=== PATIENT | female | born 1970 | race Caucasian/White ===

== ENCOUNTER → 2019-08-22 10:04 | Outpatient (BNVA) | payer MEDICARE, SELFPAY | PROVIDERS: Family Provider Nurse Practitioner Family; PCP Nurse Practitioner Family; Visit Provider Nurse Practitioner Psychiatric/Mental Health | DX: F33.2 Major depressive disorder, recurrent severe without psychotic features (principal) | CPT/HCPCS: 99214 ==

== ENCOUNTER → 2019-09-01 14:49 | Outpatient (BNVA) | payer MEDICARE, SELFPAY | PROVIDERS: Family Provider Nurse Practitioner Family; PCP Nurse Practitioner Family; Visit Provider Specialist | DX: G25.0 Essential tremor (principal); G25.81 Restless legs syndrome; Z87.891 Personal history of nicotine dependence | CPT/HCPCS: 96116; 99214 ==

== ENCOUNTER 2019-09-16 20:00 | Outpatient (CLI) | payer MEDICARE, SELFPAY | END 2019-09-16 20:01 | disposition home or self-care (01) | LOC: SLEEP 09-17 10:57 | PROVIDERS: Family Provider Nurse Practitioner Family; PCP Nurse Practitioner Family; Visit Provider Specialist | DX: G47.30 Sleep apnea, unspecified (principal) | CPT/HCPCS: 95810 ==

== ENCOUNTER 2019-11-28 08:39 | Outpatient (CLI) | payer MEDICARE, SELFPAY ==
--- NOTE | 2019-11-28 08:45 | MR_ITS ---
WS: [id number] MRI LUMBAR SPINE NONCONTRAST HISTORY: Low back pain COMPARISON: 03/17/2019 TECHNIQUE: Sagittal and axial multisequence imaging is submitted. Increase in thoracic kyphosis. Very slight LEFT convex curvature of the lumbar spine. Posterior align ment is normal. Moderate degenerative disc disease at L4-5. There is disc space narrowing and desiccation with chroni c endplate changes. Mild progression since the prior examination. Remaining disc spaces are normal. No fractures. Conus terminates normally at L1-2 disc level. L1-L2: Normal. L2-L3: Normal. L3-L4: Mild annular disc bulging with a small to moderate central disc protrusion causing concavity o f the ventral thecal sac and deformity. There is an additional smaller disc osteophyte in the LEFT fo ramen. Mild facet disease. Mild central stenosis with mild LEFT subarticular and foraminal stenosis. L4-L5: Mild annular disc bulging. Moderate size central to RIGHT paracentral disc protrusion with con tact and deformity of the RIGHT lateral thecal sac and subarticular recess stenosis. Disc protrusion is abutting the L4 and L5 nerve roots on the RIGHT. Mild LEFT foraminal stenosis. L5-S1: Moderate central disc protrusion. Deformity of the ventral thecal sac without significant sten osis. Paraspinal soft tissues are negative. MR/MR lumbar spine wo con* [id number] IMPRESSION: 1. Moderate size central to RIGHT paracentral disc protrusion at L4-5 with enc roachment into the RIGHT lateral recess. Disc protrusion is contacting the L4 a nd L5 nerve roots on the RIGHT was stenosis. No change. 2. Small central disc protrusion at L5-S1 may have slightly increased in size since the prior study. No significant stenosis. 3. Small to moderate central disc protrusion at L3-4 resulting in mild central and LEFT subarticular and foraminal stenosis. No change.
--- NOTE | 2019-11-28 11:00 | XR_ITS ---
WS: [id number] XR lumbar spine f/e only [id number] REASON FOR EXAM: Low back pain FINDINGS: Degenerated disc changes are identified L4-L5. Anterior spurring is seen this segment. And there is spurring seen at the anterior L3-L4 level. A mild scoliotic curve to the left is seen in the L3-L4-5 region. Flexion-extension views appear to be essentially normal. XR/XR lumbar spine f/e only [id number] IMPRESSION: Degenerated disc changes L4-L5 findings mild scoliotic curve convex to the left L3-S1.
== END 2019-11-28 08:40 | disposition home or self-care (01) ==
LOC: RADWPI 08:55
PROVIDERS: Family Provider Nurse Practitioner Family; PCP Nurse Practitioner Family; Visit Provider Licensed Practical Nurse
DX: M51.26 Other intervertebral disc displacement, lumbar region (principal); M51.27 Other intervertebral disc displacement, lumbosacral region
CPT/HCPCS: 72120; 72148

== ENCOUNTER → 2019-12-15 07:22 | Outpatient (BNVA) | payer MEDICARE, SELFPAY | PROVIDERS: Family Provider Nurse Practitioner Family; PCP Nurse Practitioner Family; Visit Provider Nurse Practitioner Psychiatric/Mental Health | DX: F33.2 Major depressive disorder, recurrent severe without psychotic features (principal) | CPT/HCPCS: 99213 ==

== ENCOUNTER 2019-12-19 13:09 | Outpatient (CLI) | payer MEDICARE, SELFPAY ==
--- NOTE | 2019-12-19 13:20 | MM_ITS ---
WS: [id number] BILATERAL SCREENING DIGITAL MAMMOGRAM WITH CAD HISTORY: SCREENING COMPARISON: 02/28/2019 and 08/29/2018 and 12/24/2015 Bilateral CC and MLO views submitted. Computer aided detection analyzed. Breast composition: The breasts are heterogeneously dense, which may obscure small masses. No suspici ous masses, microcalcifications or architectural distortion. Stable calcifications and asymmetries th roughout both breasts. MM/[place] [id number] IMPRESSION: BI-RADS: 2-Benign FOLLOW UP: 1 Year Follow-up
== END 2019-12-19 13:10 | disposition home or self-care (01) ==
LOC: RADSHAW 13:14
PROVIDERS: PCP Nurse Practitioner Family; Visit Provider Nurse Practitioner Family
DX: Z12.31 Encounter for screening mammogram for malignant neoplasm of breast (principal)
CPT/HCPCS: 77067

== ENCOUNTER 2020-01-28 09:09 | Outpatient (CLI) | payer MEDICARE, SELFPAY ==
--- NOTE | 2020-01-28 09:20 | US_ITS ---
WS: [id number] Complete ABDOMINAL ULTRASOUND HISTORY: HEPATOMEGALY COMPARISON: None available. Liver: 16.0 cm in length. Liver is normal size and echogenicity with no mass or intrahepatic dilatati on. Gallbladder: Normally distended with no gallstones, wall thickening or pericholecystic fluid. Gallbladder wall thickness: 0.2 cm. Pancreas: Normal size and echogenicity. CBD: 0.4 cm. Right kidney: 11.5 cm x 5.2 cm x 4.0 cm. No mass, cortical thickening or hydronephrosis. Left kidney: 9.9 cm x 5.3 cm x 5.2 cm. No mass, cortical thickening or hydronephrosis. Spleen: Spleen is top normal size. Abdominal aorta and IVC are within normal limits. No ascites. US/US abdomen complete* [id number] IMPRESSION: 1. Spleen is top normal size. 2. Study is otherwise negative.
== END 2020-01-28 09:10 | disposition home or self-care (01) ==
LOC: US 09:13
PROVIDERS: PCP Nurse Practitioner Family; Visit Provider Nurse Practitioner Family
DX: R16.0 Hepatomegaly, not elsewhere classified
CPT/HCPCS: 76700

== ENCOUNTER → 2020-02-18 12:00 | Outpatient (BNVA) | payer MEDICARE, SELFPAY | PROVIDERS: PCP Nurse Practitioner Family; Visit Provider Licensed Practical Nurse | DX: M51.17 Intervertebral disc disorders with radiculopathy, lumbosacral region (principal); G60.8 Other hereditary and idiopathic neuropathies | CPT/HCPCS: 99214 ==

== ENCOUNTER → 2020-03-02 12:49 | Outpatient (BNVA) | payer MEDICARE, SELFPAY | PROVIDERS: PCP Nurse Practitioner Family; Visit Provider Licensed Practical Nurse | DX: G25.0 Essential tremor (principal); M51.17 Intervertebral disc disorders with radiculopathy, lumbosacral region; M48.062 Spinal stenosis, lumbar region with neurogenic claudication; G60.8 Other hereditary and idiopathic neuropathies | CPT/HCPCS: 99214 ==

== ENCOUNTER 2020-03-19 12:42 | Outpatient (CLI) | payer MEDICARE, SELFPAY ==
--- NOTE | 2020-03-19 13:01 | MR_ITS ---
WS: [id number] MRI BRAIN WITH AND WITHOUT CONTRAST HISTORY: ESSENTIAL TREMOR COMPARISON: None available. TECHNIQUE: Multiplanar imaging performed through the brain with Prohance 17 ml's IV. No acute infarcts are seen. Osullivan-white matter differentiation is well preserved. There are very few s cattered T2 and FLAIR signal hyperintensities in subcortical white matter. No prior infarct. No susceptibility artifacts or prior lacunar infarcts. Ventricles and extra-axial spaces are normal. Clivus and pituitary gland are normal. Visualized posterior fossa and brainstem are also normal. Nonmass-like areas of enhancement in the anterior LEFT temporal lobe cerebellum, just to the RIGHT of midline. Suspect these are probably related to a small venous angiomas. Dural venous sinuses are normal. Paranasal sinuses: No air-fluid levels. Soft tissue thickening in the floor the posterior and RIGHT l ateral sphenoid sinus with minimal enhancement. Inseparable from the clivus. Soft tissue abuts the RI GHT common carotid artery through the cavernous sinus. Mastoid air cells: Normal. Calvarium and scalp: Normal. MR/MR head wo/w con [id number] IMPRESSION: 1. No acute infarct or mass. 2. Small venous angiomas in the LEFT temporal and RIGHT cerebellum. 3. Increased soft tissue thickening in the posterior RIGHT sphenoid sinus with poor visualization of the adjacent clivus. This may all be related to sinus di sease. Recommend dedicated sinus CT to further evaluate the location and extent of the soft tissue thickening and margins of the clivus.
== END 2020-03-19 12:43 | disposition home or self-care (01) ==
LOC: RADWPI 12:50
PROVIDERS: Family Provider Nurse Practitioner Family; PCP Nurse Practitioner Family; Visit Provider Licensed Practical Nurse
DX: G25.0 Essential tremor (principal); Q28.3 Other malformations of cerebral vessels
CPT/HCPCS: 70553; A9579

== ENCOUNTER → 2020-03-23 11:04 | Outpatient (BNVA) | payer MEDICARE, SELFPAY | PROVIDERS: Family Provider Nurse Practitioner Family; PCP Nurse Practitioner Family; Visit Provider Licensed Practical Nurse | DX: M48.062 Spinal stenosis, lumbar region with neurogenic claudication (principal); G60.8 Other hereditary and idiopathic neuropathies; J34.9 Unspecified disorder of nose and nasal sinuses; M51.17 Intervertebral disc disorders with radiculopathy, lumbosacral region; G25.0 Essential tremor | CPT/HCPCS: 99214 ==

== ENCOUNTER 2020-03-31 15:16 | Outpatient (CLI) | payer MEDICARE, SELFPAY ==
--- NOTE | 2020-03-31 15:28 | CT_ITS ---
WS: [id number] CT PARANASAL SINUSES HISTORY: Sinus soft tissue thickening TECHNIQUE: Contiguous 2.5 mm axial images obtained through the sinuses. Images are reconstructed in s agittal and coronal planes. All CT scans at [facility] use at least one of these dose opt imization techniques: automated exposure control; mA and/or kV adjustment per patient size (includes targeted exams where dose is matched to clinical indication); or iterative reconstruction. DLP: 331.05 mGycm COMPARISON: MRI 03/19/2020 Frontal sinuses: Clear. Sphenoid sinus: Clear. Ethmoid sinuses: Clear. Maxillary sinus: Clear. Ostiomeatal unit: No soft tissue obstruction. Slight LEFT knee deviation of the nasal septum and a small 5 mm spur extending to the LEFT. The asymmetry noted by MRI is associated with the posterior RIGHT sphenoid sinus and corresponds to a symmetric hyperplastic bone involving the clivus. The cortex is intact and this is probably developme ntal. May be an area of fibrous dysplasia. CT/CT sinus wo con* [id number] IMPRESSION: 1. Asymmetry seen on the recent MRI corresponds to an asymmetric appearance of the clivus. 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 2. No paranasal sinus disease.
== END 2020-03-31 15:17 | disposition home or self-care (01) ==
LOC: RADWPI 15:19
PROVIDERS: Family Provider Nurse Practitioner Family; PCP Nurse Practitioner Family; Visit Provider Licensed Practical Nurse
DX: J34.9 Unspecified disorder of nose and nasal sinuses (principal)
CPT/HCPCS: 70486

== ENCOUNTER → 2020-04-09 07:50 | Outpatient (BNVA) | payer MEDICARE, SELFPAY | PROVIDERS: Family Provider Nurse Practitioner Family; PCP Nurse Practitioner Family; Visit Provider Nurse Practitioner Psychiatric/Mental Health | DX: F33.2 Major depressive disorder, recurrent severe without psychotic features (principal); F41.1 Generalized anxiety disorder | CPT/HCPCS: 99213 ==

== ENCOUNTER → 2020-08-05 07:30 | Outpatient (BNVA) | payer MEDICARE, SELFPAY | PROVIDERS: Family Provider Nurse Practitioner Family; PCP Nurse Practitioner Family; Visit Provider Nurse Practitioner Psychiatric/Mental Health | DX: F33.2 Major depressive disorder, recurrent severe without psychotic features (principal) | CPT/HCPCS: 99213 ==

== ENCOUNTER → 2020-11-08 12:38 | Outpatient (BNVA) | payer MEDICARE, SELFPAY | PROVIDERS: Family Provider Nurse Practitioner Family; PCP Nurse Practitioner Family; Visit Provider Specialist | DX: G25.0 Essential tremor (principal); E11.40 Type 2 diabetes mellitus with diabetic neuropathy, unspecified; Z79.84 Long term (current) use of oral hypoglycemic drugs; Z87.891 Personal history of nicotine dependence | CPT/HCPCS: 99213; 99214 ==

== ENCOUNTER → 2020-11-25 07:29 | Outpatient (BNVA) | payer MEDICARE, SELFPAY | PROVIDERS: Family Provider Nurse Practitioner Family; PCP Nurse Practitioner Family; Visit Provider Nurse Practitioner Psychiatric/Mental Health | DX: F33.2 Major depressive disorder, recurrent severe without psychotic features (principal) | CPT/HCPCS: 99214 ==

== ENCOUNTER 2020-12-21 20:15 | Emergency (ER) | payer MEDICARE, SELFPAY ==
[2020-12-21 20:49] VITALS: BP 184/82; PULSE 68; RESP 16; TEMP 36.4; O2SAT 100; BMI 29.1
--- NOTE | 2020-12-21 21:18 | W.ED.GENADLT ---
HPI - General Adult General: Chief complaint: General Medical Stated complaint: low hemoglobin, needs transfusion Time Seen by Provider: 12/21/20 21:10 Source: patient Mode of arrival: ambulatory Limitations: no limitations History of Present Illness: HPI narrative: 50-year-old female has a history of chronic anemia. States she has been iron supplementation but she stopped taking it a while past. States she has had some slight weakness but just had labs drawn earlier today for general lab draw and her hemoglobin was 6.1. Her nurse practitioner sent her to the ER for blood transfusion. She denies any blood in her stools. Patient's vital signs here are stable. Associated symptoms: Deny chest pain, dyspnea, headache(s), nausea, rash or vomiting Review of Systems Const: Denies: fever(s), chills, body aches or change in appetite Eyes: Denies: blurry vision or eye discomfort ENMT: Denies: throat pain or dental pain Card: Denies: chest pain Resp: Denies: dyspnea GI: Denies: abdominal pain, nausea, vomiting or diarrhea : Denies: dysuria Musc: Denies: neck pain or back pain Skin/Breast: Denies: rash Neuro: Denies: headache(s) Psych: Denies: depression Ja/Lymph: Denies: easy bruising All/Imm: Denies: urticaria PFSH ED PFSH: Medical History (Updated 12/21/20 @ 22:52 by Juanito Fisher MD) Diabetes History of amputation of toe Intervertebral disc disorder with radiculopathy of lumbosacral region Lumbar stenosis with neurogenic claudication Major depressive disorder, recurrent severe without psychotic features Obstructive sleep apnea Peripheral sensory-motor axonal polyneuropathy Sinus disease Surgical History History of carpal tunnel surgery History of eye surgery History of gastric bypass 2018 History of hernia repair History of orthopedic surgery History of tubal ligation Family History Grandmother Stroke Family/Other Stroke Mother Diabetes Heart disease Hypertension Cancer Father Diabetes Social History Smoking and tobacco status: former smoker Alcohol intake: never Household members: spouse and children Marital status: Current occupational status: disabled History of recent travel: No Physical Exam Const: COMMON NORMALS: no acute distress, patient oriented x3 and healthy appearing HENMT: COMMON NORMALS: normocephalic and atraumatic HEAD & SCALP: normocephalic and atraumatic Eye: COMMON NORMALS: Equal, round and reactive pupils present and EOMs intact bilaterally PUPIL: Yes Equal, round and reactive pupils present Neck/C-Spine: COMMON NORMALS: full ROM and supple Chest: COMMONS NORMALS: normal inspection of the chest and normal palpation of entire chest wall Resp: COMMON NORMALS: normal respiratory effort, No retractions, No use of accessory muscles and clear to auscultation bilaterally AUSCULTATION: clear to auscultation bilaterally Cardio: COMMON NORMALS: regular rate, regular rhythm and No murmurs present (Cardio) RATE: regular rate RHYTHM: regular rhythm GI: COMMON NORMALS: Normal to inspection, nondistended, normoactive bowel sounds present, Soft to palpation, non-tender and no masses PALPATION: Yes Soft to palpation Extremity: COMMON NORMALS: normal to inspection and full ROM Neuro: COMMON NORMALS: patient oriented x3, moves all extremities and no focal motor deficits Psych: COMMON NORMALS: mental status grossly normal, Normal thought process present and cooperative THOUGHT PROCESS: Normal thought process present Skin: COMMON NORMALS: no rashes or lesions noted and no wounds GENERAL SKIN EXAM: no rashes or lesions noted Course Vital Signs: Vital signs: Vital Signs Temperature 97.6 F 12/21/20 20:49 Pulse Rate 68 12/21/20 20:49 Respiratory Rate 16 12/21/20 20:49 Blood Pressure 184/82 12/21/20 20:49 Pulse Oximetry 100 12/21/20 20:49 MDM - General Adult MDM Narrative: Medical decision making narrative: Patient presents here with anemia that is likely chronic in nature. We will transfuse her 2 units here and discharge her home. She is to start taking her iron supplements again. She is to follow-up with PCP and return if worsening. She has no signs of hemorrhaging. Lab Data: Labs: Lab Results 12/21/20 12/21/20 12/21/20 Range/Units 21:45 22:18 22:18 WBC 6.6 (4.0-10.0) 10^3/ uL RBC 3.12 L (4.1-5.3) 10^6/u L Hgb 6.3 L* (11.5-15.3) g/dL Hct 22.4 L (37.0-47.0) % MCV 71.8 L (81-99) fL MCH 20.2 L (28.0-34.0) pg MCHC 28.1 L (30.0-36.0) g/dL RDW 16.1 H (12.1-15.1) % Plt Count 398 (130-400) 10^3/c mm MPV 9.1 (7.4-10.4) fL Neut % (Auto) 47.2 % Lymph % (Auto) 42.3 % [place] % (Auto) 7.2 % Eos % (Auto) 2.4 % Baso % (Auto) 0.6 % Neut # (Auto) 3.09 (1.8-7.7) 10^3/u L Lymph # (Auto) 2.8 (0.8-4.8) 10^3/u L [place] # (Auto) 0.5 (0.2-0.9) 10^3/u L Eos # (Auto) 0.2 (0.0-0.8) 10^3/u L Baso # (Auto) 0.0 (0.0-0.1) 10^3/u L Nucleated RBC % (a uto) 0 % Nucleated RBCs # 0.0 /100WBC Sodium 134 L (136-145) mmol/L Potassium 4.1 (3.5-5.1) mmol/L Chloride 97 L (98-107) mmol/L Carbon Dioxide 27 (22-29) mmol/L Anion Gap 14.1 (5-19) BUN 16 (6-20) mg/dL Creatinine 1.0 H (0.5-0.9) mg/dL GFR Calculation 58.7 L (90-130) mL/min Glucose 121 H (65-115) mg/dL Calculated Osmolal ity 280 L (285-295) mOsm/k g Calcium 9.5 (8.5-10.5) mg/dL Blood Type O Positive Rho(D) Type Positive / 4+ Antibody Screen Negative Crossmatch See Detail Discharge Plan Discharge Patient Disposition: Home Clinical Impression: Anemia Qualifiers: Anemia type: unspecified type Qualified Code(s): D64.9 - Anemia, unspecified Condition: Stable Prescriptions: No Action timolol 0.5 % drops 1 drp ophthalmic (eye) BID RF: 0 duloxetine [Cymbalta] 60 mg capsule,delayed release(DR/EC) 120 mg PO .morning Qty: 180 RF: 2 bupropion HCl [Wellbutrin XL] 300 mg tablet extended release 24 hr 300 mg PO QAM Qty: 90 RF: 2 ropinirole 5 mg tablet 5 mg PO .HS RF: 0 tramadol 50 mg tablet 50 mg PO BID PRNRF: 0 tizanidine 4 mg capsule 6 mg PO TID PRN (Reason: muscle spasticity) RF: 0 losartan 25 mg tablet 25 mg PO DAILY RF: 0 atorvastatin 40 mg tablet 40 mg PO .HS RF: 0 pregabalin [Lyrica] 150 mg capsule 150 mg PO BID RF: 0 ergocalciferol (vitamin D2) [Vitamin D2] 1,250 mcg (50,000 unit) capsule 1,250 mcg PO .Bimonthly RF: 0 albuterol sulfate [ProAir HFA] 90 mcg/actuation HFA aerosol inhaler 2 puff INHALATION Q4H PRNRF: 0 ammonium lactate 12 % cream 1 applic TOPICAL BID RF: 0 metformin 500 mg tablet extended release 24 hr 1,000 mg PO BID RF: 0 calcium 600 + d1 PO DAILY RF: 0 naproxen 500 mg tablet 500 mg PO DAILY RF: 0 Lumigan 0.01 % drops 1 drop ophthalmic (eye) DAILY RF: 0 primidone 50 mg tablet 100 mg PO BID 90 Days Qty: 360 RF: 2 melatonin 3 mg capsule 3 mg PO .QHS PRN (Reason: sleep) Qty: 30 RF: 3 Discharge Orders: Discharge ED (Routine); Ordered 12/21/20 Ordered By: Juanito Fisher Referrals: Laila Underwood [facility] [Primary Care Provider] - 1-3 days Discharge Diet: Advance as tolerated Discharge Activity: Resume usual activity Patient Instructions: Anemia (ED) Coding Level of Care Code 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
[2020-12-21 22:22] LABS: Basophils % 0.6 %; Eosinophils # 0.2 10^3/uL (0.0-0.8); Eosinophils % 2.4 %; Hematocrit 22.4 % (37.0-47.0); Lymphocytes # 2.8 10^3/uL (0.8-4.8); Lymphocytes % 42.3 %; Mean Corpuscular HGB Conc 28.1 g/dL (30.0-36.0); Mean Corpuscular Hemoglobin 20.2 pg (28.0-34.0); Mean Corpuscular Volume 71.8 fL (81-99); Mean Platelet Volume 9.1 fL (7.4-10.4); Monocytes # 0.5 10^3/uL (0.2-0.9); Monocytes % 7.2 %; Neutrophils # 3.09 10^3/uL (1.8-7.7); Neutrophils % 47.2 %; Nucleated Red Blood Cells % 0 %; Platelet Count 398 10^3/cmm (130-400); Red Blood Count 3.12 10^6/uL (4.1-5.3); Red Cell Distribution Width 16.1 % (12.1-15.1); White Blood Count 6.6 10^3/uL (4.0-10.0)
[2020-12-21 22:24] LABS: Hemoglobin 6.3 g/dL (11.5-15.3)
[2020-12-21 22:39] LABS: Anion Gap 14.1 (5-19); Blood Urea Nitrogen 16 mg/dL (6-20); Calcium 9.5 mg/dL (8.5-10.5); Carbon Dioxide 27 mmol/L (22-29); Chloride 97 mmol/L (98-107); Glomerular Filtration Rate 58.7 mL/min (90-130); Glucose 121 mg/dL (65-115); Osmolality Calculated 280 mOsm/kg (285-295); Potassium 4.1 mmol/L (3.5-5.1); Sodium 134 mmol/L (136-145)
[2020-12-21 23:19] VITALS: BP 156/99; PULSE 66; RESP 18; TEMP 36.6
[2020-12-21 23:24] VITALS: BP 156/99; PULSE 65; RESP 14; O2SAT 99
[2020-12-21] MEDS: sodium chloride 0.9% (100 ml) 100 ML 10 ML (23:26)
[2020-12-21 23:38] VITALS: BP 160/83; PULSE 63; RESP 16; TEMP 36.6
[2020-12-21 23:53] VITALS: BP 158/84; PULSE 67; RESP 18; TEMP 37; O2SAT 100
[2020-12-22] VITALS (7 sets, daily range): BP systolic 130–157; BP diastolic 58–88; PULSE 57–87; RESP 16–18; TEMP 36.7; O2SAT 94–100
--- NOTE | 2020-12-22 01:01 | PC.NURSE ---
starting for 1st 15 at 50 ml/hr
== END 2020-12-22 02:41 | disposition home or self-care (01) ==
PROVIDERS: Emergency Provider Emergency Medicine; PCP Nurse Practitioner Family
DX: D64.9 Anemia, unspecified (principal); Z79.84 Long term (current) use of oral hypoglycemic drugs; E11.9 Type 2 diabetes mellitus without complications; Z87.891 Personal history of nicotine dependence
CPT/HCPCS: 36415; 36430; 80048; 85025; 86850; 86900; 86920; 99284; P9016

== ENCOUNTER 2021-01-05 11:32 | Outpatient (CLI) | payer MEDICARE, SELFPAY ==
[2021-01-05 12:21] LABS: Basophils # 0.1 10^3/uL (0.0-0.1); Basophils % 1.4 %; Eosinophils # 0.1 10^3/uL (0.0-0.8); Eosinophils % 2.2 %; Hematocrit 29.8 % (37.0-47.0); Hemoglobin 8.5 g/dL (11.5-15.3); Lymphocytes # 0.9 10^3/uL (0.8-4.8); Lymphocytes % 23.3 %; Mean Corpuscular HGB Conc 28.5 g/dL (30.0-36.0); Mean Corpuscular Volume 80.8 fL (81-99); Mean Platelet Volume 9.3 fL (7.4-10.4); Monocytes # 0.3 10^3/uL (0.2-0.9); Monocytes % 8.1 %; Neutrophils # 2.38 10^3/uL (1.8-7.7); Neutrophils % 64.5 %; Nucleated Red Blood Cells % 0 %; Platelet Count 288 10^3/cmm (130-400); Red Blood Count 3.69 10^6/uL (4.1-5.3); Red Cell Distribution Width 22.5 % (12.1-15.1); White Blood Count 3.7 10^3/uL (4.0-10.0)
--- NOTE | 2021-01-05 14:05 | ONC CON_ITS ---
Dr. Corona New Patient Note Patient: Otilia Woods Unit #: [id number]: [id number] Dicatated By: Gerry Corona M.D.Date of Visit: Jan 05, 2021 Onc MED New Patient/Consult Referring Physician: Aleks Salagdo History of Present Illness: Otilia Woods, is a 50-year-old female with a history of gastric bypass for obesity done in 2018, as per patient she was on oral iron for some time then her PMD took her off, not sure about her hemoglobin level at that time. And recently she got generalized weakness and fatigue which was progressive lab work-up done on December 21, 2020 showed white blood count 3.7 hemoglobin 6.1 g adequate 2.2 platelets 432,000 MCV 72.8, iron studies showed iron saturation is 3%, ferritin 1, iron 14, TIBC 433, creatinine 1.0 patient was given 2 units of packed RBCs for symptomatic severe iron deficiency anemia and started on oral iron, patient is complaining of somewhat indigestion, denies any history of fresh blood per rectum, as per patient she underwent Hemoccult testing it was negative. Denies any hemoptysis or hematemesis, denies any hematuria or dysuria, denies any jaundice, denies any abdominal pain, denies any recent weight loss rather weight gain because of being inactive. Denies any night sweats, denies any recurrent fever, denies any chest pain or palpitation, feeling much better since blood transfusion.Patient never had blood transfusion done prior to one done recently. No history of parenteral iron. Denies any peripheral numbness Past Medical History: Ms. Woods's medical history consists of chronic obstructive pulmonary disease, chronic pain, depression, glaucoma, hyperlipidemia, lumbar radiculopathy, obesity, obstructive sleep apnea, osteoarthritis, restless leg syndrome, type II diabetes, and vitamin D deficiency. Past Surgical History: Ms. Woods's surgical/procedural history consists of amputation of right second toe, carpal tunnel release, gastric bypass, hernia repair, orthopedic surgery, right eye surgery, and tubal ligation. Medications: Albuterol Sulfate 2 Puff(s) (of 108 (90 base) mcg/act) Aerosol Powder, Breath Activated Inhalation q 4 hours, Ammonium Lactate 1 Applicatorful (of 12 %) Cream Topical b.i.d., Atorvastatin Calcium 1 Tablet (of 40 mg) Oral daily, Azelastine HCl 2 [place](s) (of 137 mcg/spray) Solution Nasal b.i.d., buPROPion HCl ER (XL) 1 Tablet (of 300 mg) Tablet SR 24 HR Oral daily, Cymbalta 2 Capsule (of 60 mg) Capsule Delayed Release Particles Oral daily, Daily Value Multivitamin 1 Tablet Oral daily, Ferrous Sulfate 1 Tablet (of 325 (65 fe) mg) Oral daily, Glucophage XR 2 Tablet (of 500 mg) Tablet SR 24 HR Oral daily, Levocetirizine Dihydrochloride 1 Tablet (of 5 mg) Oral daily, Losartan Potassium 1 Tablet (of 25 mg) Oral daily, Lyrica 1 Capsule (of 150 mg) Oral b.i.d., Naproxen 1 Tablet (of 500 mg) Oral daily, Primidone 2 Tablet (of 50 mg) Oral b.i.d., Requip 1 Tablet (of 5 mg) Oral at bedtime, Zanaflex 1.5 Tablet (of 4 mg) Oral PRN Allergies: Gabapentin, Morphine Sulfate, Neurontin, and Penicillins. Social History: Ms. Woods is . Ms. Woods no longer smokes. She has no history of drinking. Family History: Ms. Woods's mother at age 80: heart disease, and hypertension, and lymphoma, and type II diabetes. Ms. Woods's father at age 85: heart disease, and type II diabetes. Review Of Symptoms: Review of Systems is not available for this patient. Vital Signs: Performed on Jan 05, 2021 13:28: 4, 0, 30.29 (HIGH), 1.90 sq.m, 65 in, 99 %, 76 /min, 18 /min, 114/68 mm(hg), 98.1 F (LOW), and 182 lbs (HIGH). Performance Status: 0 - Fully active, able to carry on all predisease activities without restrictions. (ECOG) Physical Examination: ENMT - No mouth sores, no thrush, no jaundice, Respiratory - Lungs are clear to auscultation, Cardiovascular - Regular rate and rhythm of heart, Abdomen - Soft, bowel sounds present, Extremities - No visible edema or rash. Lab/Imaging: Most recent lab results are not available for this patient. Impression: Microcytic hypochromic anemia due to severe iron deficiency as anemia work-up done on December 21, 2020 showed ferritin 1, iron saturation 3%, iron 14, TIBC 433. Etiology of iron deficiency anemia could be multifactorial but most likely due to iron malabsorption due to gastric bypass surgery which was done in 2018 obesity. Other possibility could be chronic blood loss from GI tract. Mild leukopenia etiology again unclear could be nutritional like B12 deficiency or myelodysplastic-like changes due to copper deficiency Status post 2 units of packed RBC on December 21, 2020 for severe iron deficiency anemia hemoglobin was 6.1 g Plan: Discussed with patient regarding her labs white blood count 3.7 hemoglobin 8.5 g compared to 6.1 g on December 21, 2020, since that patient received 2 units of packed RBC, hematocrit 29.8 platelets 288 ANC 2380 Clinically, patient is doing reasonably well since she received 2 units of packed RBC, at this point, will consider discontinue oral iron rather consider parenteral iron with Injectafer 750 mg IV weekly x2 for better absorption and tolerance, will obtain approval from her insurance prior to infusion As far as leukopenia is concerned, etiology is unclear could be due to low B12 or copper deficiency, at this point we will check copper level/zinc level and then she will return to clinic in 1 month after second dose of Injectafer with CBC and iron studies, will also consider referring to GI for EGD and colonoscopy for severe iron deficiency anemia to rule out chronic GI blood loss. Signed By: Gerry Corona M.D. <<Signature on File>>
[2021-01-05 23:48] LABS: Ferritin 12 ng/mL (15-150); Iron 38 ug/dL (37-145); Percent Saturation 11.4 % (20-50); Total Iron Binding Capacity 333 mcg/dl; Unsaturated Iron Binding 295 ug/dL (112-347)
[2021-01-06 00:03] LABS: Vitamin B12 667 pg/mL (232-1245)
[2021-01-12 08:03] LABS: Zinc Level, Serum or Plasma 62 mcg/dL (60-130)
[2021-01-12 18:47] LABS: Copper Level 163 mcg/dL (70-175)
== END 2021-01-05 11:33 | disposition home or self-care (01) ==
PROVIDERS: PCP Nurse Practitioner Family; Visit Provider Internal Medicine Hematology & Oncology
DX: D50.9 Iron deficiency anemia, unspecified (principal); K90.9 Intestinal malabsorption, unspecified; D51.9 Vitamin B12 deficiency anemia, unspecified; E61.0 Copper deficiency; R79.89 Other specified abnormal findings of blood chemistry; Z79.899 Other long term (current) drug therapy
CPT/HCPCS: 36415; 82525; 82607; 82728; 83540; 83550; 84630; 85025; 99204

== ENCOUNTER 2021-02-10 14:55 | Outpatient (CLI) | payer MEDICARE, SELFPAY ==
[2021-02-10] MEDS: ferric carboxy (IVPB) 750 MG in sodium chloride 0.9% (100 ml) 100 ML 460 MG IV (15:11)
[2021-02-10] MEDS: sodium chloride 0.9% (100 ml) 100 ML 400 ML (15:11)
== END 2021-02-10 14:56 | disposition home or self-care (01) ==
PROVIDERS: PCP Nurse Practitioner Family; Visit Provider Internal Medicine Hematology & Oncology
DX: D50.9 Iron deficiency anemia, unspecified (principal); Z79.899 Other long term (current) drug therapy
CPT/HCPCS: 96365; J1439

== ENCOUNTER 2021-02-17 05:55 | Outpatient (CLI) | payer MEDICARE, SELFPAY ==
[2021-02-17] MEDS: sodium chloride 0.9% (100 ml) 100 ML 75 ML (14:47)
[2021-02-17] MEDS: ferric carboxy (IVPB) 750 MG in sodium chloride 0.9% (100 ml) 100 ML 460 MG IV (15:00)
== END 2021-02-17 05:56 ==
LOC: ONCMED 05:59
PROVIDERS: PCP Nurse Practitioner Family; Visit Provider Internal Medicine Hematology & Oncology
DX: F33.2 Major depressive disorder, recurrent severe without psychotic features (principal)
CPT/HCPCS: 96365; 99214; J1439

== ENCOUNTER 2021-03-14 15:08 | Outpatient (CLI) | payer MEDICARE, SELFPAY ==
[2021-03-14 15:59] LABS: Basophils % 0.8 %; Eosinophils # 0.2 10^3/uL (0.0-0.8); Eosinophils % 3.7 %; Hematocrit 32.3 % (37.0-47.0); Hemoglobin 9.9 g/dL (11.5-15.3); Lymphocytes # 1.5 10^3/uL (0.8-4.8); Lymphocytes % 30.9 %; Mean Corpuscular HGB Conc 30.7 g/dL (30.0-36.0); Mean Corpuscular Hemoglobin 25.9 pg (28.0-34.0); Mean Corpuscular Volume 84.6 fl (81-99); Mean Platelet Volume 9.8 fL (7.4-10.4); Monocytes # 0.3 10^3/uL (0.2-0.9); Monocytes % 6.9 %; Neutrophils # 2.81 10^3/uL (1.8-7.7); Neutrophils % 57.1 %; Nucleated Red Blood Cells % 0 %; Platelet Count 310 10^3/cmm (130-400); Red Blood Count 3.82 10^6/uL (4.1-5.3); Red Cell Distribution Width 20.6 % (12.1-15.1); White Blood Count 4.9 10^3/uL (4.0-10.0)
[2021-03-14 16:33] LABS: Ferritin 494 ng/mL (15-150); Iron 36 ug/dL (37-145); Percent Saturation 19.6 % (20-50); Total Iron Binding Capacity 183 mcg/dl; Unsaturated Iron Binding 147 ug/dL (112-347)
== END 2021-03-14 15:09 | disposition home or self-care (01) ==
LOC: ONCMED 15:11
PROVIDERS: PCP Nurse Practitioner Family; Visit Provider Internal Medicine Hematology & Oncology
DX: D50.9 Iron deficiency anemia, unspecified (principal)
CPT/HCPCS: 36415; 82728; 83540; 83550; 85025

== ENCOUNTER 2021-03-17 11:08 | Day surgery (SDC) | payer MEDICARE, SELFPAY ==
[2021-03-15 12:18] VITALS: BMI 29.9
--- NOTE | 2021-03-17 11:28 | W.PM.OPSFHP ---
Same Day Surgery H&P Indication for Procedure/HPI DATE OF PROCEDURE: March 17, 2021 CHIEF COMPLAINT/INDICATIONFOR SURGICAL PROCEDURE: egd/colon for anemia PREOP DIAGNOSIS: panendoscopy PLANNED PROCEDRUE: Operation Date: 03/17/21 12:15 Proposed Procedures p EGD [id number] d50.9 z89.84(Not Applicable) - Swapnil Dee MD s Colonoscopy(Not Applicable) - Swapnil Dee MD Medications/Allergies* Home Medications Medication Instructions Recorded Confirmed Type albuterol sulfate 90 mcg/actuation 2 puff INHALATION Q4H PRN gm 08/22/19 03/15/21 History aerosol inhaler ammonium lactate 12 % topical cream 1 applic TOPICAL BID 08/22/19 03/15/21 History atorvastatin 40 mg tablet 40 mg PO .HS tab 08/22/19 03/15/21 History ergocalciferol (vitamin D2) 1,250 1,250 mcg PO .Bimonthly cap 08/22/19 03/15/21 History mcg (50,000 unit) capsule losartan 25 mg tablet 25 mg PO DAILY 08/22/19 03/15/21 History pregabalin 150 mg capsule 150 mg PO BID 08/22/19 03/15/21 History ropinirole 5 mg tablet 5 mg PO .HS tab 08/22/19 03/15/21 History tizanidine 4 mg capsule 6 mg PO TID PRN cap 08/22/19 03/15/21 History tramadol 50 mg tablet 50 mg PO BID PRN 08/22/19 03/15/21 History metformin 500 mg tablet,extended 1,000 mg PO BID tab 10/06/19 03/15/21 History release 24 hr bimatoprost 0.01 % eye drops 1 drop OPHTHALMIC (EYE) DAILY 02/18/20 03/15/21 History calcium 600 + d1 600 unit PO DAILY 04/08/20 03/15/21 History naproxen 500 mg tablet 500 mg PO DAILY tab 08/04/20 03/15/21 History timolol 0.5 % eye drops 1 drp OPHTHALMIC (EYE) BID 08/04/20 03/15/21 History Allergies/Adverse Reactions Allergy/AdvReac Type Severity Reaction Status Date / Time gabapentin AdvReac Severe Makes lose Verified 01/07/21 08:29 hair morphine AdvReac Intermediate Hives Verified 01/07/21 08:29 Penicillins AdvReac Intermediate Hives Verified 01/07/21 08:29 Pertinent History/Comorbid Conditions* Medical History (Updated 01/07/21 @ 08:51 by Swapnil Dee MD) Anemia Diabetes Intervertebral disc disorder with radiculopathy of lumbosacral region Lumbar stenosis with neurogenic claudication Major depressive disorder, recurrent severe without psychotic features Obstructive sleep apnea Peripheral sensory-motor axonal polyneuropathy Sinus disease Surgical History (Updated 01/07/21 @ 08:45 by Swapnil Dee MD) H/O esophagogastroduodenoscopy History of amputation of toe History of carpal tunnel surgery History of colonoscopy with polypectomy year unknown History of eye surgery History of gastric bypass 2017 History of orthopedic surgery History of tubal ligation History of umbilical hernia repair -2001 Family History (Updated 08/26/19 @ 13:44 by Poornima Hays LPN) Diabetes Mother Father Heart disease Mother Cancer Mother Hypertension Mother Stroke Grandmother Family/Other Social History Smoking and tobacco status: never smoked Alcohol intake: never Household members: spouse and children Marital status: Current occupational status: disabled History of recent travel: No Pertinent Exam Findings alert, oriented x 3 and regular rate & rhythm Recommendations Surgery/Procedure today Coding Level of Care Code Acute Seam Taper Machine for Dolores Lawrence
--- NOTE | 2021-03-17 11:41 | ANES.PREANE2 ---
Pre-Anesthetic Assessment Pre-Anesthetic Assessment: Height/Weight: Height 1.65 m Weight 81.647 kg Preop Diagnosis: panendoscopy Proposed Procedure: Operation Date: 03/17/21 12:15 Proposed Procedures p EGD [id number] d50.9 z89.84(Not Applicable) - Swapnil Dee MD s Colonoscopy(Not Applicable) - Swapnil Dee MD Was Beta Brennon taken within 24 hours: N/A Was Clonidine taken within 24 hours: N/A Social: Social History: No alcohol and No tobacco Exam: Pre-Anes Outpt Exam: alert, oriented x 3, clear to auscultation bilaterally and regular rate & rhythm Airway: Submandibular: WNL Cervical ROM: WNL MP: 2 Dentition: Full CV/HEM: CV/HEM: HTN Metabolic: Metabolic: DM and Hyperlipidemia Musc/skel: Musc/skel: Fibromyalgia, Lower Back Pain and OA/DJD Neuropsych: Neuropsych: Depression Anesthetic Plan: ASA status: 3 Anesthesia: MAC Risk of > 500 ml blood loss (7ml/kg in children): No PFSH Anesthesia PFSH: Medical History Anemia Diabetes Intervertebral disc disorder with radiculopathy of lumbosacral region Lumbar stenosis with neurogenic claudication Major depressive disorder, recurrent severe without psychotic features Obstructive sleep apnea Peripheral sensory-motor axonal polyneuropathy Sinus disease Surgical History H/O esophagogastroduodenoscopy History of amputation of toe History of carpal tunnel surgery History of colonoscopy with polypectomy year unknown History of eye surgery History of gastric bypass 2018 History of orthopedic surgery History of tubal ligation History of umbilical hernia repair lap-2001 Family History Grandmother Stroke Family/Other Stroke Mother Diabetes Heart disease Hypertension Cancer Father Diabetes Social History Smoking and tobacco status: never smoked Alcohol intake: never Household members: spouse and children Marital status: Current occupational status: disabled History of recent travel: No Data Anesthesia Cardiac Studies: No Data to Display
[2021-03-17 11:43] VITALS: BP 148/74; PULSE 55; RESP 16; TEMP 36.6; O2SAT 100
[2021-03-17] MEDS: sodium chloride 0.9% 1,000 ML 30 ML IV (12:15)
[2021-03-17 12:20] LABS: Glucose Point of Care 119 mg/dL (70-110)
[2021-03-17 13:51] VITALS: BP 148/81; PULSE 56; RESP 18; TEMP 36.3; O2SAT 100
[2021-03-17 14:02] VITALS: BP 152/109; PULSE 58; RESP 17; O2SAT 98
--- NOTE | 2021-03-17 14:26 | ANE.PACU2 ---
Inpatient post-anesthesia follow up: Airway intact: Yes Vital signs: Temperature 97.3 F Pulse Rate 58 Respiratory Rate 17 Blood Pressure 152/109 Pulse Oximetry 98 Oxygen Delivery Me thod Room Air Oxygen Flow Rate Fraction of Inspir ed Oxygen Hydration adequate: Yes Nausea and vomiting: No Pain level: 1 Mental status: Baseline
== END 2021-03-17 14:15 | disposition home or self-care (01) ==
PROVIDERS: PCP Nurse Practitioner Family; Visit Provider Surgery
PROC: 0DJ08ZZ Inspection of Upper Intestinal Tract, Via Natural or Artificial Opening Endoscopic (ICD-10-PCS; CPT 43235; principal; 2021-03-17 12:15)
PROC: 0DJD8ZZ Inspection of Lower Intestinal Tract, Via Natural or Artificial Opening Endoscopic (ICD-10-PCS; CPT 45378; 2021-03-17 12:15)
DX: D64.9 Anemia, unspecified (principal); K29.70 Gastritis, unspecified, without bleeding; K57.30 Diverticulosis of large intestine without perforation or abscess without bleeding; E11.9 Type 2 diabetes mellitus without complications; F33.9 Major depressive disorder, recurrent, unspecified; G47.33 Obstructive sleep apnea (adult) (pediatric); Z82.49 Family history of ischemic heart disease and other diseases of the circulatory system; Z83.3 Family history of diabetes mellitus; I10 Essential (primary) hypertension; E78.5 Hyperlipidemia, unspecified
CPT/HCPCS: 36416; 43239; 45378; 82962; 88305; 96360; 96361; J2704; J7030

== ENCOUNTER 2021-04-22 09:57 | Outpatient (CLI) | payer MEDICARE, SELFPAY ==
--- NOTE | 2021-04-22 10:05 | MM_ITS ---
WS: [id number] Exam: [place] [id number] Date/Time of Exam: 04/22/2021 10:08 AM Reason For Exam: SCREEN VIEWS: MLO and CC views both breasts. Comparison made with prior exam of 12/24/2015, 02/28/2019 and 12/19/2019. Findings: There was no sign of mass, architectural distortion or suspicious calcification in either breast. Sc attered fibroglandular densities MM/[place] [id number] Impression: BI-RADS: 2-Benign FOLLOW-UP: 1 Year Follow-up This mammogram was also analyzed by the Computer Aided Detection System R2 Imag e Stock Mover.
== END 2021-04-22 09:58 | disposition home or self-care (01) ==
LOC: RADSHAW 09:59
PROVIDERS: PCP Nurse Practitioner Family; Visit Provider Nurse Practitioner Family
DX: Z12.31 Encounter for screening mammogram for malignant neoplasm of breast (principal); Z20.822 Contact with and (suspected) exposure to COVID-19
CPT/HCPCS: 77067; 87635

== ENCOUNTER 2021-04-27 21:10 | Emergency (ER) | payer MEDICARE, SELFPAY ==
[2021-04-27 21:11] VITALS: BP 156/91; PULSE 66; RESP 18; TEMP 36.6; O2SAT 100; BMI 29.9
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
[2021-04-27 22:02] LABS: Add Urine Microscopic? YES; Bilirubin Urine Neg (Negative); Blood Urine 3+ (Negative); Glucose Urine UA Trace (Normal); Ketones Urine Negative (Negative); Leukocyte Esterase Urine Negative (Negative); Nitrate Urine Negative (Negative); Protein Urine Neg (Negative); Urine Appearance Hazy (CLEAR); Urine Color Yellow (Yellow); Urobilinogen Urine Norm (Negative); pH Urine 5 (5-7)
[2021-04-27 22:03] LABS: Add Urine Culture? Yes; Bacteria Urine TRACE /hpf; RBC Urine 50-80 /hpf (0-2); Squamous Epithelial Cell Urine RARE /hpf (0-5)
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
[2021-04-27 23:01] VITALS: PULSE 65; RESP 18; O2SAT 100
[2021-04-27] MEDS: iohexol 300 mg/mL 100 mL Btl IV (23:03)
--- NOTE | 2021-04-27 23:13 | PC.NURSE ---
Received report from PATTI Baker. Waiting on CT report.
== END 2021-04-27 23:40 | disposition home or self-care (01) ==
PROVIDERS: Emergency Provider Nurse Practitioner Family; PCP Nurse Practitioner Family
DX: S39.012A Strain of muscle, fascia and tendon of lower back, initial encounter (principal); V89.2XXA Person injured in unspecified motor-vehicle accident, traffic, initial encounter; R31.9 Hematuria, unspecified; E11.9 Type 2 diabetes mellitus without complications; Z79.84 Long term (current) use of oral hypoglycemic drugs
CPT/HCPCS: 71046; 72040; 72070; 72100; 74177; 81001; 87086; 99283; Q9967

== ENCOUNTER → 2021-05-12 07:52 | Outpatient (BNVA) | payer MEDICARE, SELFPAY | PROVIDERS: PCP Nurse Practitioner Family; Visit Provider Nurse Practitioner Psychiatric/Mental Health | DX: F33.2 Major depressive disorder, recurrent severe without psychotic features (principal) | CPT/HCPCS: 99214 ==

== ENCOUNTER 2021-06-29 09:39 | Outpatient (CLI) | payer MEDICARE, SELFPAY ==
[2021-06-29 10:12] LABS: Basophils % 0.7 %; Eosinophils # 0.2 10^3/uL (0.0-0.8); Eosinophils % 2.7 %; Hematocrit 33.8 % (37.0-47.0); Hemoglobin 11.4 g/dL (11.5-15.3); Lymphocytes # 1.3 10^3/uL (0.8-4.8); Lymphocytes % 22.8 %; Mean Corpuscular HGB Conc 33.7 g/dL (30.0-36.0); Mean Corpuscular Hemoglobin 30.2 pg (28.0-34.0); Mean Corpuscular Volume 89.7 fl (81-99); Mean Platelet Volume 9.9 fL (7.4-10.4); Monocytes # 0.4 10^3/uL (0.2-0.9); Monocytes % 7.5 %; Neutrophils # 3.61 10^3/uL (1.8-7.7); Neutrophils % 65.9 %; Nucleated Red Blood Cells % 0 %; Platelet Count 215 10^3/cmm (130-400); Red Blood Count 3.77 10^6/uL (4.1-5.3); Red Cell Distribution Width 12.9 % (12.1-15.1); White Blood Count 5.5 10^3/uL (4.0-10.0)
[2021-06-29 10:28] LABS: Ferritin 133 ng/mL (15-150); Iron 43 ug/dL (37-145); Percent Saturation 22.8 % (20-50); Total Iron Binding Capacity 188 mcg/dl; Unsaturated Iron Binding 145 ug/dL (112-347)
--- NOTE | 2021-06-29 11:34 | ONC FU_ITS ---
Dr. Corona follow up note Patient: Otilia Woods Unit #: [id number]: [id number] Dicatated By: Gerry Corona M.D.Date of Visit:Jun 29, 2021 Onc Med Follow-up/Prog Note History of Present Illness: Otilia Woods, is a 51-year-old female with a history of gastric bypass for obesity done in 2018, as per patient she was on oral iron for some time then her PMD took her off, not sure about her hemoglobin level at that time. And recently she got generalized weakness and fatigue which was progressive lab work-up done on December 21, 2020 showed white blood count 3.7 hemoglobin 6.1 g adequate 2.2 platelets 432,000 MCV 72.8, iron studies showed iron saturation is 3%, ferritin 1, iron 14, TIBC 433, creatinine 1.0 patient was given 2 units of packed RBCs for symptomatic severe iron deficiency anemia and started on oral iron, patient is complaining of somewhat indigestion, denies any history of fresh blood per rectum, as per patient she underwent Hemoccult testing it was negative. Denies any hemoptysis or hematemesis, denies any hematuria or dysuria, denies any jaundice, denies any abdominal pain, denies any recent weight loss rather weight gain because of being inactive. Denies any night sweats, denies any recurrent fever, denies any chest pain or palpitation, feeling much better since blood transfusion.Patient never had blood transfusion done prior to one done recently. No history of parenteral iron. Denies any peripheral numbness Status post Injectafer 750 mg IV weekly x2 in January 2021 EGD/colonoscopy done on March 17, 2021 showed severe gastritis with ulceration at GJ junction, biopsies were obtained which confirmed no dysplasia or malignancy but severe chronic active gastritis with ulceration Colonoscopy showed no gross pathology or obvious bleeding source. Mammogram done on April 22, 2021 shows BI-RADS 2, CT scan of abdomen pelvis ordered by PMD for abdominal pain done on April 27, 2021 showed no intra-abdominal pathology except sludge and/or stones in the gallbladder, right renal calculi, Came for follow-up, denies any specific complaints, no fever or chills, no nausea or vomiting, no diarrhea or constipation, no melena or hematochezia, no hemoptysis or hematemesis, no jaundice, no abdominal pain. Patient says she used to take naproxen for arthritis but as her EGD showed ulceration in the stomach, it was discontinued by her PMD. As per patient she used to take sublingual B12 supplements as she has history of gastric bypass, as per patient her PMD recommended to stop it. Medications: Albuterol Sulfate 2 Puff(s) (of 108 (90 base) mcg/act) Aerosol Powder, Breath Activated Inhalation q 4 hours, Ammonium Lactate 1 Applicatorful (of 12 %) Cream Topical b.i.d., Atorvastatin Calcium 1 Tablet (of 40 mg) Oral daily, Azelastine HCl 2 [place](s) (of 137 mcg/spray) Solution Nasal b.i.d., buPROPion HCl ER (XL) 1 Tablet (of 300 mg) Tablet SR 24 HR Oral daily, Cymbalta 2 Capsule (of 60 mg) Capsule Delayed Release Particles Oral daily, Daily Value Multivitamin 1 Tablet Oral daily, Losartan Potassium 1 Tablet (of 25 mg) Oral daily, Lyrica 1 Capsule (of 150 mg) Oral b.i.d., Naproxen 1 Tablet (of 500 mg) Oral daily, Primidone 2 Tablet (of 50 mg) Oral b.i.d., Requip 1 Tablet (of 5 mg) Oral at bedtime, Zanaflex 1.5 Tablet (of 4 mg) Oral PRN Allergies: Gabapentin, Morphine Sulfate, Neurontin, and Penicillins. Review of Systems: Review of Systems is not available for this patient. Vital Signs: Performed on Jun 29, 2021 10:54 Height - 65.00 in Weight - 180.4 lbs (LOW) BSA - 1.89 sq.m BMI - 30.02 (HIGH) Temperature - 97.6 F (LOW) Pulse - 63 /min Respiration - 18 /min BP - 144/81 mm(hg) (HIGH) O2 Sat - 99 % Pain - 6 Fatigue - 0 Performance Status: 0 - Fully active, able to carry on all predisease activities without restrictions. (ECOG) Physical Examination: ENMT - No mouth sores, no thrush, no jaundice, Respiratory - Lungs are clear to auscultation, Cardiovascular - Regular rate and rhythm of heart, Abdomen - Soft, bowel sounds present, Extremities - No visible edema. Lab/Imaging: Most recent lab results are not available for this patient. Impression: Microcytic hypochromic anemia due to severe iron deficiency as anemia work-up done on December 21, 2020 showed ferritin 1, iron saturation 3%, iron 14, TIBC 433. Etiology of iron deficiency anemia could be multifactorial but most likely due to iron malabsorption due to gastric bypass surgery which was done in 2018 obesity. Other possibility could be chronic blood loss from GI tract. Mild leukopenia etiology again unclear could be nutritional like B12 deficiency or myelodysplastic-like changes due to copper deficiency Status post 2 units of packed RBC on December 21, 2020 for severe iron deficiency anemia hemoglobin was 6.1 g Chronic arthritis, on nonsteroidal anti-inflammatory, naproxen which was discontinued as her EGD/colonoscopy done on March 17, 2021 showed severe gastritis with ulceration at GJ junction and colonoscopy showed no obvious pathology or source of bleeding Plan: Discussed with patient regarding her labs White blood count 5.5 hemoglobin 11.4 g compared to 9.9 previously and hematocrit 33.8 platelets 215,000, iron studies shows iron saturation 22.8% ferritin 133 compared to 494 on March 14, 2021, month after Injectafer infusion, iron 43 TIBC 188 Clinically, patient is doing well with no new signs symptoms, more energetic, follow-up lab work-up shows improvement in her mild anemia, iron stores adequate but drop in ferritin level, will continue to monitor and she will return to clinic in 3 months with CBC and iron studies and B12 level, patient was advised to resume sublingual B12 supplement as an patient with gastric bypass, is common to observe iron deficiency / B12 deficiency due to malabsorption. Signed By: Gerry Corona M.D. <<Signature on File>>
== END 2021-06-29 09:40 | disposition home or self-care (01) ==
LOC: ONCMED 09:45
PROVIDERS: PCP Nurse Practitioner Family; Visit Provider Internal Medicine Hematology & Oncology
DX: D50.9 Iron deficiency anemia, unspecified (principal); K29.50 Unspecified chronic gastritis without bleeding; E53.8 Deficiency of other specified B group vitamins; Z98.84 Bariatric surgery status; Z79.899 Other long term (current) drug therapy
CPT/HCPCS: 36415; 82728; 83540; 83550; 85025; 99214

== ENCOUNTER 2021-12-19 13:14 | Oncology outpatient (recurring) (ONCR) | payer BC, SELFPAY ==
[2021-12-19 13:48] LABS: Basophils % 1.1 %; Eosinophils # 0.1 10^3/uL (0.0-0.8); Eosinophils % 3.8 %; Hematocrit 31.5 % (37.0-47.0); Hemoglobin 10.9 g/dL (11.5-15.3); Lymphocytes # 1.1 10^3/uL (0.8-4.8); Lymphocytes % 30.2 %; Mean Corpuscular HGB Conc 34.6 g/dL (30.0-36.0); Mean Corpuscular Hemoglobin 30.4 pg (28.0-34.0); Mean Platelet Volume 10.5 fL (7.4-10.4); Monocytes # 0.2 10^3/uL (0.2-0.9); Monocytes % 6.6 %; Neutrophils # 2.11 10^3/uL (1.8-7.7); Nucleated Red Blood Cells % 0 %; Platelet Count 161 10^3/cmm (130-400); Red Blood Count 3.58 10^6/uL (4.1-5.3); Red Cell Distribution Width 12.9 % (12.1-15.1); White Blood Count 3.6 10^3/uL (4.0-10.0)
[2021-12-19 14:04] LABS: Ferritin 116 ng/mL (15-150); Iron 62 ug/dL (37-145); Percent Saturation 28.8 % (20-50); Total Iron Binding Capacity 215 mcg/dl; Unsaturated Iron Binding 153 ug/dL (112-347)
[2021-12-19 14:46] LABS: Vitamin B12 > 2000 pg/mL (232-1245)
[2021-12-21 20:47] LABS: Copper Level 111 mcg/dL (70-175); Zinc Level, Serum or Plasma 69 mcg/dL (60-130)
== END 2021-12-22 23:59 | disposition home or self-care (01) ==
PROVIDERS: Internal Medicine Hematology & Oncology; PCP Nurse Practitioner Family; Visit Provider Nurse Practitioner Family
DX: D50.9 Iron deficiency anemia, unspecified (principal); D72.819 Decreased white blood cell count, unspecified; M19.09 Primary osteoarthritis, other specified site; K29.50 Unspecified chronic gastritis without bleeding; K25.9 Gastric ulcer, unspecified as acute or chronic, without hemorrhage or perforation; Z79.1 Long term (current) use of non-steroidal anti-inflammatories (NSAID); Z79.899 Other long term (current) drug therapy
CPT/HCPCS: 36415; 82525; 82607; 82728; 83540; 83550; 84630; 85025

== ENCOUNTER → 2022-01-31 10:47 | Outpatient (BNVA) | payer MEDICARE, SELFPAY | PROVIDERS: PCP Registered Nurse; Visit Provider Specialist | DX: G25.0 Essential tremor (principal); G60.8 Other hereditary and idiopathic neuropathies | CPT/HCPCS: 99213; 99214 ==

== ENCOUNTER 2022-04-13 14:07 | Oncology outpatient (recurring) (ONCR) | payer MEDICARE, SELFPAY | END 2022-04-24 23:59 | disposition home or self-care (01) | PROVIDERS: PCP Registered Nurse; Visit Provider Internal Medicine Hematology & Oncology | DX: D50.9 Iron deficiency anemia, unspecified (principal); D72.819 Decreased white blood cell count, unspecified; Z79.899 Other long term (current) drug therapy | CPT/HCPCS: 99214 ==

== ENCOUNTER → 2022-05-03 13:28 | Outpatient (BNVA) | payer MEDICARE, SELFPAY | PROVIDERS: PCP Registered Nurse; Visit Provider Specialist | DX: G25.0 Essential tremor (principal); G60.9 Hereditary and idiopathic neuropathy, unspecified | CPT/HCPCS: 99213 ==

== ENCOUNTER 2022-07-31 10:57 | Outpatient (CLI) | payer MEDICARE, SELFPAY ==
--- NOTE | 2022-07-31 11:11 | MM_ITS ---
WS: [id number] BILATERAL SCREENING DIGITAL TOMOSYNTHESIS MAMMOGRAM WITH CAD HISTORY: SCREENING COMPARISON: 04/22/2021 and 12/19/2019 Bilateral CC and MLO views with tomosynthesis and synthetic mammography submitted. Computer aided det ection analyzed. Breast composition: The breasts are extremely dense, which lowers the sensitivity of mammography. No suspicious masses, microcalcifications or architectural distortion. Benign calcifications in each brittnee ast. MM/[place] [id number] IMPRESSION: BI-RADS: 2-Benign FOLLOW UP: 1 Year Follow-up
== END 2022-07-31 10:58 | disposition home or self-care (01) ==
PROVIDERS: PCP Registered Nurse; Visit Provider Registered Nurse
DX: Z12.31 Encounter for screening mammogram for malignant neoplasm of breast (principal)
CPT/HCPCS: 77063; 77067

== ENCOUNTER 2022-08-16 09:56 | Oncology outpatient (recurring) (ONCR) | payer MEDICARE, SELFPAY ==
[2022-08-16 10:38] LABS: Basophils % 0.9 %; Eosinophils # 0.2 10^3/uL (0.0-0.8); Eosinophils % 3.5 %; Hematocrit 31.1 % (37.0-47.0); Hemoglobin 9.9 g/dL (11.5-15.3); Lymphocytes # 1.6 10^3/uL (0.8-4.8); Mean Corpuscular HGB Conc 31.8 g/dL (30.0-36.0); Mean Platelet Volume 10.1 fL (7.4-10.4); Monocytes # 0.3 10^3/uL (0.2-0.9); Monocytes % 7.5 %; Neutrophils # 2.37 10^3/uL (1.8-7.7); Neutrophils % 52.7 %; Nucleated Red Blood Cells % 0 %; Platelet Count 258 10^3/cmm (130-400); Red Blood Count 3.66 10^6/uL (4.1-5.3); White Blood Count 4.5 10^3/uL (4.0-10.0)
[2022-08-16 10:54] LABS: Ferritin 27 ng/mL (15-150); Iron 46 ug/dL (37-145); Percent Saturation 17.2 % (20-50); Total Iron Binding Capacity 266 mcg/dl; Unsaturated Iron Binding 220 ug/dL (112-347)
== END 2022-08-22 23:59 | disposition home or self-care (01) ==
LOC: ONCMED 09:58
PROVIDERS: PCP Registered Nurse; Visit Provider Internal Medicine Hematology & Oncology
DX: D50.9 Iron deficiency anemia, unspecified (principal); D72.819 Decreased white blood cell count, unspecified; M19.09 Primary osteoarthritis, other specified site; K29.61 Other gastritis with bleeding; Z79.899 Other long term (current) drug therapy; Z87.891 Personal history of nicotine dependence
CPT/HCPCS: 82728; 83540; 83550; 85025; 99214

== ENCOUNTER → 2022-09-06 13:47 | Outpatient (BNVA) | payer MEDICARE, SELFPAY | PROVIDERS: PCP Nurse Practitioner Family; Visit Provider Specialist | DX: G25.0 Essential tremor (principal); G60.9 Hereditary and idiopathic neuropathy, unspecified | CPT/HCPCS: 36415; 82607; 82746; 83036; 84155; 84165; 84443; 85651; 99214 ==

== ENCOUNTER → 2022-09-12 11:26 | Outpatient (BNVA) | payer MEDICARE, SELFPAY | PROVIDERS: PCP Nurse Practitioner Family; Visit Provider Internal Medicine | DX: E87.6 Hypokalemia (principal); R11.10 Vomiting, unspecified; Z98.84 Bariatric surgery status | CPT/HCPCS: 99204 ==

== ENCOUNTER 2022-09-22 11:00 | Oncology outpatient (recurring) (ONCR) | payer MEDICARE, SELFPAY ==
[2022-09-18 11:13] VITALS: BP 156/81; PULSE 64; RESP 18; TEMP 36.3; O2SAT 99
[2022-09-18] MEDS: diphenhydrAMINE 50 mg/mL SDV 1mL 25 MG IVP (11:29)
[2022-09-18] MEDS: acetaminophen 325 mg Tablet 650 MG PO (11:29)
[2022-09-18] MEDS: sodium chloride 0.9% 250 ML 75 ML IV (11:30)
[2022-09-18] MEDS: iron sucrose 200 MG in sodium chloride 0.9% (100 ml) 100 ML 220 MG IV (11:35)
[2022-09-18 12:37] VITALS: BP 157/86; PULSE 65; RESP 18; TEMP 36.5; O2SAT 97
[2022-09-20 11:25] VITALS: BP 118/75; PULSE 71; RESP 18; TEMP 36.7; O2SAT 100
[2022-09-20] MEDS: diphenhydrAMINE 50 mg/mL SDV 1mL 25 MG IVP (11:25)
[2022-09-20] MEDS: acetaminophen 325 mg Tablet 650 MG PO (11:26)
[2022-09-20] MEDS: sodium chloride 0.9% 250 ML 75 ML IV (11:26)
[2022-09-20] MEDS: iron sucrose 200 MG in sodium chloride 0.9% (100 ml) 100 ML 220 MG IV (11:53)
[2022-09-20 12:40] VITALS: BP 154/87; PULSE 63; RESP 18; TEMP 36.6; O2SAT 99
[2022-09-22] MEDS: sodium chloride 0.9% 250 ML 100 ML IV (11:02)
[2022-09-22] MEDS: acetaminophen 325 mg Tablet 650 MG PO (11:03)
[2022-09-22] MEDS: diphenhydrAMINE 50 mg/mL SDV 1mL 25 MG IVP (11:04)
[2022-09-22] MEDS: iron sucrose 200 MG in sodium chloride 0.9% (100 ml) 100 ML 220 MG IV (11:10)
[2022-09-22 11:55] VITALS: BP 135/80; PULSE 65; TEMP 36.5; O2SAT 100
== END 2022-09-22 23:59 | disposition home or self-care (01) ==
PROVIDERS: PCP Nurse Practitioner Family; Visit Provider Internal Medicine Hematology & Oncology
DX: D50.9 Iron deficiency anemia, unspecified (principal); Z79.899 Other long term (current) drug therapy
CPT/HCPCS: 96365; 96375; J1200; J1756; J7050

== ENCOUNTER 2022-09-27 11:00 | Oncology outpatient (recurring) (ONCR) | payer MEDICARE, SELFPAY ==
[2022-09-25 10:44] VITALS: BP 115/61; PULSE 88; RESP 18; TEMP 36.3; O2SAT 99
[2022-09-25] MEDS: acetaminophen 325 mg Tablet 650 MG PO (10:50)
[2022-09-25] MEDS: sodium chloride 0.9% 250 ML 75 ML IV (10:51)
[2022-09-25] MEDS: diphenhydrAMINE 50 mg/mL SDV 1mL 25 MG IVP (10:51)
[2022-09-25] MEDS: iron sucrose 200 MG in sodium chloride 0.9% (100 ml) 100 ML 220 MG IV (11:15)
[2022-09-25 11:50] VITALS: BP 104/50; PULSE 77; RESP 18; TEMP 36.6; O2SAT 99
[2022-09-27] MEDS: sodium chloride 0.9% 250 ML 75 ML IV (11:35)
[2022-09-27] MEDS: acetaminophen 325 mg Tablet 650 MG PO (11:35)
[2022-09-27] MEDS: diphenhydrAMINE 50 mg/mL SDV 1mL 25 MG IVP (11:35)
[2022-09-27] MEDS: iron sucrose 200 MG in sodium chloride 0.9% (100 ml) 100 ML 220 MG IV (11:40)
[2022-09-27 12:35] VITALS: BP 144/75; PULSE 67; RESP 16; TEMP 36.3; O2SAT 99
== END 2022-10-22 23:59 | disposition home or self-care (01) ==
PROVIDERS: PCP Nurse Practitioner Family; Visit Provider Internal Medicine Hematology & Oncology
DX: D50.9 Iron deficiency anemia, unspecified (principal); Z79.899 Other long term (current) drug therapy
CPT/HCPCS: 96365; 96375; J1200; J1756; J7050

== ENCOUNTER → 2022-10-06 12:09 | Outpatient (BNVA) | payer MEDICARE, SELFPAY | PROVIDERS: PCP Nurse Practitioner Family; Visit Provider Podiatrist Foot & Ankle Surgery | DX: W18.11XA Fall from or off toilet without subsequent striking against object, initial encounter (principal); Z89.411 Acquired absence of right great toe; S82.831A Other fracture of upper and lower end of right fibula, initial encounter for closed fracture | CPT/HCPCS: 99204 ==

== ENCOUNTER 2022-10-12 10:32 | Day surgery (SDC) | payer MEDICARE, SELFPAY ==
[2022-10-11 09:53] VITALS: BMI 24.1
[2022-10-12] VITALS (11 sets, daily range): BP systolic 117–148; BP diastolic 64–79; PULSE 61–72; RESP 12–17; TEMP 36.5–36.6; O2SAT 98–100
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
[2022-10-12] MEDS: sodium chloride 0.9% 1,000 ML 30 ML IV (11:15)
--- NOTE | 2022-10-12 11:55 | W.PM.OPSUD ---
Surgery/Procedure H&P Update DATE OF PROCEDURE: October 12, 2022 DATE H&P PERFORMED: 10/06/22 CHANGES TO PREVIOUS DOCUMENTATION: None PREOP DIAGNOSIS: Right distal fibular fracture PLANNED PROCEDURE: Operation Date: 10/12/22 12:00 Proposed Procedures p Open reduction internal fixation right distal fibula 34279,S82.831A(Right) - Jerald Martin DPM
[2022-10-12] MEDS: clindamycin 600 MG/50 ML PREMIX 100 MG IV (11:57)
--- NOTE | 2022-10-12 12:33 | P.ANESASSM_ITS ---
Pre-Anesthetic Assessment Height/Weight: Height 1.65 m Weight 65.771 kg Temp Pulse Resp BP Pulse Ox O2 Del Method 97.8 F 61 17 117/69 98 Room Air 10/12/22 10:52 10/12/22 10:52 10/12/22 10:52 10/12/22 10:52 10/12/22 10:52 10/12/22 10:52 Preop Diagnosis: Right distal fibular fracture Operation Date: 10/12/22 12:00 Proposed Procedures p Open reduction internal fixation right distal fibula 22285,S82.831A(Right) - Jerald Martin DPM Familial anesthetic complications: none Was Beta Brennon taken within 24 hours: Yes Was Clonidine taken within 24 hours: N/A Last intake: Intake Last Liquid Date 10/11/22 Last Liquid Time 19:00 Last Solid Date 10/11/22 Last Solid Time 17:00 Social No alcohol and No tobacco Exam alert, oriented x 3, clear to auscultation bilaterally and regular rate & rhythm Airway Submandibular: within normal limits Cervical ROM: within normal limits Mallampati: Class II Dentition: chipped Comments: Comments: missing some Pulmonary Asthma CV/HEM Anemia and Hypertension GI Gastroesophageal Reflux Disease Metabolic Hyperlipidemia [facility] [place] Lower Back Pain and Osteoarthritis/DJD Neuropsych Anxiety, Depression and Neuropathy Anesthetic Plan ASA status: 3 Anesthesia: General Medications/Allergies Home Medications Medication Instructions Recorded Confirmed Last Taken Type albuterol sulfate 90 mcg/actuation 2 puff inhalation Q4H PRN 08/22/19 10/11/22 3 Months Ago History aerosol inhaler (ProAir HFA) Shortness Of Breath ~12/15/20 ammonium lactate 12 % topical cream 1 applic topical BID 08/22/19 10/11/22 3 Months Ago History ~12/15/20 atorvastatin 40 mg tablet 40 mg PO DAILY 08/22/19 10/12/22 10/11/22 History losartan 25 mg tablet 25 mg PO DAILY 08/22/19 10/11/22 10/11/22 History pregabalin 150 mg capsule (Lyrica) 150 mg PO BID 08/22/19 10/11/22 10/11/22 History ropinirole 5 mg tablet 5 mg PO .HS 08/22/19 10/11/22 10/10/22 History tizanidine 4 mg capsule 6 mg PO TID PRN muscle spasticity 08/22/19 10/11/22 10/10/22 History bimatoprost 0.01 % eye drops 1 drop ophthalmic (eye) DAILY 02/18/20 10/12/22 10/11/22 History (Lumigan) naproxen 500 mg tablet 500 mg PO DAILY 08/04/20 10/11/22 10/11/22 History pantoprazole 40 mg tablet,delayed 40 mg PO DAILY #30 tabs 08/10/21 10/11/22 10/11/22 Rx release duloxetine 60 mg capsule,delayed 120 mg PO .morning #180 caps 05/03/22 10/11/22 10/11/22 Rx release (Cymbalta) quad cane #1 ea 09/06/22 10/06/22 Unknown Rx sucralfate 1 gram tablet 1 g PO Q6H #120 tabs 09/19/22 10/11/22 10/11/22 Rx Wheel-chair with elevated foot #1 ea 10/06/22 10/06/22 Unknown Rx rest bupropion HCl 150 mg 24 hr tablet, 150 mg PO QAM #30 tabs 10/09/22 10/11/22 10/11/22 Rx extended release (Wellbutrin XL) melatonin 3 mg capsule 3 mg PO .QHS PRN sleep #90 caps 10/09/22 10/12/22 10/11/22 Rx primidone 50 mg tablet 100 mg PO BID 10/11/22 10/11/22 10/11/22 History propranolol 60 mg capsule,24 60 mg PO DAILY 10/12/22 10/12/22 10/12/22 History hr,extended release Allergies Allergy/AdvReac Type Severity Reaction Status Date / Time gabapentin AdvReac Severe Makes lose Verified 10/06/22 12:22 hair morphine AdvReac Intermediate Hives Verified 10/06/22 12:22 Penicillins AdvReac Intermediate Hives Verified 10/06/22 12:22 Current Medications Generic Name Dose Route Start Last Admin Trade Name Freq PRN Reason Stop Dose Admin Sodium Chloride 1,000 mls @ 30 mls/hr 10/12/22 10:45 10/12/22 11:15 Sodium Chloride 0.9% IV 10/13/22 10:44 30 mls/hr .Q24H TU Administration PFSH Anesthesia Medical History Anemia Diabetes Intervertebral disc disorder with radiculopathy of lumbosacral region Lumbar stenosis with neurogenic claudication Major depressive disorder, recurrent severe without psychotic features Obstructive sleep apnea Peripheral sensory-motor axonal polyneuropathy Sinus disease Surgical History H/O esophagogastroduodenoscopy (03/17/21) severe gastritis with ulceration at GJ anastomosis History of amputation of toe History of carpal tunnel surgery History of colonoscopy with polypectomy (03/17/21) diverticulosis History of eye surgery History of gastric bypass 2018 History of orthopedic surgery History of tubal ligation History of umbilical hernia repair -2001 Family History Grandmother Stroke Family/Other Stroke Mother Diabetes Heart disease Hypertension Cancer Father Diabetes Social History Smoking and tobacco status: former smoker (smoked x off and on) Alcohol intake: never Household members: spouse and children Marital status: Current occupational status: disabled Data Anesthesia Cardiac Studies: No Data to Display
[2022-10-12] MEDS: fentaNYL 50 mcg/mL INJ 2mL IVP (13:03)
--- NOTE | 2022-10-12 13:22 | PM.OP ---
Operative Report Date of procedure: October 12, 2022 Pre-op diagnosis: Preop Diagnosis Right distal fibular fracture Post-op diagnosis: Right distal fibular fracture Post-op findings: Wei Daniel B fracture right distal fibula Procedure done: Open reduction internal fixation right distal fibula. CPT code 89837 Implants: [place] 2.7 mm interfrag screw [place] anatomic fibular plate with 3.5 mm locking screws 2-0 Vicryl 3-0 Vicryl Skin nick Specimens removed/disposition: None Pathology: None Surgeon: Jerald Martin D.P.M. [employer]: [employer] Estimated blood loss: 5 27 IV fluids: 0 Urine output: None Complications: None none Brief History: Pleasant 52-year-old female with right bimalleolar fracture date of injury 09/25/2022, syncopal episode at home.? Presents with a splint in a wheelchair.? Patient has poor balance, history of peripheral neuropathy, fall risk, has poor upper body strength and not a candidate for crutches.? Will require wheelchair, wheelchair order sent with patient to be filled at the home store. X-ray shows Wei Daniel B fracture of the right distal fibula with 3 mm of displacement.? Ankle mortise is congruent.? Age-indeterminate avulsion fracture at the medial malleolus, there is tenderness to palpation clinically at this area. Discussed surgical versus conservative management of her fracture.? Risks and benefits discussed with each route.? She would like to have her ankle fixed based off of her activity levels she still lives independently with her at home and would like to have her ankle fixed.? I reviewed at length with the patient, the risks, potential complications, benefits, alternatives, expectations, and typical outcomes associated with the surgery. The risks and potential complications were explained in detail, including but not limited to infection, wound dehiscence or soft tissue complications, bleeding and hematoma, chronic edema, neuritis or nerve damage producing numbness or chronic pain, CRPS, failure to relieve pain or worsening pain, thick / painful / unsightly scar, limited motion / stiffness, malposition, delayed union, malunion, or nonunion, fracture, reaction to implants, anesthetic complications, venous thromboembolism, and deformity recurrence.? I discussed the notion of no regrets with the patient as it pertains to complications and outcomes. The patient seemed to understand the nature of the proposed care and required convalescence. They asked appropriate questions, answered to their satisfaction. They are aware no guarantees can be made as to a satisfactory outcome and they understand there may be other possible unforeseen complications or outcomes not listed here that will be treated accordingly if they arise. There were no written or implied guarantees given to the patient. They gave informed consent to proceed. Procedure: Under mild sedation the patient was brought to the operating room and placed on the operating table in supine position. A timeout was performed. Anesthesia was then administered by the anesthesia service. Local anesthesia injected by myself consisting of 20 cc of 0.5% Marcaine plain in a proximal field block at the right distal lateral leg and 10 cc of Exparel subcutaneously in a grid like fashion. Well-padded pneumatic tourniquet applied to the right high calf. The right lower extremity was scrubbed, prepped and draped utilizing normal aseptic technique. Right foot and ankle were exanguinated with an Esmarch bandage and the tourniquet was then inflated to 250 mmHg. Attention was directed to the lateral aspect of the right ankle where the lateral malleolus was palpated. Directly over the distal fibula a skin incision was performed through skin with a #15 blade linear longitudinal and fashion. Dissection was carried down through subcutaneous tissue to the layer of periosteum utilizing sharp and blunt technique. Care was taken to retract and preserve neurovascular and tendinous structures. All bleeders were ligated and cauterized as necessary. Periosteal incision was made and a oblique fracture was appreciated of the right distal fibula, this was distracted and curettage of hematoma followed by saline flush. This was then reduced, pulled out to length and derotated and fixated utilizing standard AO technique with a Marcelle 2.7 mm interfrag screw with excellent bony apposition and compression noted. Next a [place] anatomic fibular plate was utilized to fixate further the right lateral malleolus utilizing 3.5 mm locking screws with excellent bony apposition and compression noted. Intraoperative C arm confirmed with an AP view, oblique view and lateral view of that the hardware did not violate the ankle mortise. Anatomic reduction of the fibula was appreciated. An ankle mortise was congruent. Negative cotton hook test intraoperatively was observed. The incision was irrigated with copious amounts of sterile skin solution. The right ankle was smooth with range of motion without crepitus. The incision was then closed in a layered fashion with periosteum reapproximated utilizing 2-0 Vicryl. Subcutaneous tissue was reapproximated utilizing 4-0 Vicryl and skin with skin nick. The incision was dressed with Adaptic, sterile 4 x 4's, Kerlix and Sanket wrap followed by application of a cam boot to the right lower extremity. Tourniquet was then deflated and a prompt hyperemic response was noted to the distal digits of the right foot. Patient tolerated the procedure and anesthesia well and was transferred to the PACU with vital signs stable and vascular status intact. Following a period of postoperative monitoring she will be discharged home. Advised a baby aspirin to be taken once daily, this is an 81 mg aspirin starting tomorrow 10/13/2022 to help potentially reduce the risk of deep vein thrombosis while she is nonweightbearing for the next 6 weeks. Advised nonweightbearing and immobilization with a cam boot. Advised the patient to limit her right foot while resting. She was given at home care instructions, scheduled follow-up and my cell phone number to contact with any postoperative questions or concerns. Was prescribed hydrocodone 5 mg / 325 mg to be taken every 4-6 hours as needed for pain. Advised patient to take pain medication judiciously.
--- NOTE | 2022-10-12 14:22 | ANE.PACU2 ---
Inpatient post-anesthesia follow up: Airway intact: Yes Vital signs: Temperature 98 F Pulse Rate 64 Respiratory Rate 17 Blood Pressure 119/64 Pulse Oximetry 100 Oxygen Delivery Me thod Room Air Oxygen Flow Rate 8 Fraction of Inspir ed Oxygen Hydration adequate: Yes Nausea and vomiting: No Pain level: 2 Mental status: Baseline
== END 2022-10-12 14:00 | disposition home or self-care (01) ==
PROVIDERS: PCP Nurse Practitioner Family; Visit Provider Podiatrist Foot & Ankle Surgery
PROC: (CPT 27792; principal; 2022-10-12 12:00)
DX: S82.831A Other fracture of upper and lower end of right fibula, initial encounter for closed fracture (principal); E11.9 Type 2 diabetes mellitus without complications; I10 Essential (primary) hypertension; E78.5 Hyperlipidemia, unspecified; G47.33 Obstructive sleep apnea (adult) (pediatric); K21.9 Gastro-esophageal reflux disease without esophagitis; Z79.899 Other long term (current) drug therapy; Z87.891 Personal history of nicotine dependence; Z88.0 Allergy status to penicillin; X58.XXXA Exposure to other specified factors, initial encounter
CPT/HCPCS: 27792; 73600; 76000; C1713; J2370; J2405; J2704; J3010; J3490; J7030

== ENCOUNTER → 2022-10-19 13:05 | Outpatient (BNVA) | payer MEDICARE, SELFPAY | PROVIDERS: PCP Nurse Practitioner Family; Visit Provider Podiatrist Foot & Ankle Surgery | DX: Z48.89 Encounter for other specified surgical aftercare (principal); S82.831A Other fracture of upper and lower end of right fibula, initial encounter for closed fracture; X58.XXXA Exposure to other specified factors, initial encounter | CPT/HCPCS: 73610; 99024 ==

== ENCOUNTER → 2022-11-02 12:05 | Outpatient (BNVA) | payer MEDICARE, SELFPAY | PROVIDERS: PCP Nurse Practitioner Family; Visit Provider Podiatrist Foot & Ankle Surgery | DX: Z98.890 Other specified postprocedural states (principal); S82.831A Other fracture of upper and lower end of right fibula, initial encounter for closed fracture; S99.911A Unspecified injury of right ankle, initial encounter; X58.XXXA Exposure to other specified factors, initial encounter; Z87.81 Personal history of (healed) traumatic fracture | CPT/HCPCS: 73610; 73630; 99024 ==

== ENCOUNTER 2022-11-15 11:21 | Oncology outpatient (recurring) (ONCR) | payer MEDICARE, SELFPAY ==
[2022-11-15 11:45] LABS: Basophils # 0.1 10^3/uL (0.0-0.1); Basophils % 1.2 %; Eosinophils # 0.3 10^3/uL (0.0-0.8); Hematocrit 33.8 % (37.0-47.0); Hemoglobin 10.6 g/dL (11.5-15.3); Lymphocytes # 1.3 10^3/uL (0.8-4.8); Lymphocytes % 30.7 %; Mean Corpuscular HGB Conc 31.4 g/dL (30.0-36.0); Mean Corpuscular Hemoglobin 28.6 pg (28.0-34.0); Mean Corpuscular Volume 91.4 fl (81-99); Mean Platelet Volume 10.2 fL (7.4-10.4); Monocytes # 0.3 10^3/uL (0.2-0.9); Neutrophils # 2.33 10^3/uL (1.8-7.7); Neutrophils % 55.9 %; Nucleated Red Blood Cells % 0 %; Platelet Count 255 10^3/cmm (130-400); Red Cell Distribution Width 14.1 % (12.1-15.1); White Blood Count 4.2 10^3/uL (4.0-10.0)
[2022-11-15 12:20] LABS: Ferritin 73 ng/mL (15-150); Iron 46 ug/dL (37-145); Percent Saturation 19.1 % (20-50); Total Iron Binding Capacity 240 mcg/dl; Unsaturated Iron Binding 194 ug/dL (112-347)
== END 2022-11-22 23:59 | disposition home or self-care (01) ==
PROVIDERS: Nurse Practitioner; PCP Nurse Practitioner Family; Visit Provider Internal Medicine Hematology & Oncology
DX: D50.9 Iron deficiency anemia, unspecified; D72.819 Decreased white blood cell count, unspecified; M19.90 Unspecified osteoarthritis, unspecified site; Z79.1 Long term (current) use of non-steroidal anti-inflammatories (NSAID); Z79.899 Other long term (current) drug therapy
CPT/HCPCS: 36415; 82728; 83540; 83550; 85025; 99214

== ENCOUNTER → 2022-11-22 13:05 | Outpatient (BNVA) | payer MEDICARE, SELFPAY | PROVIDERS: PCP Nurse Practitioner Family; Visit Provider Podiatrist Foot & Ankle Surgery | DX: Z98.890 Other specified postprocedural states (principal); Z87.81 Personal history of (healed) traumatic fracture; S82.831A Other fracture of upper and lower end of right fibula, initial encounter for closed fracture; X58.XXXA Exposure to other specified factors, initial encounter; Z46.89 Encounter for fitting and adjustment of other specified devices | CPT/HCPCS: 73610; 97760; 99024; L1902 ==

== ENCOUNTER 2022-11-22 16:09 | Outpatient (CLI) | payer MEDICARE, SELFPAY | END 2022-11-22 16:10 | disposition home or self-care (01) | LOC: SPT 16:09 | PROVIDERS: PCP Nurse Practitioner Family; Visit Provider Podiatrist Foot & Ankle Surgery | DX: Z46.89 Encounter for fitting and adjustment of other specified devices (principal); Z98.890 Other specified postprocedural states | CPT/HCPCS: 97760; L1902 ==

== ENCOUNTER → 2022-12-21 13:19 | Outpatient (BNVA) | payer MEDICARE, SELFPAY | PROVIDERS: PCP Nurse Practitioner Family; Visit Provider Podiatrist Foot & Ankle Surgery | DX: Z98.890 Other specified postprocedural states (principal); S91.001A Unspecified open wound, right ankle, initial encounter; X58.XXXA Exposure to other specified factors, initial encounter; T84.84XA Pain due to internal orthopedic prosthetic devices, implants and grafts, initial encounter; Y79.2 Prosthetic and other implants, materials and accessory orthopedic devices associated with adverse incidents | CPT/HCPCS: 73610; 87070; 87075; 87077; 87186; 87205; 99214 ==

== ENCOUNTER 2022-12-25 07:54 | Day surgery (SDC) | payer MEDICARE, SELFPAY ==
[2022-12-22 13:22] VITALS: BMI 25.7
[2022-12-25] VITALS (8 sets, daily range): BP systolic 132–193; BP diastolic 70–97; PULSE 53–59; RESP 16–18; TEMP 36.3–36.7; O2SAT 95–100
--- NOTE | 2022-12-25 | XR_ITS ---
WS: [id number] XR ankle RT 1V [id number] REASON FOR EXAM: HARDWARE REMOVAL FINDINGS: There has been removal of the plate and screws from the distal right fibula. No retained hardware is identified. XR/XR ankle RT 1V [id number] IMPRESSION: Hardware removal as above.
--- NOTE | 2022-12-25 06:58 | W.PM.OPSUD ---
Surgery/Procedure H&P Update DATE OF PROCEDURE: December 25, 2022 DATE H&P PERFORMED: 10/06/22 CHANGES TO PREVIOUS DOCUMENTATION: None PLANNED PROCEDURE: Operation Date: 12/25/22 09:40 Proposed Procedures p Hardware Removal of Right Ankle ,L97.313,T84.84XA(Right) - Jerald Martin DPM
--- NOTE | 2022-12-25 06:59 | W.PM.OPSUD ---
Surgery/Procedure H&P Update DATE OF PROCEDURE: December 25, 2022 DATE H&P PERFORMED: 12/21/22 CHANGES TO PREVIOUS DOCUMENTATION: None PLANNED PROCEDURE: Operation Date: 12/25/22 09:40 Proposed Procedures p Hardware Removal of Right Ankle ,L97.313,T84.84XA(Right) - Jerald Martin DPM
[2022-12-25] MEDS: sodium chloride 0.9% 1,000 ML 30 ML IV (08:39)
--- NOTE | 2022-12-25 09:17 | ANES.PREANE2 ---
Pre-Anesthetic Assessment Height/Weight: Height 1.65 m Weight 70.307 kg Temp Pulse Resp BP Pulse Ox O2 Del Method 98.0 F 56 L 18 193/97 100 Room Air 12/25/22 08:16 12/25/22 08:16 12/25/22 08:16 12/25/22 08:16 12/25/22 08:16 12/25/22 08:17 Preop Diagnosis: Painful hardware right ankle Operation Date: 12/25/22 09:40 Proposed Procedures p Hardware Removal of Right Ankle 72121,L97.313,T84.84XA(Right) - Jerald Martin DPM Familial anesthetic complications: none Was Beta Brennon taken within 24 hours: Yes Was Clonidine taken within 24 hours: N/A Last intake: Intake Last Liquid Date 12/24/22 Last Liquid Time 22:00 Last Solid Date 12/24/22 Last Solid Time 15:00 Social No alcohol and No tobacco Exam alert, oriented x 3, clear to auscultation bilaterally and regular rate & rhythm Airway Submandibular: within normal limits Cervical ROM: within normal limits Mallampati: Class II Dentition: full Pulmonary Chronic Obstructive Pulmonary Disease CV/HEM Anemia and Hypertension GI Gastroesophageal Reflux Disease Metabolic Hyperlipidemia Neuropsych Anxiety, Depression and Neuropathy Anesthetic Plan ASA status: 3 Anesthesia: General Medications/Allergies Home Medications Medication Instructions Recorded Confirmed Last Taken Type albuterol sulfate 90 mcg/actuation 2 puff inhalation Q4H PRN 08/22/19 12/25/22 3 Months Ago History aerosol inhaler (ProAir HFA) Shortness Of Breath ~12/15/20 ammonium lactate 12 % topical cream 1 applic topical BID 08/22/19 12/25/22 12/24/22 History atorvastatin 40 mg tablet 40 mg PO DAILY 08/22/19 12/22/22 12/24/22 History losartan 25 mg tablet 25 mg PO DAILY 08/22/19 12/22/22 12/24/22 History pregabalin 150 mg capsule (Lyrica) 150 mg PO BID 08/22/19 12/22/22 12/24/22 History ropinirole 5 mg tablet 5 mg PO .HS 08/22/19 12/22/22 12/24/22 History tizanidine 4 mg capsule 6 mg PO TID PRN muscle spasticity 08/22/19 12/22/22 12/24/22 History bimatoprost 0.01 % eye drops 1 drop ophthalmic (eye) DAILY 02/18/20 12/22/22 12/24/22 History (Lumigan) naproxen 500 mg tablet 500 mg PO DAILY 08/04/20 12/22/22 12/24/22 History pantoprazole 40 mg tablet,delayed 40 mg PO DAILY #30 tabs 08/10/21 12/22/22 12/24/22 Rx release quad cane #1 ea 09/06/22 12/21/22 Unknown Rx Wheel-chair with elevated foot #1 ea 10/06/22 12/21/22 Unknown Rx rest melatonin 3 mg capsule 3 mg PO .QHS PRN sleep #90 caps 10/09/22 12/22/22 12/24/22 Rx primidone 50 mg tablet 100 mg PO BID 10/11/22 12/22/22 12/24/22 History propranolol 60 mg capsule,24 60 mg PO DAILY 10/12/22 12/22/22 12/25/22 History hr,extended release ASO to the right #1 ea 11/22/22 12/21/22 Unknown Rx sucralfate 1 gram tablet 1 g PO Q6H #120 tabs 11/24/22 12/22/22 12/24/22 Rx bupropion HCl 300 mg 24 hr tablet, 300 mg PO QAM #90 tabs 12/08/22 12/22/22 12/24/22 Rx extended release (Wellbutrin XL) duloxetine 60 mg capsule,delayed 120 mg PO .morning #180 caps 12/08/22 12/22/22 12/24/22 Rx release (Cymbalta) doxycycline hyclate 100 mg capsule 100 mg PO BID 14 days #28 caps 12/21/22 12/22/22 12/24/22 Rx hydrocodone 7.5 mg-acetaminophen 1 tab PO Q8H PRN pain 7 days #21 12/25/22 Unknown Rx 325 mg tablet tabs Allergies Allergy/AdvReac Type Severity Reaction Status Date / Time gabapentin AdvReac Severe Makes lose Verified 12/25/22 08:10 hair morphine AdvReac Intermediate Hives Verified 12/25/22 08:10 Penicillins AdvReac Intermediate Hives Verified 12/25/22 08:10 Current Medications Generic Name Dose Route Start Last Admin Trade Name Freq PRN Reason Stop Dose Admin Sodium Chloride 1,000 mls @ 30 mls/hr 12/25/22 08:15 12/25/22 08:39 Sodium Chloride 0.9% IV 12/26/22 08:14 30 mls/hr .Q24H TU Administration PFSH Anesthesia Medical History Anemia Diabetes Intervertebral disc disorder with radiculopathy of lumbosacral region Lumbar stenosis with neurogenic claudication Major depressive disorder, recurrent severe without psychotic features Obstructive sleep apnea Peripheral sensory-motor axonal polyneuropathy Sinus disease Surgical History H/O esophagogastroduodenoscopy (03/17/21) severe gastritis with ulceration at GJ anastomosis History of amputation of toe History of carpal tunnel surgery History of colonoscopy with polypectomy (03/17/21) diverticulosis History of eye surgery History of gastric bypass 2018 History of orthopedic surgery History of tubal ligation History of umbilical hernia repair -2001 Family History Grandmother Stroke Family/Other Stroke Mother Diabetes Heart disease Hypertension Cancer Father Diabetes Social History Smoking and tobacco status: former smoker (smoked x off and on) Alcohol intake: never Substance/Drug Use: never Household members: spouse and children Marital status: Current occupational status: disabled Data Anesthesia Cardiac Studies: No Data to Display
[2022-12-25 09:24] LABS: Glucose Point of Care 119 mg/dL (70-110)
[2022-12-25] MEDS: clindamycin 600 MG/50 ML PREMIX 100 MG IV (09:31)
[2022-12-25] MEDS: lidocaine 1% INJ 10 mL (per mL) 15 ML INJECTION (09:42)
--- NOTE | 2022-12-25 10:13 | PM.OP ---
Operative Report Date of procedure: December 25, 2022 Pre-op diagnosis: Preop Diagnosis Painful hardware right ankle Wound right lateral ankle Post-op diagnosis: Painful hardware right ankle, wound right lateral ankle. Post-op findings: No devitalized bone appreciated intraoperatively. Procedure done: Deep hardware removal right ankle. CPT code 63673 Implants: 2-0 Vicryl, 3-0 Vicryl, skin nick Specimens removed/disposition: 1 plate, 11 screws disposed of Surgeon: Jerald Martin D.P.M. [employer] Project Manager: See intraoperative Dr. Weston Estimated blood loss: 5 14 IV fluids: 0 Urine output: 0 Complications: None Findings: No devitalized bone appreciated intraoperatively. Brief History: Status post ORIF right distal fibula date of operation 10/13/2022 wound of the right lateral ankle with wound probing the hardware.? Recommended deep hardware removal and potential incision down to bone cortex, patient is agreeable wishes to proceed.? I reviewed at length with the patient, the risks, potential complications, benefits, alternatives, expectations, and typical outcomes associated with the surgery. The risks and potential complications were explained in detail, including but not limited to infection, wound dehiscence or soft tissue complications, bleeding and hematoma, chronic edema, neuritis or nerve damage producing numbness or chronic pain, CRPS, failure to relieve pain or worsening pain, thick / painful / unsightly scar, limited motion / stiffness, malposition, delayed union, malunion, or nonunion, fracture, reaction to implants, anesthetic complications, venous thromboembolism, and deformity recurrence.? I discussed the notion of no regrets with the patient as it pertains to complications and outcomes. The patient seemed to understand the nature of the proposed care and required convalescence. They asked appropriate questions, answered to their satisfaction. They are aware no guarantees can be made as to a satisfactory outcome and they understand there may be other possible unforeseen complications or outcomes not listed here that will be treated accordingly if they arise. There were no written or implied guarantees given to the patient. They gave informed consent to proceed. Procedure: Under mild sedation the patient was brought to the operating room and remained on the gurney in supine position. A timeout was performed. Anesthesia was then administered by the anesthesia service. Local anesthesia was injected by myself consisting of one-to-one mixture 1% lidocaine and 0.5 to Marcaine plain total of 20 cc utilizing a V-block proximal to the right lateral ankle. Well-padded pneumatic tourniquet was applied to the right high calf. The right lower extremity was then scrubbed, prepped and draped utilizing normal aseptic technique. The right foot and ankle were exanguinated with an Esmarch bandage and a tourniquet inflated to 250 mmHg. Over the previous incision a new incision was performed through skin with a #15 blade with dissection carried down through subcutaneous tissue to the layer of periosteum and hardware. Hardware was removed in total. 11 screws and 1 anatomic plate were removed and passed from operative field in toto without fragmentation or failure. Intraoperative fluoroscopy confirmed no remaining hardware. The incision was irrigated with copious amounts of Staticin solution. The area of the wound did not communicate to bone. I was able to visualize bone which was viable without any discoloration or density changes and no purulent drainage was encountered during the hardware removal. The incision was irrigated with copious amounts of sterile skin solution and closed in a layered fashion. Periosteum was reapproximated utilizing 2-0 Vicryl. Subcutaneous tissue reapproximated with 3-0 Vicryl and skin with skin nick. The incision was dressed with Adaptic, sterile 4 x 4's, Kerlix and Sanket wrap. The wound was left undisturbed, closure was performed proximal and distal to the wound. Wound had viable margins. This will be left open for secondary healing. Patient tolerated the procedure and anesthesia well and was transferred to the PACU with vital signs stable and vascular status intact. Following a period of postop monitoring she will be discharged home. Was given a new cam boot. May be weightbearing as tolerated below threshold of pain was advised to elevate her right foot while resting. She will continue antibiotics as prescribed. Follow-up as scheduled in podiatry clinic.
--- NOTE | 2022-12-25 10:26 | ANE.PACU2 ---
Inpatient post-anesthesia follow up: Airway intact: Yes Vital signs: Temperature 98.0 F Pulse Rate 56 Respiratory Rate 18 Blood Pressure 193/97 Pulse Oximetry 100 Oxygen Delivery Me thod Room Air Oxygen Flow Rate 6 Fraction of Inspir ed Oxygen Hydration adequate: Yes Nausea and vomiting: No Pain level: 2 Mental status: Baseline
== END 2022-12-25 11:07 | disposition home or self-care (01) ==
PROVIDERS: PCP Nurse Practitioner Family; Visit Provider Podiatrist Foot & Ankle Surgery
PROC: (CPT 20680; principal; 2022-12-25 09:30)
DX: T84.84XA Pain due to internal orthopedic prosthetic devices, implants and grafts, initial encounter (principal); T81.31XA Disruption of external operation (surgical) wound, not elsewhere classified, initial encounter; Y79.2 Prosthetic and other implants, materials and accessory orthopedic devices associated with adverse incidents; J44.9 Chronic obstructive pulmonary disease, unspecified; I10 Essential (primary) hypertension; F41.9 Anxiety disorder, unspecified; Z79.891 Long term (current) use of opiate analgesic; G62.9 Polyneuropathy, unspecified; F33.9 Major depressive disorder, recurrent, unspecified; Z87.891 Personal history of nicotine dependence
CPT/HCPCS: 20680; 36416; 73600; 76000; 82962; 87070; 87176; 87205; 97760; J1100; J2704; J3010; J3490; J7030; L4361

== ENCOUNTER → 2023-01-01 09:31 | Outpatient (BNVA) | payer MEDICARE, SELFPAY | PROVIDERS: PCP Nurse Practitioner Family; Visit Provider Podiatrist Foot & Ankle Surgery | DX: S91.001D Unspecified open wound, right ankle, subsequent encounter (principal); T84.84XD Pain due to internal orthopedic prosthetic devices, implants and grafts, subsequent encounter; X58.XXXD Exposure to other specified factors, subsequent encounter; Y79.2 Prosthetic and other implants, materials and accessory orthopedic devices associated with adverse incidents | CPT/HCPCS: 99024; 99213 ==

== ENCOUNTER → 2023-01-11 14:46 | Outpatient (BNVA) | payer MEDICARE, SELFPAY | PROVIDERS: PCP Nurse Practitioner Family; Visit Provider Podiatrist Foot & Ankle Surgery | DX: Z98.890 Other specified postprocedural states (principal) | CPT/HCPCS: 99024 ==

== ENCOUNTER → 2023-02-01 15:07 | Outpatient (BNVA) | payer MEDICARE, SELFPAY | PROVIDERS: PCP Nurse Practitioner Family; Visit Provider Podiatrist Foot & Ankle Surgery | DX: L97.312 Non-pressure chronic ulcer of right ankle with fat layer exposed (principal) | CPT/HCPCS: 99024; 99213 ==

== ENCOUNTER 2023-02-05 11:31 | Oncology outpatient (recurring) (ONCR) | payer MEDICARE, SELFPAY ==
[2023-02-05 11:33] VITALS: BP 152/68; PULSE 71; RESP 18; TEMP 36.8; O2SAT 96
[2023-02-05 11:45] LABS: Basophils # 0.1 10^3/uL (0.0-0.1); Eosinophils # 0.2 10^3/uL (0.0-0.8); Eosinophils % 3.4 %; Hematocrit 21.5 % (37.0-47.0); Lymphocytes # 1.2 10^3/uL (0.8-4.8); Lymphocytes % 19.8 %; Mean Corpuscular HGB Conc 30.2 g/dL (30.0-36.0); Mean Corpuscular Hemoglobin 26.1 pg (28.0-34.0); Mean Corpuscular Volume 86.3 fl (81-99); Mean Platelet Volume 9.8 fL (7.4-10.4); Monocytes # 0.3 10^3/uL (0.2-0.9); Monocytes % 5.7 %; Neutrophils # 4.12 10^3/uL (1.8-7.7); Neutrophils % 69.6 %; Nucleated Red Blood Cells % 0 %; Platelet Count 354 10^3/cmm (130-400); Red Blood Count 2.49 10^6/uL (4.1-5.3); White Blood Count 5.9 10^3/uL (4.0-10.0)
[2023-02-05 11:48] LABS: Hemoglobin 6.5 g/dL (11.5-15.3)
[2023-02-05 12:14] LABS: Alanine Aminotransferase 10 U/L (0-33); Albumin Level 3.3 g/dL (3.5-5.2); Alkaline Phosphatase 122 U/L (35-105); Anion Gap 13.6 (5-19); Aspartate Amino Transferase 18 U/L (0-32); Blood Urea Nitrogen 14 mg/dL (6-20); Calcium 8.5 mg/dL (8.5-10.5); Carbon Dioxide 24 mmol/L (22-29); Chloride 108 mmol/L (98-107); Ferritin 12 ng/mL (15-150); Globulin 3.1 g/dL (1.3-4.6); Glomerular Filtration Rate 52.2 mL/min (90-130); Glucose 184 mg/dL (65-115); Iron 16 ug/dL (37-145); Osmolality Calculated 299 mOsm/kg (285-295); Percent Saturation 6.6 % (20-50); Potassium 3.6 mmol/L (3.5-5.1); Sodium 142 mmol/L (136-145); Total Bilirubin 0.2 mg/dL (0.15-1.2); Total Iron Binding Capacity 242 mcg/dl; Total Protein 6.4 g/dL (6.6-8.7); Unsaturated Iron Binding 226 ug/dL (112-347)
[2023-02-05 13:53] LABS: Vitamin B12 > 2000 pg/mL (232-1245)
[2023-02-05] MEDS: acetaminophen 325 mg Tablet 650 MG PO (15:03)
[2023-02-05] MEDS: diphenhydrAMINE 25 mg Capsule PO (15:03)
[2023-02-05] MEDS: sodium chloride 0.9% 250 mL Bag IV (15:04)
[2023-02-05 15:10] VITALS: BP 173/75; PULSE 50; TEMP 36.6; O2SAT 99
[2023-02-05 15:25] VITALS: BP 185/83; PULSE 60; TEMP 36.1
[2023-02-05 15:40] VITALS: BP 203/80; PULSE 62; RESP 16; TEMP 36.2; O2SAT 99
[2023-02-05 16:40] VITALS: BP 198/79; PULSE 77; TEMP 36.2; O2SAT 99
== END 2023-02-05 23:59 | disposition home or self-care (01) ==
PROVIDERS: Internal Medicine Medical Oncology; Nurse Practitioner; PCP Nurse Practitioner Family; Visit Provider Internal Medicine Hematology & Oncology
DX: D50.9 Iron deficiency anemia, unspecified (principal); Z79.899 Other long term (current) drug therapy; Z98.84 Bariatric surgery status; Z87.891 Personal history of nicotine dependence
CPT/HCPCS: 36415; 36430; 80053; 82607; 82728; 83540; 83550; 85025; 86850; 86900; 86920; 99215; J7050; P9016

== ENCOUNTER → 2023-02-07 14:29 | Outpatient (BNVA) | payer MEDICARE, SELFPAY | PROVIDERS: PCP Nurse Practitioner Family; Visit Provider Podiatrist Foot & Ankle Surgery | DX: L97.312 Non-pressure chronic ulcer of right ankle with fat layer exposed (principal) | CPT/HCPCS: 73610; 99213 ==

== ENCOUNTER 2023-02-21 15:00 | Oncology outpatient (recurring) (ONCR) | payer MEDICARE, SELFPAY ==
[2023-02-19 14:50] VITALS: BP 143/66; PULSE 67; RESP 18; TEMP 36.4; O2SAT 99
[2023-02-19] MEDS: diphenhydrAMINE 50 mg/mL SDV 1mL 25 MG IVP (14:57)
[2023-02-19] MEDS: sodium chloride 0.9% 250 ML 100 ML IV (14:57)
[2023-02-19] MEDS: acetaminophen 325 mg Tablet 650 MG PO (14:58)
[2023-02-19] MEDS: iron sucrose 200 MG in sodium chloride 0.9% (100 ml) 100 ML 220 MG IV (15:03)
[2023-02-19 15:48] VITALS: BP 147/79; PULSE 67; RESP 18; TEMP 36.7; O2SAT 99
[2023-02-21] MEDS: acetaminophen 325 mg Tablet 650 MG PO (15:28)
[2023-02-21] MEDS: sodium chloride 0.9% 250 ML 75 ML IV (15:28)
[2023-02-21] MEDS: diphenhydrAMINE 50 mg/mL SDV 1mL 25 MG IVP (15:29)
[2023-02-21] MEDS: iron sucrose 200 MG in sodium chloride 0.9% (100 ml) 100 ML 220 MG IV (15:45)
[2023-02-21 16:25] VITALS: BP 132/68; PULSE 89; RESP 18; TEMP 36.3; O2SAT 94
== END 2023-02-22 23:59 | disposition home or self-care (01) ==
PROVIDERS: PCP Nurse Practitioner Family; Visit Provider Internal Medicine Medical Oncology
DX: D50.9 Iron deficiency anemia, unspecified (principal); Z79.899 Other long term (current) drug therapy
CPT/HCPCS: 96365; J1200; J1756; J7050

== ENCOUNTER → 2023-03-06 15:02 | Outpatient (BNVA) | payer MEDICARE, SELFPAY | PROVIDERS: PCP Nurse Practitioner Family; Visit Provider Specialist | DX: G60.9 Hereditary and idiopathic neuropathy, unspecified; G25.0 Essential tremor | CPT/HCPCS: 99213 ==

== ENCOUNTER → 2023-03-08 13:58 | Outpatient (BNVA) | payer MEDICARE, SELFPAY | PROVIDERS: PCP Nurse Practitioner Family; Visit Provider Podiatrist Foot & Ankle Surgery | DX: Z51.89 Encounter for other specified aftercare (principal); L97.312 Non-pressure chronic ulcer of right ankle with fat layer exposed | CPT/HCPCS: 99024; 99213 ==

== ENCOUNTER 2023-03-12 11:15 | Oncology outpatient (recurring) (ONCR) | payer MEDICARE, SELFPAY ==
[2023-02-27] MEDS: iron sucrose 200 MG in sodium chloride 0.9% (100 ml) 100 ML 220 MG IV (15:24)
[2023-02-27] MEDS: sodium chloride 0.9% 250 ML 75 ML IV (15:24)
[2023-02-27 16:14] VITALS: BP 160/87; PULSE 69; RESP 17; TEMP 36.8; O2SAT 99
[2023-02-27 16:31] VITALS: BP 135/78; PULSE 60; RESP 16; TEMP 36.6; O2SAT 99
--- NOTE | 2023-02-27 16:32 | PC.NURSE ---
Patient stated that she did not want want to take the oral acetaminophen 650 mg PO or the IVP of diphehydramine 50 mg. Pt stated that the diphehydramine gave her restless legs and that it also made her way too sleepy. Educated the patient on the reason for both acetaminophen/diphehydramine -- as a prophylaxis to mitigate a possible reaction. Patient stated that she still would like to refuse the pre-medications. Educated the patient on signs and symptoms of a reaction and to notify nursing staff if she started to experience any of the said symptoms.
[2023-03-01 15:20] VITALS: BP 177/83; PULSE 64; RESP 17; TEMP 37.6; O2SAT 96
[2023-03-01] MEDS: iron sucrose 200 MG in sodium chloride 0.9% (100 ml) 100 ML 220 MG IV (15:58)
[2023-03-01 16:35] VITALS: BP 124/78; PULSE 84; RESP 18; TEMP 36.6; O2SAT 98
[2023-03-05 14:27] VITALS: BP 145/68; PULSE 64; RESP 16; TEMP 36.6; O2SAT 98
[2023-03-05] MEDS: iron sucrose 200 MG in sodium chloride 0.9% (100 ml) 100 ML 220 MG IV (14:53)
[2023-03-05 15:30] VITALS: BP 148/69; PULSE 57; RESP 16; TEMP 36.5; O2SAT 100
[2023-03-07 14:20] VITALS: BP 156/77; PULSE 59; RESP 16; TEMP 36.8; O2SAT 99
[2023-03-07] MEDS: iron sucrose 200 MG in sodium chloride 0.9% (100 ml) 100 ML 220 MG IV (14:42)
[2023-03-07 15:20] VITALS: BP 144/77; PULSE 71; RESP 16; TEMP 36.7; O2SAT 99
[2023-03-12 11:20] VITALS: BP 155/72; PULSE 66; RESP 16; TEMP 36.4; O2SAT 95
[2023-03-12 11:42] LABS: Basophils # 0.1 10^3/uL (0.0-0.1); Basophils % 1.1 %; Eosinophils # 0.2 10^3/uL (0.0-0.8); Eosinophils % 3.4 %; Lymphocytes % 23.3 %; Mean Corpuscular HGB Conc 30.6 g/dL (30-55); Mean Corpuscular Hemoglobin 25.9 pg (27-33); Mean Corpuscular Volume 84.7 fl (85-98); Mean Platelet Volume 9.5 fL (7.4-10.4); Monocytes # 0.2 10^3/uL (0.2-0.9); Monocytes % 5.1 %; Neutrophils # 2.99 10^3/uL (1.8-7.7); Neutrophils % 66.9 %; Nucleated Red Blood Cells % 0 %; Platelet Count 323 10^3/cmm (157-399); Red Blood Count 3.78 10^6/uL (3.85-5.65); Red Cell Distribution Width 18.1 % (12.1-15.1); White Blood Count 4.47 10^3/uL (3.29-11.43)
[2023-03-12 12:00] LABS: Ferritin 347 ng/mL (15-150); Iron 49 ug/dL (37-145); Percent Saturation 24.2 % (20-50); Total Iron Binding Capacity 202 mcg/dl; Unsaturated Iron Binding 153 ug/dL (112-347)
== END 2023-03-24 23:59 | disposition home or self-care (01) ==
PROVIDERS: PCP Nurse Practitioner Family; Visit Provider Internal Medicine Medical Oncology
DX: D64.9 Anemia, unspecified (principal); K62.5 Hemorrhage of anus and rectum
CPT/HCPCS: 36415; 82728; 83540; 83550; 85025; 96365; 99214; J1756; J7050

== ENCOUNTER 2023-07-04 12:25 | Oncology outpatient (recurring) (ONCR) | payer MEDICARE, SELFPAY ==
[2023-07-04 12:43] VITALS: BP 145/77; PULSE 69; RESP 16; TEMP 36.3; O2SAT 98
[2023-07-04 13:01] LABS: Basophils # 0.1 10^3/uL (0.0-0.1); Basophils % 1.7 %; Eosinophils # 0.1 10^3/uL (0.0-0.8); Eosinophils % 3.2 %; Hematocrit 31.1 % (36-47); Lymphocytes # 1.1 10^3/uL (0.8-4.8); Lymphocytes % 27.3 %; Mean Corpuscular HGB Conc 32.8 g/dL (30-55); Mean Corpuscular Hemoglobin 28.7 pg (27-33); Mean Corpuscular Volume 87.4 fl (85-98); Mean Platelet Volume 10.3 fL (7.4-10.4); Monocytes # 0.3 10^3/uL (0.2-0.9); Monocytes % 6.4 %; Neutrophils # 2.49 10^3/uL (1.8-7.7); Neutrophils % 61.2 %; Nucleated Red Blood Cells % 0 %; Platelet Count 248 10^3/cmm (157-399); Red Blood Count 3.56 10^6/uL (3.85-5.65); Red Cell Distribution Width 12.9 % (12.1-15.1); White Blood Count 4.07 10^3/uL (3.29-11.43)
[2023-07-04 13:23] LABS: Ferritin 144 ng/mL (15-150); Iron 38 ug/dL (37-145); Percent Saturation 21.1 % (20-50); Total Iron Binding Capacity 180 mcg/dl; Unsaturated Iron Binding 142 ug/dL (112-347)
== END 2023-07-25 23:59 | disposition home or self-care (01) ==
PROVIDERS: Nurse Practitioner Family; PCP Nurse Practitioner Family; Visit Provider Internal Medicine Medical Oncology
DX: D64.9 Anemia, unspecified (principal); D50.9 Iron deficiency anemia, unspecified; Z79.899 Other long term (current) drug therapy
CPT/HCPCS: 36415; 82728; 83540; 83550; 85025; 99214

== ENCOUNTER 2023-07-04 12:55 | Emergency (ER) | payer MEDICARE, SELFPAY ==
[2023-07-04 13:06] VITALS: BMI 25.0
[2023-07-04 13:08] VITALS: BP 128/77; PULSE 64; RESP 16; TEMP 37.1; O2SAT 99
--- NOTE | 2023-07-04 13:14 | XRR_ITS ---
PROCEDURE INFORMATION: Exam: XR Right Shoulder Exam date and time: 07/04/2023 1:31 PM Age: 53 years old Clinical indication: Injury or trauma; Fall; Blunt trauma (contusions or hematomas); Shoulder; Right; Additional info: Fall injury TECHNIQUE: Imaging protocol: Radiologic exam of the right shoulder. Views: 2 or more views. COMPARISON: CR XR shoulder RT min 2V* [id number] 02/07/2017 12:28 PM FINDINGS: Bones/joints: Mild acromioclavicular and glenohumeral spurring. No fracture or dislocation. No acute osseous or joint abnormality. Soft tissues: Normal. XR/XR shoulder RT min 2V* [id number] IMPRESSION: No acute findings.
--- NOTE | 2023-07-04 13:14 | XRR_ITS ---
PROCEDURE INFORMATION: Exam: XR Right Hand Exam date and time: 07/04/2023 1:31 PM Age: 53 years old Clinical indication: Injury or trauma; Fall; Blunt trauma (contusions or hematomas); Hand; Right; Additional info: Fall injury TECHNIQUE: Imaging protocol: Radiologic exam of the right hand. Views: 3 or more views. COMPARISON: CR XR wrist RT min 3V* [id number] 07/04/2023 1:31 PM FINDINGS: Bones/joints: Normal. No fracture or dislocation. No significant arthritic changes. Soft tissues: Normal. XR/XR hand RT min 3V* [id number] IMPRESSION: No acute findings.
--- NOTE | 2023-07-04 13:14 | XRR_ITS ---
PROCEDURE INFORMATION: Exam: XR Right Wrist Exam date and time: 07/04/2023 1:31 PM Age: 53 years old Clinical indication: Injury or trauma; Fall; Blunt trauma (contusions or hematomas); Wrist; Right; Additional info: Fall injury TECHNIQUE: Imaging protocol: Radiologic exam of the right wrist. Views: 3 or more views. COMPARISON: CR XR hand RT min 3V* [id number] 07/04/2023 1:31 PM FINDINGS: Bones/joints: Normal. No fracture or dislocation. No significant arthritic changes. No or joint abnormality. Soft tissues: Normal. XR/XR wrist RT min 3V* [id number] IMPRESSION: No acute findings.
--- NOTE | 2023-07-04 13:23 | W.ED.EXTPRO ---
HPI - Extremity Problem General: Chief complaint: Extremity Injury, Upper Stated complaint: Fell, hurt left hand Time Seen by Provider: 07/04/23 13:13 History of Present Illness: 53-year-old female comes in today for complaints of injury to the right hand and right shoulder. Patient reports that she 3 days ago had become dizzy and fell catching herself with outstretched hand on the right side. Patient is being evaluated at this time for these spells that she is having. Patient denies any other concerns. Patient comes in today for x-rays of her hand and shoulder. Review of Systems General: Reports: 10 or more systems reviewed and unremarkable except in HPI and below Musc: Reports: extremity pain and extremity swelling PFSH ED PFSH: Medical History Anemia Diabetes Intervertebral disc disorder with radiculopathy of lumbosacral region Lumbar stenosis with neurogenic claudication Major depressive disorder, recurrent severe without psychotic features Obstructive sleep apnea Peripheral sensory-motor axonal polyneuropathy Sinus disease Surgical History H/O esophagogastroduodenoscopy (03/17/21) severe gastritis with ulceration at GJ anastomosis History of amputation of toe History of carpal tunnel surgery History of colonoscopy with polypectomy (03/17/21) diverticulosis History of eye surgery History of gastric bypass 2018 History of orthopedic surgery History of tubal ligation History of umbilical hernia repair lap-2001 Family History Grandmother Stroke Family/Other Stroke Mother Diabetes Heart disease Hypertension Cancer Father Diabetes Social History Smoking and tobacco/nicotine status: former use of tobacco/nicotine (smoked x off and on) Quit status (tobacco/nicotine): has quit using Year quit tobacco: 2006 Former quit date comment: 10-15 years quit Alcohol intake: never Substance/Drug Use: never Household members: spouse and children Marital status: Current occupational status: disabled Physical Exam Const: COMMON NORMALS: alert HENMT: COMMON NORMALS: normocephalic HEAD & SCALP: normocephalic Neck/C-Spine: COMMON NORMALS: full ROM CERVICAL SPINE: Yes cervical ROM normal and No Cervical spine tenderness Resp: COMMON NORMALS: normal respiratory effort Cardio: COMMON NORMALS: regular rate RATE: regular rate GI: COMMON NORMALS: non-tender Back/Pelvis: COMMON NORMALS: thoracic and lumbar spine normal to inspection Extremity: RIGHT UPPER EXTREMITY: Yes shoulder joint (Lateral anterior tenderness) Right shoulder: Yes Right shoulder joint inspection exam, Yes palpation, Yes Right shoulder joint ROM exam and Yes Right shoulder joint neurovascular exam and Yes hand & digits (Normal tendon function, swelling noted to the fifth metatarsal area) Right hand and digits: Yes inspection, Yes palpation, Yes ROM exam, Yes neurovascular exam and Yes tendon exam Neuro: SENSORIUM/ORIENTATION: Yes alert Skin: COMMON NORMALS: turgor normal GENERAL SKIN EXAM: turgor normal Course Vital Signs: Vital signs: Vital Signs Temperature 98.7 F 07/04/23 13:08 Pulse Rate 64 07/04/23 13:08 Respiratory Rate 16 07/04/23 13:08 Blood Pressure 128/77 07/04/23 13:08 Pulse Oximetry 99 07/04/23 13:08 Oxygen Delivery Me thod Room Air 07/04/23 13:08 MDM - Extremity (Nontraumatic) Medical Decision Making 53-year-old female comes in today with injury to the right hand and right shoulder. On exam there is some swelling to the dorsal hand. Normal range of motion. Cap refill is intact. Pulses are intact. Differential diagnosis includes but not limited to fracture, sprain, contusion. X-rays of the hand, wrist, and right shoulder noted no fractures. Reviewed exam with patient with recommendations for treatment and follow-up. Patient reported understanding. Lab Data Radiology Impressions Hand X-Ray 07/04/23 13:14 IMPRESSION: No acute findings. Shoulder X-Ray 07/04/23 13:14 IMPRESSION: No acute findings. Wrist X-Ray 07/04/23 13:14 IMPRESSION: No acute findings. All radiology interpretation(s) finalized by discharge Discharge Plan Discharge Patient Disposition: Home Clinical Impression: Sprain and strain of right hand Fall Qualifiers: Encounter type: initial encounter Qualified Code(s): W19.XXXA - Unspecified fall, initial encounter Right shoulder pain Qualifiers: Chronicity: acute Qualified Code(s): M25.511 - Pain in right shoulder Condition: Stable Prescriptions: No Action ropinirole 5 mg tablet 5 mg PO .HS tizanidine 4 mg capsule 6 mg PO TID PRN (Reason: muscle spasticity) losartan 25 mg tablet 25 mg PO DAILY atorvastatin 40 mg tablet 40 mg PO DAILY pregabalin [Lyrica] 150 mg capsule 150 mg PO BID albuterol sulfate [ProAir HFA] 90 mcg/actuation HFA aerosol inhaler 2 puff INHALATION Q4H PRN (Reason: Shortness Of Breath) naproxen 500 mg tablet 500 mg PO DAILY Lumigan 0.01 % drops 1 drop ophthalmic (eye) DAILY Rx Instructions: left eye (DME) quad cane See Rx Instructions .Route .MEDSUPPLY Qty: 1 0RF Rx Instructions: As directed primidone 50 mg tablet 100 mg PO BID Qty: 360 3RF Rx Instructions: Take 2 tablets by mouth twice daily propranolol 60 mg capsule,extended release 24 hr 60 mg PO DAILY Qty: 90 3RF (DME) ASO to the right See Rx Instructions .Route .MEDSUPPLY Qty: 1 0RF Rx Instructions: As directed bupropion HCl [Wellbutrin XL] 300 mg tablet extended release 24 hr 300 mg PO QAM Qty: 90 2RF Rx Instructions: Take one tablet every morning duloxetine [Cymbalta] 60 mg capsule,delayed release(DR/EC) 120 mg PO .morning Qty: 180 2RF Rx Instructions: Take two capsules every morning levocetirizine 5 mg tablet 5 mg PO ONCE potassium chloride 10 mEq tablet extended release 20 meq PO ONCE Santyl 250 unit/gram ointment 1 applic topical DAILY 28 Days Qty: 90 2RF pantoprazole 40 mg tablet,delayed release (DR/EC) 40 mg PO DAILY Qty: 30 0RF sucralfate 1 gram tablet 1 g PO Q6H Qty: 120 4RF melatonin 3 mg capsule 3 mg PO .QHS PRN (Reason: sleep) Qty: 90 2RF Rx Instructions: Take one capsule thirty min prior to bed as needed for sleep Discharge Orders: Discharge ED (Routine); Ordered 07/04/23 Ordered By: Lauro Mercado Referrals: Sandra Mccrary NP [Primary Care Provider] - Discharge Diet: Usual diet Discharge Activity: Increase activity as tolerated Patient Instructions: Musculoskeletal Pain (ED) Activity Restrictions/Additional Instructions: Activity as tolerated. Gentle stretching and range of motion exercises. Ice or heat for pain. Tylenol ibuprofen for further pain relief. Follow-up with primary care for further instructions. Return to ED for new concerns. Coding Level of Care Code ED Outpatient Coding Specialist for Dolores [facility]
[2023-07-04 14:12] VITALS: PULSE 62; O2SAT 97
== END 2023-07-04 14:13 | disposition home or self-care (01) ==
PROVIDERS: Emergency Provider Nurse Practitioner Family; PCP Nurse Practitioner Family
DX: S63.91XA Sprain of unspecified part of right wrist and hand, initial encounter (principal); S66.911A Strain of unspecified muscle, fascia and tendon at wrist and hand level, right hand, initial encounter; M25.511 Pain in right shoulder; Z87.891 Personal history of nicotine dependence; E11.9 Type 2 diabetes mellitus without complications; W18.39XA Other fall on same level, initial encounter
CPT/HCPCS: 73030; 73110; 73130; 99284

== ENCOUNTER 2023-10-13 17:06 | Emergency (ER) | payer MEDICARE, SELFPAY ==
[2023-10-13 17:10] VITALS: BP 145/76; PULSE 60; RESP 14; TEMP 36.8; O2SAT 98
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
[2023-10-13 19:08] VITALS: PULSE 60; O2SAT 98
[2023-10-13] MEDS: TRAMadol 50 mg Tablet PO (19:14)
[2023-10-13] MEDS: ketorolac 60 mg/2 mL INJ IM (19:19)
[2023-10-13] MEDS: orphenadrine 30 mg/mL Inj 2 mL 60 MG IM (19:19)
== END 2023-10-13 19:34 | disposition home or self-care (01) ==
PROVIDERS: Emergency Provider Family Medicine; PCP Nurse Practitioner Family
DX: M79.18 Myalgia, other site (principal); Z87.891 Personal history of nicotine dependence; E11.9 Type 2 diabetes mellitus without complications
CPT/HCPCS: 70450; 72125; 73030; 96372; 99284; J1885; J2360

== ENCOUNTER 2023-10-22 13:19 | Oncology outpatient (recurring) (ONCR) | payer MEDICARE, SELFPAY ==
[2023-10-22 13:45] LABS: Basophils # 0.1 10^3/uL (0.0-0.1); Basophils % 0.9 %; Eosinophils # 0.3 10^3/uL (0.0-0.8); Eosinophils % 5.2 %; Hematocrit 34.3 % (36-47); Lymphocytes # 1.5 10^3/uL (0.8-4.8); Lymphocytes % 26.3 %; Mean Corpuscular HGB Conc 32.4 g/dL (30-55); Mean Corpuscular Hemoglobin 29.6 pg (27-33); Mean Corpuscular Volume 91.5 fl (85-98); Mean Platelet Volume 10.4 fL (7.4-10.4); Monocytes # 0.6 10^3/uL (0.2-0.9); Monocytes % 10.6 %; Neutrophils # 3.14 10^3/uL (1.8-7.7); Neutrophils % 56.5 %; Nucleated Red Blood Cells % 0 %; Platelet Count 252 10^3/cmm (157-399); Red Blood Count 3.75 10^6/uL (3.85-5.65); Red Cell Distribution Width 14.5 % (12.1-15.1); White Blood Count 5.56 10^3/uL (3.29-11.43)
[2023-10-22 14:05] LABS: Alanine Aminotransferase 17 U/L (0-33); Albumin Level 4.2 g/dL (3.5-5.2); Alkaline Phosphatase 123 U/L (35-105); Anion Gap 16.5 (5-19); Aspartate Amino Transferase 26 U/L (0-32); Blood Urea Nitrogen 20 mg/dL (6-20); Calcium 8.9 mg/dL (8.5-10.5); Carbon Dioxide 18 mmol/L (22-29); Chloride 105 mmol/L (98-107); Ferritin 202 ng/mL (15-150); Globulin 3.6 g/dL (1.3-4.6); Glomerular Filtration Rate 36.3 mL/min (90-130); Glucose 300 mg/dL (65-115); Iron 39 ug/dL (37-145); Osmolality Calculated 296 mOsm/kg (285-295); Percent Saturation 16.5 % (20-50); Potassium 3.5 mmol/L (3.5-5.1); Sodium 136 mmol/L (136-145); Total Bilirubin 0.2 mg/dL (0.15-1.2); Total Iron Binding Capacity 235 mcg/dl; Total Protein 7.8 g/dL (6.6-8.7); Unsaturated Iron Binding 196 ug/dL (112-347)
== END 2023-10-23 23:59 | disposition home or self-care (01) ==
PROVIDERS: Nurse Practitioner Family; PCP Nurse Practitioner Family; Visit Provider Internal Medicine Medical Oncology
DX: D64.9 Anemia, unspecified (principal)
CPT/HCPCS: 36415; 80053; 82728; 83540; 83550; 85025

== ENCOUNTER → 2023-11-08 13:11 | Outpatient (BNVA) | payer MEDICARE, SELFPAY | PROVIDERS: PCP Nurse Practitioner Family; Referring Provider Nurse Practitioner Family; Visit Provider Physician Assistant | DX: M17.12 Unilateral primary osteoarthritis, left knee | CPT/HCPCS: 73560; 73565 ==

== ENCOUNTER 2023-11-08 15:16 | Outpatient (CLI) | payer MEDICARE, SELFPAY | END 2023-11-08 15:17 | disposition home or self-care (01) | LOC: SPT 15:17 | PROVIDERS: PCP Nurse Practitioner Family; Visit Provider Physician Assistant | DX: Z46.89 Encounter for fitting and adjustment of other specified devices (principal); M17.12 Unilateral primary osteoarthritis, left knee | CPT/HCPCS: 20610; 97760; 99213; J3301; L1851 ==

== ENCOUNTER 2023-11-21 13:30 | Oncology outpatient (recurring) (ONCR) | payer MEDICARE, SELFPAY ==
[2023-11-01 11:00] VITALS: BP 153/81; PULSE 63; RESP 18; TEMP 36.8; O2SAT 97
[2023-11-01] MEDS: iron sucrose 500 MG in sodium chloride 0.9% 250 ML 78 MG IV (11:04)
[2023-11-01 13:43] VITALS: BP 152/76; PULSE 62; TEMP 36.4; O2SAT 96
[2023-11-21 13:30] VITALS: BP 146/74; PULSE 61; RESP 16; TEMP 36.6; O2SAT 97
[2023-11-21] MEDS: sodium chloride 0.9% (100 ml) 200 ML 75 ML (13:59)
[2023-11-21] MEDS: iron sucrose 500 MG in sodium chloride 0.9% 250 ML 78 MG IV (14:01)
[2023-11-21 16:56] VITALS: BP 135/78; PULSE 55; RESP 16; TEMP 36.3; O2SAT 99
== END 2023-11-23 23:59 | disposition home or self-care (01) ==
PROVIDERS: PCP Nurse Practitioner Family; Visit Provider Internal Medicine Medical Oncology
DX: D64.9 Anemia, unspecified (principal); D50.9 Iron deficiency anemia, unspecified; Z79.899 Other long term (current) drug therapy; M25.511 Pain in right shoulder; M75.21 Bicipital tendinitis, right shoulder; M75.41 Impingement syndrome of right shoulder
CPT/HCPCS: 20610; 73030; 96365; 96366; 99203; J1756; J3301; J7050

== ENCOUNTER → 2023-12-13 15:15 | Outpatient (BNVA) | payer MEDICARE, SELFPAY | PROVIDERS: PCP Nurse Practitioner Family; Visit Provider Physician Assistant | DX: M75.41 Impingement syndrome of right shoulder (principal); M75.21 Bicipital tendinitis, right shoulder | CPT/HCPCS: 99213 ==

== ENCOUNTER 2023-12-21 12:45 | Oncology outpatient (recurring) (ONCR) | payer MEDICARE, SELFPAY ==
--- NOTE | 2023-12-21 13:00 | MR_ITS ---
WS: [id number] MRI RIGHT SHOULDER HISTORY: Impingement of right shoulder COMPARISON: Radiograph 11/01/2023 TECHNIQUE: Multiplanar sequences of the shoulder joint are submitted. Mild AC joint arthritis. There is a moderate amount of fluid in the subacromial and subdeltoid bursa. Very small osteophyte with mild subacromial impingement upon the supraspinatus tendon. No os acromio n. Normal position of the biceps tendon. Normal glenohumeral joint. Marked tendinopathy in the distal supraspinatus tendon. Most consistent wi th tendinopathy and not a full-thickness tear. Subscapularis tendon and the infraspinatus tendons are normal. There is no muscle edema. There is mild supraspinatus atrophy. There is a small amount of fl uid in the expected location of the coracohumeral ligament. Poor distinction of the coracohumeral lig ament. May be a partial tear. Abnormal signal in the superior labrum. Suspect labral tear. MR/MR shoulder RT wo con* [id number] IMPRESSION: 1. Mild subacromial impingement. 2. Moderate fluid in the subacromial and subdeltoid bursa. 3. There is a small fluid collection in the region of the coracohumeral ligame nt. The ligament itself is difficult to visualize and may be partially torn. 4. Abnormal signal in the superior labrum consistent with a partial tear. 5. Tendinopathy in the distal supraspinatus tendon but no full-thickness tear. 6. Mild atrophy of the supraspinatus muscle. No tendon tear is identified.
== END 2023-12-23 23:59 | disposition home or self-care (01) ==
LOC: RAD 01-01 10:47 → ONCMED 01-08 07:40
PROVIDERS: PCP Nurse Practitioner Family; Visit Provider Internal Medicine Medical Oncology
DX: D64.9 Anemia, unspecified (principal); D50.9 Iron deficiency anemia, unspecified; Z79.899 Other long term (current) drug therapy; M25.511 Pain in right shoulder; M75.21 Bicipital tendinitis, right shoulder; M75.41 Impingement syndrome of right shoulder; Z53.9 Procedure and treatment not carried out, unspecified reason; Z98.84 Bariatric surgery status
CPT/HCPCS: 73221

== ENCOUNTER 2024-01-22 12:53 | Oncology outpatient (recurring) (ONCR) | payer MEDICARE, SELFPAY ==
[2024-01-22 13:21] LABS: Basophils # 0.1 10^3/uL (0.0-0.1); Basophils % 0.8 %; Eosinophils # 0.1 10^3/uL (0.0-0.8); Eosinophils % 1.4 %; Hematocrit 36.5 % (36-47); Lymphocytes # 0.9 10^3/uL (0.8-4.8); Lymphocytes % 14.4 %; Mean Corpuscular HGB Conc 33.4 g/dL (30-55); Mean Corpuscular Volume 92.9 fl (85-98); Mean Platelet Volume 9.8 fL (7.4-10.4); Monocytes # 0.5 10^3/uL (0.2-0.9); Monocytes % 8.4 %; Neutrophils # 4.82 10^3/uL (1.8-7.7); Neutrophils % 74.7 %; Nucleated Red Blood Cells % 0 %; Platelet Count 280 10^3/cmm (157-399); Red Blood Count 3.93 10^6/uL (3.85-5.65); Red Cell Distribution Width 13.6 % (12.1-15.1); White Blood Count 6.45 10^3/uL (3.29-11.43)
[2024-01-22 13:36] LABS: Alanine Aminotransferase 12 U/L (0-33); Alkaline Phosphatase 110 U/L (35-105); Anion Gap 15.7 (5-19); Aspartate Amino Transferase 16 U/L (0-32); Blood Urea Nitrogen 23 mg/dL (6-20); Calcium 9.2 mg/dL (8.5-10.5); Carbon Dioxide 20 mmol/L (22-29); Chloride 106 mmol/L (98-107); Globulin 3.8 g/dL (1.3-4.6); Glomerular Filtration Rate 39.3 mL/min (90-130); Glucose 259 mg/dL (65-115); Iron 22 ug/dL (37-145); Osmolality Calculated 299 mOsm/kg (285-295); Potassium 3.7 mmol/L (3.5-5.1); Sodium 138 mmol/L (136-145); Total Bilirubin 0.2 mg/dL (0.15-1.2); Total Iron Binding Capacity 168 mcg/dl; Total Protein 7.8 g/dL (6.6-8.7); Unsaturated Iron Binding 146 ug/dL (112-347)
== END 2024-01-23 23:59 | disposition home or self-care (01) ==
PROVIDERS: Nurse Practitioner Family; PCP Nurse Practitioner Family; Visit Provider Internal Medicine Medical Oncology
DX: Z98.84 Bariatric surgery status; D50.8 Other iron deficiency anemias; K95.89 Other complications of other bariatric procedure; E11.65 Type 2 diabetes mellitus with hyperglycemia; Z79.84 Long term (current) use of oral hypoglycemic drugs
CPT/HCPCS: 36415; 80053; 83540; 83550; 85025; 99214

== ENCOUNTER 2024-02-14 14:30 | Oncology outpatient (recurring) (ONCR) | payer MEDICARE, SELFPAY ==
[2024-01-31 15:43] VITALS: BP 120/73; PULSE 77; RESP 16; TEMP 36.4; O2SAT 99
[2024-01-31] MEDS: iron sucrose 200 MG in sodium chloride 0.9% (100 ml) 100 ML 220 MG IV (16:15)
[2024-01-31] MEDS: sodium chloride 0.9% 250 ML 220 ML IV (16:15)
[2024-01-31 17:19] VITALS: BP 99/58; PULSE 69; RESP 17; TEMP 36.2; O2SAT 97
[2024-02-04 15:21] VITALS: BP 119/69; PULSE 67; RESP 16; TEMP 36.6; O2SAT 99
[2024-02-04] MEDS: iron sucrose 200 MG in sodium chloride 0.9% (100 ml) 100 ML 220 MG IV (15:36)
[2024-02-04 16:17] VITALS: BP 122/74; PULSE 68; RESP 16; TEMP 36.6; O2SAT 99
[2024-02-06 15:30] VITALS: BP 112/64; PULSE 60; RESP 16; TEMP 36.5; O2SAT 99
[2024-02-06] MEDS: iron sucrose 200 MG in sodium chloride 0.9% (100 ml) 100 ML 220 MG IV (15:37)
[2024-02-06 16:20] VITALS: BP 106/65; PULSE 59; TEMP 36.2; O2SAT 97
[2024-02-11 14:18] VITALS: BP 120/74; PULSE 80; RESP 18; TEMP 36.2; O2SAT 98
[2024-02-11] MEDS: iron sucrose 200 MG in sodium chloride 0.9% (100 ml) 100 ML 220 MG IV (14:35)
[2024-02-11 15:10] VITALS: BP 136/83; PULSE 67; RESP 16; TEMP 36.4; O2SAT 99
[2024-02-14 14:36] VITALS: BP 118/73; PULSE 89; RESP 16; TEMP 36.3; O2SAT 96
[2024-02-14] MEDS: iron sucrose 200 MG in sodium chloride 0.9% (100 ml) 100 ML 220 MG IV (14:43)
[2024-02-14 15:17] VITALS: BP 117/73; PULSE 78; RESP 16; TEMP 36.4; O2SAT 97
== END 2024-02-23 23:59 | disposition home or self-care (01) ==
PROVIDERS: PCP Nurse Practitioner Family; Visit Provider Internal Medicine Medical Oncology
DX: Z53.9 Procedure and treatment not carried out, unspecified reason (principal); D50.8 Other iron deficiency anemias; Z79.899 Other long term (current) drug therapy
CPT/HCPCS: 96365; J1756; J7050

== ENCOUNTER → 2024-02-28 09:46 | Outpatient (BNVA) | payer MEDICARE, SELFPAY | PROVIDERS: PCP Nurse Practitioner Family; Visit Provider Podiatrist Foot & Ankle Surgery | DX: M75.41 Impingement syndrome of right shoulder; M75.21 Bicipital tendinitis, right shoulder; M19.011 Primary osteoarthritis, right shoulder; M25.571 Pain in right ankle and joints of right foot; L97.313 Non-pressure chronic ulcer of right ankle with necrosis of muscle | CPT/HCPCS: 73610; 87070; 87075; 87205; 99214 ==

== ENCOUNTER 2024-03-18 13:45 | Oncology outpatient (recurring) (ONCR) | payer MEDICARE, SELFPAY ==
[2024-03-17 11:20] LABS: Basophils # 0.1 10^3/uL (0.0-0.1); Basophils % 1.7 %; Eosinophils # 0.1 10^3/uL (0.0-0.8); Hematocrit 37.7 % (36-47); Lymphocytes # 1.1 10^3/uL (0.8-4.8); Lymphocytes % 22.9 %; Mean Corpuscular HGB Conc 31.8 g/dL (30-55); Mean Corpuscular Hemoglobin 31.3 pg (27-33); Mean Corpuscular Volume 98.4 fl (85-98); Mean Platelet Volume 10.4 fL (7.4-10.4); Monocytes # 0.4 10^3/uL (0.2-0.9); Monocytes % 7.8 %; Neutrophils # 2.96 10^3/uL (1.8-7.7); Neutrophils % 64.2 %; Nucleated Red Blood Cells % 0 %; Platelet Count 256 10^3/cmm (157-399); Red Blood Count 3.83 10^6/uL (3.85-5.65); Red Cell Distribution Width 13.9 % (12.1-15.1); White Blood Count 4.62 10^3/uL (3.29-11.43)
[2024-03-17 11:39] LABS: Alanine Aminotransferase 37 U/L (0-33); Albumin Level 3.5 g/dL (3.5-5.2); Alkaline Phosphatase 126 U/L (35-105); Anion Gap 17.8 (5-19); Aspartate Amino Transferase 32 U/L (0-32); Blood Urea Nitrogen 20 mg/dL (6-20); Calcium 9.3 mg/dL (8.5-10.5); Carbon Dioxide 18 mmol/L (22-29); Chloride 103 mmol/L (98-107); Ferritin 856 ng/mL (15-150); Globulin 3.6 g/dL (1.3-4.6); Glucose 242 mg/dL (65-115); Iron 47 ug/dL (37-145); Osmolality Calculated 291 mOsm/kg (285-295); Percent Saturation 34.5 % (20-50); Potassium 3.8 mmol/L (3.5-5.1); Sodium 135 mmol/L (136-145); Total Bilirubin 0.2 mg/dL (0.15-1.2); Total Iron Binding Capacity 136 mcg/dl; Total Protein 7.1 g/dL (6.6-8.7); Unsaturated Iron Binding 89 ug/dL (112-347)
[2024-03-18] MEDS: gadobenate dimeglumine 5 mL vial IV (13:20)
--- NOTE | 2024-03-18 13:45 | MR_ITS ---
WS: [id number] MRI RIGHT ANKLE WITHOUT CONTRAST. COMPARISON: Radiographs 02/28/2024 Multiplanar, multisequence imaging is performed without contrast. History: Prior fibular fracture with repair. Hardware removed secondary to prior infection. Rule out new infection. Pes planus and deformity of the midfoot. Loss of the normal tarsal bone articulations. Erosions with narrowing of the joint spaces. There is a small amount of residual edema in the distal fibula. Healing screw tracks in the distal fi bula. Superficial soft tissue ulceration lateral to the distal fibula extends over a length of 1.6 cm . Soft tissue tract extends close to the fibula but does not abut the fibula. There is only a small a mount of fluid and increased T2 signal along the tract. No fluid. Marrow edema in the fibula is deep to this tract. Degenerative changes at the tibiotalar joint. No additional marrow edema. Abnormal peroneal tendon sh eath. Peroneal brevis has a split tear with invagination of the longus tendon. Distally the tendons a re intact. Remaining tendons are normal. MR/MR ankle RT wo con* [id number] IMPRESSION: 1. 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 2. Small amount of marrow edema in the distal fibula. Cannot confirm osteomyel itis without IV contrast. 3. Soft tissue ulcer measures 1.6 cm adjacent to the distal fibula. There is a small amount of soft tissue edema but no fluid along the ulcer tract. 4. Split tear of the peroneus brevis with invagination of the peroneus longus tendon.
== END 2024-03-24 23:59 | disposition home or self-care (01) ==
LOC: ONCMED 03-20 09:34
PROVIDERS: Nurse Practitioner Family; PCP Nurse Practitioner Family; Visit Provider Podiatrist Foot & Ankle Surgery
DX: Z53.9 Procedure and treatment not carried out, unspecified reason (principal); D50.8 Other iron deficiency anemias; K95.89 Other complications of other bariatric procedure; M19.071 Primary osteoarthritis, right ankle and foot
CPT/HCPCS: 36415; 73721; 80053; 82728; 83540; 83550; 85025; 99214

== ENCOUNTER → 2024-03-25 16:08 | Outpatient (BNVA) | payer MEDICARE, SELFPAY | PROVIDERS: PCP Nurse Practitioner Family; Visit Provider Specialist | DX: R20.2 Paresthesia of skin (principal); G56.03 Carpal tunnel syndrome, bilateral upper limbs; G56.23 Lesion of ulnar nerve, bilateral upper limbs; G60.9 Hereditary and idiopathic neuropathy, unspecified | CPT/HCPCS: 95910 ==

== ENCOUNTER 2024-04-02 08:01 | Day surgery (SDC) | payer MEDICARE, SELFPAY ==
[2024-04-02] VITALS (11 sets, daily range): BP systolic 124–150; BP diastolic 64–75; PULSE 58–63; RESP 6–16; TEMP 36.2–36.6; O2SAT 91–100; BMI 22.4
[2024-04-02 09:41] LABS: Glucose Point of Care 127 mg/dL (70-110)
--- NOTE | 2024-04-02 10:20 | P.ANESASSM_ITS ---
Pre-Anesthetic Assessment Height/Weight: Height 1.65 m Weight 61.235 kg Temp Pulse Resp BP Pulse Ox O2 Del Method 97.5 F L 59 L 16 124/75 100 Room Air 04/02/24 08:48 04/02/24 08:48 04/02/24 08:48 04/02/24 08:48 04/02/24 08:48 04/02/24 09:13 Operation Date: 04/02/24 10:35 Proposed Procedures p Shoulder Arthroscopy(Right) - Derian [place], DO s biceps tenotomy versus tenodesis(Right) - Derian Dangelo, DO s Subacromial Decompression(Right) - Derian [place]. [place], DO s Labral Debridement vs repair(Right) - Derian [place], DO s rotator cuff debridement versus repair,(Right) - Derian Dangelo, DO s AC Joint Resection(Right) - Derian [place], DO Familial anesthetic complications: None Was Beta Brennon taken within 24 hours: N/A Was Clonidine taken within 24 hours: N/A Last intake: Intake Last Liquid Date 04/01/24 Last Liquid Time 21:00 Last Solid Date 04/01/24 Last Solid Time 19:00 Social No alcohol and No tobacco Exam alert, oriented x 3, clear to auscultation bilaterally and regular rate & rhythm Airway Mallampati: Class III Dentition: full CV/HEM Hypertension GI gastric bypass Metabolic Diabetes Mellitus and Hyperlipidemia Anesthetic Plan ASA status: 2 Anesthesia: General and Regional (specify below) Risk of > 500 ml blood loss (7ml/kg in children): No Medications/Allergies Home Medications Medication Instructions Recorded Confirmed Last Taken Type albuterol sulfate 90 mcg/actuation 2 puff inhalation Q4H PRN 08/22/19 04/01/24 3 Months Ago History aerosol inhaler (ProAir HFA) Shortness Of Breath ~12/15/20 atorvastatin 40 mg tablet 40 mg PO DAILY 08/22/19 04/01/24 03/31/24 History pregabalin 150 mg capsule (Lyrica) 150 mg PO BID 08/22/19 04/01/24 04/02/24 History ropinirole 5 mg tablet 5 mg PO .HS 08/22/19 04/01/24 03/31/24 History tizanidine 4 mg capsule 6 mg PO TID PRN muscle spasticity 08/22/19 04/01/2424 History bimatoprost 0.01 % eye drops 1 drop ophthalmic (eye) DAILY 02/18/20 04/01/24 03/31/24 History (Zafar) vicky cane #1 ea 09/06/22 03/25/24 Unknown Rx ASO to the right #1 ea 11/22/22 03/25/24 Unknown Rx collagenase clostridium histo. 250 1 applic topical DAILY 4 weeks #90 02/19/23 04/01/24 04/01/24 Rx unit/gram topical ointment (Santyl) grams levocetirizine 5 mg tablet 5 mg PO ONCE 02/19/23 04/01/24 03/31/24 History potassium chloride 10 mEq 20 meq PO ONCE 02/19/23 04/01/24 04/01/24 History tablet,extended release left medial charcoal unloader brace #1 ea 11/08/23 03/25/24 Unknown Rx medial charcoal unloader brace left knee #1 ea 11/08/23 03/25/24 Unknown Rx bupropion HCl 300 mg 24 hr tablet, 300 mg PO QAM #90 tabs 12/31/23 04/01/24 04/02/24 Rx extended release (Wellbutrin XL) duloxetine 60 mg capsule,delayed 120 mg (2 x 60 mg) PO .morning 12/31/23 04/01/24 04/02/24 Rx release (Cymbalta) #180 caps melatonin 3 mg capsule 3 mg PO .QHS PRN sleep #90 caps 12/31/23 04/01/24 Unknown Rx metformin 500 mg tablet 1,000 mg PO BID 12/31/23 04/01/24 04/01/24 History primidone 50 mg tablet 100 mg (2 x 50 mg) PO BID #360 tabs 01/09/24 04/01/24 04/01/24 Rx propranolol 60 mg capsule,24 60 mg PO DAILY #90 caps 01/09/24 04/01/24 04/02/24 Rx hr,extended release Diabetic shoes #1 ea 03/12/24 03/25/24 Unknown Rx hydrocodone 7.5 mg-acetaminophen 1 tab PO Q6H PRN pain #20 tabs 04/02/24 Unknown Rx 325 mg tablet ondansetron 4 mg disintegrating 4 mg PO Q8H PRN nausea and 04/02/24 Unknown Rx tablet vomiting 3 days #9 tabs Allergies Allergy/AdvReac Type Severity Reaction Status Date / Time gabapentin AdvReac Severe Makes lose Verified 03/25/24 18:38 hair morphine AdvReac Intermediate Hives Verified 03/25/24 18:38 Penicillins AdvReac Intermediate Hives Verified 03/25/24 18:38 PFSH Anesthesia Medical History Anemia Diabetes Intervertebral disc disorder with radiculopathy of lumbosacral region Lumbar stenosis with neurogenic claudication Major depressive disorder, recurrent severe without psychotic features Obstructive sleep apnea Peripheral sensory-motor axonal polyneuropathy Sinus disease Surgical History H/O esophagogastroduodenoscopy (03/17/21) severe gastritis with ulceration at GJ anastomosis History of amputation of toe History of carpal tunnel surgery History of colonoscopy with polypectomy (03/17/21) diverticulosis History of eye surgery History of gastric bypass 2018 History of orthopedic surgery History of tubal ligation History of umbilical hernia repair lap-2001 Family History Grandmother Stroke Family/Other Stroke Mother Diabetes Heart disease Hypertension Cancer Father Diabetes Social History Smoking and tobacco/nicotine status: former use of tobacco/nicotine Quit status (tobacco/nicotine): has quit using Year quit tobacco: 2006 Former quit date comment: 10-15 years quit Alcohol intake: never Substance/Drug Use: never Household members: spouse and children Marital status: Current occupational status: disabled Data Anesthesia Cardiac Studies: No Data to Display
--- NOTE | 2024-04-02 10:21 | W.PM.OPSFHP ---
Same Day Surgery H&P Indication for Procedure/HPI DATE OF PROCEDURE: April 02, 2024 CHIEF COMPLAINT/INDICATIONFOR SURGICAL PROCEDURE: Right shoulder subacromial impingement, AC joint arthritis, superior labral tear, rotator cuff tendinitis, bicep tendinitis PREOP DIAGNOSIS: Right shoulder subacromial impingement, AC joint arthritis, superior labral PLANNED PROCEDURE: Operation Date: 04/02/24 10:35 Proposed Procedures p Shoulder Arthroscopy(Right) - Derian Pierson DO s biceps tenotomy versus tenodesis(Right) - Derian Pierson DO s Subacromial Decompression(Right) - Derian Jacoboatt DO s Labral Debridement vs repair(Right) - Derian [place], DO s rotator cuff debridement versus repair,(Right) - Derian Pierson DO s AC Joint Resection(Right) - Derian Pierson DO Medications/Allergies* Home Medications Medication Instructions Recorded Confirmed Type albuterol sulfate 90 mcg/actuation 2 puff inhalation Q4H PRN 08/22/19 04/01/24 History aerosol inhaler (ProAir HFA) Shortness Of Breath atorvastatin 40 mg tablet 40 mg PO DAILY 08/22/19 04/01/24 History pregabalin 150 mg capsule (Lyrica) 150 mg PO BID 08/22/19 04/01/24 History ropinirole 5 mg tablet 5 mg PO .HS 08/22/19 04/01/24 History tizanidine 4 mg capsule 6 mg PO TID PRN muscle spasticity 08/22/19 04/01/24 History bimatoprost 0.01 % eye drops 1 drop ophthalmic (eye) DAILY 02/18/20 04/01/24 History (Zafar) levocetirizine 5 mg tablet 5 mg PO ONCE 02/19/23 04/01/24 History potassium chloride 10 mEq 20 meq PO ONCE 02/19/23 04/01/24 History tablet,extended release metformin 500 mg tablet 1,000 mg PO BID 12/31/23 04/01/24 History Allergies/Adverse Reactions Allergy/AdvReac Type Severity Reaction Status Date / Time gabapentin AdvReac Severe Makes lose Verified 03/25/24 18:38 hair morphine AdvReac Intermediate Hives Verified 03/25/24 18:38 Penicillins AdvReac Intermediate Hives Verified 03/25/24 18:38 Pertinent History/Comorbid Conditions* Medical History (Updated 03/31/24 @ 11:56 by Aura Alicia MD) Anemia Sinus disease Diabetes Peripheral sensory-motor axonal polyneuropathy Lumbar stenosis with neurogenic claudication Intervertebral disc disorder with radiculopathy of lumbosacral region Obstructive sleep apnea Major depressive disorder, recurrent severe without psychotic features Surgical History (Updated 10/12/22 @ 13:24 by Jerald Martin DPM) History of umbilical hernia repair -2001 History of colonoscopy with polypectomy (03/17/21) diverticulosis H/O esophagogastroduodenoscopy (03/17/21) severe gastritis with ulceration at GJ anastomosis History of amputation of toe History of eye surgery History of gastric bypass 2018 History of carpal tunnel surgery History of orthopedic surgery History of tubal ligation Family History (Updated 08/26/19 @ 13:44 by Poornima Hays LPN) Diabetes Mother Father Heart disease Mother Cancer Mother Hypertension Mother Stroke Grandmother Family/Other Social History Smoking and tobacco/nicotine status: former use of tobacco/nicotine Quit status (tobacco/nicotine): has quit using Year quit tobacco: 2006 Former quit date comment: 10-15 years quit Alcohol intake: never Substance/Drug Use: never Household members: spouse and children Marital status: Current occupational status: disabled Pertinent Exam Findings alert, oriented x 3, operative site marked and procedure specific exam findings Please refer to detailed orthopedic examination on 02/28/2024: Right Shoulder -Tender to palpation over ac joint and biceps tendon -Range of motion active 0-120 degrees 120-160 degrees -Rotator cuff strength internal and external 5 out of 5 strength -Jobes test-positive with pain and weakness -Speed's Test-positive with pain and weakness -O'Briens test-positive with pain and weakness -Positive crossover test -Schulz impingement-positive -Empty can test-positive with pain no weakness -Radial pulse 2+, normal cap refill under 2 seconds and patient can wiggle fingers. -Sensation to hand intact Recommendations Surgery/Procedure today Other Plans: Patient is here today for right shoulder diagnostic and surgical arthroscopy with biceps tenotomy versus tenodesis, subacromial decompression, labral debridement versus repair, rotator cuff debridement versus repair, AC joint resection. Patient's failed conservative treatment and at this point time through shared decision making she elects proceed with surgical intervention today. She understands the ins and outs of the procedure the risk benefits complication alternatives surgery and through shared decision-making elects proceed with surgical intervention. All questions been answered at this time. Coding Level of Care Code Acute Code for Chg Fwd
--- NOTE | 2024-04-02 10:21 | ANES.PROC ---
Anesthesia Procedures Procedure/Date: 04/02/24 Nerve Block ^: Nerve Block 1: Main Anesthesia: general anesthesia Time Out Performed: Yes Consent: requested by attending/covering physician, from patient, from other, risks and benefits reviewed and patient agrees to proceed Nerve block location: interscalene (R) Anesthesia monitors applied: pulse oximetry, EKG, BP cuff and oxygen Nerve block position: semi sitting Anesthetic Used: ropivicaine 0.5% (ml) and with decadron (3 mg) Ultrasound used to: recognize landmarks, visualize and ID brachial plexus, in supraclavicular region and visualize and ID interscalene groove Nerve Stimulator Used?: No Interscalene/Femoral BLK: 2 stimuplex 22 g needle used for position and inplane approach, visualize local anesthetic spread and no vascular puncture identified Injection: neg aspiration of heme Patient Tolerated Procedure: well Complications: none
[2024-04-02] MEDS: sodium chloride 0.9% 1,000 ML 30 ML IV (10:27)
[2024-04-02] MEDS: acetaminophen 1,000 MG/100 ML PIGGYBACK 400 MG IV (10:27)
[2024-04-02] MEDS: ketorolac 30 mg/mL INJ IVP (10:28)
--- NOTE | 2024-04-02 10:39 | SUR.PREOP ---
RIGHT INTERSCALENE NERVE BLOCK PERFORMED BY DOCTOR GOLDMAN. PT ON [employer]. TOLERATED PROCEDURE WELL. 20ml OF 0.5% ROPIVACAINE GIVEN.
[2024-04-02] MEDS: ceFAZolin 2,000 MG in sodium chloride 0.9% (plus) 50 ML 100 MG IV (10:48)
[2024-04-02] MEDS: EPINEPHrine 1 mg/mL INJ 2 MG XX (11:45)
--- NOTE | 2024-04-02 12:43 | P.BOP_ITS ---
Date of Procedure: 04/02/2024 Surgeon: Derian Pierson DO [employer] Technician(s): Nato Pierson PA-C Procedure(s) performed: Right shoulder diagnostic and surgical arthroscopy with biceps tenodesis Right shoulder diagnostic and surgical arthroscopy with labral debridement Right shoulder diagnostic and surgical arthroscopy with rotator cuff repair (medium) Right shoulder diagnostic and surgical arthroscopy with subacromial decompression (bursectomy and acromioplasty) Right shoulder diagnostic and surgical arthroscopy with AC joint resection (distal clavicle excision) Findings of the procedure(s): Patient was found to have a severe SLAP tear and significant bicep tenodesis and unstable bicep anchor underwent biceps tenodesis as well as labral debridement. Supraspinatus rotator cuff tendon was found to have a medium sized tear at the anterior portion. Underwent repair without issues or complications patient also found to have AC joint thrice and subacromial impingement underwent chromium plasty and bursectomy as well as distal clavicle excision without issues or complications. Patient was then awake from anesthesia taken PACU in stable condition. Estimated blood loss: 5 mL Specimen(s) removed: None Post-operative diagnosis: Right shoulder rotator cuff tear, SLAP tear/biceps tendinitis, labral tearing, AC joint arthritis, subacromial impingement
--- NOTE | 2024-04-02 12:46 | P.OP_ITS ---
Operative Report Date of procedure: April 02, 2024 Surgeon: Derian Pierson DO Equipment Service Technician: Nato Pierson PA-C: PA was necessary for assistance in this case with shoulder positioning to execute the procedure, assistance with instrumentation, as well as implant fixation when necessary, assist with wound closure and dressing application. Procedure: preoperative diagnosis: Right shoulder subacromial impingement, AC joint arthritis, superior labral tear, rotator cuff tendinitis, bicep tendinitis Post-op diagnosis: Right shoulder rotator cuff tear, SLAP tear/biceps tendinitis, labral tearing, AC joint arthritis, subacromial impingement Procedure done: Right?shoulder?diagnostic and surgical arthroscopy with arthroscopic?rotator cuff repair (medium) Right?shoulder?diagnostic and surgical arthroscopy biceps tenodesis Right?shoulder?diagnostic and surgical arthroscopy labral debridement Right?shoulder?diagnostic and surgical arthroscopy acromioclavicular joint resection Right?shoulder?diagnostic and surgical arthroscopy subacromial decompression (acromioplasty and bursectomy) Surgeon: Derian Pierson DO Estimated blood loss: 5mL IV fluids: See anesthesia record Implants: Arthrex 4.75 bicep tenodesis loop and tack system Arthrex 4.75 swivel locks x 2 Suture tapes x 2 Complications: None Condition: stable Disposition: same day Brief History: Patient been seen and worked up in the outpatient setting for right?shoulder?pain.? Pt had an MRI which showed findings below.? Patient's failed conservative treatment and has failed therapy as well as cortisone injection.? We talked about treatment options far as nonoperative and operative intervention..? We talked about risk benefits complication alternatives surgical nonsurgical treatment options.? Understanding risk of surgery pt agrees to proceed with surgical intervention for right shoulder diagnostic and surgical arthroscopy with biceps tenotomy versus tenodesis, subacromial decompression, labral debridement versus repair, rotator cuff debridement versus repair, AC joint resection All questions have been answered at this time.? Patient elects proceed with surgery and consent obtained in office. MR/MR shoulder RT wo con* [id number] IMPRESSION: 1. Mild subacromial impingement. 2. Moderate fluid in the subacromial and subdeltoid bursa. 3. There is a small fluid collection in the region of the coracohumeral ligament. The ligament itself is difficult to visualize and may be partially torn. 4. Abnormal signal in the superior labrum consistent with a partial tear. 5. Tendinopathy in the distal supraspinatus tendon but no full-thickness tear. 6. Mild atrophy of the supraspinatus muscle. No tendon tear is identified. Procedure: Patient seen evaluated in the preoperative holding area.? Consent reviewed and signed with patient.? Once again reviewed patient's MRI results as well as? planned surgical intervention.? Correct extremity marked.? Patient seen evaluated by anesthesia department received regional anesthesia.? Once ready for surgery was taken back to the operative suite.? Patient then subsequently underwent anesthesia per the anesthesia department was transported onto the OR table.? Patient was then placed into a lateral decubitus position with a beanbag and was appropriately secured to the bed.? All bony prominences well-padded.? Patient then had the right upper extremity was then prepped and draped in standard orthopedic fashion.? Patient received appropriate preoperative antibiotics.? Final timeout performed. The right upper extremity was then held in hanging from traction utilizing sterile technique.? Next started with standard diagnostic and surgical arthroscopy with posterior portal position introduced arthroscope into the glenohumeral joint.? Visualized the glenohumeral joint I then introduced a spinal needle within the?rotator cuff interval to confirm appropriate anterior portal placement.? Once this was confirmed I then made incision and then introduced my arthroscopic shaver into the glenohumeral joint.? After flushing the joint fluid, was clearly evident patient had biceps tendon tearing as well as Superior labral tear. Patient had appreciable unstable biceps anchor most pronounced in the superior labrum. Given there appears to be healthy intra-articular tendon plan was for an intra-articular biceps tenodesis at the superior portion as it enters the intertubercular groove. Thermal wand introduced into the rotator interval. I then release of the rotator interval to have appropriate visualization and the ability to perform biceps tenodesis. At this point I established a purple passport cannula which was introduced. Next I performed an Arthrex loop and tap biceps tenodesis. Passer was then made around the tendon luggage tag stitch around and then thru the tendon and around twice I then utilized a thermal wand to release the biceps tendon at the anchor to perform with tenotomy. I then loaded with suture onto an Arthrex 4.75 swivel lock suture anchor. A punch was then placed in appropriate position at the entry point into the intertubercular groove just superior to the subscapularis tendon. Punch was then introduced to the appropriate depth. The suture loaded on the swivel lock was then advanced held under appropriate tension and shoulder lock anchor was then advanced and had excellent fixation. Excess suture was then cut biceps tenodesis was complete. I then utilized a thermal wand to seal the edges of the superior labrum. Next I evaluated the subscapularis tendon which was intact and no evidence of tear. ?Next there was significant labral tearing at biceps anchor and circumferential.? ? I then subsequently utilized a a arthroscopic shaver and thermal wand to perform a labral debridement.? This point time I then visualized the glenohumeral joint.? The glenohumeral joint was found to have grade 1-2? chondromalacia throughout.? Axillary pouch was free of loose bodies from viewing the posterior portal.? Next a visualized the?rotator cuff superiorly and there was found to be a undersurface full-thickness tear of the supraspinatus tendon at the anterior border.? I utilized a spinal needle to donna this location.?? This completed my work within the glenohumeral joint all fluid was suctioned free of the joint.? ?Next I reintroduced the arthroscope posteriorly.? And went to the subacromial space.? I established my lateral working portal at the site of which my spinal needle was marking of the?rotator cuff tear.? Thermal wand was then introduced laterally and then I subsequently performed extensive bursectomy of the subacromial space.? Patient had a large anterior bone spur.? At this point time I proceeded with my AC joint resection thermal wand was used and track to the anterior edge of the acromion and then tracked all the way to the AC joint.? Once identified the AC joint this was very arthritic in nature.? Thermal wand was placed anteriorly to establish appropriate plane for AC joint resection.? Once appropriate margins and anterior inferior and anterior capsule was released I then introduced arthroscopic shaver and a bur and performed AC joint resection of both the acromion to cope plane at the AC joint and a distal clavicle resection was then performed totaling 1 cm in size and was confirmed.? This completed my AC joint resection and I then introduced the arthroscopic shaver laterally while continuing to view posteriorly.? I then performed an acromioplasty to complete my subacromial decompression prior to fixing the?rotator cuff tear.? Next the arthroscopic shaver was then used previous spinal needle spot that is marked the medium sized full-thickness tear of the supraspinatus tendon. At this point time decision was made that this would be amendable for a single medial row anchor with 4 suture tapes into a lateral row anchor. I started off by utilizing a arthroscopic shaver to debride the rotator cuff edges to healthy tissue. I then subsequently utilized the arthroscopic shaver to debride and decorticate the rotator cuff footprint as well as utilized a ring curette to debride and decorticate the footprint. I also then prepared for my lateral row anchor spot with a thermal wand. Once the rotator cuff footprint was appropriately prepped I then subsequently used a spinal needle to make an accessory portal to have appropriate man's angle directly over the perpendicular to the medial rotator cuff insertion site as well as right off the articular margin. Once this was established I then made a small incision and then introduced the punch. A 4.75 Arthrex swivel lock was then loaded with 2 suture tapes and then was subsequently impacted and secured to appropriate position had excellent fixation. At this point I had a total of 4 sutures to pass which were subsequently passed from anterior to posterior fashion appropriately spread throughout the medium size rotator cuff tear. These had full-thickness purchase and is an excellent rotator cuff tendon and excursion. Once all passes were then subsequently made, I then loaded suture tapes into a 4.75 swivel lock I then subsequently punched and then subsequently placement 4.75 swivel lock while maintaining appropriate tension and repair of?rotator cuff and this was advanced with excellent fixation I then had a final confirmation of appropriate repair of the supraspinatus?rotator cuff tendon tear.? Sutures were then cut with an arthroscopic suture cutter and subsequently evaluated the?rotator cuff repair.? Repair was found to be satisfactory ?shoulder?was taken through range of motion and the repair moved as a unit with no evidence of loss of fixation. ?I then switched the arthroscope to the lateral portal to confirm this tension- free repair.? I took the?shoulder?through range of motion and the?rotator cuff repair was stable and moved as a unit. ?Next I then introduced, camera laterally in this portal and confirm satisfactory decompression and acromioplasty in this plane. This completed the surgery.? All fluid was suctioned from the?shoulder.? All instruments were removed.? The lateral incision was then closed with nylon stitches.? As well as the portal sites closed with portal nylon stitches.? Xeroform 4 x 4's ABD and tape was then applied to the right?shoulder?and was placed into a?shoulder?abduction pillow sling for?rotator cuff repair.? Patient was then awakened from anesthesia and then taken back to PACU in stable condition.? Patient tolerated procedure without any issues. Disposition: Patient taken back in stable condition recovering well.? Dressings on in place clean dry and intact.? Will be nonweightbearing to the right upper extremity.? Follow?rotator cuff repair protocol.? Patient to follow-up with me in the office in 2 weeks.? Patient will receive appropriate discharge instruction as well as pain medication postoperatively.? All questions answered.? We will contact the office for any questions or concerns.
--- NOTE | 2024-04-02 13:16 | PM.PACU ---
PACU note Narrative: Patient is a 53-year-old female just underwent a right shoulder arthroscopy. Patient transferred to PACU in stable condition. Pain is well controlled. shoulder Dressing on , dry and in place. Patient's operative arm is in a shoulder immobilizer. Patient is awake and alert and able to respond to my questions accordingly. Patient's fingers are warm with good perfusion. Normal cap refill under 2 seconds. Unable to assess further range of motion in arm due to sling. Unable to assess sensation due to residual localized anesthetic. Exam: awake Disposition: discharged
--- NOTE | 2024-04-02 14:19 | SUR.PHASEII ---
13:40 WARM BLANKETS APPLIED.
--- NOTE | 2024-04-02 15:15 | ANE.PACU2 ---
Inpatient post-anesthesia follow up: Airway intact: Yes Vital signs: Temperature 97.9 F Pulse Rate 61 Respiratory Rate 16 Blood Pressure 132/71 Pulse Oximetry 100 Oxygen Delivery Me thod Room Air Oxygen Flow Rate Fraction of Inspir ed Oxygen Hydration adequate: Yes Nausea and vomiting: No Pain level: 1 Mental status: Baseline
== END 2024-04-02 15:15 | disposition home or self-care (01) ==
PROVIDERS: PCP Nurse Practitioner Family; Visit Provider Student in an Organized Health Care Education/Training Program
PROC: (CPT 29805; principal; 2024-04-02 10:35)
PROC: (CPT 24310; 2024-04-02 10:35)
PROC: (CPT 29826; 2024-04-02 10:35)
PROC: (CPT 29824; 2024-04-02 10:35)
PROC: (CPT 29827; 2024-04-02 10:35)
PROC: 0RSG0ZZ Reposition Right Acromioclavicular Joint, Open Approach (ICD-10-PCS; CPT 29824; 2024-04-02 10:35)
DX: S43.431A Superior glenoid labrum lesion of right shoulder, initial encounter (principal); X58.XXXA Exposure to other specified factors, initial encounter; M25.811 Other specified joint disorders, right shoulder; M19.011 Primary osteoarthritis, right shoulder; M75.21 Bicipital tendinitis, right shoulder; E11.9 Type 2 diabetes mellitus without complications; Z79.84 Long term (current) use of oral hypoglycemic drugs; G47.33 Obstructive sleep apnea (adult) (pediatric); Z98.84 Bariatric surgery status; Z87.891 Personal history of nicotine dependence; I10 Essential (primary) hypertension
CPT/HCPCS: 29824; 29826; 29827; 29828; 36416; 82962; C1713; J0131; J0171; J0690; J1100; J1885; J2250; J2405; J2704; J2795; J3010; J3490; J7030

== ENCOUNTER → 2024-04-15 09:30 | Outpatient (BNVA) | payer MEDICARE, SELFPAY | PROVIDERS: PCP Nurse Practitioner Family; Visit Provider Physician Assistant | DX: R03.0 Elevated blood-pressure reading, without diagnosis of hypertension (principal); Z98.890 Other specified postprocedural states | CPT/HCPCS: 99024 ==

== ENCOUNTER → 2024-05-13 10:19 | Outpatient (BNVA) | payer MEDICARE, SELFPAY | PROVIDERS: PCP Nurse Practitioner Family; Visit Provider Physician Assistant | DX: Z98.890 Other specified postprocedural states (principal) | CPT/HCPCS: 99024 ==

== ENCOUNTER 2024-05-27 06:00 | Outpatient (RCR) | payer MEDICARE, SELFPAY | END 2024-06-24 23:59 | disposition home or self-care (01) | LOC: WPT 06:00 | PROVIDERS: PCP Nurse Practitioner Family; Visit Provider Physician Assistant | DX: Z98.890 Other specified postprocedural states (principal) | CPT/HCPCS: 97110; 97112; 97162; 97530 ==

== ENCOUNTER 2024-06-25 06:00 | Outpatient (RCR) | payer MEDICARE, SELFPAY | END 2024-07-25 23:59 | disposition home or self-care (01) | LOC: WPT 06:00 | PROVIDERS: PCP Nurse Practitioner Family; Visit Provider Physician Assistant | DX: Z47.89 Encounter for other orthopedic aftercare (principal) | CPT/HCPCS: 97110; 97112; 97530 ==

== ENCOUNTER 2024-07-23 15:00 | Oncology outpatient (recurring) (ONCR) | payer MEDICARE, SELFPAY ==
[2024-06-26 12:58] LABS: Basophils # 0.1 10^3/uL (0.0-0.1); Eosinophils # 0.1 10^3/uL (0.0-0.8); Eosinophils % 2.1 %; Hematocrit 34.2 % (36-47); Lymphocytes # 1.1 10^3/uL (0.8-4.8); Lymphocytes % 18.7 %; Mean Corpuscular HGB Conc 30.7 g/dL (30-55); Mean Corpuscular Hemoglobin 29.5 pg (27-33); Mean Corpuscular Volume 96.1 fl (85-98); Mean Platelet Volume 9.7 fL (7.4-10.4); Monocytes # 0.4 10^3/uL (0.2-0.9); Monocytes % 6.3 %; Neutrophils # 4.33 10^3/uL (1.8-7.7); Neutrophils % 71.6 %; Nucleated Red Blood Cells % 0 %; Platelet Count 264 10^3/cmm (157-399); Red Blood Count 3.56 10^6/uL (3.85-5.65); Red Cell Distribution Width 14.7 % (12.1-15.1); White Blood Count 6.05 10^3/uL (3.29-11.43)
[2024-06-26 13:17] LABS: Alanine Aminotransferase 11 U/L (0-33); Albumin Level 3.6 g/dL (3.5-5.2); Alkaline Phosphatase 91 U/L (35-105); Anion Gap 15.6 (5-19); Aspartate Amino Transferase 22 U/L (0-32); Blood Urea Nitrogen 27 mg/dL (6-20); Calcium 9.4 mg/dL (8.5-10.5); Carbon Dioxide 15 mmol/L (22-29); Chloride 108 mmol/L (98-107); Ferritin 667 ng/mL (15-150); Globulin 4.2 g/dL (1.3-4.6); Glomerular Filtration Rate 31.3 mL/min (90-130); Glucose 142 mg/dL (65-115); Iron 33 ug/dL (37-145); Osmolality Calculated 288 mOsm/kg (285-295); Percent Saturation 18.3 % (20-50); Potassium 3.6 mmol/L (3.5-5.1); Sodium 135 mmol/L (136-145); Total Bilirubin 0.2 mg/dL (0.15-1.2); Total Iron Binding Capacity 180 mcg/dl; Total Protein 7.8 g/dL (6.6-8.7); Unsaturated Iron Binding 147 ug/dL (112-347)
[2024-07-14] MEDS: iron sucrose 200 MG in sodium chloride 0.9% 50 ML 240 MG IV (14:02)
[2024-07-14 14:30] VITALS: BP 134/80; PULSE 77; RESP 18; TEMP 36.9; O2SAT 96
[2024-07-16] MEDS: iron sucrose 200 MG in sodium chloride 0.9% 50 ML IV (13:15)
[2024-07-21 14:46] VITALS: BP 101/65; PULSE 84; RESP 16; TEMP 36.9; O2SAT 96
[2024-07-21] MEDS: iron sucrose 200 MG in sodium chloride 0.9% 50 ML 240 MG IV (15:19)
[2024-07-23] MEDS: iron sucrose 200 MG in sodium chloride 0.9% 50 ML 240 MG IV (16:29)
[2024-07-23 16:30] VITALS: BP 107/78; PULSE 84; RESP 18; TEMP 36.6; O2SAT 98
[2024-07-23 17:26] VITALS: BP 132/76; PULSE 84; RESP 16; TEMP 36.4; O2SAT 96
== END 2024-07-25 23:59 | disposition home or self-care (01) ==
PROVIDERS: Nurse Practitioner Family; PCP Nurse Practitioner Family; Visit Provider Podiatrist Foot & Ankle Surgery
DX: Z79.899 Other long term (current) drug therapy; Z53.9 Procedure and treatment not carried out, unspecified reason; D50.8 Other iron deficiency anemias; Z98.84 Bariatric surgery status
CPT/HCPCS: 36415; 80053; 82728; 83540; 83550; 85025; 96365; 99213; 99215; J1756

== ENCOUNTER → 2024-07-24 12:44 | Outpatient (BNVA) | payer MEDICARE, SELFPAY | PROVIDERS: PCP Nurse Practitioner Family; Visit Provider Podiatrist Foot & Ankle Surgery | DX: E11.621 Type 2 diabetes mellitus with foot ulcer (principal); L97.524 Non-pressure chronic ulcer of other part of left foot with necrosis of bone; L97.313 Non-pressure chronic ulcer of right ankle with necrosis of muscle; E11.8 Type 2 diabetes mellitus with unspecified complications; I96 Gangrene, not elsewhere classified; Z79.84 Long term (current) use of oral hypoglycemic drugs | CPT/HCPCS: 73630 ==

== ENCOUNTER 2024-07-24 14:25 | Inpatient (IN) | payer MEDICARE, SELFPAY ==
--- NOTE | 2024-07-24 15:01 | PM.HP ---
Providers/Chief Complaint Admitting Physician: Nato Mccollum MD Primary Care Provider: Sandra Mccrary NP History of Present Illness Otilia Woods is a 54 year old female with a past medical history significant for type 2 diabetes mellitus, polyneuropathy, lumbar stenosis, radiculopathy, depression, sleep apnea, and prior right toe amputation who presents as directly from podiatry clinic after presenting with worsening infected diabetic left foot wound. Patient reports the wounds been present for approximately 1 month. She does note recent hospitalization at outside facility for UTI/fevers treated with Levaquin. She does report fevers improved on Levaquin. Does endorse continued subjective fevers. When seen in podiatry clinic today, she was found to have gas gangrene consistent with severe infection of foot necessitating urgent intervention. Patient is being admitted for IV antibiotics and planned surgical intervention tomorrow. She reports decreased sensation in the foot. She does note significant pain and edema traveling up her calf. She was found to have red streaks in clinic which was marked prior to presentation to the floor. Presentation concerning for worsening infection. She reports she has been ambulating okay despite the infection. Review of Systems Narrative: A complete review of systems was obtained and is negative except as stated in HPI. Medications/Allergies Home Medications Medication Instructions Recorded Confirmed Last Taken Type albuterol sulfate 90 mcg/actuation 2 puff inhalation Q4H PRN 08/22/19 07/24/24 3 Months Ago History aerosol inhaler (ProAir HFA) Shortness Of Breath ~12/15/20 atorvastatin 40 mg tablet 40 mg PO DAILY 08/22/19 07/24/24 03/31/24 History pregabalin 150 mg capsule (Lyrica) 150 mg PO BID 08/22/19 07/24/24 04/02/24 History ropinirole 5 mg tablet 5 mg PO .HS 08/22/19 07/24/24 03/31/24 History tizanidine 4 mg capsule 6 mg PO TID PRN muscle spasticity 08/22/19 07/24/24 03/31/24 History bimatoprost 0.01 % eye drops 1 drop ophthalmic (eye) DAILY 02/18/20 07/24/24 03/31/24 History (Zafar) quad cane #1 ea 09/06/22 07/24/24 Unknown Rx ASO to the right #1 ea 11/22/22 07/24/24 Unknown Rx collagenase clostridium histo. 250 1 applic topical DAILY 4 weeks #90 02/19/23 07/24/24 04/01/24 Rx unit/gram topical ointment (Santyl) grams levocetirizine 5 mg tablet 5 mg PO ONCE 02/19/23 07/24/24 03/31/24 History potassium chloride 10 mEq 20 meq PO ONCE 02/19/23 07/24/24 04/01/24 History tablet,extended release left medial solar sales manager brace #1 ea 11/08/23 07/24/24 Unknown Rx medial solar sales manager brace left knee #1 ea 11/08/23 07/24/24 Unknown Rx metformin 500 mg tablet 1,000 mg PO BID 12/31/23 07/24/24 04/01/24 History primidone 50 mg tablet 100 mg (2 x 50 mg) PO BID #360 tabs 01/09/24 07/24/24 04/01/24 Rx propranolol 60 mg capsule,24 60 mg PO DAILY #90 caps 01/09/24 07/24/24 04/02/24 Rx hr,extended release Diabetic shoes #1 ea 03/12/24 07/24/24 Unknown Rx bupropion HCl 300 mg 24 hr tablet, 300 mg PO QAM #90 tabs 06/30/24 07/24/24 Unknown Rx extended release (Wellbutrin XL) duloxetine 60 mg capsule,delayed 120 mg (2 x 60 mg) PO .morning 06/30/24 07/24/24 Unknown Rx release (Cymbalta) #180 caps melatonin 3 mg capsule 3 mg PO .QHS PRN sleep #90 caps 06/30/24 07/24/24 Unknown Rx nitrofurantoin macrocrystal 50 mg 50 mg PO .morning 06/30/24 07/24/24 Unknown History capsule Allergies Allergy/AdvReac Type Severity Reaction Status Date / Time gabapentin AdvReac Severe Makes lose Verified 07/24/24 12:42 hair morphine AdvReac Intermediate Hives Verified 07/24/24 12:42 Penicillins AdvReac Intermediate Hives Verified 07/24/24 12:42 PFSH Acute PFSH: Medical History Anemia Sinus disease Diabetes Peripheral sensory-motor axonal polyneuropathy Lumbar stenosis with neurogenic claudication Intervertebral disc disorder with radiculopathy of lumbosacral region Obstructive sleep apnea Major depressive disorder, recurrent severe without psychotic features Surgical History History of umbilical hernia repair -2001 History of colonoscopy with polypectomy (03/17/21) diverticulosis H/O esophagogastroduodenoscopy (03/17/21) severe gastritis with ulceration at GJ anastomosis History of amputation of toe History of eye surgery History of gastric bypass 2018 History of carpal tunnel surgery History of orthopedic surgery History of tubal ligation Family History Grandmother Stroke Family/Other Stroke Mother Diabetes Heart disease Hypertension Cancer Father Diabetes Social History Smoking and tobacco/nicotine status: former use of tobacco/nicotine Quit status (tobacco/nicotine): has quit using Year quit tobacco: 2006 Former quit date comment: 10-15 years quit Alcohol intake: never Substance/Drug Use: never Household members: spouse and children Marital status: Current occupational status: disabled Physical Exam Narrative: General: Patient is awake and alert. Pleasant. Conversational. Head: Normocephalic. Atraumatic. EOM intact. Neck: No JVD. Cardiovascular: RRR. No gallops. No murmurs. Lungs: Clear to auscultation, no use of accessory muscles, no crackles or wheezes. Skin: No jaundice. Abdomen: Normal bowel sounds, abdomen soft and nontender. Extremities: No cyanosis or clubbing. Left lower extremity is edematous. Left great toe infection with distal ulceration with drainage, erythema, and overlying warmth. There is an ulcer on the lateral aspect of right ankle. Musculoskeletal: Appropriate muscle mass for demographic. Neurological: Moves all 4 extremities. No myoclonus. A&P Assessment and plan (1) Diabetic infection of left foot: Infected diabetic foot ulcer complicated by gas gangrene of the left distal foot Labs ordered including inflammatory markers, blood culture, electrolytes, blood counts Podiatry consult Start broad spectrum antibiotics Screen for MRSA with nasal screening Analgesics as needed N.p.o. after midnight for surgery (2) Type 2 diabetes mellitus: Hold metformin Sliding-scale insulin correction (3) Major depressive disorder, recurrent severe without psychotic features: Plan to continue home medications after list is updated (4) Anemia: Monitor blood counts (5) Essential tremor: Plan to continue home primidone after home list is confirmed Plan DVT prophylaxis: Patient is low risk, ambulatory in room. Attestations Medical Necessity Statement*: Patient presents with gas gangrene which needs urgent intervention for which patient will be admitted to observation with expected care not to cross 2 midnights for including IV antibiotics and source control. Coding Level of Care Code Acute Code for [facility] Fwd Diagnoses Diabetic infection of left foot E11.628; L08.9 Type 2 diabetes mellitus E11.9 Major depressive disorder, recurrent severe without psychotic features F33.2 Anemia D64.9 Essential tremor G25.0
[2024-07-24 15:05] VITALS: BMI 22.5
[2024-07-24 16:00] VITALS: BP 128/85; PULSE 95; RESP 16; TEMP 36.7; O2SAT 94
[2024-07-24 16:15] LABS: Glucose Point of Care 129 mg/dL (70-110)
[2024-07-24] MEDS: acetaminophen 500 mg Tablet 1000 MG PO (16:33)
[2024-07-24] MEDS: cefepime 2,000 mg SDV 2000 MG IVP (16:34)
[2024-07-24 16:57] LABS: Alanine Aminotransferase 25 U/L (0-33); Albumin Level 3.3 g/dL (3.5-5.2); Alkaline Phosphatase 93 U/L (35-105); Aspartate Amino Transferase 47 U/L (0-32); Blood Urea Nitrogen 26 mg/dL (6-20); C Reactive Protein 38.3 mg/L (0.0-4.9); Calcium 9.1 mg/dL (8.5-10.5); Carbon Dioxide 15 mmol/L (22-29); Chloride 106 mmol/L (98-107); Creatinine Clr Calc Pharmacy 37.2802; Globulin 4.3 g/dL (1.3-4.6); Glomerular Filtration Rate 33.6 mL/min (90-130); Glucose 139 mg/dL (65-115); Magnesium 2.2 mg/dL (1.7-2.3); Osmolality Calculated 287 mOsm/kg (285-295); Sodium 135 mmol/L (136-145); Total Bilirubin 0.2 mg/dL (0.15-1.2); Total Protein 7.6 g/dL (6.6-8.7)
[2024-07-24 16:58] LABS: Lactic Sepsis W/Reflex 0.7 mmol/L (0.5-2.2)
[2024-07-24 17:03] LABS: Procalcitonin 0.32 ng/mL (0-0.5)
--- NOTE | 2024-07-24 17:03 | PHA.VACGOAL ---
Vancomycin Goal - Goal Vancomycin Goal:: 15-20 mg/L Vancomycin Indication:: Other - Therapy Current therapy:: Cefepime Day of therpy:: Day []of [] . Actual body weight (kg): 135 lb 5 oz - Data Labs: Sodium 135 mmol/L (136-145) L 07/24/24 16:11 Potassium 3.0 mmol/L (3.5-5.1) L 07/24/24 16:11 Chloride 106 mmol/L (98-107) 07/24/24 16:11 Carbon Dioxide 15 mmol/L (22-29) L 07/24/24 16:11 Anion Gap 17.0 (5-19) 07/24/24 16:11 BUN 26 mg/dL (6-20) H 07/24/24 16:11 Creatinine 1.6 mg/dL (0.5-0.9) H 07/24/24 16:11 GFR Calculation 33.6 mL/min (90-130) L 07/24/24 16:11 Last dialysis session:: N/A Treatment plan:: new consult Regimen:: LOADING DOSE OF 2000 MG PER DOSING PROTOCOL MAINTENANCE DOSE OF 750 MG Q24H Follow up:: WILL CONTINUE TO MONITOR AND FOLLOW UP DAILY
[2024-07-24] MEDS: vancomycin 2,000 MG/400 ML PIGGYBACK 200 MG IV (17:51)
[2024-07-24 18:56] LABS: MRSA PCR OZH (swab) NOT DETECTED (Not Detecte)
[2024-07-24 19:11] VITALS: BP 109/72; PULSE 59; RESP 18; TEMP 36.6; O2SAT 100
[2024-07-24] MEDS: potassium chloride ER 20 mEq Tablet 40 MEQ PO (19:27)
[2024-07-24] MEDS: sodium chloride 0.9% 1,000 ML 75 ML IV (19:27)
[2024-07-24 20:33] LABS: Glucose Point of Care 319 mg/dL (70-110)
[2024-07-24] MEDS: ropinirole 2 mg Tablet 5 MG PO (21:07)
[2024-07-24] MEDS: acetaminophen 325 mg Tablet 650 MG PO (21:07)
[2024-07-24] MEDS: insulin lispro 100 unit/1 mL SUBCUT (21:08)
[2024-07-24 23:13] VITALS: BP 95/58; PULSE 58; RESP 16; TEMP 36.7; O2SAT 98
[2024-07-25] VITALS (16 sets, daily range): BP systolic 92–121; BP diastolic 53–66; PULSE 54–81; RESP 10–18; TEMP 36.2–37.2; O2SAT 96–100
[2024-07-25] MEDS: cefepime 1,000 mg SDV 1000 MG IVP ×2 (03:56→15:47)
[2024-07-25 06:04] LABS: Basophils # 0.1 10^3/uL (0.0-0.1); Basophils % 0.9 %; Eosinophils # 0.3 10^3/uL (0.0-0.8); Eosinophils % 3.2 %; Hematocrit 31.3 % (36-47); Lymphocytes # 1.6 10^3/uL (0.8-4.8); Lymphocytes % 19.6 %; Mean Corpuscular HGB Conc 30.7 g/dL (30-55); Mean Corpuscular Volume 97.8 fl (85-98); Mean Platelet Volume 9.5 fL (7.4-10.4); Monocytes # 0.7 10^3/uL (0.2-0.9); Neutrophils % 67.3 %; Nucleated Red Blood Cells % 0 %; Platelet Count 320 10^3/cmm (157-399); Red Cell Distribution Width 14.6 % (12.1-15.1); White Blood Count 8.16 10^3/uL (3.29-11.43)
[2024-07-25] MEDS: buPROPion XL (24 HR) 300 mg Tablet PO (06:19)
[2024-07-25] MEDS: duloxetine 60 mg Capsule 120 MG PO (06:20)
[2024-07-25 06:23] LABS: Glucose Point of Care 88 mg/dL (70-110)
[2024-07-25 06:27] LABS: Phosphorus 3.4 mg/dL (2.5-4.5)
[2024-07-25 06:45] LABS: Erythrocyte Sedimentation Rate 56 mm/hr (0-15)
[2024-07-25] MEDS: propranolol 20 mg Tablet 60 MG PO (08:33)
[2024-07-25] MEDS: pregabalin 150 mg Capsule PO ×2 (08:33→17:00)
[2024-07-25] MEDS: primidone 50 mg Tablet 100 MG PO ×2 (08:33→17:00)
[2024-07-25] MEDS: atorvastatin 40 mg Tablet PO (08:33)
[2024-07-25 09:37] LABS: Glucose Point of Care 95 mg/dL (70-110)
--- NOTE | 2024-07-25 09:53 | P.ANESASSM_ITS ---
Pre-Anesthetic Assessment Height/Weight: Height 1.65 m Weight 62.233 kg Temp Pulse Resp BP Pulse Ox O2 Del Method 99.0 F 54 L 18 102/59 99 Room Air 07/25/24 09:35 07/25/24 09:35 07/25/24 09:35 07/25/24 09:35 07/25/24 09:35 07/25/24 09:35 Operation Date: 07/25/24 11:05 Proposed Procedures p Amputation Toe/s Hallux Amputation(Left) - Jerald Martin DPM s Debridement RIGHT ANKLE(Right) - Jerald Martin DPM Familial anesthetic complications: None Was Beta Brennon taken within 24 hours: N/A Was Clonidine taken within 24 hours: N/A Last intake: Intake Last Solid Date 07/24/24 Last Solid Time 16:57 Social No alcohol and No tobacco Exam alert, oriented x 3, clear to auscultation bilaterally and regular rate & rhythm Airway Mallampati: Class II Dentition: chipped CV/HEM Hypertension GI gastric bypass Metabolic Diabetes Mellitus and Hyperlipidemia Anesthetic Plan ASA status: 3 Anesthesia: MAC Risk of > 500 ml blood loss (7ml/kg in children): No Medications/Allergies Home Medications Medication Instructions Recorded Confirmed Last Taken Type atorvastatin 40 mg tablet 40 mg PO DAILY 08/22/19 07/25/24 03/31/24 History pregabalin 150 mg capsule (Lyrica) 150 mg PO BID 08/22/19 07/25/24 04/02/24 History ropinirole 5 mg tablet 5 mg PO .HS 08/22/19 07/25/24 03/31/24 History tizanidine 4 mg capsule 6 mg PO TID PRN muscle spasticity 08/22/19 07/25/24 03/31/24 History bimatoprost 0.01 % eye drops 1 drop ophthalmic (eye) DAILY 02/18/20 07/25/24 03/31/24 History (Zafar) levocetirizine 5 mg tablet 5 mg PO ONCE 02/19/23 07/25/24 03/31/24 History potassium chloride 10 mEq 20 meq PO ONCE 02/19/23 07/25/24 04/01/24 History tablet,extended release metformin 500 mg tablet 1,000 mg PO BID 12/31/23 07/25/24 04/01/24 History primidone 50 mg tablet 100 mg (2 x 50 mg) PO BID #360 tabs 01/09/24 07/25/24 04/01/24 Rx propranolol 60 mg capsule,24 60 mg PO DAILY #90 caps 01/09/24 07/25/24 04/02/24 Rx hr,extended release bupropion HCl 300 mg 24 hr tablet, 300 mg PO QAM #90 tabs 06/30/24 07/25/24 07/25/24 Rx extended release (Wellbutrin XL) duloxetine 60 mg capsule,delayed 120 mg (2 x 60 mg) PO .morning 06/30/24 07/25/24 07/25/24 Rx release (Cymbalta) #180 caps famotidine 40 mg tablet 40 mg PO DAILY 07/25/24 07/25/24 Unknown History levofloxacin 500 mg tablet 500 mg PO DAILY 07/25/24 07/25/24 Unknown History nitrofurantoin 100 mg PO BID 07/25/24 07/25/24 Unknown History monohydrate/macrocrystals 100 mg capsule Allergies Allergy/AdvReac Type Severity Reaction Status Date / Time gabapentin AdvReac Severe Makes lose Verified 07/24/24 12:42 hair morphine AdvReac Intermediate Hives Verified 07/24/24 12:42 Penicillins AdvReac Intermediate Hives Verified 07/24/24 12:42 Current Medications Generic Name Dose Route Start Last Admin Trade Name Freq PRN Reason Stop Dose Admin Acetaminophen 650 mg 07/24/24 15:09 07/24/24 21:07 Acetaminophen 325 Mg Tablet PO 650 mg Q6H PRN Administration Mild/Mod Pain Or Temp >/= 101 Atorvastatin Calcium 40 mg 07/25/24 09:00 07/25/24 08:33 Atorvastatin 40 Mg Tablet PO 40 mg DAILY TU Administration Bupropion HCl 300 mg 07/25/24 06:00 07/25/24 06:19 Bupropion Xl (24 Hr) 300 Mg Tablet PO 300 mg QAM TU Administration Cefepime HCl 1,000 mg 07/25/24 04:30 07/25/24 03:56 Cefepime 1,000 Mg Sdv IVP 1,000 mg Q12H TU Administration Protocol Duloxetine HCl 120 mg 07/25/24 06:00 07/25/24 06:20 Duloxetine 60 Mg Capsule PO 120 mg QAM TU Administration Sodium Chloride 1,000 mls @ 75 mls/hr 07/24/24 18:45 07/24/24 19:27 Sodium Chloride 0.9% IV 75 mls/hr .[id number] TU Administration Insulin Human Lispro 0 unit 07/24/24 18:00 07/25/24 07:31 Insulin Lispro 100 Unit/1 Ml SUBCUT Not Given WM&BEDTIME TU Protocol Pregabalin 150 mg 07/25/24 09:00 07/25/24 08:33 Pregabalin 150 Mg Capsule PO 150 mg BID TU Administration Primidone 100 mg 07/25/24 09:00 07/25/24 08:33 Primidone 50 Mg Tablet PO 100 mg BID TU Administration Propranolol HCl 60 mg 07/25/24 09:00 07/25/24 08:33 Propranolol 20 Mg Tablet PO 60 mg DAILY TU Administration Ropinirole HCl 5 mg 07/24/24 21:00 07/24/24 21:07 Ropinirole 2 Mg Tablet PO 5 mg BEDTIME TU Administration [facility] Anesthesia Medical History Anemia Sinus disease Diabetes Peripheral sensory-motor axonal polyneuropathy Lumbar stenosis with neurogenic claudication Intervertebral disc disorder with radiculopathy of lumbosacral region Obstructive sleep apnea Major depressive disorder, recurrent severe without psychotic features Surgical History History of umbilical hernia repair lap-2001 History of colonoscopy with polypectomy (03/17/21) diverticulosis H/O esophagogastroduodenoscopy (03/17/21) severe gastritis with ulceration at GJ anastomosis History of amputation of toe History of eye surgery History of gastric bypass 2018 History of carpal tunnel surgery History of orthopedic surgery History of tubal ligation Family History Grandmother Stroke Family/Other Stroke Mother Diabetes Heart disease Hypertension Cancer Father Diabetes Social History Smoking and tobacco/nicotine status: former use of tobacco/nicotine Quit status (tobacco/nicotine): has quit using Year quit tobacco: 2006 Former quit date comment: 10-15 years quit Alcohol intake: never Substance/Drug Use: never Household members: spouse and children Marital status: Current occupational status: disabled Data Anesthesia 07/25/24 05:01 07/24/24 16:11 Short CBC 07/25/24 Range/Units 05:01 WBC 8.16 (3.29-11.43) 10^3/uL Hgb 9.60 L (11.27-16.99) g/dL Hct 31.3 L (36-47) % MCV 97.8 (85-98) fl Plt Count 320 (157-399) 10^3/cmm Neut % (Auto) 67.3 % Neut # (Auto) 5.50 (1.8-7.7) 10^3/uL BMP 07/24/24 16:11 Sodium 135 L Potassium 3.0 L Chloride 106 Carbon Dioxide 15 L BUN 26 H Creatinine 1.6 H Glucose 139 H Calcium 9.1 Liver Function 07/24/24 Range/Units 16:11 Total Bilirubin 0.2 (0.15-1.2) mg/dL AST 47 H (0-32) U/L ALT 25 (0-33) U/L Alkaline Phosphatase 93 (35-105) U/L Albumin 3.3 L (3.5-5.2) g/dL Coags 07/24/24 07/25/24 16:11 05:01 ESR 56 H C-Reactive Protein 38.3 H Microbiology 07/24/24 16:17 Blood Culture - Preliminary Blood SPECIMEN COLLECTED 07/24/24 16:11 Blood Culture - Preliminary Blood SPECIMEN COLLECTED Cardiac Studies: 2 No Data to Display
--- NOTE | 2024-07-25 10:13 | PM.OP ---
Operative Report Date of procedure: July 25, 2024 Pre-op diagnosis: Diabetic foot E11.8 Chronic ulcer of right ankle with necrosis of muscle L97.313 Chronic ulcer of great toe of left foot with necrosis of bone L97.524 Gangrene of toe of left foot I96 Post-op diagnosis: Diabetic foot E11.8 Chronic ulcer of right ankle with necrosis of muscle L97.313 Chronic ulcer of great toe of left foot with necrosis of bone L97.524 Gangrene of toe of left foot I96 Procedure done: Left great toe amputation. CPT code 62191 Incision and debridement down to myofascial layer right lateral ankle. CPT code 52322 Implants: 2-0 Vicryl, 3-0 nylon Pathology: Left great toe sent to pathology for permanent Surgeon: Jerald Martin DPM Digital Coordinator: Anahy Estimated blood loss: 10 15 IV fluids: See intraoperative documentation Urine output: None Complications: No complications Findings: Gangrene left great toe and chronic wound exposed to myofascial layer right lateral ankle did not go to bone. Brief History: The patient is a 54-year-old female presenting with a diabetic foot ulcer with infection. She has a left great toe wound with redness extending up the leg, accompanied by pain. The patient reports a history of a partial first ray amputation of the right foot due to a previous diabetic foot infection, which was performed at another facility several years ago. The current issue began exhibiting signs of infection, specifically gas gangrene, which necessitates surgical intervention. Cultures have been taken, and the patient currently souza the redness area with a purple marker to track any changes. Previous medical care includes a recent hospitalization at [facility], where she was treated for a urinary tract infection and elevated temperature of 101.3?F. She started Levaquin five days ago for this condition. 54-year-old diabetic female with acute osteomyelitis and soft tissue of emphysema distal tuft of left great toe, subjective fevers, was prescribed Levaquin by another facility approximately 5 days ago. Has a chronic stable wound right lateral ankle exposed to myofascial layer. X-ray left foot 3 view shows bony destruction of the distal phalanx consistent with osteomyelitis and soft tissue emphysema localized to the distal tuft of the left great toe. Recommended direct admission to the hospital service spoke with Dr. Chun TREVINO who graciously except accepted Recommend empiric IV antibiotics for broad-spectrum coverage will await cultures and may narrow once cultures yield further information Scheduled left great toe amputation tomorrow morning 07/25/2024 Anticipating 2 weeks of oral antibiotics at discharge after his hospitalization and follow-up in podiatry clinic. Procedure: Under mild sedation the patient was brought to the operating room and remained on the gurney in supine position. A timeout was performed. Anesthesia was then administered by the anesthesia service. Local anesthesia injected by myself consisting of 20 cc of one-to-one mixture 1% lidocaine 0.5% Marcaine plain left Mcnamara block fashion and additional 10 cc in a V-block fashion to the proximal right lateral ankle. Well-padded pneumatic tourniquet applied left and right ankle. Right and left lower extremity were then scrubbed, prepped and draped utilizing normal aseptic technique and ankle tourniquets were inflated to 250 mmHg. Attention was first directed to the left distal hallux which had a necrotic wound distally with exposed bone foul odor and crepitus with soft tissue palpation. A tennis racquet incision was performed at the left medial forefoot encompassing the left first metatarsal phalangeal joint full-thickness down through skin to bone and sharply disarticulated and the left first metatarsal phalangeal joint, left great toe was passed from the operative field and sent to pathology for permanent. The incision was irrigated with copious amounts of sterile skin solution. Direct visualization of the first metatarsal head and soft tissue at the level of the amputation was viable without signs of infection. Extensor and flexor tendons transected under traction and all bleeders were ligated and cauterized as necessary. After further irrigation there was a closure consisting of 2-0 Vicryl with myofascial layer and skin with 3-0 nylon. The incision was dressed with Xeroform, 4 x 4 gauze Kerlix and Sanket. Attention was then directed to the lateral aspect of the right ankle utilizing a #10 blade and pickups the wound was sharply and excisionally debrided down to myofascial layer of all devitalized tissue predebridement wound measurements 1.9 cm x 1.5 cm x 0.4 cm and postdebridement wound measurements 2 cm x 1.7 cm x 0.5 cm wound did not extend to bone, all devitalized tissue was sharply debrided and passed her operative field followed by saline flush and dressing consisting of Xeroform sterile gauze Kerlix and Sanket wrap. Will tourniquet for deflated and a prompt hyperemic response is noted to the bilateral lower extremity. Patient tolerated the procedure and anesthesia well and was transferred to the PACU with vital signs stable and vascular status intact. Following a period of postoperative monitoring she will be transferred back to the floor to continue antibiotics. Level of amputation of the left foot was curative of osteomyelitis. No further surgical intervention anticipated to the lower extremities during this hospitalization. Wound cultures pending. Anticipate 2 weeks of oral antibiotics at discharge per hospitalist greatly appreciate hospitalist medical management. Follow-up in podiatry clinic 07/29/2024 at 12:45 PM
--- NOTE | 2024-07-25 10:21 | W.PM.OPSUD ---
Surgery/Procedure H&P Update DATE OF PROCEDURE: July 25, 2024 DATE H&P PERFORMED: 04/02/24 H&P UPDATE INFORMATION: I have reviewed H&P completed within last 30 days, I have examined patient prior to procedure, No changes to prior documentation and H&P is in [facility] EMR on date indicated PLANNED PROCEDURE: Operation Date: 07/25/24 11:05 Proposed Procedures p Amputation Toe/s Hallux Amputation(Left) - Jerald Martin DPM s Debridement RIGHT ANKLE(Right) - Jerald Martin DPM
--- NOTE | 2024-07-25 10:32 | P.PN_ITS ---
Subjective 2 Subjective: Patient reports red streaking on her lower extremities does seem improved since presentation. She is n.p.o. for surgery later this morning. Spouse is bedside and supportive. Denies other new complaints. Medications: Reviewed: Yes Vitals/I&O/Wt Last Vital Signs Temp 99.0 F 07/25/24 09:35 Pulse 54 L 07/25/24 09:35 Resp 18 07/25/24 09:35 BP 102/59 07/25/24 09:35 Pulse Ox 99 07/25/24 09:35 O2 Del Method Room Air 07/25/24 09:35 07/24/24 07/25/24 07/25/24 22:59 06:59 14:59 Intake Total 1480 / 1480 0 / 1480 Balance 1480 / 1480 0 / 1480 Weight last 48 hrs Weight 62.233 kg Weight 61.377 kg Physical Exam 2 Narrative: General: Patient is awake. Alert. Head: Normocephalic. Atraumatic. EOM intact. Neck: No JVD. Cardiovascular: RRR. No gallops. No murmurs. Lungs: Clear to auscultation, no use of accessory muscles, no crackles or wheezes. Skin: No jaundice. Abdomen: Normal bowel sounds, abdomen soft and nontender. Extremities: No cyanosis or clubbing. Left lower extremity is edematous. Left great toe infection with distal ulceration with drainage, erythema, and overlying warmth. Ulcer on the lateral right ankle. Musculoskeletal: Appropriate muscle mass for demographic. Neurological: Moves all 4 extremities. No myoclonus. Data 07/25/24 05:01 07/24/24 16:11 Micro: Microbiology 07/24/24 16:17 Blood Culture - Preliminary Blood SPECIMEN COLLECTED 07/24/24 16:11 Blood Culture - Preliminary Blood SPECIMEN COLLECTED A&P Assessment and plan (1) Diabetic infection of left foot: Infected diabetic foot ulcer complicated by gas gangrene of the left distal foot Podiatry following N.p.o. for procedure today Continue broad spectrum antibiotics Nasal MRSA screen is negative Analgesics as needed (2) Type 2 diabetes mellitus: She reports her diabetes is well-controlled Hold metformin Sliding-scale insulin correction (3) Major depressive disorder, recurrent severe without psychotic features: Continue home meds (4) Anemia: Monitor blood counts (5) Essential tremor: Continue home meds (6) Chronic kidney disease: Monitor renal function Renally dose medications as needed Plan DVT prophylaxis: Patient is low risk, ambulatory. Attestations 2 Medical Necessity Statement*: Patient requires ongoing hospitalization for IV antibiotics, surgical intervention today, and supportive care. Coding Level of Care Code Acute Code for [facility] Fwd Diagnoses Diabetic infection of left foot E11.628; L08.9 Type 2 diabetes mellitus E11.9 Major depressive disorder, recurrent severe without psychotic features F33.2 Anemia D64.9 Essential tremor G25.0 Chronic kidney disease N18.9
[2024-07-25] MEDS: BUPivacaine 0.5% INJ 30 mL INJECTION (11:02)
[2024-07-25] MEDS: lidocaine 2% INJ 20 mL INJECTION (11:03)
[2024-07-25 13:38] LABS: Glucose Point of Care 203 mg/dL (70-110)
[2024-07-25] MEDS: insulin lispro 100 unit/1 mL SUBCUT ×2 (13:42→20:47)
[2024-07-25 16:24] LABS: Glucose Point of Care 92 mg/dL (70-110)
[2024-07-25] MEDS: VANCOMYCIN ADD-Vantage 750 MG in 0.9% NaCl ADD-Vantage 250 ML 250 MG IV (17:00)
[2024-07-25] MEDS: sodium chloride 0.9% 1,000 ML 75 ML IV (18:10)
[2024-07-25] MEDS: ropinirole 2 mg Tablet 5 MG PO (20:02)
[2024-07-25 20:49] LABS: Glucose Point of Care 238 mg/dL (70-110)
[2024-07-26 03:30] LABS: Basophils # 0.1 10^3/uL (0.0-0.1); Basophils % 0.8 %; Eosinophils # 0.3 10^3/uL (0.0-0.8); Hematocrit 31.1 % (36-47); Lymphocytes # 1.5 10^3/uL (0.8-4.8); Lymphocytes % 15.3 %; Mean Corpuscular HGB Conc 30.5 g/dL (30-55); Mean Corpuscular Hemoglobin 30.5 pg (27-33); Mean Platelet Volume 9.6 fL (7.4-10.4); Monocytes # 0.7 10^3/uL (0.2-0.9); Monocytes % 6.6 %; Neutrophils # 7.43 10^3/uL (1.8-7.7); Neutrophils % 73.7 %; Nucleated Red Blood Cells % 0 %; Platelet Count 303 10^3/cmm (157-399); Red Blood Count 3.11 10^6/uL (3.85-5.65); Red Cell Distribution Width 14.9 % (12.1-15.1); White Blood Count 10.08 10^3/uL (3.29-11.43)
[2024-07-26 03:54] LABS: Alanine Aminotransferase 15 U/L (0-33); Alkaline Phosphatase 81 U/L (35-105); Anion Gap 16.6 (5-19); Aspartate Amino Transferase 22 U/L (0-32); Blood Urea Nitrogen 26 mg/dL (6-20); Calcium 8.8 mg/dL (8.5-10.5); Carbon Dioxide 14 mmol/L (22-29); Chloride 108 mmol/L (98-107); Creatinine Clr Calc Pharmacy 33.3311; Globulin 3.8 g/dL (1.3-4.6); Glomerular Filtration Rate 29.3 mL/min (90-130); Glucose 91 mg/dL (65-115); Magnesium 2.3 mg/dL (1.7-2.3); Osmolality Calculated 284 mOsm/kg (285-295); Phosphorus 3.3 mg/dL (2.5-4.5); Potassium 3.6 mmol/L (3.5-5.1); Sodium 135 mmol/L (136-145); Total Bilirubin 0.2 mg/dL (0.15-1.2); Total Protein 6.8 g/dL (6.6-8.7)
[2024-07-26 04:00] VITALS: BP 105/60; PULSE 61; RESP 15; TEMP 36.7; O2SAT 98
[2024-07-26] MEDS: cefepime 1,000 mg SDV 1000 MG IVP ×2 (04:21→16:04)
[2024-07-26] MEDS: buPROPion XL (24 HR) 300 mg Tablet PO (05:17)
[2024-07-26] MEDS: duloxetine 60 mg Capsule 120 MG PO (05:17)
[2024-07-26 06:31] LABS: Glucose Point of Care 86 mg/dL (70-110)
[2024-07-26 08:00] VITALS: BP 98/66; PULSE 66; RESP 17; TEMP 36.5; O2SAT 100
[2024-07-26] MEDS: sodium chloride 0.9% 1,000 ML 75 ML IV (08:34)
[2024-07-26] MEDS: propranolol 20 mg Tablet 60 MG PO (08:39)
[2024-07-26] MEDS: atorvastatin 40 mg Tablet PO (08:39)
[2024-07-26] MEDS: pregabalin 150 mg Capsule PO ×2 (08:39→17:27)
[2024-07-26] MEDS: primidone 50 mg Tablet 100 MG PO ×2 (08:39→17:27)
[2024-07-26] MEDS: sodium bicarbonate 650 mg Tablet PO ×2 (08:39→17:27)
[2024-07-26 10:00] VITALS: PULSE 80; RESP 16; O2SAT 98
--- NOTE | 2024-07-26 10:08 | PM.PN ---
Subjective Subjective: Patient reports red streaking on her lower extremities does seem improved since presentation. She is n.p.o. for surgery later this morning. Spouse is bedside and supportive. Denies other new complaints. Medications: Reviewed: Yes Vitals/I&O/Wt Last Vital Signs Temp 97.7 F 07/26/24 08:00 Pulse 66 07/26/24 08:00 Resp 17 07/26/24 08:00 BP 98/66 07/26/24 08:00 Pulse Ox 100 07/26/24 08:00 O2 Del Method Room Air 07/26/24 08:00 O2 Flow Rate 6 07/25/24 11:14 07/25/24 07/26/24 07/26/24 22:59 06:59 14:59 Intake Total 970 / 2500 300 / 2800 1240 / 1240 Balance 970 / 2490 300 / 2790 1240 / 1240 Weight last 48 hrs Weight 64.274 kg Weight 62.233 kg Weight 61.377 kg Physical Exam Narrative: General: Patient is awake. Alert. Pleasant. Head: Normocephalic. Atraumatic. EOM intact. Neck: No JVD. Cardiovascular: RRR. No gallops. No murmurs. Lungs: Clear to auscultation, no use of accessory muscles, no crackles or wheezes. Skin: No jaundice. Abdomen: Normal bowel sounds, abdomen soft and nontender. Extremities: No cyanosis or clubbing. Left lower extremity is wrapped in surgical bandages. Right ankle is in Sanket wrap. Musculoskeletal: Appropriate muscle mass for demographic. Neurological: Moves all 4 extremities. No myoclonus. Data 07/26/24 02:28 07/26/24 02:28 Micro: Microbiology 07/24/24 16:17 Blood Culture - Preliminary Blood NEGATIVE TO DATE 07/24/24 16:11 Blood Culture - Preliminary Blood NEGATIVE TO DATE A&P Assessment and plan (1) Diabetic infection of left foot: Infected diabetic foot ulcer complicated by gas gangrene of the left distal foot Podiatry following, status post surgery 07/25 Patient will follow-up in podiatry clinic where bandages will be taken down for first time Continue broad spectrum antibiotics, plan to narrow if cultures produce culprit organism Analgesics as needed (2) Right foot ulcer: Status post debridement by podiatry (3) Type 2 diabetes mellitus: Hold metformin Sliding-scale insulin correction (4) Major depressive disorder, recurrent severe without psychotic features: Continue home meds (5) Anemia: Monitor blood counts (6) Essential tremor: Continue home meds (7) Chronic kidney disease: Chronic kidney disease associated with metabolic acidosis, query type II RTA Start bicarb tabs Discussed consideration of outpatient nephrology referral Monitor renal function Renally dose medications as needed Plan DVT prophylaxis: Lovenox Attestations Medical Necessity Statement*: Patient requires ongoing hospitalization for IV antibiotics due to osteomyelitis, following of cultures, electrolyte management, and supportive care. Coding Level of Care Code Acute Code for [facility] Fwd Diagnoses Diabetic infection of left foot E11.628; L08.9 Right foot ulcer L97.519 Type 2 diabetes mellitus E11.9 Major depressive disorder, recurrent severe without psychotic features F33.2 Anemia D64.9 Essential tremor G25.0 Chronic kidney disease N18.9
[2024-07-26 11:14] LABS: Glucose Point of Care 173 mg/dL (70-110)
[2024-07-26 12:00] VITALS: BP 94/59; PULSE 61; RESP 16; TEMP 36.5; O2SAT 99
[2024-07-26] MEDS: insulin lispro 100 unit/1 mL SUBCUT ×2 (12:34→20:48)
[2024-07-26 12:52] LABS: Bilirubin Urine Negative (Negative); Blood Urine 2+ (Negative); Glucose Urine UA Negative (Normal); Ketones Urine Negative (Negative); Leukocyte Esterase Urine 2+ (Negative); Nitrate Urine Negative (Negative); Protein Urine 1+ (Negative); Urine Appearance Clear (CLEAR); Urine Color Yellow (Yellow); Urobilinogen Urine 0.2 mg/dL (Negative); pH Urine 5.5 (5-7)
[2024-07-26 12:56] LABS: Bacteria Urine None Seen /hpf; Hyaline Casts Urine 0-4 /lpf; RBC Urine 51-100 /hpf (0-2); Squamous Epithelial Cell Urine 0-5 /hpf (0-5); WBC Urine 51-100 /hpf (0-5)
[2024-07-26 12:58] LABS: Add Urine Culture? Yes
[2024-07-26 13:11] LABS: Potassium, Radom Urine 12 mmol/L; Urine Random Chloride 101 mmol/L; Urine Random Sodium 93 mmol/L
[2024-07-26 16:00] VITALS: BP 115/70; PULSE 56; RESP 17; TEMP 36.7; O2SAT 99
[2024-07-26 16:45] LABS: Glucose Point of Care 122 mg/dL (70-110)
[2024-07-26] MEDS: VANCOMYCIN ADD-Vantage 750 MG in 0.9% NaCl ADD-Vantage 250 ML 250 MG IV (17:28)
[2024-07-26 19:54] VITALS: BP 96/57; PULSE 61; RESP 15; TEMP 36.7; O2SAT 97
[2024-07-26] MEDS: ropinirole 2 mg Tablet 5 MG PO (20:05)
[2024-07-26 20:42] LABS: Glucose Point of Care 227 mg/dL (70-110)
[2024-07-27] VITALS (8 sets, daily range): BP systolic 94–107; BP diastolic 56–70; PULSE 55–69; RESP 15–17; TEMP 36.6–37.1; O2SAT 98–99
[2024-07-27] MEDS: cefepime 1,000 mg SDV 1000 MG IVP ×2 (03:30→16:16)
[2024-07-27 03:35] LABS: Basophils # 0.1 10^3/uL (0.0-0.1); Basophils % 0.8 %; Eosinophils # 0.3 10^3/uL (0.0-0.8); Eosinophils % 4.3 %; Hematocrit 29.8 % (36-47); Lymphocytes # 1.6 10^3/uL (0.8-4.8); Lymphocytes % 23.7 %; Mean Corpuscular HGB Conc 30.2 g/dL (30-55); Mean Corpuscular Hemoglobin 29.7 pg (27-33); Mean Corpuscular Volume 98.3 fl (85-98); Mean Platelet Volume 9.6 fL (7.4-10.4); Monocytes # 0.4 10^3/uL (0.2-0.9); Monocytes % 6.7 %; Neutrophils # 4.17 10^3/uL (1.8-7.7); Neutrophils % 63.9 %; Nucleated Red Blood Cells % 0 %; Platelet Count 279 10^3/cmm (157-399); Red Blood Count 3.03 10^6/uL (3.85-5.65); Red Cell Distribution Width 14.7 % (12.1-15.1); White Blood Count 6.53 10^3/uL (3.29-11.43)
[2024-07-27 04:04] LABS: Alanine Aminotransferase 21 U/L (0-33); Albumin Level 2.9 g/dL (3.5-5.2); Alkaline Phosphatase 85 U/L (35-105); Anion Gap 15.6 (5-19); Aspartate Amino Transferase 43 U/L (0-32); Blood Urea Nitrogen 26 mg/dL (6-20); Calcium 8.5 mg/dL (8.5-10.5); Carbon Dioxide 17 mmol/L (22-29); Chloride 112 mmol/L (98-107); Creatinine Clr Calc Pharmacy 35.7793; Globulin 3.6 g/dL (1.3-4.6); Glomerular Filtration Rate 31.3 mL/min (90-130); Glucose 85 mg/dL (65-115); Magnesium 2.5 mg/dL (1.7-2.3); Osmolality Calculated 296 mOsm/kg (285-295); Phosphorus 3.4 mg/dL (2.5-4.5); Potassium 3.6 mmol/L (3.5-5.1); Sodium 141 mmol/L (136-145); Total Bilirubin 0.2 mg/dL (0.15-1.2); Total Protein 6.5 g/dL (6.6-8.7)
[2024-07-27] MEDS: duloxetine 60 mg Capsule 120 MG PO (05:05)
[2024-07-27] MEDS: buPROPion XL (24 HR) 300 mg Tablet PO (05:05)
[2024-07-27 06:34] LABS: Glucose Point of Care 99 mg/dL (70-110)
[2024-07-27] MEDS: propranolol 20 mg Tablet 60 MG PO (07:57)
[2024-07-27] MEDS: primidone 50 mg Tablet 100 MG PO ×2 (07:57→17:00)
[2024-07-27] MEDS: atorvastatin 40 mg Tablet PO (07:58)
[2024-07-27] MEDS: pregabalin 150 mg Capsule PO ×2 (07:58→17:01)
[2024-07-27] MEDS: sodium bicarbonate 650 mg Tablet PO ×2 (07:58→17:00)
--- NOTE | 2024-07-27 10:08 | P.PN_ITS ---
Subjective 2 Subjective: Patient denies any pain. Reports symptoms are well-controlled. Reports he slept okay. Denies other new complaints. Reports good appetite. Current wound culture showing heavy make superficial alexandru, identification still pending. Discussed with the patient. Medications: Reviewed: Yes Vitals/I&O/Wt Last Vital Signs Temp 97.9 F 07/27/24 08:00 Pulse 59 L 07/27/24 08:00 Resp 15 07/27/24 08:00 BP 97/56 07/27/24 08:00 Pulse Ox 98 07/27/24 08:00 O2 Del Method Room Air 07/27/24 08:00 O2 Flow Rate 6 07/25/24 11:14 07/26/24 07/27/24 07/27/24 22:59 06:59 14:59 Intake Total 490 / 2210 480 / 480 Output Total 1000 / 1275 Balance 490 / 1935 -1000 / 935 480 / 480 Weight last 48 hrs Weight 64.728 kg Weight 64.274 kg Physical Exam 2 Narrative: General: Patient is awake. Alert. Pleasant. In bed. Head: Normocephalic. Atraumatic. Neck: No JVD. Cardiovascular: RRR. No gallops. No murmurs. Lungs: Clear to auscultation, no use of accessory muscles, no crackles or wheezes. Skin: No jaundice. Abdomen: Normal bowel sounds, abdomen soft and nontender. Extremities: No cyanosis or clubbing. Left lower extremity is wrapped in surgical bandages, unchanged from prior exam. Right ankle remains in Sanket wrap. Musculoskeletal: Appropriate muscle mass for demographic. Neurological: Moves all 4 extremities. No myoclonus. Data 07/27/24 02:21 07/27/24 02:21 A&P Assessment and plan (1) Diabetic infection of left foot: Infected diabetic foot ulcer complicated by gas gangrene of the left distal foot Podiatry following, status post surgery 07/25 (left great toe amputation) Patient will follow-up in podiatry clinic later this week where bandages will be taken down for first time Continue broad spectrum antibiotics, plan to narrow if cultures produce culprit organism Plan is for oral abx for 14 days after cultures reveal culprit organism (2) Right foot ulcer: Status post I&D of right lateral ankle by podiatry 07/25 Continue wound care, same as above (3) Type 2 diabetes mellitus: Hold metformin Sliding-scale insulin correction (4) Major depressive disorder, recurrent severe without psychotic features: Continue home meds (5) Anemia: Monitor blood counts (6) Essential tremor: Continue home meds (7) Chronic kidney disease: Chronic kidney disease associated with metabolic acidosis, query type II RTA Continue bicarb tabs Consider outpatient nephrology referral at [place] or through PCP Renally dose medications as needed Plan DVT prophylaxis: Lovenox Attestations 2 Medical Necessity Statement*: Patient requires ongoing hospitalization for IV antibiotics due to osteomyelitis, following of cultures, electrolyte management, and supportive care. Coding Level of Care Code Acute Code for [facility] Diagnoses Diabetic infection of left foot E11.628; L08.9 Right foot ulcer L97.519 Type 2 diabetes mellitus E11.9 Major depressive disorder, recurrent severe without psychotic features F33.2 Anemia D64.9 Essential tremor G25.0 Chronic kidney disease N18.9
[2024-07-27 12:21] LABS: Glucose Point of Care 154 mg/dL (70-110)
[2024-07-27] MEDS: insulin lispro 100 unit/1 mL SUBCUT ×2 (12:46→20:55)
[2024-07-27 16:44] LABS: Glucose Point of Care 105 mg/dL (70-110)
[2024-07-27] MEDS: VANCOMYCIN ADD-Vantage 750 MG in 0.9% NaCl ADD-Vantage 250 ML 250 MG IV (17:01)
[2024-07-27] MEDS: ropinirole 2 mg Tablet 5 MG PO (20:08)
[2024-07-27 20:53] LABS: Glucose Point of Care 298 mg/dL (70-110)
[2024-07-28] MEDS: cefepime 1,000 mg SDV 1000 MG IVP (03:50)
[2024-07-28 04:00] VITALS: BP 101/61; PULSE 61; RESP 15; TEMP 36.8; O2SAT 98
[2024-07-28] MEDS: duloxetine 60 mg Capsule 120 MG PO (05:01)
[2024-07-28] MEDS: buPROPion XL (24 HR) 300 mg Tablet PO (05:01)
[2024-07-28 05:04] LABS: Alanine Aminotransferase 34 U/L (0-33); Albumin Level 2.9 g/dL (3.5-5.2); Alkaline Phosphatase 86 U/L (35-105); Anion Gap 16.5 (5-19); Aspartate Amino Transferase 66 U/L (0-32); Blood Urea Nitrogen 29 mg/dL (6-20); Calcium 8.4 mg/dL (8.5-10.5); Carbon Dioxide 17 mmol/L (22-29); Chloride 110 mmol/L (98-107); Creatinine Clr Calc Pharmacy 37.9579; Globulin 3.8 g/dL (1.3-4.6); Glomerular Filtration Rate 33.6 mL/min (90-130); Glucose 74 mg/dL (65-115); Osmolality Calculated 294 mOsm/kg (285-295); Potassium 3.5 mmol/L (3.5-5.1); Sodium 140 mmol/L (136-145); Total Bilirubin 0.2 mg/dL (0.15-1.2); Total Protein 6.7 g/dL (6.6-8.7)
[2024-07-28 06:33] LABS: Glucose Point of Care 109 mg/dL (70-110)
[2024-07-28 07:15] VITALS: BP 101/64; PULSE 58; RESP 16; TEMP 36.7; O2SAT 98
[2024-07-28] MEDS: primidone 50 mg Tablet 100 MG PO (08:26)
[2024-07-28] MEDS: sodium bicarbonate 650 mg Tablet PO (08:26)
[2024-07-28] MEDS: atorvastatin 40 mg Tablet PO (08:26)
[2024-07-28] MEDS: propranolol 20 mg Tablet 60 MG PO (08:27)
[2024-07-28] MEDS: pregabalin 150 mg Capsule PO (08:27)
[2024-07-28 08:41] VITALS: PULSE 60; RESP 16; O2SAT 98
--- NOTE | 2024-07-28 11:04 | PM.DCS ---
Discharge Providers Date of Admission: 07/26/24 11:01 Date of Discharge: July 28, 2024 Attending Provider at Admission: Naot Mccollum MD Attending Provider at Discharge: Kaylyn Mishra MD Primary Care Provider: Sandra Mccrary NP Diagnoses at Discharge Discharge Diagnosis (1) Diabetic infection of left foot: Status: Acute (2) Right foot ulcer: Status: Acute (3) Type 2 diabetes mellitus: Status: Acute (4) Major depressive disorder, recurrent severe without psychotic features: Status: Chronic (5) Anemia: Status: Acute (6) Essential tremor: Status: Chronic (7) Chronic kidney disease: Status: Chronic Hospital Course Hospital Course 54-year-old female presenting with a diabetic foot ulcer with infection. She had a left great toe wound with redness extending up the leg, accompanied by pain.The current issue began exhibiting signs of infection, specifically gas gangrene, which necessitated surgical intervention. X-ray left foot 3 view shows bony destruction of the distal phalanx consistent with osteomyelitis and soft tissue emphysema localized to the distal tuft of the left great toe. She was admitted as a direct admit and underwent Left great toe amputation. Has a chronic stable wound right lateral ankle exposed to myofascial layer without bone exposure. Incision and debridement was done on the right ankle. She remained afberile, tolerated procedure well. OR cx thus far have been without growth. Gram stain shows skin alexandru with some GPCs and GNRs. Since Level of amputation of the left foot was curative of osteomyelitis, she is being discharged today with 2 weeks of oral abx. Levaquin 500mg daily was continued. Added doxycycline 100mg BID. chart notes allergy to PCN as hives, however she tolerated cefepime in the hospital. Recommended to f/up as outpatientf or final cx as potentially resistant organisms may need change in oral abx coverage. She is clinicallly stable for discharge today. Physical Exam Narrative: General: No acute distress, AO x3 HEENT: PERRLA, pupils bilaterally equal and reactive, pallors not present Chest: Normal vesicular breath sounds, no added sounds, equal good air entry bilaterally CVS: S1-S2 regular, no murmurs, no tachycardia, no gallops, no rubs Abdomen: Soft, nontender, no organomegaly, bowel sounds present Neuro: No focal deficits, no facial deformity, AO x3, power 5/5 in all limbs Discharge Data Studies Completed and Pending Pending at discharge Category Date Time Status Blood Culture Stat Lab 07/24/24 16:17 Results Vancomycin Trough Timed Lab 07/28/24 16:00 Ordered Pathology: Surgical [PTH] Routine Pth 07/25/24 10:58 Received Laboratory Results WBC 6.53 10^3/uL (3.29-11.43) 07/27/24 02:21 RBC 3.03 10^6/uL (3.85-5.65) L 07/27/24 02:21 Hgb 9.00 g/dL (11.27-16.99) L 07/27/24 02:21 Hct 29.8 % (36-47) L 07/27/24 02:21 MCV 98.3 fl (85-98) H 07/27/24 02:21 MCH 29.7 pg (27-33) 07/27/24 02:21 MCHC 30.2 g/dL (30-55) 07/27/24 02:21 RDW 14.7 % (12.1-15.1) 07/27/24 02:21 Plt Count 279 10^3/cmm (157-399) 07/27/24 02:21 MPV 9.6 fL (7.4-10.4) 07/27/24 02:21 Neut % (Auto) 63.9 % 07/27/24 02:21 Lymph % (Auto) 23.7 % 07/27/24 02:21 [place] % (Auto) 6.7 % 07/27/24 02:21 Eos % (Auto) 4.3 % 07/27/24 02:21 Baso % (Auto) 0.8 % 07/27/24 02:21 Neut # (Auto) 4.17 10^3/uL (1.8-7.7) 07/27/24 02:21 Lymph # (Auto) 1.6 10^3/uL (0.8-4.8) 07/27/24 02:21 [place] # (Auto) 0.4 10^3/uL (0.2-0.9) 07/27/24 02:21 Eos # (Auto) 0.3 10^3/uL (0.0-0.8) 07/27/24 02:21 Baso # (Auto) 0.1 10^3/uL (0.0-0.1) 07/27/24 02:21 Nucleated RBC % (auto) 0 % 07/27/24 02:21 Nucleated RBCs # 0.0 /100WBC 07/27/24 02:21 ESR 56 mm/hr (0-15) H 07/25/24 05:01 Sodium 140 mmol/L (136-145) 07/28/24 02:51 Potassium 3.5 mmol/L (3.5-5.1) 07/28/24 02:51 Chloride 110 mmol/L (98-107) H 07/28/24 02:51 Carbon Dioxide 17 mmol/L (22-29) L 07/28/24 02:51 Anion Gap 16.5 (5-19) 07/28/24 02:51 BUN 29 mg/dL (6-20) H 07/28/24 02:51 Creatinine 1.6 mg/dL (0.5-0.9) H 07/28/24 02:51 GFR Calculation 33.6 mL/min (90-130) L 07/28/24 02:51 Glucose 74 mg/dL (65-115) 07/28/24 02:51 POC Glucose 109 mg/dL (70-110) 07/28/24 06:12 Calculated Osmolality 294 mOsm/kg (285-295) 07/28/24 02:51 Lactic Acid 0.7 mmol/L (0.5-2.2) 07/24/24 16:11 Calcium 8.4 mg/dL (8.5-10.5) L 07/28/24 02:51 Phosphorus 3.4 mg/dL (2.5-4.5) 07/27/24 02:21 Magnesium 2.5 mg/dL (1.7-2.3) H 07/27/24 02:21 Total Bilirubin 0.2 mg/dL (0.15-1.2) 07/28/24 02:51 AST 66 U/L (0-32) H 07/28/24 02:51 ALT 34 U/L (0-33) H 07/28/24 02:51 Alkaline Phosphatase 86 U/L (35-105) 07/28/24 02:51 C-Reactive Protein 38.3 mg/L (0.0-4.9) H 07/24/24 16:11 Total Protein 6.7 g/dL (6.6-8.7) 07/28/24 02:51 Albumin 2.9 g/dL (3.5-5.2) L 07/28/24 02:51 Globulin 3.8 g/dL (1.3-4.6) 07/28/24 02:51 Procalcitonin 0.32 ng/mL (0-0.5) 07/24/24 16:11 Urine Color Yellow (Yellow) 07/26/24 12:34 Urine Appearance Clear (CLEAR) 07/26/24 12:34 Urine pH 5.5 (5-7) 07/26/24 12:34 Ur Specific [place] 1.010 (1.005-1.030) 07/26/24 12:34 Urine Protein 1+ (Negative) A 07/26/24 12:34 Urine Glucose (UA) Negative (Normal) 07/26/24 12:34 Urine Ketones Negative (Negative) 07/26/24 12:34 Urine Blood 2+ (Negative) A 07/26/24 12:34 Urine Nitrate Negative (Negative) 07/26/24 12:34 Urine Bilirubin Negative (Negative) 07/26/24 12:34 Urine Urobilinogen 0.2 mg/dL (Negative) 07/26/24 12:34 Ur Leukocyte Esterase 2+ (Negative) A 07/26/24 12:34 Urine RBC 51-100 /hpf (0-2) H 07/26/24 12:34 Urine WBC 51-100 /hpf (0-5) H 07/26/24 12:34 Ur Squamous Epith Cells 0-5 /hpf (0-5) 07/26/24 12:34 Amorphous Sediment Not Reportable 07/26/24 12:34 Urine Bacteria None seen /hpf (NONE) 07/26/24 12:34 Hyaline Casts 0-4 /lpf H 07/26/24 12:34 Ur Random Sodium 93 mmol/L 07/26/24 12:34 Ur Random Potassium 12 mmol/L 07/26/24 12:34 Ur Random Chloride 101 mmol/L 07/26/24 12:34 Nasal MRSA (PCR) Not detected (Not Detecte) 07/24/24 17:30 Vitals Last Vital Signs Temp 98.0 F 07/28/24 07:15 Pulse 60 07/28/24 08:41 Resp 16 07/28/24 08:41 BP 101/64 07/28/24 07:15 Pulse Ox 98 07/28/24 08:41 O2 Del Method Room Air 07/28/24 08:41 O2 Flow Rate 6 07/25/24 11:14 Discharge Plan Discharge Patient Disposition: Home Condition: Stable Prescriptions: New doxycycline hyclate 100 mg tablet 100 mg PO BID 14 Days Qty: 28 0RF Continued ropinirole 5 mg tablet 5 mg PO .HS tizanidine 4 mg capsule 6 mg PO TID PRN (Reason: muscle spasticity) atorvastatin 40 mg tablet 40 mg PO DAILY pregabalin [Lyrica] 150 mg capsule 150 mg PO BID [place] 0.01 % drops 1 drop ophthalmic (eye) DAILY Rx Instructions: left eye levocetirizine 5 mg tablet 5 mg PO ONCE potassium chloride 10 mEq tablet extended release 20 meq PO ONCE metformin 500 mg tablet 1,000 mg PO BID bupropion HCl [Wellbutrin XL] 300 mg tablet extended release 24 hr 300 mg PO QAM Qty: 90 2RF Rx Instructions: Take one tablet every morning duloxetine [Cymbalta] 60 mg capsule,delayed release(DR/EC) 120 mg PO .morning Qty: 180 2RF Rx Instructions: Take two capsules every morning propranolol 60 mg capsule,extended release 24 hr 60 mg PO DAILY Qty: 90 3RF primidone 50 mg tablet 100 mg PO BID Qty: 360 3RF Rx Instructions: Take 2 tablets by mouth twice daily famotidine 40 mg tablet 40 mg PO DAILY levofloxacin 500 mg tablet 500 mg PO DAILY nitrofurantoin monohyd/m-cryst 100 mg capsule 100 mg PO BID Discharge Orders: Discharge Order (Routine); Ordered 07/28/24 Ordered By: Kaylyn Mishra Referrals: Jerald Martin DPM [Physician] - 07/29/24 12:45 pm Discharge Diet: Diabetic Discharge Activity: Resume usual activity Patient Instructions: Acute Wound Care (DC), Opioid Safety, Post Anesthesia Care Activity Restrictions/Additional Instructions: Recommendations from Dr. Martin D.P.M. -Heel touch for transfers otherwise nonweightbearing to the left lower extremity. -Please keep your surgical dressing and posterior splint clean, dry and intact until your follow-up visit outpatient at podiatry clinic [facility] scheduled 07/29/2024 at 12:45 PM. -Please contact podiatry clinic with any questions or concerns regarding your foot [phone] Discharge Attestations Time Spent in Discharge Care*: greater than 30 min Quality Metrics Clinical Quality Measures [ No reported AMI, CVA or VTE this stay] Coding Level of Care Code Acute Code for Chg Fwd Diagnoses Diabetic infection of left foot E11.628; L08.9 Right foot ulcer L97.519 Type 2 diabetes mellitus E11.9 Major depressive disorder, recurrent severe without psychotic features F33.2 Anemia D64.9 Essential tremor G25.0 Chronic kidney disease N18.9
[2024-07-28 11:58] LABS: Glucose Point of Care 159 mg/dL (70-110)
[2024-07-28 12:00] VITALS: BP 92/54; PULSE 54; RESP 15; TEMP 36.9; O2SAT 97
[2024-07-28] MEDS: insulin lispro 100 unit/1 mL SUBCUT (12:28)
[2024-07-28 13:20] VITALS: BP 92/54; PULSE 54; RESP 15; TEMP 36.9; O2SAT 97
--- OUTSIDE RECORDS SUMMARY | 2024-07-29 05:40 | XMS_ITS | Encounter Summary ---
Author Organization [facility] Address [address] [place] [address] Care Team Providers Care Buggy Man Name Role Phone Laila Underwood Primary Care Provider [phone] Encounter Details Date Type Department Care Team (Latest Contact Info) Description 03/13/2001 Outpatient Historical 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 Gender Identity Not on file Sexual Orientation Not on file documented as of this encounter Plan of Treatment Not on file documented as of this encounter Visit Diagnoses Diagnosis Supervision of other normal - Primary documented in this encounter Additional Health Concerns Infection Onset Date Last Indicated Resolved Time E-coli-ESBL (Extended Spectr um Beta Lactamase) Comment:01/11/15 Urine 01/18/2015 01/18/2015 documented as of this encounter Care Teams Buggy Man Relationship Specialty Start Date End Date Laila Underwood FNP PCP - General NURSE PRACTITIONER 09/27/14 documented as of this encounter
--- OUTSIDE RECORDS SUMMARY | 2024-07-29 05:40 | XMS_ITS | Encounter Summary ---
Author Organization [facility] Address [address] 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
--- OUTSIDE RECORDS SUMMARY | 2024-07-29 05:40 | XMS_ITS | Encounter Summary ---
Author Organization [facility] Address [address] [place] [address] Care Team Providers Care Wildlife Conservation Professor Name Role Phone Laila Underwood ATHLETIC TEAM PHYSICIAN Primary Care Provider [phone] Reason for Visit * Reason Comments Fever Urinary Pain Wound Check On toe on left foot Encounter Details Date Type Department Care Team (Late st Contact Info) Description 07/18/2024 10:39 PM SURVEY QUESTIONNAIRE DESIGNER - 07/19/2024 12:34 AM [facility] Emergency [facility] Emergency Medicine [address] [place], [place] [address]Y [address] [place] [address] Oracio Flood MD [address] [place] [address] [place] [address] Urinary tract infection without hematuria, site unspecified (Primary Dx); Diabetic ulcer of toe of left foot associated with type 2 diabetes mellitus, with necrosis of muscle ([facility]/HCC) Discharge Disposition: Home or Self Care Social History Tobacco Use Types Packs/Day Years Used Date Smoking Tobacco: Former Cigarettes Q uit: 02/24/2000 Smokeless Tobacco: Never Alcohol Use Standard Drinks/Week Comments No 0 (1 standard drink = 0.6 oz pur e alcohol) Feeling Safe Answer Date Recorded Are you in a relationship wi th someone who hurts you emotionally and/or physically? No 07/18/2024 Comments No Sex and Gender Information Value Date Recorded Sex Assigned at Not on file Legal Sex Female 2:20 AM SURVEY QUESTIONNAIRE DESIGNER Gender Identity Not on file Sexual Orientation Not on file documented as of this encounter Last Filed Vital Signs Vital Sign Reading Time Taken Comments Blood Pressure 112/68 07/19/2024 12:00 AM SURVEY QUESTIONNAIRE DESIGNER Pulse 57 07/19/2024 12:00 AM SURVEY QUESTIONNAIRE DESIGNER Temperature 37.2 ??C (99 ??F) 07/18/2024 10:49 PM SURVEY QUESTIONNAIRE DESIGNER Respiratory Rate 16 07/19/2024 12:00 AM SURVEY QUESTIONNAIRE DESIGNER Oxygen Saturation 100% 07/19/2024 12:00 AM SURVEY QUESTIONNAIRE DESIGNER Inhaled Oxygen Concentration - - Weight 61.5 kg (135 lb 9.6 oz) 07/18/2024 10:49 PM SURVEY QUESTIONNAIRE DESIGNER Height 165.1 cm (5' 5 ) 07/18/2024 10:49 PM SURVEY QUESTIONNAIRE DESIGNER Body Mass Index 22.57 07/18/2024 10:49 PM SURVEY QUESTIONNAIRE DESIGNER documented in this encounter Discharge Instructions * Attachments The following attachments cannot be sent through Care Everywhere. * UTI (Urinary Tract Infection): Female (Guamanian) * Diabetic Foot Ulcer (Guamanian) * Levofloxacin Oral Tablet (LEVOFLOXACIN - ORAL) (Guamanian) documented in this encounter Medications at Time of Discharge levoFLOXacin (LEVAQUIN) 500 mg tablet Take 1 Tablet (500 mg) by mouth daily for 10 days. 10 Tablet 07/19/2024 famotidine (PEPCID) 40 mg tabletIndications :Postoperative visit,History of Luz Maria-en-Y gastric bypass,Anastomoti c stricture of gastrojejunostomy ,Hypertension, unspecified type,History of type 2 diabetes mellitus,Intestin al malabsorption, unspecified type,Normocytic anemia,Hyperglyce anat,Pannus, abdominal,Hypokal emia,Hyponatremia Take 1 Tablet (40 mg) by mouth 2 times daily. 60 Tablet 6 04/21/2024 metFORMIN (GLUCOPHAGE XR) 500 mg Extended Release 24 hour tablet Take 1,000 mg by mouth 2 times daily. ondansetron (Zofran) 4 mg Tablet Take 1 Tablet (4 mg) by mouth every 8 hours as needed for Nausea/Emesis. 20 Tablet 08/10/2023 9:50 AM SURVEY QUESTIONNAIRE DESIGNER 08/10/2023 naloxone (NARCAN) 4 mg/spray [place], Non-Aerosol EMERGENCY USE ONLY: Administer 1 spray (4 mg) in one nostril one time. May repeat in alternating nostrils every 2-3 min until responsive or EMS arrives. 2 Each 3 08/10/2023 potassium chloride (KLOR-CON) 10 mEq Extended Release tablet Take by mouth daily. 03/28/2023 levocetirizine (XYZAL) 5 mg tablet Take 5 mg by mouth. cholecalciferol, vitamin D3, 1,000 unit Take 1,000 Units by mouth daily. bimatoprost (LUMIGAN) 0.03 % solution Administer 1 Drop in left eye daily at bedtime. ondansetron (ZOFRAN ODT) 4 mg Tablet, Rapid DissolveIndicatio ns:Abdominal pannus,Post-op pain Take 1 Tablet (4 mg) by mouth every 8 hours as needed for Nausea/Emesis. Dissolve tablet on top of tongue, then swallow with saliva. 15 Tablet 01/22/2023 cyclobenzaprine (FLEXERIL) 10 mg tabletIndications :Abdominal pannus,Post-op pain Take 1 Tablet (10 mg) by mouth 3 times daily as needed for Spasm. 90 Tablet 01/22/2023 rOPINIRole (REQUIP) 5 mg Tablet Take 5 mg by mouth daily at bedtime. propranolol HCl (PROPRANOLOL ORAL) Take by mouth. atorvastatin (LIPITOR) 20 mg tablet Take 20 mg by mouth late in the day. 08/09/2017 primidone (MYSOLINE) 50 mg tablet Take 100 mg by mouth 2 times daily. 08/09/2017 albuterol sulfate 90 mcg/Actuation inhaler Take 2 Puffs by inhalation every 4 hours as needed for Shortness of Breath or Wheezing (cough). 8.5 Gram 0 04/14/2016 tizanidine HCl (TIZANIDINE ORAL) Take 1.5 Tablets by mouth 3 times daily as needed . 04/14/2016 buPROPion HCL (WELLBUTRIN XL) 300 mg Extended Release 24 hour tablet Take 300 mg by mouth daily interior specialist. 02/01/2015 DULoxetine (CYMBALTA) 60 mg Capsule, Delayed Release(E.C.) Take 1 Cap (60 mg) by mouth daily. 1 01/25/2015 documented as of this encounter ED Notes * Gwen Ernst RN - 07/18/2024 10:52 PM CST Otilia Zuly Woods is a 54 y.o. female who arrives to the Emergency Department by private car. Chief Complaint Patient presents with Fever Urinary Pain Wound Check On toe on left foot Patient states she starting running a fever and having urinary pain two days ago. Patient also complains of ulcer on toe on left foot with cellulitis. Pain is 7/10. VSS, aaox4, MICHAEL, behavior appropriate to circumstance, no acute distress at this time. Airway patent, self-maintained with even, non-labored respirations. Perfusion within normal limits for age. Skin color normal for ethnicity, warm, dry and intact. ID band present. Patient in bed in low position with wheels locked. Patient informed of plan of care. Patient verbalized understanding and in agreement with plan of care, all questions answered. Comfort measures offered. spouse at bedside at this time. Monitors on and audible. Patient placed on continuous pulse ox and blood pressure monitoring. Call light at bedside. Patient encouraged to call with needs. Will continue to monitor. Weapons assessment performed. Education provided regarding facility weapon storage and securement policy. Otilia Woods denied possession of any weapons or firearms at this time EY QUESTIONNAIRE DESIGNER * Oracio Flood MD - 07/18/2024 10:27 PM CST HISTORY OF PRESENT ILLNESS Otilia Woods, a 54 y.o. female presents to the ED with a Chief Complaint of Fever, Urinary Pain,and Wound Check Subjective This patient is a 54-year-old white female who presents to the emergency department complaining of dysuria and fever. Patient also has a chronic ulcer on her left great toe. REVIEW OF SYSTEMS Review of Systems Constitutional: Positive for fever. Negative for activity change, appetite change, chills, diaphoresis and fatigue. HENT: Negative for congestion, dental problem, ear pain, postnasal drip, rhinorrhea, sinus pressure, sore throat, tinnitus and trouble swallowing. Eyes: Negative for photophobia, pain, discharge, redness and visual disturbance. Respiratory: Negative for cough, chest tightness, shortness of breath and wheezing. Cardiovascular: Negative for chest pain, palpitations and leg swelling. Gastrointestinal: Negative for abdominal distention, abdominal pain, blood in stool, constipation, diarrhea, nausea and vomiting. Genitourinary: Positive for dysuria. Negative for decreased urine volume, difficulty urinating, dyspareunia, flank pain, frequency, hematuria, menstrual problem, pelvic pain, urgency, vaginal bleeding and vaginal discharge. Musculoskeletal: Negative for arthralgias, back pain, gait problem, joint swelling, myalgias, neck pain and neck stiffness. Skin: Positive for wound. Negative for color change and rash. Neurological: Negative for dizziness, seizures, speech difficulty, weakness, light-headedness, numbness and headaches. Hematological: Negative for adenopathy. Psychiatric/Behavioral: Negative for agitation, behavioral problems, confusion, dysphoric mood, hallucinations, self-injury, sleep disturbance and suicidal ideas. The patient is not nervous/anxious. All other systems reviewed and are negative. PAST MEDICAL HISTORY REVIEWED MEDICAL: Patient has a past medical history of Anxiety, Arthritis, Calculus of kidney, Chronic back pain, Depression, Diabetes mellitus ([facility]), ESBL (extended spectrum beta-lactamase) producing bacteria infection (01/11/15), Eye injury, GERD (gastroesophageal reflux disease), Herniated disc, HTN (hypertension), Hyperlipidemia, MRSA (methicillin resistant Staphylococcus aureus), Obstructive sleep apnea, and Restless leg syndrome. SURGICAL: Patient has a past surgical history that includes hernia repair; heel spur surgery; [facility]/cell washg spx (N/A, 01/14/2015); carpal tunnel release; tubal ligation; gastric bypass; esophagogastroduodenoscopy (N/A, 05/07/2023); colonoscopy (N/A, 05/07/2023); pr laps gstr rstcv px w/byp luz maria-en-y limb <150 cm (N/A, 08/08/2023); pr unlisted laparoscopy procedure stomach (N/A, 08/08/2023); and abdominal surgery (N/A, 08/08/2023). FAMILY: Patient's family history includes Alzheimer's Disease in her paternal grandfather; Cancer in her maternal aunt, maternal grandfather, and mother; Diabetes in her father; Heart Disease in her brother,father, mother, and paternal grandmother; Hypertension in her brother and mother; Melanoma in her mo ther; Stroke in her maternal grandmother. SOCIAL: reports that she quit smoking about 24 years ago. Her smoking use included cigarettes. She has never used smokeless tobacco. She reports that she does not drink alcohol and does not use drugs. No history on file. Social History Other Topics Concern Not on file ALLERGIES Penicillins, Gabapentin, Prochlorperazine edisylate, and Morphine HOME MEDICATIONS Discharge Medication List as of 07/19/2024 12:21 AM START taking these medications Details levoFLOXacin (LEVAQUIN) 500 mg tablet Take 1 Tablet (500 mg) by mouth daily for 10 days., Disp-10 Tablet, R-0 CONTINUE these medications which have NOT CHANGED Details famotidine (PEPCID) 40 mg tablet Take 1 Tablet (40 mg) by mouth 2 times daily.Take as needed for acid breakthroughDisp-60 Tablet, R-6 metFORMIN (GLUCOPHAGE XR) 500 mg Extended Release 24 hour tablet Take 1,000 mg by mouth 2 times daily. ondansetron (Zofran) 4 mg Tablet Take 1 Tablet (4 mg) by mouth every 8 hours as needed for Nausea/Emesis., Disp-20 Tablet, R-0 naloxone (NARCAN) 4 mg/spray [place], Non-Aerosol EMERGENCY USE ONLY: Administer 1 spray (4 mg) in one nostril one time. May repeat in alternating nostrils every 2-3 min until responsive or EMS arrives., Disp-2 Each, R-3 potassium chloride (KLOR-CON) 10 mEq Extended Release tablet Take by mouth daily. levocetirizine (XYZAL) 5 mg tablet Take 5 mg by mouth. cholecalciferol, vitamin D3, 1,000 unit Take 1,000 Units by mouth daily. bimatoprost (LUMIGAN) 0.03 % solution Administer 1 Drop in left eye daily at bedtime. ondansetron (ZOFRAN ODT) 4 mg Tablet, Rapid Dissolve Take 1 Tablet (4 mg) by mouth every 8 hours asneeded for Nausea/Emesis. Dissolve tablet on top of tongue, then swallow with saliva., Disp-15 Tablet, R-0 cyclobenzaprine (FLEXERIL) 10 mg tablet Take 1 Tablet (10 mg) by mouth 3 times daily as needed for Spasm., Disp-90 Tablet, R-0 rOPINIRole (REQUIP) 5 mg Tablet Take 5 mg by mouth daily at bedtime. propranolol HCl (PROPRANOLOL ORAL) Take by mouth. atorvastatin (LIPITOR) 20 mg tablet Take 20 mg by mouth late in the day. primidone (MYSOLINE) 50 mg tablet Take 100 mg by mouth 2 times daily. albuterol sulfate 90 mcg/Actuation inhaler Take 2 Puffs by inhalation every 4 hours as needed for Shortness of Breath or Wheezing (cough)., Disp-8.5 Gram, R-0 tizanidine HCl (TIZANIDINE ORAL) Take 1.5 Tablets by mouth 3 times daily as needed . buPROPion HCL (WELLBUTRIN XL) 300 mg Extended Release 24 hour tablet Take 300 mg by mouth daily interior specialist. DULoxetine (CYMBALTA) 60 mg Capsule, Delayed Release(E.C.) Take 1 Cap (60 mg) by mouth daily., R-1 Objective PHYSICAL EXAM INITIAL VS BP: 103/61 (07/18/242248), Heart Rate: 65 bpm (07/18/242248), Resp: 16 (07/18/242248), Pulse: 65(07/18/242248), Temp: 99 ??F (37.2 ??C) (07/18/242248), Temp src: Oral (07/18/242248), SpO2: 99 % (07/18/242248), Height: 5' 5 (165.1 cm) (07/18/242248), Weight: 61.5 kg (135 lb 9.6 oz) (07/18/242248), BMI (Calculated): 22.56 (07/18/242248) No LMP recorded. Patient is postmenopausal. Physical Exam Vitals and nursing note reviewed. Constitutional: General: She is not in acute distress. Appearance: She is well-developed. HENT: Head: Normocephalic and atraumatic. Eyes: Conjunctiva/sclera: Conjunctivae normal. Pupils: Pupils are equal, round, and reactive to light. Cardiovascular: Rate and Rhythm: Normal rate and regular rhythm. Heart sounds: Normal heart sounds. Pulmonary: Effort: Pulmonary effort is normal. No respiratory distress. Breath sounds: Normal breath sounds. Abdominal: General: Bowel sounds are normal. Palpations: Abdomen is soft. Tenderness: There is no abdominal tenderness. Musculoskeletal: General: No tenderness. Normal range of motion. Cervical back: Normal range of motion and neck supple. Skin: General: Skin is warm and dry. Comments: Patient does have a deep ulcer over the tip of the left great toe with surrounding swelling and erythema. Neurological: Mental Status: She is alert and oriented to person, place, and time. Cranial Nerves: No cranial nerve deficit. Psychiatric: Behavior: Behavior normal. Thought Content: Thought content normal. DIAGNOSTICS LAB: URINALYSIS WITH REFLEX MICROSCOPIC - Abnormal Result Value COLOR UA Yellow CLARITY UA Slightly Cloudy (*) SPECIFIC GRAVITY UA 1.020 PH UA 5.5 LEUKOCYTE ESTERASE UA 1+ (*) NITRITE UA Positive (*) PROTEIN UA 2+ (*) GLUCOSE UA 1+ (*) KETONES UA Negative UROBILINOGEN UA 0.2 BILIRUBIN UA Negative BLOOD UA 3+ (*) URINALYSIS MICROSCOPY ONLY - Abnormal WBC UA >100 (*) RBC UA 6-10 (*) BACTERIA UA 3+ (*) EPITHELIAL CELLS, URINE 6-10 (*) RADIOLOGY: No orders to display EKG: PROCEDURES Procedures MEDICAL DECISION MAKING AND PLAN OF CARE Medical Decision Making Patient states she has an appointment with podiatry regarding the ulcer on the toe. I did place karen Levaquin for the urinary tract infection as well as the cellulitis around the left great toe. Recommended she follow-up with her primary care physician next week for recheck. She was discharged instable condition. Amount and/or Complexity of Data Reviewed Labs: ordered. Risk Prescription drug management. Clinical Scoring & Consults Medications Administered During the ED Stay from 07/18/2024 2227 to 07/19/2024 0113 Date/Time Order Dose Route Action 07/19/2024 0027 SURVEY QUESTIONNAIRE DESIGNER levoFLOXacin (LEVAQUIN) tablet 500 mg 500 mg Oral Given Discharge Medication List as of 07/19/2024 12:21 AM START taking these medications Details levoFLOXacin (LEVAQUIN) 500 mg tablet Take 1 Tablet (500 mg) by mouth daily for 10 days., Disp-10 Tablet, R-0 CONTINUE these medications which have NOT CHANGED Details famotidine (PEPCID) 40 mg tablet Take 1 Tablet (40 mg) by mouth 2 times daily.Take as needed for acid breakthroughDisp-60 Tablet, R-6 metFORMIN (GLUCOPHAGE XR) 500 mg Extended Release 24 hour tablet Take 1,000 mg by mouth 2 times daily. ondansetron (Zofran) 4 mg Tablet Take 1 Tablet (4 mg) by mouth every 8 hours as needed for Nausea/Emesis., Disp-20 Tablet, R-0 naloxone (NARCAN) 4 mg/spray [place], Non-Aerosol EMERGENCY USE ONLY: Administer 1 spray (4 mg) in one nostril one time. May repeat in alternating nostrils every 2-3 min until responsive or EMS arrives., Disp-2 Each, R-3 potassium chloride (KLOR-CON) 10 mEq Extended Release tablet Take by mouth daily. levocetirizine (XYZAL) 5 mg tablet Take 5 mg by mouth. cholecalciferol, vitamin D3, 1,000 unit Take 1,000 Units by mouth daily. bimatoprost (LUMIGAN) 0.03 % solution Administer 1 Drop in left eye daily at bedtime. ondansetron (ZOFRAN ODT) 4 mg Tablet, Rapid Dissolve Take 1 Tablet (4 mg) by mouth every 8 hours asneeded for Nausea/Emesis. Dissolve tablet on top of tongue, then swallow with saliva., Disp-15 Tablet, R-0 cyclobenzaprine (FLEXERIL) 10 mg tablet Take 1 Tablet (10 mg) by mouth 3 times daily as needed for Spasm., Disp-90 Tablet, R-0 rOPINIRole (REQUIP) 5 mg Tablet Take 5 mg by mouth daily at bedtime. propranolol HCl (PROPRANOLOL ORAL) Take by mouth. atorvastatin (LIPITOR) 20 mg tablet Take 20 mg by mouth late in the day. primidone (MYSOLINE) 50 mg tablet Take 100 mg by mouth 2 times daily. albuterol sulfate 90 mcg/Actuation inhaler Take 2 Puffs by inhalation every 4 hours as needed for Shortness of Breath or Wheezing (cough)., Disp-8.5 Gram, R-0 tizanidine HCl (TIZANIDINE ORAL) Take 1.5 Tablets by mouth 3 times daily as needed . buPROPion HCL (WELLBUTRIN XL) 300 mg Extended Release 24 hour tablet Take 300 mg by mouth daily interior specialist. DULoxetine (CYMBALTA) 60 mg Capsule, Delayed Release(E.C.) Take 1 Cap (60 mg) by mouth daily., R-1 LAST VS BP: 112/68 (07/19/24 0000), Heart Rate: 65 bpm (07/18/242248), Resp: 16 (07/19/24), Pulse: (!) 57 (07/19/24), Temp: 99 ??F (37.2 ??C) (07/18/242248), Temp src: Oral (07/18/242248), SpO2:100 % (07/19/24) CLINICAL IMPRESSION Final diagnoses: [N39.0] Urinary tract infection without hematuria, site unspecified (Primary) [E11.621, L97.523] Diabetic ulcer of toe of left foot associated with type 2 diabetes mellitus, with necrosis of muscle ([facility]) DISPOSITION, EDUCATION AND MEDICATION RECONCILIATION Medications reconciled. See after visit summary for patient education on discharged patients. ED Disposition ED Disposition Discharge Condition Stable User Oracio Flood MD Date/Time Sat Jul 19, 2024 12:14 AM Comment -- ATTESTATION STATEMENTS EY QUESTIONNAIRE DESIGNER documented in this encounter Plan of Treatment Not on file documented as of this encounter Procedures Procedure Name Priority Date/Time Associated Diagnosis Comments URINALYSIS MICROSCOPY ONLY Stat 07/18/2024 11:40 PM SURVEY QUESTIONNAIRE DESIGNER URINALYSIS W/REFLEX MICROSCOPIC Stat 07/18/2024 11:40 PM SURVEY QUESTIONNAIRE DESIGNER documented in this encounter Results * (ABNORMAL) URINALYSIS MICROSCOPY ONLY (07/18/2024 11:40 PM SURVEY QUESTIONNAIRE DESIGNER) WBC UA >100(A) 0 - 2 /hpf 07/18/2024 11:49 PM SURVEY QUESTIONNAIRE DESIGNER [facility] RBC UA 6-10(A) 0 - 2 /hpf 07/18/2024 11:49 PM SURVEY QUESTIONNAIRE DESIGNER [facility] BACTERIA UA 3+(A) Negative /hpf 07/18/2024 11:49 PM SURVEY QUESTIONNAIRE DESIGNER [facility] EPITHELIAL CELLS, URINE 6-10(A) 0 - 5 /hpf 07/18/2024 11:49 PM SURVEY QUESTIONNAIRE DESIGNER [facility] Urine URINE SPECIMEN OBTAINED BY CLEAN CATCH PROCEDURE / Unknown Collection / Unknown 07/18/2024 11:40 PM SURVEY QUESTIONNAIRE DESIGNER 07/18/2024 11:40 PM SURVEY QUESTIONNAIRE DESIGNER Oracio Flood MD URINE ORDERABLES Final R esult [facility] CLIA # [id number] [address] [place] [id number] * (ABNORMAL) URINALYSIS WITH REFLEX MICROSCOPIC (07/18/2024 11:40 PM SURVEY QUESTIONNAIRE DESIGNER) COLOR UA Yellow Pale to Dark Yellow 07/18/2024 11:49 PM SURVEY QUESTIONNAIRE DESIGNER [facility] CLARITY UA Slightly Cloudy(A) Clear 07/18/2024 11:49 PM [facility] SPECIFIC GRAVITY UA 1.020 1.003 - 1.035 07/18/2024 11:49 PM [facility] PH UA 5.5 5.0 - 8.0 07/18/2024 11:49 PM [facility] LEUKOCYTE ESTERASE UA 1+(A) Negative 07/18/2024 11:49 PM SURVEY QUESTIONNAIRE DESIGNER [facility] NITRITE UA Positive(A) Negative 07/18/2024 11:49 PM [facility] PROTEIN UA 2+(A) Negative 07/18/2024 11:49 PM [facility] GLUCOSE UA 1+(A) Negative 07/18/2024 11:49 PM [facility] KETONES UA Negative Negative 07/18/2024 11:49 PM [facility] UROBILINOGEN UA 0.2 <2.0 mg/dL 11:49 PM SURVEY QUESTIONNAIRE DESIGNER [facility] BILIRUBIN UA Negative Negative 07/18/2024 11:49 PM [facility] BLOOD UA 3+(A) Negative 07/18/2024 11:49 PM [facility] Urine URINE SPECIMEN OBTAINED BY CLEAN CATCH PROCEDURE / Unknown Collection / Unknown 07/18/2024 11:40 PM SURVEY QUESTIONNAIRE DESIGNER 07/18/2024 11:40 PM SURVEY QUESTIONNAIRE DESIGNER Oracio Flood MD URINE ORDERABLES Final [id number] [address] [place] [id number] documented in this encounter Visit Diagnoses Diagnosis Urinary tract infection without hematuria, site unspecified- Primary Diabetic ulcer of toe of left foot associated with type 2 diabetes mellitus, with necrosis of muscle (CMS/HCC) documented in this encounter Administered Medications Inactive Administered Medications - up to 3 most recent administrations Medication Order MAR Action Action Date Dose Rate Site levoFLOXacin (LEVAQUIN) tablet 500 mg 500 mg, Oral, ONE TIME ONLY, 1 dose, On 07/19/24 at 0030, Routine, Antibiotic Indication: Urinary Tract Infection(UTI) / Infection Given 07/19/2024 12:27 AM SURVEY QUESTIONNAIRE DESIGNER 500 mg documented in this encounter Active and Recently Administered Medications Times are shown in SURVEY QUESTIONNAIRE DESIGNER. Scheduled Medication Order 07/17/2024 07/18/2024 07/19/2024 levoFLOXacin (LEVAQUIN) tablet 500 mg (COMPLETED) 500 mg, Oral, ONE TIME ONLY, 1 dose, On 07/19/24 at 0030, Routine, Antibiotic Indication: Urinary Tract Infection(UTI) / Infection 0027 (Given - Provid er: Gwen Ernst RN) documented in this encounter Care Teams Wildlife Conservation Professor Relationship Specialty Start Date End Date Laila Underwood FNP [facility] [place] [address] PCP - General NURSE PRACTITIONER 09/27/14 documented as of this encounter
--- OUTSIDE RECORDS SUMMARY | 2024-07-29 05:40 | XMS_ITS | Clinical Summary ---
Author Organization [facility] Address [address] [facility] Attn: Epic Prelude ADT KIM[place] DAHL [address] Care Team Providers Care Obstetrics Scrub Nurse Name Role Phone Laila Underwood Lyly [facility] Primary Care Provider [phone] Allergies Active Allergy Reactions Criticality Noted Date Comments Gabapentin Other (See Comments) 04/14/2016 Hair loss Morphine Itching Low 09/20/2012 Penicillins Hives High 10/22/2011 Prochlorperazine Edisylate Other (See Comments) 01/13/2015 Causes restless leg syndrome symptoms. Medications atorvastatin (LIPITOR) 20 mg tablet Take 20 mg by mouth late in the day. 8 Active primidone (MYSOLINE) 50 mg tablet Take 100 mg by mouth 2 times daily. 8 Active albuterol sulfate 90 mcg/Actuation inhaler Take 2 Puffs by inhalation every 4 hours as needed for Shortness of Breath or Wheezing (cough). 8.5 Gram 0 6 Active buPROPion HCL (WELLBUTRIN XL) 300 mg Extended Release 24 hour tablet Take 300 mg by mouth daily rn behavioral health. 5 Active DULoxetine (CYMBALTA) 60 mg Capsule, Delayed Release(E.C.) Take 1 Cap (60 mg) by mouth daily. 1 5 Active propranolol HCl (PROPRANOLOL ORAL) Take by mouth. Activ e tizanidine HCl (TIZANIDINE ORAL) Take 1.5 Tablets by mouth 3 times daily as needed . 6 Active rOPINIRole (REQUIP) 5 mg Tablet Take 5 mg by mouth daily at bedtime. Active ondansetron (ZOFRAN ODT) 4 mg Tablet, Rapid DissolveIndicati ons:Abdominal pannus,Post-op pain Take 1 Tablet (4 mg) by mouth every 8 hours as needed for Nausea/Emesis. Dissolve tablet on top of tongue, then swallow with saliva. 15 Tablet 3 Active cyclobenzaprine (FLEXERIL) 10 mg tabletIndication s:Abdominal pannus,Post-op pain Take 1 Tablet (10 mg) by mouth 3 times daily as needed for Spasm. 90 Tablet 3 Active potassium chloride (KLOR-CON) 10 mEq Extended Release tablet Take by mouth daily. 3 Active levocetirizine (XYZAL) 5 mg tablet Take 5 mg by mouth. Active cholecalciferol, vitamin D3, 1,000 unit Take 1,000 Units by mouth daily. Active bimatoprost (LUMIGAN) 0.03 % solution Administer 1 Drop in left eye daily at bedtime. Active ondansetron (Zofran) 4 mg Tablet Take 1 Tablet (4 mg) by mouth every 8 hours as needed for Nausea/Emesis. 20 Tablet 08/10/2023 9:50 AM PHYSICAL THERAPY COORDINATOR 4 Active naloxone (NARCAN) 4 mg/spray [place], Non-Aerosol EMERGENCY USE ONLY: Administer 1 spray (4 mg) in one nostril one time. May repeat in alternating nostrils every 2-3 min until responsive or EMS arrives. 2 Each 3 4 Active metFORMIN (GLUCOPHAGE XR) 500 mg Extended Release 24 hour tablet Take 1,000 mg by mouth 2 times daily. Active famotidine (PEPCID) 40 mg tabletIndication s:Postoperative visit,History of Annie-en-Y gastric bypass,Anastomot ic stricture of gastrojejunostom y,Hypertension, unspecified type,History of type 2 diabetes mellitus,Intesti nal malabsorption, unspecified type,Normocytic anemia,Hyperglyc emia,Pannus, abdominal,Hypoka lemia,Hyponatrem ia Take 1 Tablet (40 mg) by mouth 2 times daily. 60 Tablet 6 4 Active levoFLOXacin (LEVAQUIN) 500 mg tablet Take 1 Tablet (500 mg) by mouth daily for 10 days. 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 Including JPS. Probable peripheral neuropathy Debility 01/25/2015 Balance disorder 01/25/2015 Memory difficulties 01/25/2015 Respiratory insufficiency 01/25/2015 Overview (10/21/2020): Post pneumonia, ARDS Oral ulceration 01/24/2015 Acute respiratory failure with hypoxia 5 ARDS (adult respiratory distress syndrome) 01/14 Morbid obesity 01/14/2015 Acute respiratory failure with hypoxemia 015 Bilateral pneumonia 01/12/2015 Normocytic anemia 01/12/2015 Hypoxemia 01/12/2015 E-coli UTI 01/11/2015 Hyperglycemia 01/11/2015 MICHELLE (acute kidney injury) 01/11/2015 Hyponatremia 01/11/2015 Overview (10/21/2020): Pseudohyponatremia Type II or unspecified type diabetes mellitus without mention of complication, uncontrolled 10/22/2011 HTN (hypertension) 10/22/2011 Hypokalemia 10/22/2011 Acute respiratory failure Other pulmonary insufficienc y, not elsewhere classified, following trauma and surgery Other and unspecified Escherichia coli (E. coli) Pneumonia, organism unspecified(486) Urinary tract infection, site not specified Resolved Problems Problem Noted Date Diagnosed Date Resolved Date Hypercapnia 01/12/2015 01/13/2015 Leucocytosis 01/11/2015 01/13/2015 ESBL (extended spectrum beta -lactamase) producing bacteria infection 01/11/2015 01/29/2015 Overview (10/20/2020): Urine Acute pyelonephritis 11/19/2011 012 Fever 10/22/2011 11/23/2011 Hyponatremia 10/22/2011 11/23/2011 Encounters Date Type Department Care Team Description 07/22/2024 External Device Data [facility] ABSTRACTION Provider, Abstract 07/22/2024 External Device Data [facility] Provider, Abstract 07/22/2024 External Device Data [facility] Provider, Abstract 07/18/2024 10:39 PM PHYSICAL THERAPY COORDINATOR - 07/19/2024 12:34 AM [facility] Emergency [facility] Medicine [address] [place] [phone] Oracio Flood MD Urinary tract infection without hematuria, site unspecified (Primary Dx); Diabetic ulcer of toe of left foot associated with type 2 diabetes mellitus, with necrosis of muscle ([facility]) Discharge Disposition: Home or Self Care 07/18/2024 Travel 07/17/2024 External Device Data [facility] ABSTRACTION Provider, Abstract 07/08/2024 External Device Data [facility]STRA[facility] Provider, Abstract 07/01/2024 External Device Data [facility]STRACTION Provider, Abstract 05/27/2024 External Device Data [facility] ABSTRACTION Provider, Abstract 05/08/2024 Orders Only [facility] Spec Surg [address] [phone] Yonny Rosenthal PA Intestinal malabsorption, unspecified type (Primary Dx); History of Annie-en-Y gastric bypass 05/08/2024 Telephone [facility] Spec Surg [address] [phone] Yonny Rosenthal PA Question; Information from Last 3 Months Immunizations Immunization Administration Dates Next Due (ADACEL/BOOSTRIX)(10 YR UP) TDAP VACCINE, 0.5ML, IM 06/06/2020,09/28/2014 (PNEUMOVAX 23)(50 YRS UP) PN EUMOCOCCAL POLYSACCHARIDE (PPV23) 0.5 ML, IM 10/25/2011 (TDVAX)(7 YRS UP) TETANUS AN D DIPHTHERIA TOXOIDS, ADSORBED (2 LF OF TETANUS TOXOID AND 2 LF OF DIPHTHERIA TOXOID), 0.5ML (PF), IM 12/08/2003 INFLUENZA VACCINE QUADRIVALE NT 6 MOS UP CELL DERIVED IM 05/25/2020,03/07/2019,03/20/2018 Influenza Seasonal Unspecifi ed Formulation IM 06/25/2011,06/27/2001 Influenza, Unspecified Formulation 03/25/2016,,06/27/2001 Family History Medical History Relation Name Comments Hypertension Brother 1 Tee Heart Disease Brother 2 Keny Diabetes Father Heart Disease Father Cancer Maternal Aunt LUNG CANCER W/ BRAIN METS Cancer Maternal Grandfather SKIN CA NCER Stroke Maternal Grandmother Cancer Mother SKIN CANCER Heart Disease Mother Hypertension Mother Melanoma Mother Alzheimer's Disease Paternal Grandfather Heart Disease Paternal Grandmother Breast Cancer Neg Hx Colon Cancer Neg Hx Ovarian Cancer Neg Hx Relation Name Status Comments Brother 1 Tee Alive Brother 2 Keny Alive Brother 3 Pranav Alive Daughter Alive Father Maternal Aunt Maternal Grandfather Maternal Grandmother Mother Alive Paternal Grandfather Paternal Grandmother Sister NONE Alive Social History Tobacco Use Types Packs/Day Years Used Date Smoking Tobacco: Former Cigarettes Q uit: 02/24/2000 Smokeless Tobacco: Never Tobacco Cessation:Counseling Given: Yes Alcohol Use Standard Drinks/Week Comments No 0 (1 standard drink = 0.6 oz pur e alcohol) Feeling Safe Answer Date Recorded Are you in a relationship wi th someone who hurts you emotionally and/or physically? No 07/18/2024 Comments No Sex and Gender Information Value Date Recorded Sex Assigned at Not on file Legal Sex Female 2:20 AM PHYSICAL THERAPY COORDINATOR Gender Identity Not on file Sexual Orientation Not on file Last Filed Vital Signs Vital Sign Reading Time Taken Comments Blood Pressure 112/68 07/19/2024 12:00 AM PHYSICAL THERAPY COORDINATOR Pulse 57 07/19/2024 12:00 AM PHYSICAL THERAPY COORDINATOR Temperature 37.2 ??C (99 ??F) 07/18/2024 10:49 PM PHYSICAL THERAPY COORDINATOR Respiratory Rate 16 07/19/2024 12:00 AM PHYSICAL THERAPY COORDINATOR Oxygen Saturation 100% 07/19/2024 12:00 AM PHYSICAL THERAPY COORDINATOR Inhaled Oxygen Concentration - - Weight 61.5 kg (135 lb 9.6 oz) 07/18/2024 10:49 PM PHYSICAL THERAPY COORDINATOR Height 165.1 cm (5' 5 ) 07/18/2024 10:49 PM PHYSICAL THERAPY COORDINATOR Body Mass Index 22.57 07/18/2024 10:49 PM PHYSICAL THERAPY COORDINATOR Plan of Treatment Health Maintenance Due Date Last Done Comments HEPATITIS B VACCINES (1 of 3 - 19+ 3-dose series) 1989 CERVICAL CANCER SCREENING 2000 BREAST CANCER SCREENING 08/27/2013 08/27/2012 FIT-DNA Q 3 years 2015 FIT/FOBT Q 1 year 2015 Flex Sig/CT Colonography Q 5 years 2015 Pre-Diabetes and Diabetes Screening 01/11/2018 01/11/2015 ZOSTER VACCINE (1 of 2) 2020 COLORECTAL SCREENING 05/07/2030 05/07/2023, 05/07/20 Colorectal Cancer Screening 05/07/2030 DTAP/TDAP/TD VACCINES (3 - T d or Tdap) 06/06/2030 06/06/2020, 09/28/2014, 12/08/2003 INFLUENZA VACCINE Completed 05/06/2024, , 03/07/2019, Additional history exists Procedures Procedure Name Priority Date/Time Associated Diagnosis Comments URINALYSIS MICROSCOPY ONLY Stat 07/18/2024 11:40 PM PHYSICAL THERAPY COORDINATOR URINALYSIS W/REFLEX MICROSCOPIC Stat 07/18/2024 11:40 PM PHYSICAL THERAPY COORDINATOR COLONOSCOPY REPORT 05/07/2023 2: 16 PM PHYSICAL THERAPY COORDINATOR HEMOGLOBIN A1C Routine 01/11/2015 9:38 PM CDT MAMMO SCREEN BILAT W OR WO CAD Routine 08/27/2012 2:48 PM PHYSICAL THERAPY COORDINATOR Visit for screening mammogram from Last 3 Months or Most Recently Relevant to Health Maintenance Results * (ABNORMAL) URINALYSIS MICROSCOPY ONLY (07/18/2024 11:40 PM PHYSICAL THERAPY COORDINATOR) WBC UA >100(A) 0 - 2 /hpf 07/18/2024 11:49 PM PHYSICAL THERAPY COORDINATOR [facility] RBC UA 6-10(A) 0 - 2 /hpf 07/18/2024 11:49 PM PHYSICAL THERAPY COORDINATOR [facility] BACTERIA UA 3+(A) Negative /hpf 07/18/2024 11:49 PM PHYSICAL THERAPY COORDINATOR [facility] EPITHELIAL CELLS, URINE 6-10(A) 0 - 5 /hpf 07/18/2024 11:[address] [facility] Urine URINE SPECIMEN OBTAINED BY CLEAN CATCH PROCEDURE / Unknown Collection / Unknown 07/18/2024 11:40 PM PHYSICAL THERAPY COORDINATOR 07/18/2024 11:40 PM PHYSICAL THERAPY COORDINATOR Oracio Flood MD URINE ORDERABLES Final R esult [facility] CLIA # [id number] [address] [place] [address] * (ABNORMAL) URINALYSIS WITH REFLEX MICROSCOPIC (07/18/2024 11:40 PM PHYSICAL THERAPY COORDINATOR) COLOR UA Yellow Pale to Dark Yellow 07/18/2024 11:[address] [facility] CLARITY UA Slightly Cloudy(A) Clear 07/18/2024 11:[address] [facility] SPECIFIC GRAVITY UA 1.020 1.003 - 1.035 07/18/2024 11:[address] [facility] PH UA 5.5 5.0 - 8.0 07/18/2024 11:[address] [facility] LEUKOCYTE ESTERASE UA 1+(A) Negative 07/18/2024 11:[address] [facility] NITRITE UA Positive(A) Negative 07/18/2024 11:[address] [facility] PROTEIN UA 2+(A) Negative 07/18/2024 11:[address] [facility] GLUCOSE UA 1+(A) Negative 07/18/2024 11:[address] [facility] KETONES UA Negative Negative 07/18/2024 11:[address] [facility] UROBILINOGEN UA 0.2 <2.0 mg/dL 11:[address] [facility] BILIRUBIN UA Negative Negative 07/18/2024 11:[address] [facility] BLOOD UA 3+(A) Negative 07/18/2024 11:[address] [facility] Urine URINE SPECIMEN OBTAINED BY CLEAN CATCH PROCEDURE / Unknown Collection / Unknown 07/18/2024 11:40 PM PHYSICAL THERAPY COORDINATOR 07/18/2024 11:40 PM PHYSICAL THERAPY COORDINATOR us Oracio Flood MD URINE ORDERABLES Final R esult [facility] [place] # [id number] [address] [place] [address] * COLONOSCOPY REPORT (05/07/2023 2:16 PM PHYSICAL THERAPY COORDINATOR) Narrative Procedure Note Pedrito Smith MD - 05/07/2023 2:16 PM CST [facility] GI Patient Name: Otilia Woods Procedure Date: 05/07/2023 Date of : 1970 Admit Type: Outpatient Age: 53 Attending MD: Pedrito Smith MD, Procedure: Colonoscopy Indications: Iron deficiency anemia Providers: Pedrito Smith MD Referring MD: Keny Desai Medicines: Midazolam 8 mg IV, Diphenhydramine 50 mg IV Complications: No immediate complications. Estimated blood loss: None. Procedure: Pre-Anesthesia Assessment: - Sharon Protocol: - Pre-procedure Verification: Prior to the procedure, the patient's identity was verified by full name and date of . The patient's identity was verified on all pertinent medical records, including History and Physical. Also prior to the procedure, a History and Physical was performed, and patient medications, allergies and sensitivities were reviewed. The patient's tolerance of previous anesthesia was reviewed. The patient is competent. The risks and benefits of the procedure and the sedation options and risks were discussed with the patient. All questions were answered and informed consent was obtained. - Marking: The endoscopic procedure was visually marked on a patient wrist band delineating the patient name, proposed procedure and endoscopist's initials. - Time-Out: Prior to the start of the procedure, the patient's identification, proposed procedure, accurate signed consent, correctly labeled images and records, and need for prophylactic antibiotics were verified by the physician, the nurse and the soil technician in the endoscopy suite. - Prior to the procedure, a History and Physical was performed, and patient medications, allergies and sensitivities were reviewed. The patient's tolerance of previous anesthesia was reviewed. - The risks and benefits of the procedure and the sedation options and risks were discussed with the patient. All questions were answered and informed consent was obtained. - ASA Grade Assessment: III - A patient with severe systemic disease. After I obtained informed consent, the scope was passed under direct vision. Throughout the procedure, the patient's blood pressure, pulse, and oxygen saturations were monitored continuously. The Colonoscope was introduced through the anus and advanced to the terminal ileum. The colonoscopy was performed without difficulty. The patient tolerated the procedure well. The quality of the bowel preparation was good. The terminal ileum, ileocecal valve, appendiceal orifice, and rectum were photographed. Estimated Blood Loss: Estimated blood loss: none. Findings: The perianal and digital rectal examinations were normal. The terminal ileum appeared normal. Non-bleeding internal hemorrhoids were found during retroflexion. Impression: - The examined portion of the ileum was normal. - Non-bleeding internal hemorrhoids. - No specimens collected. Recommendation: - Discharge patient to home. - Patient has a contact number available for emergencies. The signs and symptoms of potential delayed complications were discussed with the patient. Return to normal activities tomorrow. Written discharge instructions were provided to the patient. - As outlined on EGD report. - Continue present medications. - No aspirin, ibuprofen, naproxen, or other non-steroidal anti-inflammatory drugs. - Repeat colonoscopy in 7-10 years for surveillance. - Please call to schedule a follow up visit with gastroenterology clinic - Return to referring physician at the next available appointment. Pedrito Smith MD 05/07/2023 2:16:00 PM This report has been signed electronically. Number of Addenda: 0 Note Initiated On: 05/07/2023 1:46 PM Scope Withdrawal Time 0 hours 6 minutes 27 seconds Scope In: 1:43:15 PM Scope Out: 1:57:32 PM 5 KIMBERLY [place] us Pedrito Smith MD GI PROCEDURE ORDERABLES Rasheeda l Result * (ABNORMAL) HEMOGLOBIN A1C (01/11/2015 9:38 PM CDT) HEMOGLOBIN A1C 9.1(H) 4.5 - 6.2 % 01/12/2015 12:03 AM CDT [facility] EST. AVG GLUCOSE, A1C 214 mg/dL 01/12/2015 12:03 AM CDT [facility] Blood Venipuncture / Unknown 01/11/2015 9:38 PM CDT 01/11/2015 9:38 PM CDT Narrative [facility] [place] - 01/12/2015 12:03 AM CDT If not available from last three months us Lorna Christian MD CHEMISTRY ORDERABLES F inal Result [facility] CLIA # [id number] [address] [place] [address] [facility] CLIA # [id number] [address] [place] [address] * MAMMO SCREEN BILAT W OR WO CAD (08/27/2012 2:48 PM PHYSICAL THERAPY COORDINATOR) Anatomical Region Laterality Modality Breast Bilateral Other Narrative 08/30/2012 9:12 AM PHYSICAL THERAPY COORDINATOR Bilateral Mammogram Reason for Exam: Screening Comparison: No prior exam(s) for comparison. ?? Baseline Findings: Bilateral CC and MLO views were obtained. This examination was reviewed with the aid of a computer-aided detection system(CAD). The breast tissue is dense. Procedure Note Agnes Pittman MD - 08/26/2022 Bilateral Mammogram Reason for Exam: Screening Comparison: No prior exam(s) for comparison. Baseline Findings: Bilateral CC and MLO views were obtained. This examination was reviewed with the aid of a computer-aided detection system(CAD). The breast tissue is dense. 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 Advance Directive POA 07/05/2022 2:41 PM A dvance Directive POA * Full Code (Latest Code Status on File) Date Activated Date Inactivated Comments 08/08/2023 5:35 PM 08/10/2023 12:06 PM * Full Code Date Activated Date Inactivated Comments 08/08/2023 11:22 AM 08/08/2023 5:35 PM * Full Code Date Activated Date Inactivated Comments 08/08/2023 10:07 AM 08/08/2023 11:22 AM * Full Code Date Activated Date Inactivated Comments 05/07/2023 12:33 PM 05/07/2023 4:42 PM Care Teams Obstetrics Scrub Nurse Relationship Specialty Start Date End Date Laila Underwood FNP [address] [place] [address] PCP - General NURSE PRACTITIONER 09/27/14
--- OUTSIDE RECORDS SUMMARY | 2024-07-29 05:40 | XMS_ITS | Encounter Summary ---
Author Organization [facility] Address [address] [place] [address] Care Team Providers Care Chief Sustainability Officer Name Role Phone Laila Underwood Primary Care Provider [phone] Encounter Details Date Type Department Care Team (Latest Contact Info) Description 06/11/2001 Outpatient Historical [facility] [phone] Konstantin Calvo MD [address] [facility] [address] [place] [phone] SUPERVIS OTHER NORMAL PREG (Primary Dx) Social History Tobacco Use Types Packs/Day Years Used Date Smoking Tobacco: Never Assessed Comments Unknown Sex and Gender Information Value Date Recorded Sex Assigned at Not on file Legal Sex Female 4:23 AM DIRECTOR GRAPHICS Gender Identity Not on file Sexual Orientation [...] documented as of this encounter Care Teams Chief Sustainability Officer Relationship Specialty Start Date End Date Laila Underwood FNP PCP - General NURSE PRACTITIONER 09/27/14 documented as of this encounter
--- OUTSIDE RECORDS SUMMARY | 2024-07-29 05:40 | XMS_ITS | Encounter Summary ---
Author Organization [facility] Address [address] [place] [address] Care Team Providers Care Diffuser Operator Name Role Phone UnderwoodLaila connolly Lyly VEGAP Primary Care Provider [phone] Reason for Referral * CT Scan (Routine) - Closed Specialty Diagnoses / Procedures Referred By Contac t Referred To Contact Radiology Diagnoses Facial injury, initial encounter Procedures CT SINUS FACIAL BONES WO CONTRAST Aly aCrter MD Phone: tel: fax: [facility] CT Scan [place] [address] [facility] [address] [place] [address] Phone: tel: fax: Referral ID Status Reason Start Date Expiration Date V isits Requested Visits Authorized [id number] Closed [place] CTS to Schedule 06/08/2020 07/09/2021 1 1 ING WORKER Encounter Details Date Type Department Care Team (Late st Contact Info) Description 06/08/2020 Ancillary Orders [facility] CT Scan [place] [address] [facility] [address] [place] [address] Aly Carter MD [address] [place] [address] [address] [place] [address] Facial injury, initial encounter Social History Tobacco Use Types Packs/Day Years Used Date Smoking Tobacco: Former Cigarettes Q uit: 02/23/1998 Smokeless Tobacco: Never Alcohol Use Standard Drinks/Week Comments No 0 (1 standard drink = 0.6 oz pur e alcohol) Comments No Sex and Gender Information Value Date Recorded Sex Assigned at Not on file Legal Sex Female 4:23 AM LOGGING WORKER Gender Identity Not on file Sexual Orientation Not on file Occupation Industry Job Start Date Job End Date Not on file Not on file Not on file Not on file COVID-19 Exposure Response Date Recorded In the last month, have you been in contact with someone who was confirmed or suspected to have Coronavirus / COVID-19? No / Unsure 06/07/2020 6:00 PM LOGGING WORKER documented as of this encounter Plan of Treatment Not on file documented as of this encounter Results * CT SINUS FACIAL BONES WO CONTRAST (06/07/2020 7:15 PM LOGGING WORKER) Anatomical Region Laterality Modality Head Computed Tomogra phy 06/14/2020 11:1 9 AM LOGGING WORKER Impressions 06/15/2020 12:57 PM LOGGING WORKER IMPRESSION: Please see below. CT SINUS FACIAL BONES WO CONTRAST ?06/07/2020 7:15 PM Reason For Exam: See Diagnosis. Diagnosis: Facial injury, initial encounter. COMPARISON: ??None. TECHNIQUE: ??Multiple thin-section axial images obtained through the face without IV contrast. ??Coronal reformatted images also obtained. ADDITIONAL TECHNIQUE: ??A complete diagnosis was not possible by viewing planar images alone, so three-dimensional surface rendering and/or 3D-volumetric exploration of the imaging data set was performed in multiple projections using an independent workstation, yielding additional findings described below. FINDINGS: The nasal bones and septum are intact. The nasal septum is deviated to the left. Mild mucosal thickening is present in the maxillary sinuses. The globes and orbits are normal-appearing. The mandible and temporal mandibular joints are intact. No focal soft tissue abnormality or radiopaque foreign body.. ++++++++++++++++++++ IMPRESSION: Negative for acute fracture. [id number] ? Narrative 06/15/2020 12:57 PM LOGGING WORKER ATTENTION: ??This replaces accession number [id number]. Procedure Note Valentin López MD - 06/15/2020 ATTENTION: This replaces accession number [id number]. IMPRESSION: Please see below. CT SINUS FACIAL BONES WO CONTRAST 06/07/2020 7:15 PM Reason For Exam: See Diagnosis. Diagnosis: Facial injury, initial encounter. COMPARISON: None. TECHNIQUE: Multiple thin-section axial images obtained through the face without IV contrast. Coronal reformatted images also obtained. ADDITIONAL TECHNIQUE: A complete diagnosis was not possible by viewing planar images alone, so three-dimensional surface rendering and/or 3D-volumetric exploration of the imaging data set was performed in multiple projections using an independent workstation, yielding additional findings described below. FINDINGS: The nasal bones and septum are intact. The nasal septum is deviated to the left. Mild mucosal thickening is present in the maxillary sinuses. The globes and orbits are normal-appearing. The mandible and temporal mandibular joints are intact. No focal soft tissue abnormality or radiopaque foreign body.. ++++++++++++++++++++ IMPRESSION: Negative for acute fracture. [id number] ORDERABLES Final Result documented in this encounter Visit Diagnoses Diagnosis Facial injury, initial encounter Facial injury, initial encounter documented in this encounter Additional Health Concerns Infection Onset Date Last Indicated Resolved Time E-coli-ESBL (Extended Spectr um Beta Lactamase) Comment:01/11/15 Urine 01/18/2015 01/18/2015 documented as of this encounter Care Teams Diffuser Operator Relationship Specialty Start Date End Date Laila Underwood FNP PCP - General NURSE PRACTITIONER 09/27/14 documented as of this encounter
--- OUTSIDE RECORDS SUMMARY | 2024-07-29 05:40 | XMS_ITS | Encounter Summary ---
Author Organization [facility] Address [address] [place] [address] Care Team Providers Care Supervisor Sign Shop Name Role Phone Laila Underwood Primary Care Provider [phone] Encounter Details Date Type Department Care Team (Latest Contact Info) Description 08/02/2001 Outpatient Historical [facility] [address] [phone] Konstantin Calvo MD [address] [facility] [address] [place] [address] SUPERVIS OTHER NORMAL PREG (Primary Dx) Social History Tobacco Use Types Packs/Day Years Used Date Smoking Tobacco: Never Assessed Comments Unknown Sex and Gender Information Value Date Recorded Sex Assigned at Not on file Legal Sex Female 4:23 AM VP PACKAGING Gender Identity Not on file Sexual Orientation [...] documented as of this encounter Care Teams Supervisor Sign Shop Relationship Specialty Start Date End Date Laila Underwood FNP PCP - General NURSE PRACTITIONER 09/27/14 documented as of this encounter
--- OUTSIDE RECORDS SUMMARY | 2024-07-29 05:40 | XMS_ITS | Encounter Summary ---
Author Organization [facility] Address [address] [facility] Attn: Epic Prelude ADT [place] [address] Care Team Providers Care Director Of Community Center Name Role Phone Laila Underwood Primary Care Provider [phone] Encounter Details Date Type Department Care Team (Late st Contact Info) Description 08/09/2001 Outpatient Historical Konstantin Calvo MD [address] [facility] [address] [place] [address] Social History Tobacco Use Types Packs/Day Years Used Date Smoking Tobacco: Never Assessed Comments Unknown Sex and Gender Information Value Date Recorded Sex Assigned at Not on file Legal Sex Female 4:23 AM MARKETING SUPPORT SPECIALIST Gender Identity Not on file Sexual Orientation Not on file documented as of this encounter Plan of Treatment Not on file documented as of this encounter Visit Diagnoses Not on filedocumented in this encounter Additional Health Concerns Infection Onset Date Last Indicated Resolved Time E-coli-ESBL (Extended Spectr um Beta Lactamase) Comment:01/11/15 Urine 01/18/2015 01/18/2015 documented as of this encounter Care Teams Director Of Community Center Relationship Specialty Start Date End Date Laila Underwood FNP PCP - General NURSE PRACTITIONER 09/27/14 documented as of this encounter
--- OUTSIDE RECORDS SUMMARY | 2024-07-29 05:40 | XMS_ITS | Encounter Summary ---
Author Organization [facility] Address [address] [place] [address] Care Team Providers Care Logging Equipment Mechanic Name Role Phone Laila Underwood FREDERICK Primary Care Provider [phone] Encounter Details Date Type Department Care Team (Late st Contact Info) Description 06/08/2020 Ancillary Orders [facility] CT Scan [place] [address] [place] [phone] Aly Carter MD [address] [place] [address] [address] [place] [address] Social History Tobacco Use Types Packs/Day Years Used Date Smoking Tobacco: Former Cigarettes Q uit: 02/23/1998 Smokeless Tobacco: Never Alcohol Use Standard Drinks/Week Comments No 0 (1 standard drink = 0.6 oz pur e alcohol) Comments No Sex and Gender Information Value Date Recorded Sex Assigned at Not on file Legal Sex Female 4:23 AM ROTARY DRUM DYER Gender Identity Not on file Sexual Orientation Not on file Occupation Industry Job Start Date Job End Date Not on file Not on file Not on file Not on file COVID-19 Exposure Response Date Recorded In the last month, have you been in contact with someone who was confirmed or suspected to have Coronavirus / COVID-19? No / Unsure 06/07/2020 6:00 PM ROTARY DRUM DYER documented as of this encounter Plan of Treatment Not on file documented as of this encounter Visit Diagnoses Not on filedocumented in this encounter Additional Health Concerns Infection Onset Date Last Indicated Resolved Time E-coli-ESBL (Extended Spectr um Beta Lactamase) Comment:01/11/15 Urine 01/18/2015 01/18/2015 documented as of this encounter Care Teams Logging Equipment Mechanic Relationship Specialty Start Date End Date Laila Underwood FNP PCP - General NURSE PRACTITIONER 09/27/14 documented as of this encounter
--- OUTSIDE RECORDS SUMMARY | 2024-07-29 05:40 | XMS_ITS | Encounter Summary ---
Author Organization [facility] Address [address] [place] [address] Care Team Providers Care Chief Risk Officer Name Role Phone Liala Underwood Primary Care Provider [phone] Reason for Referral * Outpatient Services (Routine) - Closed Specialty Diagnoses / Procedures Referred By Denisa white Referred To Contact Radiology Diagnoses Visit for screening mammogram Procedures MAMMO DIGITAL SCREEN BILAT [place] Bonilla FNP [address] [place] [address] Phone: tel: fax: [facility] [address] [facility] [address] [place] [address] Phone: tel: fax: Referral ID Status Reason Start Date Expiration Date Visits Re quested Visits Authorized [id number] Closed 07/26/2012 08/26/2013 1 1 UCT DEVELOPMENT TECHNICIAN Encounter Details Date Type Department Care Team (Latest Contact Info) Description 07/26/2012 Ancillary Orders [facility] [address] [facility] [address] [place] [phone] [place] Bonilla FNP [address] [place] [address] Visit for screening mammogram Social History Tobacco Use Types Packs/Day Years Used Date Smoking Tobacco: Former Cigarettes 0.3 2 0 02/23/1998 - 02/24/2000 Alcohol Use Standard Drinks/Week Comments No 0 (1 standard drink = 0.6 oz pur e alcohol) Comments No Sex and Gender Information Value Date Recorded Sex Assigned at Not on file Legal Sex Female 4:23 AM PRODUCT DEVELOPMENT TECHNICIAN Gender Identity Not on file Sexual Orientation Not on file Occupation Industry Job Start Date Job End Date Not on file Not on file Not on file Not on file documented as of this encounter Plan of Treatment Not on file documented as of this encounter Results * MAMMO DIGITAL SCREEN BILAT (08/27/2012 2:48 PM PRODUCT DEVELOPMENT TECHNICIAN) Anatomical Region Laterality Modality Breast Bilateral Mammography Narrative 08/30/2012 9:13 AM PRODUCT DEVELOPMENT TECHNICIAN Bilateral Mammogram Reason for Exam: Screening Comparison: No prior exam(s) for comparison. ?? Baseline Findings: Bilateral CC and MLO views were obtained. This examination was reviewed with the aid of a computer-aided detection system(CAD). The breast tissue is dense. Procedure Note Agnes Pittman MD - 08/30/2012 Bilateral Mammogram Reason for Exam: Screening Comparison: No prior exam(s) for comparison. Baseline Findings: Bilateral CC and MLO views were obtained. This examination was reviewed with the aid of a computer-aided detectionsystem(CAD). The breast tissue is dense. [place] [facility] MAMMO ORDERABL ES Final Result documented in this encounter Visit Diagnoses Diagnosis Visit for screening mammogram Other screening mammogram Visit for screening mammogram Other screening mammogram documented in this encounter Additional Health Concerns Infection Onset Date Last Indicated Resolved Time E-coli-ESBL (Extended Spectr um Beta Lactamase) Comment:01/11/15 Urine 01/18/2015 01/18/2015 documented as of this encounter Care Teams Chief Risk Officer Relationship Specialty Start Date End Date Laila Underwood FNP PCP - General NURSE PRACTITIONER 09/27/14 documented as of this encounter
--- OUTSIDE RECORDS SUMMARY | 2024-07-29 05:40 | XMS_ITS | Encounter Summary ---
Author Organization [facility] Address [address] [place] [address] Care Team Providers Care Small Brake Form Operator Name Role Phone Laila Underwood Primary Care Provider [phone] Encounter Details Date Type Department Care Team (Late st Contact Info) Description 07/22/2012 Ancillary Orders [facility] Centralized Scheduling [address] [facility] [address] [place] [phone] Thierno Cordoba, [place] Collazo, [facility] [address] [place] [address] Social History Tobacco Use Types Packs/Day Years Used Date Smoking Tobacco: Former Cigarettes 0.3 2 0 02/23/1998 - 02/24/2000 Alcohol Use Standard Drinks/Week Comments No 0 (1 standard drink = 0.6 oz pur e alcohol) Comments No Sex and Gender Information Value Date Recorded Sex Assigned at Not on file Legal Sex Female 4:23 AM MANAGER RENEWABLE ENERGY Gender Identity Not on file Sexual Orientation [...] documented as of this encounter Care Teams Small Brake Form Operator Relationship Specialty Start Date End Date Laila Underwood FNP PCP - General NURSE PRACTITIONER 09/27/14 documented as of this encounter
--- OUTSIDE RECORDS SUMMARY | 2024-07-29 05:40 | XMS_ITS | Encounter Summary ---
Author Organization [facility] Address [address] [place] [address] Care Team Providers Care Sleeping Car Service Attendant Name Role Phone Laila Underwood Primary Care Provider [phone] Encounter Details Date Type Department Care Team (Late st Contact Info) Description 07/22/2024 External Device Data ST[place] ABSTRACTION Provider, Abstract NO ADDRESS ON FILE Social History Tobacco Use Types Packs/Day Years [...] on file Legal Sex Female 2:20 AM WOUND TREATMENT RN Gender Identity Not on file Sexual Orientation Not on file documented as of this encounter Plan of Treatment Not on file documented as of this encounter Visit Diagnoses Not on filedocumented in this encounter Care Teams Sleeping Car Service Attendant Relationship Specialty Start Date End Date Laila Underwood FNP [address] [facility] [place] [address] PCP - General NURSE PRACTITIONER 09/27/14 documented as of this encounter
--- OUTSIDE RECORDS SUMMARY | 2024-07-29 05:40 | XMS_ITS | Clinical Summary ---
Author Organization [facility] Address [address] [place] [address] Care Team Providers Care Billiard Table Repairer Name Role Phone System, Provider Not In MD Primary Care Provider Unavailable Social History Tobacco Use Types Packs/Day Years Used Date Smoking Tobacco: Never Assessed Sex and Gender Information Value Date Recorded Sex Assigned at Not on file Gender Identity Not on file Sexual Orientation Not on file Plan of Treatment Not on file Care Teams Billiard Table Repairer Relationship Specialty Start Date End Date System, Provider Not InMD [address] [facility] [place] [address] PCP - General 11/12/15
--- OUTSIDE RECORDS SUMMARY | 2024-07-29 05:40 | XMS_ITS | Encounter Summary ---
Author Organization [facility] Address [address] [facility] Attn: [place] [address] Care Team Providers Care Administration Physician Name Role Phone Laila Underwood Primary Care Provider [phone] Encounter Details Date Type Department Care Team (Latest Contact Info) Description 07/18/2024 Travel Social History Tobacco Use Types Packs/Day Years [...] on file Legal Sex Female 2:20 AM ASSEMBLER UTILITY BUILDINGS Gender Identity Not on file Sexual Orientation Not on file documented as of this encounter Plan of Treatment Not on file documented as of this encounter Visit Diagnoses Not on filedocumented in this encounter Care Teams Administration Physician Relationship Specialty Start Date End Date Laila Underwood FNP [address] [place] [address] PCP - General NURSE PRACTITIONER 09/27/14 documented as of this encounter
--- OUTSIDE RECORDS SUMMARY | 2024-07-29 05:40 | XMS_ITS | Encounter Summary ---
Author Organization [facility] Address [address] [place] [address] Care Team Providers Care Tower Watchman Name Role Phone Laila Underwood Primary Care Provider [phone] Encounter Details Date Type Department Care Team (Late st Contact Info) Description 07/17/2024 External Device Data STL ABSTRACTION Provider, [...] on file Legal Sex Female 2:20 AM MANAGER TALENT Gender Identity Not on file Sexual Orientation Not on file documented as of this encounter Plan of Treatment Not on file documented as of this encounter Visit Diagnoses Not on filedocumented in this encounter Care Teams Tower Watchman Relationship Specialty Start Date End Date Laila Underwood FNP [address] [facility] [place] [address] PCP - General NURSE PRACTITIONER 09/27/14 documented as of this encounter
--- OUTSIDE RECORDS SUMMARY | 2024-07-29 05:40 | XMS_ITS | Encounter Summary ---
Author Organization [facility] Address [address] [place] [address] Care Team Providers Care Custom Feed Corn Operator Name Role Phone Laila Underwood Primary Care Provider [phone] Encounter Details Date Type Department Care Team (Late st Contact Info) Description 09/08/2002 Outpatient Historical [facility] [address] [place] [address] Social History Tobacco Use Types Packs/Day Years Used Date Smoking Tobacco: Never Assessed Comments Unknown Sex and Gender Information Value Date Recorded Sex Assigned at Not on file Legal Sex Female 4:23 AM SALES AND SERVICE REPRESENTATIVE Gender Identity Not on file Sexual Orientation Not on file documented as of this encounter Plan of Treatment Not on file documented as of this encounter Visit Diagnoses Not on filedocumented in this encounter Additional Health Concerns Infection Onset Date Last Indicated Resolved Time E-coli-ESBL (Extended Spectr um Beta Lactamase) Comment:01/11/15 Urine 01/18/2015 01/18/2015 documented as of this encounter Care Teams Custom Feed Corn Operator Relationship Specialty Start Date End Date Laila Underwood FNP PCP - General NURSE PRACTITIONER 09/27/14 documented as of this encounter
--- OUTSIDE RECORDS SUMMARY | 2024-07-29 05:40 | XMS_ITS | Encounter Summary ---
Author Organization [facility] Address [address] [place] [address] Care Team Providers Care Concrete Block Plant Supervisor Name Role Phone Laila Underwood FREDERICK Primary Care Provider [phone] Encounter Details Date Type Department Care Team (Late st Contact Info) Description 06/08/2020 Ancillary Orders [facility] CT Scan [place] [address] [place] [address] Aly Carter MD [address] [place] [address] [address] [place] [address] Social History Tobacco Use Types Packs/Day Years Used Date Smoking Tobacco: Former Cigarettes Q uit: 02/23/1998 Smokeless Tobacco: Never Alcohol Use Standard Drinks/Week Comments No 0 (1 standard drink = 0.6 oz pur e alcohol) Comments No Sex and Gender Information Value Date Recorded Sex Assigned at Not on file Legal Sex Female 4:23 AM RETAIL FINANCIAL ANALYST Gender Identity Not on file Sexual Orientation Not on file Occupation Industry Job Start Date Job End Date Not on file Not on file Not on file Not on file COVID-19 Exposure Response Date Recorded In the last month, have you been in contact with someone who was confirmed or suspected to have Coronavirus / COVID-19? No / Unsure 06/07/2020 6:00 PM RETAIL FINANCIAL ANALYST documented as of this encounter Plan of Treatment Not on file documented as of this encounter Visit Diagnoses Not on filedocumented in this encounter Additional Health Concerns Infection Onset Date Last Indicated Resolved Time E-coli-ESBL (Extended Spectr um Beta Lactamase) Comment:01/11/15 Urine 01/18/2015 01/18/2015 documented as of this encounter Care Teams Concrete Block Plant Supervisor Relationship Specialty Start Date End Date Laila Underwood FNP PCP - General NURSE PRACTITIONER 09/27/14 documented as of this encounter
--- OUTSIDE RECORDS SUMMARY | 2024-07-29 05:40 | XMS_ITS ---
Author Organization Unknown Results OrderDate OrderTestName ResultName ResultDate Value Units Range AbnormalFlag ResultStatus ObservationNotes TestCode ResultCode DateRecorded AccessionNumber DiagnosticSectionCode DiagnosticSectionName Sequence Interpretation 06/05/2024 14:39:00 CULTURE, URINE culture, urine [id number]:20:00 SEE BELOW Final CULTURE, URINE Coding culture, urine culture, urine 06/05/2024 14:39: 14:34:00URINALYSIS PANEL, [id number]:00:00 0.2 Coding URINALYSIS PANEL, AUTO Coding 06/05/2024 14:34:00107/20/2023 15:56:00URINALYSIS PANEL, [id number]:00:00 Positive Coding URINALYSIS PANEL, AUTO Coding 05/20/2024 15:56:00107/20/2023 15:56:00URINALYSIS PANEL, [id number]:00:00 2+ Coding URINALYSIS PANEL, AUTO Coding 05/20/2024 15:56:00107/20/2023 15:56:00URINALYSIS PANEL, [id number]:00:00 negative Coding URINALYSIS PANEL, AUTO Coding 05/20/2024 15:56:00107/20/2023 15:56:00URINALYSIS PANEL, [id number]:00:00 1.020 Coding URINALYSIS PANEL, AUTO Coding 05/20/2024 15:56:00108/06/2023 14:39:00CULTURE, URINEspecimen source [id number]:20:00URINE - NOTSPFinal Coding CULTURE, URINE Coding specimen source specimen source 06/05/2024 14:39: 14:34:00URINALYSIS PANEL, [id number]:00 3+ Coding URINALYSIS PANEL, AUTO Coding 06/05/2024 14:34:00107/20/2023 15:56:00URINALYSIS PANEL, [id number]:00:00 negative Coding URINALYSIS PANEL, AUTO Coding 05/20/2024 15:56:00107/20/2023 15:56:00URINALYSIS PANEL, [id number]:00:00 0.2 E.U /dl Coding URINALYSIS PANEL, AUTO Coding 05/20/2024 15:56:00108/06/2023 14:34:00URINALYSIS PANEL, [id number]:00:00 Negative Coding URINALYSIS PANEL, AUTO Coding 06/05/2024 14:34: 15:56:00URINALYSIS PANEL, [id number]:00:00 1+ Coding URINALYSIS PANEL, AUTO Coding 05/20/2024 15:56:00108/06/2023 14:34:00URINALYSIS PANEL, [id number]:00:00 6.0 Coding URINALYSIS PANEL, AUTO Coding 06/05/2024 14:34:00107/20/2023 15:56:00URINALYSIS PANEL, [id number]:00:00 negative Coding URINALYSIS PANEL, AUTO Coding 05/20/2024 15:56: 14:34:00URINALYSIS PANEL, [id number]:00:00 Positive Coding URINALYSIS PANEL, AUTO Coding 06/05/2024 14:34:00107/20/2023 15:56:00URINALYSIS PANEL, [id number]:00:00 2+ Coding URINALYSIS PANEL, AUTO Coding 05/20/2024 15:56:00108/06/2023 14:34:00URINALYSIS PANEL, [id number]:00:00 1.015 Coding URINALYSIS PANEL, AUTO Coding 06/05/2024 14:34:00108/06/2023 14:34:00URINALYSIS PANEL, [id number]:00 1+ Coding URINALYSIS PANEL, AUTO Coding 06/05/2024 14:34:00108/06/2023 14:39:00CULTURE, URINEsensitivity panel [id number]:20:00SEE BELOWFinal Coding CULTURE, URINE Coding sensitivity panel sensitivity panel 06/05/2024 14:39:00108/06/2023 14:34:00URINALYSIS PANEL, [id number]:00:00 3+ Coding URINALYSIS PANEL, AUTO Coding 06/05/2024 14:34:00108/06/2023 14:34:00URINALYSIS PANEL, [id number]:00:00 Negative Coding URINALYSIS PANEL, AUTO Coding 06/05/2024 14:34:00108/06/2023 14:34:00URINALYSIS PANEL, [id number]:00:00 Negative Coding URINALYSIS PANEL, AUTO Coding 06/05/2024 14:34:00108/06/2023 14:39:00CULTURE, URINEenterobacter aerogenes [id number]:20:00>100,000 CFU/ML ENTEROBACTER AEROGENESFinal Coding CULTURE, URINE Coding enterobacter aerogenes 06/05/2024 14:39:00107/20/2023 15:56:00URINALYSIS PANEL, [id number]:00:00 6.0 Coding URINALYSIS PANEL, AUTO Coding 05/20/2024 15:56:00
--- OUTSIDE RECORDS SUMMARY | 2024-07-29 05:40 | XMS_ITS | Encounter Summary ---
Author Organization [facility] Address [address] [place] [address] Care Team Providers Care Public Safety Director Name Role Phone Laila Underwood Primary Care Provider [phone] Encounter Details Date Type Department Care Team (Latest Contact Info) Description 06/27/2001 Outpatient Historical [facility] [phone] Konstantin Calvo MD [address] [phone] SUPERVIS OTHER NORMAL PREG (Primary Dx); VACCINE FOR INFLUENZA Social History Tobacco Use Types Packs/Day Years Used Date Smoking Tobacco: Never Assessed Comments Unknown Sex and Gender Information Value Date Recorded Sex Assigned at Not on file Legal Sex Female 4:23 AM ADOPTION AGENT Gender Identity Not on file Sexual Orientation Not on file documented as of this encounter Plan of Treatment Not on file documented as of this encounter Visit Diagnoses Diagnosis Supervision of other normal - Primary Need vaccination-viral disease Need for prophylactic vaccination and inoculation against other viral diseases documented in this encounter Additional Health Concerns Infection Onset Date Last Indicated Resolved Time E-coli-ESBL (Extended Spectr um Beta Lactamase) Comment:01/11/15 Urine 01/18/2015 01/18/2015 documented as of this encounter Care Teams Public Safety Director Relationship Specialty Start Date End Date Laila Underwood FNP PCP - General NURSE PRACTITIONER 09/27/14 documented as of this encounter
--- OUTSIDE RECORDS SUMMARY | 2024-07-29 05:40 | XMS_ITS | Encounter Summary ---
Author Organization [facility] Address [address] [place] [address] Care Team Providers Care Fulfillment Specialist Name Role Phone Laila Underwood Primary Care Provider [phone] Encounter Details Date Type Department Care Team (Latest Contact Info) Description 08/14/2002 Outpatient Historical [facility] Medicine [place] 104 [facility] [address] [place] [phone] Leny Daniels MD ESOPHAGEAL REFLUX (Primary Dx) Social History Tobacco Use Types Packs/Day Years Used Date Smoking Tobacco: Never Assessed Comments Unknown Sex and Gender Information Value Date Recorded Sex Assigned at Not on file Legal Sex Female 4:23 AM PRODUCT DEMONSTRATOR Gender Identity Not on file Sexual Orientation Not on file documented as of this encounter Plan of Treatment Not on file documented as of this encounter Visit Diagnoses Diagnosis Esophageal reflux- Primary documented in this encounter Additional Health Concerns Infection Onset Date Last Indicated Resolved Time E-coli-ESBL (Extended Spectr um Beta Lactamase) Comment:01/11/15 Urine 01/18/2015 01/18/2015 documented as of this encounter Care Teams Fulfillment Specialist Relationship Specialty Start Date End Date Laila Underwood FNP PCP - General NURSE PRACTITIONER 09/27/14 documented as of this encounter
--- OUTSIDE RECORDS SUMMARY | 2024-07-29 05:40 | XMS_ITS | Clinical Summary ---
Author Organization [facility] Address [address] [place] [address] Phone Care Team Providers Care Workers Compensation Manager Name Role Phone Sandra Mccrary [facility] Primary Care Provider [phone] Social History Tobacco Use Types Packs/Day Years Used Date Smoking Tobacco: Never Assessed Comments Unknown Sex and Gender Information Value Date Recorded Sex Assigned at Not on file Legal Sex Female 11:19 AM CDT Gender Identity Not on file Sexual Orientation Not on file Plan of Treatment Upcoming Encounters Date Type Department Care Team (Late st Contact Info) Description 08/15/2024 1:00 PM HOIST MECHANIC Office Visit [facility] [address] [phone] Kike Dumont MD [address] [phone] Health Maintenance Due Date Last Done Comments CT Colonography 1970 Colonoscopy 1970 Colorectal Cancer Screening 1970 FIT-DNA 1970 FIT 1970 FOBT 1970 Sigmoidoscopy 1970 MMR Vaccines (1 of 1 - Standard series) 1971 Varicella Vaccines (1 of 2 - 13+ 2-dose series) 1983 Hepatitis B Vaccines (1 of 3 - 19+ 3-dose series) 1989 Pap Smear 1991 Cervical Cancer Screening 2000 HPV/Cotest 2000 Mammogram 2010 Zoster Vaccines (1 of 2) 2020 COVID-19 Vaccine (2023- season) 2024 Influenza Vaccine (#1) 2024 2, 04/14/2021, 05/25/2020, Additional history exists DTaP,Tdap,and Td Vaccines (5 - Td or Tdap) 06/06/2030 06/06/2020, 08/07/2016, 09/28/2014, Additional history exists Pneumococcal Vaccine: 65+ Years (3 of 3 - PPSV23 or PCV20) 2035 04/14/2021, 08/07/2016, 12/30/2014 RSV Vaccine 60+ or (1 - 1-dose 75+ series) 2045 Pneumococcal Vaccine: Pediatrics (0 to 5 Years) and At-Risk Patients (6 to 64 Years) Aged Out 04/14/2021, 08/07/2016, 12/30/2014 No longer eligible based on patient's age to complete this topic HIB Vaccines Aged Out No longer eligi ble based on patient's age to complete this topic HPV Vaccines Aged Out No longer eligi ble based on patient's age to complete this topic Hepatitis A Vaccines Aged Out No long er eligible based on patient's age to complete this topic IPV Vaccines Aged Out No longer eligi ble based on patient's age to complete this topic Meningococcal Vaccine Aged Out No cassie martha eligible based on patient's age to complete this topic RSV Vaccine <20 Months Aged Out No lo nger eligible based on patient's age to complete this topic Rotavirus Vaccines Aged Out No longer eligible based on patient's age to complete this topic Insurance [id number] [place] [id number] A[employer]NA MEDICARE ADVANTAGE Care Teams Workers Compensation Manager Relationship Specialty Start Date End Date Sandra Mccrary, [facility] [place] [address] PCP - General 04/01/24
--- OUTSIDE RECORDS SUMMARY | 2024-07-29 05:40 | XMS_ITS | Clinical Summary ---
Author Organization [facility] Address [address] [place] [address] Care Team Providers Care Principal Embedded Software Engineer Name Role Phone Laila Underwood [facility] Primary Care Provider Allergies Active Allergy Reactions Criticality Noted Date Comments Gabapentin Other (See Comments) 04/14/2016 Hair loss Morphine Itching Low 09/20/2012 Penicillins Hives High 10/22/2011 Prochlorperazine Edisylate Other (See Comments) 01/13/2015 Causes restless leg syndrome symptoms. Medications acetaminophen (TYLENOL) 500 mg Oral tablet Take 500 mg by mouth every 6 hours as needed. 3 tabs prn Active DULoxetine (CYMBALTA) 60 mg Capsule, Delayed Release(E.C.) Take 1 Cap (60 mg) by mouth daily. 1 5 Active Additional Information Patient taking differently:60 mg OralTWO TIMES DAILY, Reported on 04/14/2016 OTHER Tub Transfer Bench. 1 Each 0 5 Active insulin aspart (NOVOLOG) 100 unit/mL Solution Give 12 Units - Subcutaneous - Three times daily with meals. 15 mL 0 5 Active insulin aspart (NOVOLOG) 100 unit/mL Solution IMedium Bedtime CORRECTIONAL Orders: Less than or equal to 160 = no correctional insulin 161-200 = give 2 units 201-240 = give 4 units 241-300 = give 6 units 301-360 = give 8 units Greater than 360 = give 10 units.. 15 mL 0 5 Active buPROPion HCl (WELLBUTRIN XL) 300 mg Extended Release 24 hour tablet Take 300 mg by mouth daily foundry melt supervisor. Active naproxen (NAPROSYN) 500 mg tablet Take 500 mg by mouth every 12 hours as needed. Take with food. for pin Active metFORMIN (GLUCOPHAGE) 1,000 mg tablet Take 1,000 mg by mouth 2 times daily with meals. Active losartan (COZAAR) 50 mg tablet Take 50 mg by mouth daily. Active CALCIUM CARBONATE/VITAM IN D3 (CALCIUM + D ORAL) Take 1,250 mg by mouth daily . Active Cranberry 500 mg Capsule Take 500 mg/cm2 by mouth daily. Active TIZANIDINE HCL (TIZANIDINE ORAL) Take 1.5 Tablets by mouth 3 times daily as needed . Active albuterol HFA 90 mcg inhaler Take 2 Puffs by inhalation every 4 hours as needed for Shortness of Breath or Wheezing (cough). 8.5 Gram 0 6 Active pregabalin (LYRICA) 150 mg Capsule Take 150 mg by mouth every 12 hours. Active primidone (MYSOLINE) 50 mg tablet Take 100 mg by mouth 2 times daily. Active traMADol (ULTRAM) 50 mg tablet Take 100 mg by mouth 3 times daily as needed for Pain. Active brimonidine-glenn olol (COMBIGAN) 0.2-0.5 % solution Administer 1 Drop in right eye every 12 hours. Active atorvastatin (LIPITOR) 20 mg tablet Take 20 mg by mouth late in the day. Active cephALEXin (KEFLEX) 500 mg capsule Take 1 Capsule (500 mg) by mouth 4 times daily. 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 Including JPS. Probable peripheral neuropathy Memory difficulties 01/25/2015 Respiratory insufficiency 01/25/2015 Overview (01/25/2015): Post pneumonia, ARDS Oral ulceration 01/24/2015 Acute respiratory failure with hypoxia 5 Acute respiratory failure with hypoxemia 015 ARDS (adult respiratory distress syndrome) 01/14 Morbid obesity 01/14/2015 Bilateral pneumonia 01/12/2015 Normocytic anemia 01/12/2015 Hypoxemia 01/12/2015 E-coli UTI 01/11/2015 Hyperglycemia 01/11/2015 Hyponatremia 01/11/2015 Overview (01/11/2015): Pseudohyponatremia MICHELLE (acute kidney injury) 01/11/2015 Type II or unspecified type diabetes mellitus without mention of complication, uncontrolled 10/22/2011 HTN (hypertension) 10/22/2011 Hypokalemia 10/22/2011 Acute respiratory failure Other pulmonary insufficienc y, not elsewhere classified, following trauma and surgery Pneumonia, organism unspecified(486) Urinary tract infection, site not specified Other and unspecified Escherichia coli (E. coli) Resolved Problems Problem Noted Date Diagnosed Date Resolved Date Hypercapnia 01/12/2015 01/13/2015 Leucocytosis 01/11/2015 01/13/2015 ESBL (extended spectrum beta -lactamase) producing bacteria infection 01/11/2015 01/29/2015 Overview (01/18/2015): Urine Acute pyelonephritis 11/19/2011 012 Fever 10/22/2011 11/23/2011 Hyponatremia 10/22/2011 11/23/2011 Immunizations Immunization Administration Dates Next Due (ADACEL/BOOSTRIX)(10 YR UP) TDAP VACCINE, 0.5ML, IM 06/06/2020,09/28/2014 (PNEUMOVAX 23)(50 YRS UP) PN EUMOCOCCAL POLYSACCHARIDE (PPV23) 0.5 ML, IM 10/25/2011 (TDVAX)(7 YRS UP) TETANUS AN D DIPHTHERIA TOXOIDS, ADSORBED (2 LF OF TETANUS TOXOID AND 2 LF OF DIPHTHERIA TOXOID), 0.5ML (PF), IM 12/08/2003 Influenza Seasonal Unspecified Formulation IM ,06/27/2001 Family History Medical History Relation Name Comments Heart Disease Brother 1 Keny Hypertension Brother 2 Tee Diabetes Father Heart Disease Father Cancer Maternal Aunt LUNG CANCER W/ BRAIN METS Cancer Maternal Grandfather SKIN CA NCER Stroke Maternal Grandmother Cancer Mother SKIN CANCER Heart Disease Mother Hypertension Mother Melanoma Mother Alzheimer's Disease Paternal Grandfather Heart Disease Paternal Grandmother Breast Cancer Neg Hx Ovarian Cancer Neg Hx Relation Name Status Comments Brother 1 Keny Alive Brother 2 Tee Alive Brother 3 Pranav Alive Daughter Alive [...] on file Legal Sex Female 4:23 AM TOP CASE ASSEMBLER Gender Identity Not on file Sexual Orientation Not on file Occupation Industry Job Start Date Job End Date Not on file Not on file Not on file Not on file Last Filed Vital Signs Vital Sign Reading Time Taken Comments Blood Pressure 126/72 06/07/2020 8:56 PM TOP CASE ASSEMBLER Pulse 72 12/05/2018 5:41 PM CDT Temperature 36.5 ??C (97.7 ??F) 06/07/2020 6:05 PM CS T Respiratory Rate 18 06/07/2020 8:56 PM TOP CASE ASSEMBLER Oxygen Saturation 98% 06/07/2020 8:56 PM TOP CASE ASSEMBLER Inhaled Oxygen Concentration - - Weight 83 kg (183 lb) 06/07/2020 6:05 PM TOP CASE ASSEMBLER Height 167.6 cm (5' 6 ) 06/07/2020 6:05 PM TOP CASE ASSEMBLER Body Mass Index 29.54 06/07/2020 6:05 PM TOP CASE ASSEMBLER Plan of Treatment Health Maintenance Due Date Last Done Comments DIABETES ANNUAL FOOT EXAM 1988 DIABETES ANNUAL RETINAL EXAM 1988 DIABETES MICROALBUMIN ANNUAL SCREEN 1988 LDL CHOLESTEROL ANNUAL 1988 HEPATITIS B VACCINES (1 of 3 - 19+ 3-dose series) 1989 CERVICAL CANCER SCREENING 2000 PNEUMOCOCCAL VACCINE 0-64 YE ARS (2 of 2 - PCV) 10/24/2012 10/25/2011 BREAST CANCER SCREENING 08/27/2013 08/27/2012 COLORECTAL SCREENING 2015 Colorectal Cancer Screening 2015 FIT-DNA Q 3 years 2015 FIT/FOBT Q 1 year 2015 Flex Sig/CT Colonography Q 5 years 2015 DIABETES HBA1C Q 6 MONTHS 07/14/2015 01/11/2015, ZOSTER VACCINE (1 of 2) 2020 INFLUENZA VACCINE (#1) 2024 06/25/2011, 2001 DTAP/TDAP/TD VACCINES (3 - T d or Tdap) 06/06/2030 06/06/2020, 09/28/2014, 12/08/2003 Procedures Procedure Name Priority Date/Time Associated Diagnosis Comments HEMOGLOBIN A1C Add on 01/11/2015 9:38 PM CDT MAMMO SCREEN BILAT W OR WO CAD Routine 08/27/2012 2:48 PM TOP CASE ASSEMBLER Visit for screening mammogram from Last 3 Months or Most Recently Relevant to Health Maintenance Results * (ABNORMAL) HEMOGLOBIN A1C (01/11/2015 9:38 PM CDT) HEMOGLOBIN A1C 9.1(H) 4.5 - 6.2 % 01/12/2015 12:03 AM CDT [facility] EST. AVG GLUCOSE, A1C 214 mg/dL 01/12/2015 12:03 AM CDT [facility] [place] Blood Venipuncture - L ab Collect / Unknown 01/11/2015 9:38 PM CDT 01/11/2015 9:38 PM CDT us Lorna Christian MD CHEMISTRY ORDERABLES F inal Result [facility] [place] CLIA # [id number] [address] [place] [id number] * MAMMO DIGITAL SCREEN BILAT (08/27/2012 2:48 PM TOP CASE ASSEMBLER) Anatomical Region Laterality Modality Breast Bilateral Mammography Narrative 08/30/2012 9:13 AM TOP CASE ASSEMBLER Bilateral Mammogram Reason for Exam: Screening Comparison: [...] detectionsystem(CAD). The breast tissue is dense. [place] Cord[place] ARTICULATION OFFICER MAMMO ORDERABL ES Final Result from Last 3 Months or Most Recently Relevant to Health Maintenance Additional Health Concerns Infection Onset Date Last Indicated E-coli-ESBL (Extended Spectr um Beta Lactamase) Comment:01/11/15 Urine 01/18/2015 01/18/2015 Insurance DUAL COMPLETE [facility] PPO D-SNP DUAL COMPLETE [facility] PPO D-SNP [address]CR [address] [place] [address] Advance Directives For more information, please contact: [phone] * Full Code (Latest Code Status on File) Date Activated Date Inactivated Comments 01/25/2015 9:38 PM 01/29/2015 6:47 PM * Full Code Date Activated Date Inactivated Comments 01/14/2015 11:54 AM 01/25/2015 9:38 PM * Full Code Date Activated Date Inactivated Comments 01/11/2015 11:39 PM 01/14/2015 11:54 AM * Full Code Date Activated Date Inactivated Comments 11/19/2011 8:15 AM 11/23/2011 6:53 PM Care Teams Principal Embedded Software Engineer Relationship Specialty Start Date End Date Laila Underwood FNP PCP - General NURSE PRACTITIONER 09/27/14
--- OUTSIDE RECORDS SUMMARY | 2024-07-29 05:40 | XMS_ITS | Encounter Summary ---
Author Organization [facility] Address [address] [place] [address] Care Team Providers Care Unmanned Equipment Operator Name Role Phone Laila Underwood Primary Care Provider Encounter Details Date Type Department Care Team (Latest Contact Info) Description 05/09/2001 Outpatient Historical [facility] Medicine[address] [phone] Konstantin Calvo MD [address] [facility] [address] [place] [phone] SUPERVIS OTHER NORMAL PREG (Primary Dx) Social History Tobacco Use Types Packs/Day Years Used Date Smoking Tobacco: Never Assessed Comments Unknown Sex and Gender Information Value Date Recorded Sex Assigned at Not on file Legal Sex Female 4:23 AM RESIDENTIAL SALES 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
--- OUTSIDE RECORDS SUMMARY | 2024-07-29 05:40 | XMS_ITS | Encounter Summary ---
Author Organization [facility] Address [address] [place] [address] Care Team Providers Care Food Demonstrator Name Role Phone Laila Underwood Primary Care Provider Encounter Details Date Type Department Care Team (Latest Contact Info) Description 08/29/2001 Outpatient Historical [facility] Medicine[address] [phone] Konstantin Calvo MD [address] [facility] [address] [place] [phone] SUPERVIS OTHER NORMAL PREG (Primary Dx) Social History Tobacco Use Types Packs/Day Years Used Date Smoking Tobacco: Never Assessed Comments Unknown Sex and Gender Information Value Date Recorded Sex Assigned at Not on file Legal Sex Female 4:23 AM CELEBRITY CHEF ENTREPRENEUR MEDIA PERSONALITY Gender Identity Not on file Sexual Orientation [...] documented as of this encounter Care Teams Food Demonstrator Relationship Specialty Start Date End Date Laila Underwood FNP PCP - General NURSE PRACTITIONER 09/27/14 documented as of this encounter
--- OUTSIDE RECORDS SUMMARY | 2024-07-29 05:40 | XMS_ITS | Encounter Summary ---
Author Organization [facility] Address [address] [place] [address] Care Team Providers Care Plastic Sheeting Cutter Name Role Phone Laila Underwood Primary Care Provider Encounter Details Date Type Department Care Team (Latest Contact Info) Description 08/20/2001 Outpatient Historical [facility] Medicine[address] [phone] Konstantin Calvo MD [address] [phone] SUPERVIS OTHER NORMAL PREG (Primary Dx) Social History Tobacco Use Types Packs/Day Years Used Date Smoking Tobacco: Never Assessed Comments Unknown Sex and Gender Information Value Date Recorded Sex Assigned at Not on file Legal Sex Female 4:23 AM WHEAT FARMER Gender Identity Not on file Sexual Orientation [...] documented as of this encounter Care Teams Plastic Sheeting Cutter Relationship Specialty Start Date End Date Laila Underwood FNP PCP - General NURSE PRACTITIONER 09/27/14 documented as of this encounter
--- OUTSIDE RECORDS SUMMARY | 2024-07-29 05:40 | XMS_ITS | Encounter Summary ---
Author Organization [facility] Address [address] [place] [address] Care Team Providers Care Clinical Associate Name Role Phone Laila Underwood [facility] Primary Care Provider [phone] Encounter Details Date Type Department Care Team (Late st Contact Info) Description 04/10/2012 Ancillary Orders [employer] [facility] [address] [place] [phone] Thierno Cordoba, [place] Collazo, [facility] [address] [place] [address] Low back pain Social History Tobacco Use Types Packs/Day Years Used Date Smoking Tobacco: Former Cigarettes 0.3 2 0 02/23/1998 - 02/24/2000 Alcohol Use Standard Drinks/Week Comments No 0 (1 standard drink = 0.6 oz pur e alcohol) Comments No Sex and Gender Information Value Date Recorded Sex Assigned at Not on file Legal Sex Female 4:23 AM LIFE SCIENCE RESEARCH ASSISTANT Gender Identity Not on file Sexual Orientation Not on file Occupation Industry Job Start Date Job End Date Not on file Not on file Not on file Not on file documented as of this encounter Plan of Treatment Not on file documented as of this encounter Results * XR LUMBAR SPINE 2 OR 3 VW (04/10/2012 2:50 PM CDT) Anatomical Region Laterality Modality Spine Computed Radiogr aphy 04/10/2012 2:38 PM CDT Narrative 04/11/2012 9:04 AM CDT DESCRIPTION AP and lateral views and collimated lateral L5-S1 projection 10 April 2012 show levoscoliosis of the lower lumbar spine with mild degenerative change. ??There is loss of height of the disc at L4-L5 with some anterior osteophyte formation. ??There is mild sclerosis of the apophyseal joint more pronounced on the right at L4-L5. ??No acute fracture or loss of alignment is seen. ?? IMPRESSION 1. scoliosis and degenerative change 2. no acute changes seen Procedure Note Nilton Butler MD - 04/11/2012 DESCRIPTION AP and lateral views and collimated lateral L5-S1 projection 10 April 2012 show levoscoliosis of the lower lumbar spine with mild degenerative change. There is loss of height of the disc at L4-L5 with some anterior osteophyte formation. There is mild sclerosis of the apophyseal joint more pronounced on the right at L4-L5. No acute fracture or loss of alignment is seen. IMPRESSION 1. scoliosis and degenerative change 2. no acute changes seen [place] Pa Galva MASTER ELECTRICIAN DIAGNOSTIC JONO GING ORDERABLES Final Result documented in this encounter Visit Diagnoses Diagnosis Low back pain Lumbago Low back pain Lumbago documented in this encounter Additional Health Concerns Infection Onset Date Last Indicated Resolved Time E-coli-ESBL (Extended Spectr um Beta Lactamase) Comment:01/11/15 Urine 01/18/2015 01/18/2015 documented as of this encounter Care Teams Clinical Associate Relationship Specialty Start Date End Date Laila Underwood, FREDERICK PCP - General NURSE PRACTITIONER 09/27/14 documented as of this encounter
--- OUTSIDE RECORDS SUMMARY | 2024-07-29 05:40 | XMS_ITS | Encounter Summary ---
Author Organization [facility] Address [address] [place] [address] Care Team Providers Care Filter Press Operator Name Role Phone Laila Underwood Primary Care Provider Encounter Details Date Type Department Care Team (Latest Contact Info) Description 07/26/2001 Outpatient Historical [facility] Medicine[address] [phone] Konstantin Calvo MD [address] [facility] [address] [place] [phone] SUPERVIS OTHER NORMAL PREG (Primary Dx) Social History Tobacco Use Types Packs/Day Years Used Date Smoking Tobacco: Never Assessed Comments Unknown Sex and Gender Information Value Date Recorded Sex Assigned at Not on file Legal Sex Female 4:23 AM SINGING TEACHER Gender Identity Not on file Sexual Orientation [...] documented as of this encounter Care Teams Filter Press Operator Relationship Specialty Start Date End Date Laila Underwood FNP PCP - General NURSE PRACTITIONER 09/27/14 documented as of this encounter
--- OUTSIDE RECORDS SUMMARY | 2024-07-29 05:40 | XMS_ITS | Encounter Summary ---
Author Organization [facility] Address [address] [place] [address] Care Team Providers Care Dependency Director Name Role Phone Laila Underwood Primary Care Provider [phone] Encounter Details Date Type Department Care Team (Latest Contact Info) Description 08/11/2002 Outpatient Historical [facility] Medicine [place] [address] [facility] [address] [place] [phone] Leny Daniels MD ESOPHAGEAL REFLUX (Primary Dx) Social History Tobacco Use Types Packs/Day Years Used Date Smoking Tobacco: Never Assessed Comments Unknown Sex and Gender Information Value Date Recorded Sex Assigned at Not on file Legal Sex Female 4:23 AM LVN Gender Identity Not on file Sexual Orientation Not on file documented as of this encounter Plan of Treatment Not on file documented as of this encounter Visit Diagnoses Diagnosis Esophageal reflux- Primary documented in this encounter Additional Health Concerns Infection Onset Date Last Indicated Resolved Time E-coli-ESBL (Extended Spectr um Beta Lactamase) Comment:01/11/15 Urine 01/18/2015 01/18/2015 documented as of this encounter Care Teams Dependency Director Relationship Specialty Start Date End Date Laila Underwood FNP PCP - General NURSE PRACTITIONER 09/27/14 documented as of this encounter
--- OUTSIDE RECORDS SUMMARY | 2024-07-29 05:40 | XMS_ITS | Encounter Summary ---
Author Organization [facility] Address [address] [place] [address] Care Team Providers Care Honing Machine Try Out Setter Name Role Phone Laila Underwood Primary Care Provider [phone] Encounter Details Date Type Department Care Team (Latest Contact Info) Description 10/08/[address] [facility] Medicine[address] [phone] Konstantin Calvo MD [address] [phone] POSTPART CARE AFTER DEL (Primary Dx) Social History Tobacco Use Types Packs/Day Years Used Date Smoking Tobacco: Never Assessed Comments Unknown Sex and Gender Information Value Date Recorded Sex Assigned at Not on file Legal Sex Female 4:23 AM WARP HANGER Gender Identity Not on file Sexual Orientation Not on file documented as of this encounter Plan of Treatment Not on file documented as of this encounter Visit Diagnoses Diagnosis care and examination immediately after delivery- Primary documented in this encounter Additional Health Concerns Infection Onset Date Last Indicated Resolved Time E-coli-ESBL (Extended Spectr um Beta Lactamase) Comment:01/11/15 Urine 01/18/2015 01/18/2015 documented as of this encounter Care Teams Honing Machine Try Out Setter Relationship Specialty Start Date End Date Laila Underwood FNP PCP - General NURSE PRACTITIONER 09/27/14 documented as of this encounter
--- OUTSIDE RECORDS SUMMARY | 2024-07-29 05:40 | XMS_ITS | Encounter Summary ---
Author Organization [facility] Address [address] [place] [address] Care Team Providers Care Sales Coordinator Name Role Phone Laila Underwood Primary Care Provider [phone] Encounter Details Date Type Department Care Team (Late st Contact Info) Description 06/23/2008 Outpatient Historical [facility] [address] [place] [address] AMBULANCE, [facility] Social History Tobacco Use Types Packs/Day Years Used Date Smoking Tobacco: Never Assessed Comments Unknown Sex and Gender Information Value Date Recorded Sex Assigned at Not on file Legal Sex Female 4:23 AM CNA HHA Gender Identity Not on file Sexual Orientation Not on file documented as of this encounter Plan of Treatment Not on file documented as of this encounter Visit Diagnoses Not on filedocumented in this encounter Additional Health Concerns Infection Onset Date Last Indicated Resolved Time E-coli-ESBL (Extended Spectr um Beta Lactamase) Comment:01/11/15 Urine 01/18/2015 01/18/2015 documented as of this encounter Care Teams Sales Coordinator Relationship Specialty Start Date End Date Laila Underwood FNP PCP - General NURSE PRACTITIONER 09/27/14 documented as of this encounter
--- OUTSIDE RECORDS SUMMARY | 2024-07-29 05:40 | XMS_ITS | Encounter Summary ---
Author Organization [facility] Address [address] [place] [address] Care Team Providers Care Supervisor Metal Cans Name Role Phone Laila Underwood Primary Care [...] on file Legal Sex Female 2:20 AM MICA BUILDER Gender Identity Not on file Sexual Orientation Not on file documented as of this encounter Plan of Treatment Not on file documented as of this encounter Visit Diagnoses Not on filedocumented in this encounter Care Teams Supervisor Metal Cans Relationship Specialty Start Date End Date Laila Underwood FNP [address] [facility] [place] [address] PCP - General NURSE PRACTITIONER 09/27/14 documented as of this encounter
--- OUTSIDE RECORDS SUMMARY | 2024-07-29 05:40 | XMS_ITS | Encounter Summary ---
Author Organization [facility] Address [address] [place] [address] Care Team Providers Care Bus Driver School Name Role Phone Laila Underwood Primary Care Provider Encounter Details Date Type Department Care Team (Latest Contact Info) Description 09/03/2001 Outpatient Historical [facility] Medicine[address] [phone] Konstantin Calvo MD [address] [facility] [address] [place] [phone] SUPERVIS OTHER NORMAL PREG (Primary Dx) Social History Tobacco Use Types Packs/Day Years Used Date Smoking Tobacco: Never Assessed Comments Unknown Sex and Gender Information Value Date Recorded Sex Assigned at Not on file Legal Sex Female 4:23 AM CALL PERSON Gender Identity Not on file Sexual Orientation [...] documented as of this encounter Care Teams Bus Driver School Relationship Specialty Start Date End Date Laila Underwood FNP PCP - General NURSE PRACTITIONER 09/27/14 documented as of this encounter
--- OUTSIDE RECORDS SUMMARY | 2024-07-29 05:40 | XMS_ITS | Encounter Summary ---
Author Organization [facility] Address [address] [place] [address] Care Team Providers Care Telemarketing Agent Name Role Phone Laila Underwood Primary Care Provider Encounter Details Date Type Department Care Team (Latest Contact Info) Description 07/12/2001 Outpatient Historical [facility] Medicine[address] [phone] Konstantin Calvo MD [address] [phone] SUPERVIS OTHER NORMAL PREG (Primary Dx) Social History Tobacco Use Types Packs/Day Years Used Date Smoking Tobacco: Never Assessed Comments Unknown Sex and Gender Information Value Date Recorded Sex Assigned at Not on file Legal Sex Female 4:23 AM CHILD DEVELOPMENT ASSISTANT Gender Identity Not on file Sexual [...] documented as of this encounter Care Teams Telemarketing Agent Relationship Specialty Start Date End Date Laila Underwood FNP PCP - General NURSE PRACTITIONER 09/27/14 documented as of this encounter
--- OUTSIDE RECORDS SUMMARY | 2024-07-29 05:40 | XMS_ITS | Encounter Summary ---
Author Organization [facility] Address [address] [place] [address] Care Team Providers Care Certified Hand Therapist Name Role Phone Laila Underwood Primary Care Provider [phone] Encounter Details Date Type Department Care Team (Latest Contact Info) Description 08/09/2001 Outpatient Historical [facility] Medicine[address] [phone] Konstantin Calvo MD [address] [facility] [address] [place] [phone] SUPERVIS OTHER NORMAL PREG (Primary Dx) Social History Tobacco Use Types Packs/Day Years Used Date Smoking Tobacco: Never Assessed Comments Unknown Sex and Gender Information Value Date Recorded Sex Assigned at Not on file Legal Sex Female 4:23 AM BIT TRIPOLER Gender Identity Not on file Sexual Orientation [...] documented as of this encounter Care Teams Certified Hand Therapist Relationship Specialty Start Date End Date Laila Underwood FNP PCP - General NURSE PRACTITIONER 09/27/14 documented as of this encounter
--- OUTSIDE RECORDS SUMMARY | 2024-07-29 05:40 | XMS_ITS | Encounter Summary ---
Author Organization [facility] Address [address] [place] [address] Care Team Providers Care Renal Dietitian Name Role Phone Laila Underwood Primary Care Provider [phone] Encounter Details Date Type Department Care Team (Latest Contact Info) Description 09/10/2001 Outpatient Historical [facility] Medicine[address] [phone] Konstantin Calvo MD [address] [phone] POSTPART CARE AFTER DEL (Primary Dx) Social History Tobacco Use Types Packs/Day Years Used Date Smoking Tobacco: Never Assessed Comments Unknown Sex and Gender Information Value Date Recorded Sex Assigned at Not on file Legal Sex Female 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
--- OUTSIDE RECORDS SUMMARY | 2024-07-29 05:40 | XMS_ITS | Encounter Summary ---
Author Organization [facility] Address [address] [place] [address] Care Team Providers Care Machine Former Name Role Phone Laila Underwood Primary Care Provider [phone] Encounter Details Date Type Department Care Team ([facility] st Contact Info) Description 11/16/2016 Ancillary Orders [facility] Centralized Scheduling [address] [facility] [address] [place] [phone] Laila Underwood FNP [address] [place], [place] [id number] Social History Tobacco Use Types Packs/Day Years Used Date Smoking Tobacco: Former Cigarettes Q uit: 02/23/1998 Smokeless Tobacco: Never Alcohol Use Standard Drinks/Week Comments No 0 (1 standard drink = 0.6 oz pur e alcohol) Comments No Sex and Gender Information Value Date Recorded Sex Assigned at Not on file 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
--- OUTSIDE RECORDS SUMMARY | 2024-07-29 05:40 | XMS_ITS | Encounter Summary ---
Author Organization [facility] Address [address] [place] [address] Care Team Providers Care Fiction Writer Name Role Phone Laila Underwood Primary Care Provider [phone] Encounter Details Date Type Department Care Team (Latest Contact Info) Description 11/05/2001 Outpatient Historical [facility] Medicine[address] [phone] Konstantin Calvo MD [address] [phone] ROUT POSTPART FOLLOW-UP (Primary Dx) Social History Tobacco Use Types Packs/Day Years Used Date Smoking Tobacco: Never Assessed Comments Unknown Sex and Gender Information Value Date Recorded Sex Assigned at Not on file 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
--- OUTSIDE RECORDS SUMMARY | 2024-07-29 05:40 | XMS_ITS | Encounter Summary ---
Author Organization [facility] Address [address] [place] [address] Care Team Providers Care Dam Operator Name Role Phone Laila Underwood Primary Care Provider [phone] Encounter Details Date Type Department Care Team (Late st Contact Info) Description 07/08/2024 External Device Data STL ABSTRACTION Provider, [...] who hurts you emotionally and/or physically? 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
--- OUTSIDE RECORDS SUMMARY | 2024-07-29 05:40 | XMS_ITS | Referral Summary ---
Author Organization [facility] Address [address] [place] [address] Phone Care Team Providers Care Land Acquisition Specialist Name Role Phone Sandra Mccrary [facility] Primary Care Provider [phone] Social History Tobacco Use Types Packs/Day Years Used Date Smoking Tobacco: Never Assessed Comments Unknown Sex and Gender Information Value Date Recorded Sex Assigned at Not on file Legal Sex Female 11:19 AM CDT Gender Identity Not on file Sexual Orientation Not on file Plan of Treatment Upcoming Encounters Date Type Department Care Team (Late st Contact Info) Description 08/15/2024 1:00 PM 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
--- OUTSIDE RECORDS SUMMARY | 2024-07-29 05:40 | XMS_ITS | Encounter Summary ---
Author Organization [facility] Address 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
--- OUTSIDE RECORDS SUMMARY | 2024-07-29 05:40 | XMS_ITS | Encounter Summary ---
Author Organization [facility] Address [address] [place] [address] Care Team Providers Care Vice President Sales And Marketing Name Role Phone Laila Underwood Primary Care Provider [phone] Encounter Details Date Type Department Care Team (Latest Contact Info) Description 11/19/2001 Outpatient Historical [facility] Medicine [place] [address] [facility] [address] [place] [address] Leny Daniels MD ESOPHAGEAL REFLUX (Primary Dx) Social History Tobacco Use Types Packs/Day Years Used Date Smoking Tobacco: Never Assessed Comments Unknown Sex and Gender Information Value Date Recorded Sex Assigned at Not on file Legal 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 Female 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 Gender Identity Not on file Sexual Orientation Not on file documented as of this encounter Plan of Treatment Not on file documented as of this encounter Visit Diagnoses Diagnosis Esophageal reflux- Primary documented in this encounter Additional Health Concerns Infection Onset Date Last Indicated Resolved Time E-coli-ESBL (Extended Spectr um Beta Lactamase) Comment:01/11/15 Urine 01/18/2015 01/18/2015 documented as of this encounter Care Teams Vice President Sales And Marketing Relationship Specialty Start Date End Date Laila Underwood FNP PCP - General NURSE PRACTITIONER 09/27/14 documented as of this encounter
--- OUTSIDE RECORDS SUMMARY | 2024-07-29 05:40 | XMS_ITS | Encounter Summary ---
Author Organization [facility] Address [address] [place] [address] Care Team Providers Care Application Development Team Lead Name Role Phone Laila Underwood Primary Care Provider [phone] Encounter Details Date Type Department Care Team (Latest Contact Info) Description 04/03/2001 Outpatient Historical [facility] Medicine[address] [phone] Konstantin Calvo MD [address] [phone] Supervision of other normal (Primary Dx) Social History Tobacco Use Types Packs/Day Years Used Date Smoking Tobacco: Never Assessed Comments Unknown Sex and Gender Information Value Date Recorded Sex Assigned at Not on file 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
--- OUTSIDE RECORDS SUMMARY | 2024-07-29 05:40 | XMS_ITS | Encounter Summary ---
Author Organization [facility] Address 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
== END 2024-07-28 13:40 | disposition home or self-care (01) | DRG 616 ==
PROVIDERS: Admitting Provider Internal Medicine; PCP Nurse Practitioner Family; Referring Provider Podiatrist Foot & Ankle Surgery; Visit Provider Student in an Organized Health Care Education/Training Program
PROC: 0Y6P0Z0 Detachment at Right 1st Toe, Complete, Open Approach (ICD-10-PCS; principal; 2024-07-25 10:55)
PROC: 0Y6P0Z0 Detachment at Right 1st Toe, Complete, Open Approach (ICD-10-PCS; 2024-07-25 10:55)
DX: E11.621 Type 2 diabetes mellitus with foot ulcer (principal); A48.0 Gas gangrene; E11.52 Type 2 diabetes mellitus with diabetic peripheral angiopathy with gangrene; M86.9 Osteomyelitis, unspecified; L97.313 Non-pressure chronic ulcer of right ankle with necrosis of muscle; F33.9 Major depressive disorder, recurrent, unspecified; E11.22 Type 2 diabetes mellitus with diabetic chronic kidney disease; E11.69 Type 2 diabetes mellitus with other specified complication; L97.524 Non-pressure chronic ulcer of other part of left foot with necrosis of bone; E11.622 Type 2 diabetes mellitus with other skin ulcer; N18.9 Chronic kidney disease, unspecified; E11.42 Type 2 diabetes mellitus with diabetic polyneuropathy; Z79.84 Long term (current) use of oral hypoglycemic drugs; G47.33 Obstructive sleep apnea (adult) (pediatric); D64.9 Anemia, unspecified; G25.0 Essential tremor; Z89.421 Acquired absence of other right toe(s); Z87.891 Personal history of nicotine dependence
CPT/HCPCS: 11044; 36415; 36416; 73630; 80053; 81001; 82436; 82962; 83605; 83735; 84100; 84133; 84145; 84300; 85025; 85651; 86140; 87040; 87070; 87075; 87086; 87205; 88305; 88311; 96365; 96372; 97760; 99213; G0378; G0379; J0692; J1756; J1815; J2704; J3010; J3370; J3372; J3490; J7030; J7050; L3260

== ENCOUNTER 2024-08-07 12:45 | Oncology outpatient (recurring) (ONCR) | payer MEDICARE, SELFPAY ==
[2024-07-29] MEDS: iron sucrose 200 MG in sodium chloride 0.9% 50 ML 240 MG IV (14:42)
[2024-07-29 15:16] VITALS: BP 142/71; PULSE 50; RESP 16; TEMP 36.4; O2SAT 98
[2024-08-07 13:30] LABS: Basophils # 0.1 10^3/uL (0.0-0.1); Eosinophils # 0.2 10^3/uL (0.0-0.8); Eosinophils % 3.6 %; Lymphocytes # 1.5 10^3/uL (0.8-4.8); Lymphocytes % 22.9 %; Mean Corpuscular HGB Conc 30.8 g/dL (30-55); Mean Corpuscular Hemoglobin 29.9 pg (27-33); Mean Corpuscular Volume 97.1 fl (85-98); Mean Platelet Volume 10.7 fL (7.4-10.4); Monocytes # 0.3 10^3/uL (0.2-0.9); Monocytes % 4.2 %; Neutrophils # 4.53 10^3/uL (1.8-7.7); Nucleated Red Blood Cells % 0 %; Platelet Count 225 10^3/cmm (157-399); Red Blood Count 4.12 10^6/uL (3.85-5.65); Red Cell Distribution Width 14.5 % (12.1-15.1); White Blood Count 6.67 10^3/uL (3.29-11.43)
[2024-08-07 13:48] LABS: Alanine Aminotransferase 25 U/L (0-33); Albumin Level 4.1 g/dL (3.5-5.2); Alkaline Phosphatase 137 U/L (35-105); Aspartate Amino Transferase 32 U/L (0-32); Blood Urea Nitrogen 37 mg/dL (6-20); Calcium 9.4 mg/dL (8.5-10.5); Carbon Dioxide 20 mmol/L (22-29); Chloride 108 mmol/L (98-107); Creatinine Clr Calc Pharmacy 45.4138; Globulin 4.4 g/dL (1.3-4.6); Glomerular Filtration Rate 42.7 mL/min (90-130); Glucose 163 mg/dL (65-115); Iron 99 ug/dL (37-145); Osmolality Calculated 300 mOsm/kg (285-295); Sodium 139 mmol/L (136-145); Total Bilirubin 0.3 mg/dL (0.15-1.2); Total Iron Binding Capacity 183 mcg/dl; Total Protein 8.5 g/dL (6.6-8.7); Unsaturated Iron Binding 84 ug/dL (112-347)
[2024-08-07 14:05] LABS: Ferritin 1119 ng/mL (15-150)
== END 2024-08-22 23:59 | disposition home or self-care (01) ==
PROVIDERS: PCP Nurse Practitioner Family; Visit Provider Nurse Practitioner Family
DX: K95.89 Other complications of other bariatric procedure; Z87.891 Personal history of nicotine dependence; D50.8 Other iron deficiency anemias; Z98.84 Bariatric surgery status; I96 Gangrene, not elsewhere classified; E11.8 Type 2 diabetes mellitus with unspecified complications; L97.313 Non-pressure chronic ulcer of right ankle with necrosis of muscle; Z89.412 Acquired absence of left great toe; Z53.9 Procedure and treatment not carried out, unspecified reason
CPT/HCPCS: 36415; 80053; 82728; 83540; 83550; 85025; 96365; 99213; J1756

== ENCOUNTER → 2024-08-08 09:13 | Outpatient (BNVA) | payer MEDICARE, SELFPAY | PROVIDERS: PCP Nurse Practitioner Family; Visit Provider Physician Assistant | DX: Z98.890 Other specified postprocedural states (principal) | CPT/HCPCS: 99213 ==

== ENCOUNTER → 2024-08-14 12:45 | Outpatient (BNVA) | payer MEDICARE, SELFPAY | PROVIDERS: PCP Nurse Practitioner Family; Visit Provider Podiatrist Foot & Ankle Surgery | DX: I96 Gangrene, not elsewhere classified (principal); E11.621 Type 2 diabetes mellitus with foot ulcer; L97.313 Non-pressure chronic ulcer of right ankle with necrosis of muscle; Z79.84 Long term (current) use of oral hypoglycemic drugs | CPT/HCPCS: 99213 ==

== ENCOUNTER → 2024-09-01 14:53 | Outpatient (BNVA) | payer MEDICARE, SELFPAY | PROVIDERS: PCP Nurse Practitioner Family; Visit Provider Podiatrist Foot & Ankle Surgery | DX: E11.622 Type 2 diabetes mellitus with other skin ulcer (principal); L97.313 Non-pressure chronic ulcer of right ankle with necrosis of muscle; I96 Gangrene, not elsewhere classified; E11.8 Type 2 diabetes mellitus with unspecified complications; Z79.84 Long term (current) use of oral hypoglycemic drugs | CPT/HCPCS: 99213 ==

== ENCOUNTER → 2024-09-09 13:59 | Outpatient (BNVA) | payer MEDICARE, SELFPAY | PROVIDERS: PCP Nurse Practitioner Family; Visit Provider Thoracic Surgery (Cardiothoracic Vascular Surgery) | DX: I96 Gangrene, not elsewhere classified (principal); T81.31XD Disruption of external operation (surgical) wound, not elsewhere classified, subsequent encounter; Y83.8 Other surgical procedures as the cause of abnormal reaction of the patient, or of later complication, without mention of misadventure at the time of the procedure | CPT/HCPCS: 11042; A6248 ==

== ENCOUNTER → 2024-09-16 13:36 | Outpatient (BNVA) | payer MEDICARE, SELFPAY | PROVIDERS: PCP Nurse Practitioner Family; Visit Provider Thoracic Surgery (Cardiothoracic Vascular Surgery) | DX: E11.52 Type 2 diabetes mellitus with diabetic peripheral angiopathy with gangrene (principal); E11.622 Type 2 diabetes mellitus with other skin ulcer; L97.312 Non-pressure chronic ulcer of right ankle with fat layer exposed | CPT/HCPCS: 11042; A6197; A6220 ==

== ENCOUNTER → 2024-09-22 12:52 | Outpatient (BNVA) | payer MEDICARE, SELFPAY | PROVIDERS: PCP Nurse Practitioner Family; Visit Provider Thoracic Surgery (Cardiothoracic Vascular Surgery) | DX: E11.52 Type 2 diabetes mellitus with diabetic peripheral angiopathy with gangrene (principal); E11.622 Type 2 diabetes mellitus with other skin ulcer; L97.312 Non-pressure chronic ulcer of right ankle with fat layer exposed | CPT/HCPCS: 11042; A6021; A6212 ==

== ENCOUNTER → 2024-09-29 13:28 | Outpatient (BNVA) | payer MEDICARE, SELFPAY | PROVIDERS: PCP Nurse Practitioner Family; Visit Provider Thoracic Surgery (Cardiothoracic Vascular Surgery) | DX: I96 Gangrene, not elsewhere classified (principal); T81.31XD Disruption of external operation (surgical) wound, not elsewhere classified, subsequent encounter; Y83.8 Other surgical procedures as the cause of abnormal reaction of the patient, or of later complication, without mention of misadventure at the time of the procedure | CPT/HCPCS: 11042; A6212 ==

== ENCOUNTER → 2024-10-20 14:01 | Outpatient (BNVA) | payer MEDICARE, SELFPAY | PROVIDERS: PCP Nurse Practitioner Family; Visit Provider Thoracic Surgery (Cardiothoracic Vascular Surgery) | DX: I96 Gangrene, not elsewhere classified (principal); T81.31XD Disruption of external operation (surgical) wound, not elsewhere classified, subsequent encounter; Y83.8 Other surgical procedures as the cause of abnormal reaction of the patient, or of later complication, without mention of misadventure at the time of the procedure | CPT/HCPCS: 11042 ==

== ENCOUNTER → 2024-10-23 15:29 | Outpatient (BNVA) | payer MEDICARE, SELFPAY | PROVIDERS: PCP Nurse Practitioner Family; Visit Provider Specialist | DX: G25.0 Essential tremor (principal); G60.9 Hereditary and idiopathic neuropathy, unspecified | CPT/HCPCS: 99214 ==

== ENCOUNTER → 2024-10-27 13:46 | Outpatient (BNVA) | payer MEDICARE, SELFPAY | PROVIDERS: PCP Nurse Practitioner Family; Visit Provider Thoracic Surgery (Cardiothoracic Vascular Surgery) | DX: E11.52 Type 2 diabetes mellitus with diabetic peripheral angiopathy with gangrene (principal); E11.622 Type 2 diabetes mellitus with other skin ulcer; L97.312 Non-pressure chronic ulcer of right ankle with fat layer exposed | CPT/HCPCS: 11042; A6197; A6212 ==

== ENCOUNTER → 2024-11-03 13:02 | Outpatient (BNVA) | payer MEDICARE, SELFPAY | PROVIDERS: PCP Nurse Practitioner Family; Visit Provider Thoracic Surgery (Cardiothoracic Vascular Surgery) | DX: E11.52 Type 2 diabetes mellitus with diabetic peripheral angiopathy with gangrene (principal); E11.621 Type 2 diabetes mellitus with foot ulcer; L97.312 Non-pressure chronic ulcer of right ankle with fat layer exposed | CPT/HCPCS: 11042 ==

== ENCOUNTER → 2024-11-07 11:19 | Outpatient (BNVA) | payer MEDICARE, SELFPAY | PROVIDERS: PCP Nurse Practitioner Family; Visit Provider Physician Assistant | DX: M17.0 Bilateral primary osteoarthritis of knee (principal); M25.561 Pain in right knee; M25.562 Pain in left knee | CPT/HCPCS: 20610; 73560; 73565; 99213; J3301; J9999 ==

== ENCOUNTER 2024-11-10 13:49 | Outpatient (CLI) | payer MEDICARE, SELFPAY ==
--- NOTE | 2024-11-10 13:57 | XRR_ITS ---
PROCEDURE INFORMATION: Exam: XR Right Ankle Exam date and time: 11/10/2024 2:06 PM Age: 54 years old Clinical indication: Condition or disease; Other: Non healing ulcer after tibial surgery; Prior surgery; Surgery date: 1-6 months; Additional info: E11.9 - type 2 diabetes mellitus without complications TECHNIQUE: Imaging protocol: Radiologic exam of the right ankle. Views: 3 or more views. COMPARISON: MR ankle RT wo con* [id number] 03/18/2024 1:48 PM FINDINGS: Bones/joints: Osseous structures are intact. No irregular osseous erosions. Mild DJD of the ankle. Soft tissues: Ulceration along the lateral ankle. No subcutaneous emphysema. Soft tissue swelling around the ankle. XR/XR ankle RT min 3V* [id number] IMPRESSION: No radiographic findings of osteomyelitis.
[2024-11-10 14:17] LABS: Basophils % 0.2 %; Hematocrit 33.2 % (36-47); Lymphocytes # 1.7 10^3/uL (0.8-4.8); Lymphocytes % 18.5 %; Mean Corpuscular HGB Conc 33.1 g/dL (30-55); Mean Corpuscular Hemoglobin 31.3 pg (27-33); Mean Corpuscular Volume 94.3 fl (85-98); Mean Platelet Volume 9.4 fL (7.4-10.4); Monocytes # 0.5 10^3/uL (0.2-0.9); Monocytes % 5.7 %; Neutrophils # 6.71 10^3/uL (1.8-7.7); Neutrophils % 75.2 %; Nucleated Red Blood Cells % 0 %; Platelet Count 240 10^3/cmm (157-399); Red Blood Count 3.52 10^6/uL (3.85-5.65); Red Cell Distribution Width 13.9 % (12.1-15.1); White Blood Count 8.93 10^3/uL (3.29-11.43)
[2024-11-10 14:39] LABS: Alanine Aminotransferase 79 U/L (0-33); Albumin Level 4.1 g/dL (3.5-5.2); Alkaline Phosphatase 141 U/L (35-105); Anion Gap 18.6 (5-19); Aspartate Amino Transferase 101 U/L (0-32); Blood Urea Nitrogen 34 mg/dL (6-20); Calcium 8.9 mg/dL (8.5-10.5); Carbon Dioxide 14 mmol/L (22-29); Chloride 113 mmol/L (98-107); Globulin 2.9 g/dL (1.3-4.6); Glomerular Filtration Rate 31.3 mL/min (90-130); Glucose 169 mg/dL (65-115); Osmolality Calculated 306 mOsm/kg (285-295); Potassium 3.6 mmol/L (3.5-5.1); Prealbumin 20.2 mg/dL (20-40); Sodium 142 mmol/L (136-145); Total Bilirubin 0.2 mg/dL (0.15-1.2)
[2024-11-10 14:40] LABS: Ferritin 882 ng/mL (15-150); Iron 70 ug/dL (37-145); Percent Saturation 32.8 % (20-50); Total Iron Binding Capacity 213 mcg/dl; Unsaturated Iron Binding 143 ug/dL (112-347)
[2024-11-10 14:55] LABS: Estmated Average Glucose 120; Hemoglobin A1C 5.8 % (4.0-6.0)
== END 2024-11-10 13:50 | disposition home or self-care (01) ==
PROVIDERS: Nurse Practitioner Family; PCP Nurse Practitioner Family; Visit Provider Thoracic Surgery (Cardiothoracic Vascular Surgery)
DX: E11.9 Type 2 diabetes mellitus without complications (principal); L97.312 Non-pressure chronic ulcer of right ankle with fat layer exposed; Z98.84 Bariatric surgery status; K95.89 Other complications of other bariatric procedure; D50.8 Other iron deficiency anemias; L97.313 Non-pressure chronic ulcer of right ankle with necrosis of muscle; M19.071 Primary osteoarthritis, right ankle and foot; M79.89 Other specified soft tissue disorders; E11.52 Type 2 diabetes mellitus with diabetic peripheral angiopathy with gangrene; E11.622 Type 2 diabetes mellitus with other skin ulcer
CPT/HCPCS: 11042; 36415; 73610; 80053; 82728; 83036; 83540; 83550; 84134; 85025; 86140; A6210

== ENCOUNTER → 2024-11-18 13:47 | Outpatient (BNVA) | payer MEDICARE, SELFPAY | PROVIDERS: PCP Nurse Practitioner Family; Visit Provider Thoracic Surgery (Cardiothoracic Vascular Surgery) | DX: T81.31XD Disruption of external operation (surgical) wound, not elsewhere classified, subsequent encounter (principal); Y83.8 Other surgical procedures as the cause of abnormal reaction of the patient, or of later complication, without mention of misadventure at the time of the procedure; E11.52 Type 2 diabetes mellitus with diabetic peripheral angiopathy with gangrene; E11.621 Type 2 diabetes mellitus with foot ulcer; L97.512 Non-pressure chronic ulcer of other part of right foot with fat layer exposed | CPT/HCPCS: 11042; A6210 ==

== ENCOUNTER → 2024-11-25 14:02 | Outpatient (BNVA) | payer MEDICARE, SELFPAY | PROVIDERS: PCP Nurse Practitioner Family; Visit Provider Thoracic Surgery (Cardiothoracic Vascular Surgery) | DX: E11.52 Type 2 diabetes mellitus with diabetic peripheral angiopathy with gangrene (principal); E11.622 Type 2 diabetes mellitus with other skin ulcer; L97.312 Non-pressure chronic ulcer of right ankle with fat layer exposed; E11.621 Type 2 diabetes mellitus with foot ulcer; L97.511 Non-pressure chronic ulcer of other part of right foot limited to breakdown of skin | CPT/HCPCS: 11042; 97597; 97605; A6237; A6250 ==

== ENCOUNTER → 2024-12-02 13:49 | Outpatient (BNVA) | payer MEDICARE, SELFPAY | PROVIDERS: PCP Nurse Practitioner Family; Visit Provider Thoracic Surgery (Cardiothoracic Vascular Surgery) | DX: E11.52 Type 2 diabetes mellitus with diabetic peripheral angiopathy with gangrene (principal); E11.622 Type 2 diabetes mellitus with other skin ulcer; L97.312 Non-pressure chronic ulcer of right ankle with fat layer exposed; E11.621 Type 2 diabetes mellitus with foot ulcer; L97.511 Non-pressure chronic ulcer of other part of right foot limited to breakdown of skin | CPT/HCPCS: 11042; 97597 ==

== ENCOUNTER 2024-12-09 09:03 | Oncology outpatient (recurring) (ONCR) | payer MEDICARE, SELFPAY ==
[2024-12-09 09:32] LABS: Basophils # 0.1 10^3/uL (0.0-0.1); Eosinophils # 0.3 10^3/uL (0.0-0.8); Eosinophils % 4.1 %; Hematocrit 33.4 % (36-47); Lymphocytes # 0.9 10^3/uL (0.8-4.8); Mean Corpuscular Hemoglobin 30.9 pg (27-33); Mean Corpuscular Volume 96.5 fl (85-98); Mean Platelet Volume 9.8 fL (7.4-10.4); Monocytes # 0.3 10^3/uL (0.2-0.9); Monocytes % 5.2 %; Neutrophils # 4.62 10^3/uL (1.8-7.7); Neutrophils % 75.4 %; Nucleated Red Blood Cells % 0 %; Platelet Count 229 10^3/cmm (157-399); Red Blood Count 3.46 10^6/uL (3.85-5.65); Red Cell Distribution Width 15.8 % (12.1-15.1); White Blood Count 6.13 10^3/uL (3.29-11.43)
[2024-12-09 09:54] LABS: Alanine Aminotransferase 37 U/L (0-33); Albumin Level 3.8 g/dL (3.5-5.2); Alkaline Phosphatase 138 U/L (35-105); Anion Gap 16.7 (5-19); Aspartate Amino Transferase 49 U/L (0-32); Blood Urea Nitrogen 29 mg/dL (6-20); Calcium 8.8 mg/dL (8.5-10.5); Carbon Dioxide 15 mmol/L (22-29); Chloride 112 mmol/L (98-107); Globulin 3.2 g/dL (1.3-4.6); Glomerular Filtration Rate 31.3 mL/min (90-130); Glucose 200 mg/dL (65-115); Osmolality Calculated 303 mOsm/kg (285-295); Sodium 141 mmol/L (136-145)
[2024-12-09 10:12] LABS: Potassium 2.7 mmol/L (3.5-5.1)
[2024-12-09] MEDS: potassium chloride 40 MEQ in sodium chloride 0.9% 500 ML 250 MEQ IV (10:56)
[2024-12-09 11:32] LABS: Total Bilirubin 0.2 mg/dL (0.15-1.2)
[2024-12-09 12:23] LABS: Ferritin 719 ng/mL (15-150); Iron 57 ug/dL (37-145); Percent Saturation 30.8 % (20-50); Total Iron Binding Capacity 185 mcg/dl; Unsaturated Iron Binding 128 ug/dL (112-347)
[2024-12-09 13:03] VITALS: BP 132/71; PULSE 61; RESP 18; TEMP 36.6; O2SAT 98
== END 2024-12-22 23:59 | disposition home or self-care (01) ==
PROVIDERS: PCP Nurse Practitioner Family; Visit Provider Nurse Practitioner Family
DX: D64.9 Anemia, unspecified (principal); R74.01 Elevation of levels of liver transaminase levels; E11.621 Type 2 diabetes mellitus with foot ulcer; L97.519 Non-pressure chronic ulcer of other part of right foot with unspecified severity; K95.89 Other complications of other bariatric procedure; Z87.891 Personal history of nicotine dependence; Z98.84 Bariatric surgery status; Z79.899 Other long term (current) drug therapy
CPT/HCPCS: 11042; 36415; 80053; 82728; 83540; 83550; 85025; 96365; 96366; 97597; 97605; 99214; A6237; A6250; J3480; J7040

== ENCOUNTER → 2024-12-16 14:07 | Outpatient (BNVA) | payer MEDICARE, SELFPAY | PROVIDERS: PCP Nurse Practitioner Family; Visit Provider Thoracic Surgery (Cardiothoracic Vascular Surgery) | DX: E11.52 Type 2 diabetes mellitus with diabetic peripheral angiopathy with gangrene (principal); E11.621 Type 2 diabetes mellitus with foot ulcer; L97.511 Non-pressure chronic ulcer of other part of right foot limited to breakdown of skin; T81.31XD Disruption of external operation (surgical) wound, not elsewhere classified, subsequent encounter; Y83.8 Other surgical procedures as the cause of abnormal reaction of the patient, or of later complication, without mention of misadventure at the time of the procedure | CPT/HCPCS: 11042; 97597; 97605; A6237; A6250 ==

== ENCOUNTER → 2024-12-30 13:52 | Outpatient (BNVA) | payer MEDICARE, SELFPAY | PROVIDERS: PCP Nurse Practitioner Family; Visit Provider Thoracic Surgery (Cardiothoracic Vascular Surgery) | DX: E11.52 Type 2 diabetes mellitus with diabetic peripheral angiopathy with gangrene (principal); E11.621 Type 2 diabetes mellitus with foot ulcer; L97.511 Non-pressure chronic ulcer of other part of right foot limited to breakdown of skin; T81.31XD Disruption of external operation (surgical) wound, not elsewhere classified, subsequent encounter; Y83.8 Other surgical procedures as the cause of abnormal reaction of the patient, or of later complication, without mention of misadventure at the time of the procedure | CPT/HCPCS: 97597; 97605; A6237; A6250 ==

== ENCOUNTER → 2025-01-06 13:12 | Outpatient (BNVA) | payer MEDICARE, SELFPAY | PROVIDERS: PCP Nurse Practitioner Family; Visit Provider Thoracic Surgery (Cardiothoracic Vascular Surgery) | DX: E11.52 Type 2 diabetes mellitus with diabetic peripheral angiopathy with gangrene (principal); E11.622 Type 2 diabetes mellitus with other skin ulcer; L97.312 Non-pressure chronic ulcer of right ankle with fat layer exposed; E11.621 Type 2 diabetes mellitus with foot ulcer; L97.511 Non-pressure chronic ulcer of other part of right foot limited to breakdown of skin | CPT/HCPCS: 11042; 97597; A6237 ==

== ENCOUNTER → 2025-01-13 09:59 | Outpatient (BNVA) | payer MEDICARE, SELFPAY | PROVIDERS: PCP Nurse Practitioner Family; Visit Provider Surgery | DX: L98.429 Non-pressure chronic ulcer of back with unspecified severity (principal); L89.159 Pressure ulcer of sacral region, unspecified stage | CPT/HCPCS: 11042; 97597; 97605; 99204; A6197; A6237; A6250 ==

== ENCOUNTER 2025-01-20 15:22 | Outpatient (CLI) | payer MEDICARE, SELFPAY ==
--- NOTE | 2025-01-20 16:03 | XRR_ITS ---
PROCEDURE INFORMATION: Exam: XR Right Foot Exam date and time: 01/20/2025 4:08 PM Age: 54 years old Clinical indication: Right; Prior surgery; Surgery date: 6+ months; Surgery type: RT foot great toe amputation; --pain, non healing ulcer 2nd toe RT foot; Additional info: E11.621 - type 2 diabetes mellitus with foot ulcer, attn: To 2nd digit right foot. TECHNIQUE: Imaging protocol: Radiologic exam of the right foot. Views: 3 or more views. COMPARISON: CR XR ankle RT min 3V* [id number] 11/10/2024 2:06 PM FINDINGS: Bones/joints: There has been previous amputation of the 1st toe along with the distal portion of the 1st metatarsal. In addition, there has been previous amputation of the 1st middle and distal phalanges. I see no bony fracture . Subtle bony erosions involve the distal tip of the 2nd proximal phalanx. Arthritic change involves the calcaneus and midfoot joints.The bony structures demonstrate diffuse osteopenia. Soft tissues: Normal. XR/XR foot RT min 3V* [id number] IMPRESSION: There is evidence of osteomyelitis involving the distal tip of the 2nd proximal phalanx
== END 2025-01-20 15:23 | disposition home or self-care (01) ==
PROVIDERS: PCP Nurse Practitioner Family; Visit Provider Thoracic Surgery (Cardiothoracic Vascular Surgery)
DX: E11.621 Type 2 diabetes mellitus with foot ulcer (principal); L97.519 Non-pressure chronic ulcer of other part of right foot with unspecified severity; E11.52 Type 2 diabetes mellitus with diabetic peripheral angiopathy with gangrene; E11.622 Type 2 diabetes mellitus with other skin ulcer; L97.311 Non-pressure chronic ulcer of right ankle limited to breakdown of skin; L89.152 Pressure ulcer of sacral region, stage 2; L97.511 Non-pressure chronic ulcer of other part of right foot limited to breakdown of skin
CPT/HCPCS: 73630; 87070; 87077; 87176; 87186; 87205; 97597; 97605

== ENCOUNTER 2025-01-27 13:28 | Outpatient (CLI) | payer MEDICARE, SELFPAY ==
[2025-01-27 14:43] LABS: Hematocrit 34.8 % (36-47); Hemoglobin 11.20 g/dL (11.27-16.99); Mean Corpuscular HGB Conc 32.2 g/dL (30-55); Mean Corpuscular Hemoglobin 31.9 pg (27-33); Mean Corpuscular Volume 99.1 fl (85-98); Nucleated Red Blood Cells % 0 %; Platelet Count 222 10^3/cmm (157-399); Red Blood Count 3.51 10^6/uL (3.85-5.65); White Blood Count 5.36 10^3/uL (3.29-11.43)
[2025-01-27 15:09] LABS: Alanine Aminotransferase 16 U/L (0-33); Albumin Level 4.1 g/dL (3.5-5.2); Alkaline Phosphatase 110 U/L (35-105); Anion Gap 17.2 (5-19); Aspartate Amino Transferase 26 U/L (0-32); Blood Urea Nitrogen 25 mg/dL (6-20); Calcium 8.7 mg/dL (8.5-10.5); Carbon Dioxide 14 mmol/L (22-29); Chloride 113 mmol/L (98-107); Globulin 2.9 g/dL (1.3-4.6); Glucose 121 mg/dL (65-115); Osmolality Calculated 298 mOsm/kg (285-295); Potassium 3.2 mmol/L (3.5-5.1); Prealbumin 22.4 mg/dL (20-40); Sodium 141 mmol/L (136-145); Total Protein 7.0 g/dL (6.6-8.7)
== END 2025-01-27 13:29 | disposition home or self-care (01) ==
PROVIDERS: PCP Nurse Practitioner Family; Visit Provider Thoracic Surgery (Cardiothoracic Vascular Surgery)
DX: E11.621 Type 2 diabetes mellitus with foot ulcer (principal); L97.519 Non-pressure chronic ulcer of other part of right foot with unspecified severity; E11.628 Type 2 diabetes mellitus with other skin complications; L08.9 Local infection of the skin and subcutaneous tissue, unspecified; E11.9 Type 2 diabetes mellitus without complications
CPT/HCPCS: 36415; 80053; 84134; 85025; 85651; 86140; 97597

== ENCOUNTER → 2025-02-03 13:37 | Outpatient (BNVA) | payer MEDICARE, SELFPAY | PROVIDERS: PCP Nurse Practitioner Family; Visit Provider Thoracic Surgery (Cardiothoracic Vascular Surgery) | DX: E11.52 Type 2 diabetes mellitus with diabetic peripheral angiopathy with gangrene (principal); E11.621 Type 2 diabetes mellitus with foot ulcer; L97.511 Non-pressure chronic ulcer of other part of right foot limited to breakdown of skin; E11.622 Type 2 diabetes mellitus with other skin ulcer; L97.311 Non-pressure chronic ulcer of right ankle limited to breakdown of skin; L89.152 Pressure ulcer of sacral region, stage 2; M86.171 Other acute osteomyelitis, right ankle and foot | CPT/HCPCS: 97597; 97605; A6197 ==

== ENCOUNTER → 2025-02-04 12:50 | Outpatient (BNVA) | payer MEDICARE, SELFPAY | PROVIDERS: PCP Nurse Practitioner Family; Visit Provider Podiatrist Foot & Ankle Surgery | DX: E11.42 Type 2 diabetes mellitus with diabetic polyneuropathy (principal); T87.81 Dehiscence of amputation stump; E11.621 Type 2 diabetes mellitus with foot ulcer; L97.514 Non-pressure chronic ulcer of other part of right foot with necrosis of bone; L03.116 Cellulitis of left lower limb; Y83.8 Other surgical procedures as the cause of abnormal reaction of the patient, or of later complication, without mention of misadventure at the time of the procedure; Z79.84 Long term (current) use of oral hypoglycemic drugs | CPT/HCPCS: 11042; 99214 ==

== ENCOUNTER 2025-02-09 10:09 | Day surgery (SDC) | payer MEDICARE, SELFPAY ==
[2025-02-09] VITALS (8 sets, daily range): BP systolic 84–127; BP diastolic 49–73; PULSE 54–97; RESP 16–18; TEMP 36.1–36.7; O2SAT 97–100; BMI 21.9
[2025-02-09 10:54] LABS: Hematocrit 37.7 % (36-47); Hemoglobin 12.20 g/dL (11.27-16.99); Mean Corpuscular HGB Conc 32.4 g/dL (30-55); Mean Corpuscular Hemoglobin 30.9 pg (27-33); Mean Corpuscular Volume 95.4 fl (85-98); Nucleated Red Blood Cells % 0 %; Platelet Count 214 10^3/cmm (157-399); Red Blood Count 3.95 10^6/uL (3.85-5.65); White Blood Count 6.50 10^3/uL (3.29-11.43)
[2025-02-09 11:14] LABS: Anion Gap 17.8 (5-19); Blood Urea Nitrogen 27 mg/dL (6-20); Calcium 9.2 mg/dL (8.5-10.5); Carbon Dioxide 15 mmol/L (22-29); Chloride 110 mmol/L (98-107); Creatinine Clr Calc Pharmacy 34.7282; Glucose 95 mg/dL (65-115); Osmolality Calculated 295 mOsm/kg (285-295); Sodium 140 mmol/L (136-145)
[2025-02-09 11:16] LABS: Potassium 2.8 mmol/L (3.5-5.1)
--- NOTE | 2025-02-09 12:03 | SUR.PREOP ---
1115: Lab called critical result of potassium of 2.8. This was reported to , she advised that Dr. Martin be notified and if he can do only local then she can have procedure otherwise she needed directed to the ER to be evaluated. Dr. Martin contacted, he advised surgery can wait and patient needed to be eval in ER. Patient informed. She states that sometimes she forgets to take her home oral potassium and this has happened in the past. ER contacted, spoke with Isabelle. 1145: Patient taken to ER 14. She was transported by wheelchair awake and alert. Patient has wound vac still intact to right ankle. IV still in place in left wrist. PAtients present on transport. Report given to Isabelle ARMSTRONG in room in ER.
--- NOTE | 2025-02-09 13:28 | ANES.PREANE2 ---
Pre-Anesthetic Assessment Height/Weight: Height 1.65 m Weight 59.874 kg Temp Pulse Resp BP Pulse Ox O2 Del Method 97 F L 56 L 16 116/72 100 Room Air 02/09/25 13:06 02/09/25 13:06 02/09/25 13:06 02/09/25 13:06 02/09/25 13:06 02/09/25 13:06 Preop Diagnosis: Dehiscence of amputation stump right second toe. Operation Date: 02/09/25 12:00 Proposed Procedures p Delayed Wound Closure RIGHT Foot(Right) - Jerald Martin DPM Operation Date: 02/09/25 13:30 Proposed Procedures p Delayed Wound Closure Right Foot(Right) - Jerald Martin DPM Familial anesthetic complications: None Was Beta Brennon taken within 24 hours: Yes Was Clonidine taken within 24 hours: N/A Last intake: Intake Last Liquid Date 02/08/25 Last Liquid Time 20:00 Last Solid Date 02/08/25 Last Solid Time 20:00 Social No alcohol and No tobacco Exam alert, oriented x 3, clear to auscultation bilaterally and regular rate & rhythm Metabolic Diabetes Mellitus patient states she frequently forgets to take her meds. Potassium 2.8 was sent to ER for IV replacement. However, oral supplementation was chosen. Discussed proceeding today with surgeon and patient since a 4-hr interval for IV replacement would not be occurring. Given no IV replacement will occur, and short duration surgery (15 minutes) which can be done with local only +/- very light sedation prn, will proceed with delayed closure today. Patient informed she would be aware during procedure. Re-check potassium to make sure improving before discharge. Anesthetic Plan ASA status: 3 Anesthesia: MAC (light MAC as needed if displaying poor tolerance ) Risk of > 500 ml blood loss (7ml/kg in children): No Medications/Allergies Home Medications ?Medication ?Instructions ?Recorded ?Confirmed ?Last Taken ?Type atorvastatin 40 mg tablet 40 mg PO DAILY 08/22/19 02/06/25 02/06/25 History pregabalin 150 mg capsule (Lyrica) 150 mg PO BID 08/22/19 02/06/25 02/09/25 History ropinirole 5 mg tablet 5 mg PO .HS 08/22/19 02/06/25 02/08/25 History tizanidine 4 mg capsule 6 mg PO TID PRN muscle spasticity 02/28/20 08/15/25 08/15/25 History bimatoprost 0.01 % eye drops 1 drop ophthalmic (eye) DAILY 02/18/20 02/06/25 02/08/25 History (Lumigan) levocetirizine 5 mg tablet 5 mg PO ONCE 02/19/23 02/06/25 02/09/25 History potassium chloride 10 mEq 20 meq PO ONCE 02/19/23 02/06/25 02/09/25 History tablet,extended release metformin 500 mg tablet 1,000 mg PO BID 12/31/23 02/06/25 02/06/25 History bupropion HCl 300 mg 24 hr tablet, 300 mg PO QAM #90 tabs 06/30/24 02/06/25 02/09/25 Rx extended release (Wellbutrin XL) duloxetine 60 mg capsule,delayed 120 mg (2 x 60 mg) PO .morning 06/30/24 02/06/25 02/09/25 Rx release (Cymbalta) #180 caps famotidine 40 mg tablet 40 mg PO DAILY 07/25/24 02/09/25 02/09/25 History primidone 50 mg tablet 100 mg (2 x 50 mg) PO BID #270 tabs 10/23/24 02/06/25 02/09/25 Rx propranolol 60 mg capsule,24 60 mg PO DAILY #90 caps 10/23/24 02/06/25 02/09/25 Rx hr,extended release levofloxacin 500 mg tablet 500 mg PO DAILY 14 days #14 tabs 02/03/25 02/06/25 02/09/25 Rx Allergies Allergy/AdvReac Type Severity Reaction Status Date / Time gabapentin AdvReac Severe Makes lose Verified 02/04/25 12:59 hair morphine AdvReac Intermediate Hives Verified 02/04/25 12:59 Penicillins AdvReac Intermediate Hives Verified 02/04/25 12:59 Current Medications Generic Name Dose Route Start Last Admin Trade Name Freq PRN Reason Stop Dose Admin Sodium Chloride 1,000 mls @ 30 mls/hr 02/09/25 10:30 02/09/25 11:45 Sodium Chloride 0.9% IV 02/10/25 10:29 Infused .Q24H TU Infusion PFS Anesthesia Medical History (Updated 08/18/25 @ 12:52 by Yaya Cantrell DO) Psychiatric care Anemia Sinus disease Diabetes Peripheral sensory-motor axonal polyneuropathy Lumbar stenosis with neurogenic claudication Intervertebral disc disorder with radiculopathy of lumbosacral region Obstructive sleep apnea Major depressive disorder, recurrent severe without psychotic features Surgical History History of umbilical hernia repair lap-2001 History of colonoscopy with polypectomy (03/17/21) diverticulosis H/O esophagogastroduodenoscopy (03/17/21) severe gastritis with ulceration at GJ anastomosis History of amputation of toe History of eye surgery History of gastric bypass 2018 History of carpal tunnel surgery History of orthopedic surgery History of tubal ligation Family History Grandmother Stroke Family/Other Stroke Mother Diabetes Heart disease Hypertension Cancer Father Diabetes Social History Smoking and tobacco/nicotine status: former use of tobacco/nicotine Quit status (tobacco/nicotine): has quit using Year quit tobacco: 2006 Former quit date comment: 10-15 years quit Alcohol intake: never Substance/Drug Use: never Household members: spouse and children Marital status: Current occupational status: disabled Data Anesthesia 02/09/25 10:45 02/09/25 10:45 Short CBC 02/09/25 Range/Units 10:45 WBC 6.50 (3.29-11.43) 10^3/uL Hgb 12.20 (11.27-16.99) g/dL Hct 37.7 (36-47) % MCV 95.4 (85-98) fl Plt Count 214 (157-399) 10^3/cmm Neut % (Auto) 69.4 % Neut # (Auto) 4.52 (1.8-7.7) 10^3/uL BMP 02/09/25 10:45 Sodium 140 Potassium 2.8 L* Chloride 110 H Carbon Dioxide 15 L BUN 27 H Creatinine 1.7 H Glucose 95 Calcium 9.2
[2025-02-09 13:40] LABS: Potassium 3.2 mmol/L (3.5-5.1)
--- NOTE | 2025-02-09 13:41 | W.PM.OPSUD ---
Surgery/Procedure H&P Update DATE OF PROCEDURE: February 09, 2025 DATE H&P PERFORMED: 02/04/25 H&P UPDATE INFORMATION: I have reviewed H&P completed within last 30 days, I have examined patient prior to procedure, No changes to prior documentation and Risks and benefits of the procedure reviewed PREOP DIAGNOSIS: Dehiscence of amputation stump right second toe. PLANNED PROCEDURE: Operation Date: 02/09/25 12:00 Proposed Procedures p Delayed Wound Closure RIGHT Foot(Right) - Jerald Martin DPM Operation Date: 02/09/25 13:30 Proposed Procedures p Delayed Wound Closure Right Foot(Right) - Jerald Martin DPM
--- NOTE | 2025-02-09 14:07 | W.PM.BPON ---
Date of Procedure: 09/07/23 Surgeon: Jerald Martin DPM Gear Straightener(s): Manuel Procedure(s) performed: delayed closure right second foot Findings of the procedure(s): Osteomyelitis right second foot second toe Estimated blood loss: 2 mL Specimen(s) removed: bone right second toe proximal phalanx sent to microbiology Post-operative diagnosis: surgical site dehiscence with osteomyelitis right second toe
--- NOTE | 2025-02-09 14:08 | PM.OP ---
Operative Report Date of procedure: February 09, 2025 Pre-op diagnosis: Type 2 diabetes mellitus with diabetic polyneuropathy, unspecified whether intermediate school teacher insulin use E11.42 Dehiscence of amputation stump T87.81 Non-pressure chronic ulcer of other part of right foot with necrosis of bone L97.514 Post-op diagnosis: Type 2 diabetes mellitus with diabetic polyneuropathy, unspecified whether intermediate school teacher insulin use E11.42 Dehiscence of amputation stump T87.81 Non-pressure chronic ulcer of other part of right foot with necrosis of bone L97.514 Procedure done: Delayed closure right foot. CPT code 98298 Implants: 4-0 Vicryl, 4 nylon Specimens removed/disposition: Bone from right second toe sent to microbiology for culture Pathology: none Surgeon: Jerald Martin DPM Cryogenics Engineer: Manuel Estimated blood loss: 2 8 IV fluids: See intraoperative documentation Urine output: none Complications: None Brief History: Patient examined evaluated, finding treatments discussed with patient at length. Wound debridement performed as outlined below. Given the level of dehiscence, erythema and wound probes to bone recommended surgical intervention would entail delayed closure with attempted bone debridement and closure of the wound. I reviewed at length with the patient, the risks, potential complications, benefits, alternatives, expectations, and typical outcomes associated with the surgery. The risks and potential complications were explained in detail, including but not limited to infection, wound dehiscence or soft tissue complications, bleeding and hematoma, chronic edema, neuritis or nerve damage producing numbness or chronic pain, CRPS, failure to relieve pain or worsening pain, thick / painful / unsightly scar, limited motion / stiffness, malposition, delayed union, malunion, or nonunion, fracture, reaction to implants, anesthetic complications, venous thromboembolism, and deformity recurrence. I discussed the notion of no regrets with the patient as it pertains to complications and outcomes. The patient seemed to understand the nature of the proposed care and required convalescence. They asked appropriate questions, answered to their satisfaction. They are aware no guarantees can be made as to a satisfactory outcome and they understand there may be other possible unforeseen complications or outcomes not listed here that will be treated accordingly if they arise. There were no written or implied guarantees given to the patient. They gave informed consent to proceed. Procedure: Under mild sedation patient was brought to the operating room and remained on the gurney in supine position. A timeout was performed. Anesthesia was then administered by the anesthesia service. Local anesthesia injected by myself consisting of 20 cc of one-to-one mixture 1% lidocaine and 0.5 Marcaine plain in a right second ray block fashion. Well-padded pneumatic tourniquet applied to the right ankle. The right lower extremity was scrubbed, prepped and draped utilizing normal aseptic technique. Right foot and ankle were then elevated and tourniquet inflated to 250 mmHg. Tissue was directed to the right second toe which was noted to have partial amputation and surgical site dehiscence exposed down to bone. The devitalized soft tissue and bone was sharply debrided with pickups and a #15 blade as well as bone nipper and all rough edges smoothed with hand rasp. Surgical site was irrigated with copious amounts of sterile skin solution. Bone from the second toe sent to microbiology for Gram stain culture and sensitivity. After having evaluated all layers of soft tissue and bone attempt was made to reapproximate and close the area of dehiscence this was successfully achieved with reapproximated myofascial layer with 4-0 Vicryl, subcutaneous tissue with 4-0 Vicryl and skin with 4-0 nylon. Surgical site was dressed with Xeroform, gauze, Kerlix, Sanket wrap and application of a postop shoe. Tourniquet was deflated and a prompt hyperemic response is noted to the remaining digits of the right foot. Patient tolerated the procedure and anesthesia well and was transferred to the PACU with vital signs stable and vascular status intact. Following a period of postoperative monitoring to be discharged home without home care instructions and scheduled follow-up.
[2025-02-09] MEDS: BUPivacaine 0.5% INJ 30 mL INJECTION (14:21)
== END 2025-02-09 14:59 | disposition home or self-care (01) ==
PROVIDERS: Anesthesiology; PCP Nurse Practitioner Family; Visit Provider Podiatrist Foot & Ankle Surgery
PROC: (CPT 13160; principal; 2025-02-09 12:00)
DX: L97.514 Non-pressure chronic ulcer of other part of right foot with necrosis of bone (principal); E11.42 Type 2 diabetes mellitus with diabetic polyneuropathy; T87.81 Dehiscence of amputation stump; Z79.84 Long term (current) use of oral hypoglycemic drugs; G47.33 Obstructive sleep apnea (adult) (pediatric); D64.9 Anemia, unspecified; F32.9 Major depressive disorder, single episode, unspecified; Z87.891 Personal history of nicotine dependence
CPT/HCPCS: 13160; 36415; 36416; 80048; 82962; 84132; 85025; 87070; 87176; 87205; J2704; J3010; J3490; J7030; J9999

== ENCOUNTER 2025-02-09 11:56 | Emergency (ER) | payer MEDICARE, SELFPAY ==
[2025-02-09 11:58] VITALS: BP 94/60; PULSE 55; RESP 15; TEMP 36.8; O2SAT 100; BMI 21.6
--- NOTE | 2025-02-09 11:58 | W.ED.GENADLT ---
HPI - General Adult General: Chief complaint: Recheck/Abnormal Lab/Rx Stated complaint: abnormal labs Time Seen by Provider: 02/09/25 11:57 History of Present Illness: 54-year-old female who is supposed to have a right second toe amputation for osteomyelitis today when she got to surgery her potassium was 2.8 she was directed to the emergency room she is otherwise asymptomatic. She is not on any diuretics. Associated symptoms: Deny chest pain, dyspnea or rash Related Data Home Medications ?Medication ?Instructions ?Recorded ?Confirmed atorvastatin 40 mg tablet 40 mg PO DAILY 08/22/19 02/06/25 pregabalin 150 mg capsule (Lyrica) 150 mg PO BID 08/22/19 02/06/25 ropinirole 5 mg tablet 5 mg PO .HS 08/22/19 02/06/25 tizanidine 4 mg capsule 6 mg PO TID PRN muscle spasticity 08/22/19 02/06/25 bimatoprost 0.01 % eye drops 1 drop ophthalmic (eye) DAILY 02/18/20 02/06/25 (Zafar) levocetirizine 5 mg tablet 5 mg PO ONCE 02/19/23 02/06/25 potassium chloride 10 mEq 20 meq PO ONCE 02/19/23 02/06/25 tablet,extended release metformin 500 mg tablet 1,000 mg PO BID 12/31/23 02/06/25 famotidine 40 mg tablet 40 mg PO DAILY 07/25/24 02/09/25 Previous Rx's ?Medication ?Instructions ?Recorded bupropion HCl 300 mg 24 hr tablet, 300 mg PO QAM #90 tabs 06/30/24 extended release (Wellbutrin XL) duloxetine 60 mg capsule,delayed 120 mg (2 x 60 mg) PO .morning 06/30/24 release (Cymbalta) #180 caps primidone 50 mg tablet 100 mg (2 x 50 mg) PO BID #270 tabs 10/23/24 propranolol 60 mg capsule,24 60 mg PO DAILY #90 caps 10/23/24 hr,extended release levofloxacin 500 mg tablet 500 mg PO DAILY 14 days #14 tabs 02/03/25 Allergies Allergy/AdvReac Type Severity Reaction Status Date / Time gabapentin AdvReac Severe Makes lose Verified 02/04/25 12:59 hair morphine AdvReac Intermediate Hives Verified 02/04/25 12:59 Penicillins AdvReac Intermediate Hives Verified 02/04/25 12:59 Review of Systems Const: Denies: fever(s) or chills Card: Denies: chest pain Resp: Denies: dyspnea GI: Denies: abdominal pain : Denies: dysuria, urinary frequency or urinary urgency Musc: Denies: neck pain or back pain Skin/Breast: Denies: rash PFSH ED PFSH: Medical History Psychiatric care Anemia Sinus disease Diabetes Peripheral sensory-motor axonal polyneuropathy Lumbar stenosis with neurogenic claudication Intervertebral disc disorder with radiculopathy of lumbosacral region Obstructive sleep apnea Major depressive disorder, recurrent severe without psychotic features Surgical History History of umbilical hernia repair lap-2001 History of colonoscopy with polypectomy (03/17/21) diverticulosis H/O esophagogastroduodenoscopy (03/17/21) severe gastritis with ulceration at GJ anastomosis History of amputation of toe History of eye surgery History of gastric bypass 2018 History of carpal tunnel surgery History of orthopedic surgery History of tubal ligation Family History Grandmother Stroke Family/Other Stroke Mother Diabetes Heart disease Hypertension Cancer Father Diabetes Social History Smoking and tobacco/nicotine status: former use of tobacco/nicotine Quit status (tobacco/nicotine): has quit using Year quit tobacco: 2006 Former quit date comment: 10-15 years quit Alcohol intake: never Substance/Drug Use: never Household members: spouse and children Marital status: Current occupational status: disabled Physical Exam Const: COMMON NORMALS: no acute distress GENERAL APPEARANCE: cooperative and comfortable ORIENTATION/CONSCIOUSNESS: Yes awake, Yes oriented to person, Yes oriented to place and Yes oriented to time HENMT: COMMON NORMALS: normocephalic, atraumatic and hearing grossly normal bilaterally HEAD & SCALP: normocephalic and atraumatic Resp: COMMON NORMALS: normal respiratory effort, No retractions, No use of accessory muscles and clear to auscultation bilaterally AUSCULTATION: clear to auscultation bilaterally Cardio: COMMON NORMALS: regular rate, regular rhythm and No murmurs present (Cardio) RATE: regular rate RHYTHM: regular rhythm GI: COMMON NORMALS: Soft to palpation and No hepatosplenomegaly present AUSCULTATION: Yes normoactive bowel sounds PALPATION: Yes Soft to palpation, No Tenderness to palpation present (GI), No Guarding due to palpation present (GI) and Yes No hepatosplenomegaly present Extremity: COMMON NORMALS: capillary refill normal, no clubbing, cyanosis or edema, no calf tenderness and no pedal edema OTHER: Right second toe bandaged with wound VAC on the right lateral lower leg. No sign of erythema and no redness no drainage Neuro: SENSORIUM/ORIENTATION: Yes oriented to person, Yes oriented to place and Yes oriented to time Skin: COMMON NORMALS: no rashes or lesions noted GENERAL SKIN EXAM: no rashes or lesions noted Course Vital Signs: Vital signs: Vital Signs Temperature 98.2 F 02/09/25 11:58 Pulse Rate 55 L 02/09/25 11:58 Respiratory Rate 15 02/09/25 11:58 Blood Pressure 94/60 02/09/25 11:58 Pulse Oximetry 100 02/09/25 11:58 Oxygen Delivery Me thod Room Air 02/09/25 11:58 MDM - General Adult Medical Decision Making Potassium of 2.8 magnesium slightly above upper range of normal EKG does not show any acute changes to patient was discharged back to surgery if we given oral potassium. Surgery is planning on rechecking her serum potassium in approximately 45 minutes if normal can proceed to surgery discussed with Dr. Martin. Medical Records I reviewed the patient's medical records. Lab Data I reviewed the patient's lab results. Laboratory Results Magnesium 2.7 mg/dL (1.7-2.3) H 02/09/25 12:22 All radiology interpretation(s) finalized by discharge Discharge Plan Discharge Patient Disposition: Home Clinical Impression: Hypokalemia, Osteomyelitis of second toe of right foot Condition: Stable Prescriptions: No Action ropinirole 5 mg tablet 5 mg PO .HS tizanidine 4 mg capsule 6 mg PO TID PRN (Reason: muscle spasticity) atorvastatin 40 mg tablet 40 mg PO DAILY pregabalin [Lyrica] 150 mg capsule 150 mg PO BID Lumigan 0.01 % drops 1 drop ophthalmic (eye) DAILY Rx Instructions: left eye levocetirizine 5 mg tablet 5 mg PO ONCE potassium chloride 10 mEq tablet extended release 20 meq PO ONCE levofloxacin 500 mg tablet 500 mg PO DAILY 14 Days Qty: 14 0RF metformin 500 mg tablet 1,000 mg PO BID bupropion HCl [Wellbutrin XL] 300 mg tablet extended release 24 hr 300 mg PO QAM Qty: 90 2RF Rx Instructions: Take one tablet every morning duloxetine [Cymbalta] 60 mg capsule,delayed release(DR/EC) 120 mg PO .morning Qty: 180 2RF Rx Instructions: Take two capsules every morning primidone 50 mg tablet 100 mg PO BID Qty: 270 3RF Rx Instructions: Take 1 in the morning and 2 at night propranolol 60 mg capsule,extended release 24 hr 60 mg PO DAILY Qty: 90 3RF famotidine 40 mg tablet 40 mg PO DAILY Discharge Orders: Discharge ED (Routine); Ordered 02/09/25 Ordered By: Yaya Cantrell Referrals: Sandra Mccrary MANAGER PROCESS EXCELLENCE [Primary Care Provider, Nurse Practitioner] Patient Instructions: Opioid Safety, Pain Management, Patient Portal & Eddi Instructions Activity Restrictions/Additional Instructions: Thank you for choosing [facility] for your healthcare needs today. It is very important that you follow up as instructed or that you return to the Emergency Department should you have concerns or if your condition changes or worsens in any way. You are seen in the emergency room for low potassium. You are given oral potassium supplement. You are discharged from the emergency room back to surgery they will recheck your potassium level prior to proceeding to surgery. Your magnesium was checked in the emergency room and was normal Print Language: Estonian Coding Level of Care Code ED Copy Lathe Tender for Dolores Lawrence
--- OUTSIDE RECORDS SUMMARY | 2025-02-09 12:07 | XMS_ITS | Encounter Summary ---
Author Organization [facility] Address [address] [place] [address] Care Team Providers Care Director Ambulatory Name Role Phone Laila Underwood Primary Care Provider [phone] Reason for Referral * Outpatient Services (Routine) - Closed Specialty Diagnoses / Procedures Referred By Denisa white Referred To Contact Radiology Diagnoses Visit for screening mammogram Procedures MAMMO DIGITAL SCREEN BILAT [place] Bonilla FNP [address] [place] [address] Phone: tel: fax: [facility] [address] [facility] [address] [place] [address] Phone: tel: fax: Referral ID Status Reason Start Date Expiration Date Visits Re quested Visits Authorized [id number] Closed 07/26/2012 08/26/2013 1 1 ETICIAN/SPA COORDINATOR Encounter Details Date Type Department Care Team (Latest Contact Info) Description 07/26/[address] [facility] [address] [facility] [address] [place] [id number] [place] Bonilla FNP [address] [place] [address] Visit for screening mammogram Social History Tobacco Use Types Packs/Day Years Used Date Smoking Tobacco: Former Cigarettes 0.3 2 0 02/23/1998 - 02/24/2000 Alcohol Use Standard Drinks/Week Comments No 0 (1 standard drink = 0.6 oz pur e alcohol) Comments No Sex and Gender Information Value Date Recorded Sex Assigned at Not on file Legal Sex Female 4:23 AM ESTHETICIAN/SPA COORDINATOR Gender Identity Not on file Sexual Orientation Not on file Occupation Industry Job Start Date Job End Date Not on file Not on file Not on file Not on file documented as of this encounter Plan of Treatment Not on file documented as of this encounter Results * MAMMO DIGITAL SCREEN BILAT (08/27/2012 2:48 PM ESTHETICIAN/SPA COORDINATOR) Anatomical Region Laterality Modality Breast Bilateral Mammography Narrative 08/30/2012 9:13 AM ESTHETICIAN/SPA COORDINATOR Bilateral Mammogram Reason for Exam: Screening [...] The breast tissue is dense. [place] [facility] MAMMO ORDERABL ES Final Result documented in this encounter Visit Diagnoses Diagnosis Visit for screening mammogram Other screening mammogram Visit for screening mammogram Other screening mammogram documented in this encounter Additional Health Concerns Infection Onset Date Last Indicated Resolved Time E-coli-ESBL (Extended Spectr um Beta Lactamase) Comment:01/11/15 Urine 01/18/2015 01/18/2015 documented as of this encounter Care Teams Director Ambulatory Relationship Specialty Start Date End Date Laila Underwood FNP PCP - General NURSE PRACTITIONER 09/27/14 documented as of this encounter
--- OUTSIDE RECORDS SUMMARY | 2025-02-09 12:07 | XMS_ITS | Encounter Summary ---
Author Organization [facility] Address [address] [place] [address] Care Team Providers Care Plate Embosser Name Role Phone Laila Underwood Primary Care Provider [phone] Encounter Details Date Type Department Care Team (Latest Contact Info) Description 08/29/2001 Outpatient Historical [facility] Medicine[address] [phone] Konstantin Calvo MD [address] [facility] [address] [place] [phone] SUPERVIS OTHER NORMAL PREG (Primary Dx) Social History Tobacco Use Types Packs/Day Years Used Date Smoking Tobacco: Never Assessed Comments Unknown Sex and Gender Information Value Date Recorded Sex Assigned at Not on file Legal Sex Female 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
--- OUTSIDE RECORDS SUMMARY | 2025-02-09 12:07 | XMS_ITS | Encounter Summary ---
Author Organization [facility] Address [address] [place] [address] Care Team Providers Care Health Science Instructor Name Role Phone Laila Underwood Primary Care Provider [phone] Encounter Details Date Type Department Care Team (Late st Contact Info) Description 07/22/2012 Ancillary Orders [facility] Centralized Scheduling [address] [facility] [address] [place] [phone] Thierno Cordoba, Jamaica Collazo, [facility] [address] [place] [address] Social History Tobacco Use Types Packs/Day Years Used Date Smoking Tobacco: Former Cigarettes 0.3 2 0 02/23/1998 - 02/24/2000 Alcohol Use Standard Drinks/Week Comments No 0 (1 standard drink = 0.6 oz pur e alcohol) Comments No Sex and Gender Information Value Date Recorded Sex Assigned at Not on file Legal Sex Female 4:23 AM GIFT PACKER Gender Identity Not on file Sexual Orientation [...] documented as of this encounter Care Teams Health Science Instructor Relationship Specialty Start Date End Date Laila Underwood FNP PCP - General NURSE PRACTITIONER 09/27/14 documented as of this encounter
--- OUTSIDE RECORDS SUMMARY | 2025-02-09 12:07 | XMS_ITS | Encounter Summary ---
Author Organization [facility] Address [address] [place] [address] Care Team Providers Care Solution Professional Name Role Phone Laila Underwood Primary Care Provider Encounter Details Date Type Department Care Team (Latest Contact Info) Description 07/12/2001 Outpatient Historical [facility] Medicine[address] [phone] Konstantin Calvo MD [address] [phone] SUPERVIS OTHER NORMAL PREG (Primary Dx) Social History Tobacco Use Types Packs/Day Years Used Date Smoking Tobacco: Never Assessed Comments Unknown Sex and Gender Information Value Date Recorded Sex Assigned at Not on file Legal Sex Female 4:23 AM SEWER PIPE LAYER HELPER Gender Identity Not on file Sexual Orientation [...] documented as of this encounter Care Teams Solution Professional Relationship Specialty Start Date End Date Laila Underwood FNP PCP - General NURSE PRACTITIONER 09/27/14 documented as of this encounter
--- OUTSIDE RECORDS SUMMARY | 2025-02-09 12:07 | XMS_ITS | Encounter Summary ---
Author Organization [facility] Address [address] [place] [address] Care Team Providers Care Marine Firer Name Role Phone Laila Underwood Primary Care Provider Encounter Details Date Type Department Care Team (Latest Contact Info) Description 09/10/2001 Outpatient Historical [facility] Medicine[address] [phone] Konstantin Calvo MD [address] [phone] POSTPART CARE AFTER DEL (Primary Dx) Social History Tobacco Use Types Packs/Day Years Used Date Smoking Tobacco: Never Assessed Comments Unknown Sex and Gender Information Value Date Recorded Sex Assigned at Not on file Legal Sex Female 4:23 AM ANIMAL CARETAKER Gender Identity Not on file Sexual Orientation [...] documented as of this encounter Care Teams Marine Firer Relationship Specialty Start Date End Date Laila Underwood FNP PCP - General NURSE PRACTITIONER 09/27/14 documented as of this encounter
--- OUTSIDE RECORDS SUMMARY | 2025-02-09 12:07 | XMS_ITS | Encounter Summary ---
Author Organization [facility] Address [address] [place] [address] Care Team Providers Care Information And Referral Director Name Role Phone Laila Underwood Primary Care Provider [phone] Encounter Details Date Type Department Care Team (Latest Contact Info) Description 06/11/2001 Outpatient Historical [facility] Medicine[address] [phone] Konstantin Calvo MD [address] [facility] [address] [place] [phone] SUPERVIS OTHER NORMAL PREG (Primary Dx) Social History Tobacco Use Types Packs/Day Years Used Date Smoking Tobacco: Never Assessed Comments Unknown Sex and Gender Information Value Date Recorded Sex Assigned at Not on file Legal Sex Female 4:23 AM RIBBON INKER Gender Identity Not on file Sexual Orientation [...] documented as of this encounter Care Teams Information And Referral Director Relationship Specialty Start Date End Date Laila Underwood FNP PCP - General NURSE PRACTITIONER 09/27/14 documented as of this encounter
--- OUTSIDE RECORDS SUMMARY | 2025-02-09 12:07 | XMS_ITS | Encounter Summary ---
Author Organization [facility] Address [address] [facility] Attn: Epic Prelude ADT [place] [address] Care Team Providers Care Surgical Instruments Inspector Name Role Phone Laila Underwood Primary Care Provider [phone] Encounter Details Date Type Department Care Team (Late st Contact Info) Description 08/09/2001 Outpatient Historical Konstantin Calvo MD [address] [facility] [address] [place] [address] Social History Tobacco Use Types Packs/Day Years Used Date Smoking Tobacco: Never Assessed Comments Unknown Sex and Gender Information Value Date Recorded Sex Assigned at Not on file Legal Sex Female 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 MACHINE SETTER Gender Identity Not on file Sexual Orientation Not on file documented as of this encounter Plan of Treatment Not on file documented as of this encounter Visit Diagnoses Not on filedocumented in this encounter Additional Health Concerns Infection Onset Date Last Indicated Resolved Time E-coli-ESBL (Extended Spectr um Beta Lactamase) Comment:01/11/15 Urine 01/18/2015 01/18/2015 documented as of this encounter Care Teams Surgical Instruments Inspector Relationship Specialty Start Date End Date Laila Underwood FNP PCP - General NURSE PRACTITIONER 09/27/14 documented as of this encounter
--- OUTSIDE RECORDS SUMMARY | 2025-02-09 12:07 | XMS_ITS | Clinical Summary ---
Author Organization [facility] Address [address] [place] [address] Care Team Providers Care Farm Machinery Set Up Mechanic Name Role Phone Luiz Patrick DO Primary Care Provider [phone] Allergies Active Allergy Reactions Criticality Noted Date Comments Gabapentin 04/14/2016 Other reaction(s): Other (See Comments), Other (See Comments) Hair loss Hair loss Morphine Itching Low 09/20/2012 Penicillins Hives High 10/22/2011 Prochlorperazine 01/13/2015 Other reaction(s): Other (See Comments), Other (See Comments) Causes restless leg syndrome symptoms. Causes restless leg syndrome symptoms. Medications albuterol HFA (PROVENTIL HFA;VENTOLIN HFA) 108 (90 Base) MCG/ACT inhaler Inhale 2 puffs every 6 (six) hours if needed for wheezing Active atorvastatin (LIPITOR) 40 MG tablet Take 40 mg by mouth 1 (one) time each day Active azelastine (ASTELIN) 0.1 % nasal spray Administer 1 spray into each nostril 2 (two) times a day Use in each nostril as directed Active buPROPion XL (WELLBUTRIN XL) 300 MG 24 hr tablet Take 300 mg by mouth 1 (one) time each day Do not crush, chew, or split. Active CALCIUM PO Take 1 tablet by mouth 1 (one) time each day Active DULoxetine (CYMBALTA) [address] capsule Take 120 mg by mouth 1 (one) time each day Do not crush or chew. Active EPINEPHrine (EPIPEN IJ) Inject as directed Active ferrous sulfate 325 (65 Fe) MG tablet Take 325 mg by mouth 1 (one) time each day with breakfast Active levocetirizine (Xyzal Allergy 24HR) 5 MG tablet Take 5 mg by mouth 1 (one) time each day in the evening Active losartan (COZAAR) 50 MG tablet Take 25 mg by mouth 1 (one) time each day Active metFORMIN (GLUCOPHAGE) 500 MG tablet Take 500 mg by mouth in the morning and 500 mg in the evening. Take with meals. Active Multiple Vitamin (multivitamin) tablet Take 1 tablet by mouth 1 (one) time each day Active naproxen (NAPROSYN) 500 MG tablet Take 500 mg by mouth in the morning and 500 mg in the evening. Take with meals. Active pregabalin (LYRICA) 150 MG capsule Take 150 mg by mouth in the morning and 150 mg in the evening. Active primidone (MYSOLINE) 50 MG tablet Take 100 mg by mouth in the morning and 100 mg in the evening. 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 Immunizations Immunization Administration Dates Next Due Influenza, Unspecified 06/25/2011,06/27/2001 Pneumococcal Polysaccharide 10/25/2011 Td 12/08/2003 Tdap 06/06/2020,09/28/2014 Family History Medical History Relation Comments Hypertension Brother Diabetes Father Heart disease Father Cancer Father's Sister Diabetes Father's Sister Stroke Father's Sister Cancer Maternal Grandfather Stroke Maternal Grandmother Cancer Mother Diabetes Mother Heart disease Mother Hypertension Mother Diabetes Mother's Brother Diabetes Mother's Sister Stroke Mother's Sister Relation Status Comments Brother Father Father's Sister Maternal Grandfather Maternal Grandmother Mother Mother's Brother Mother's Sister Social History Tobacco Use Types Packs/Day Years Used Date Smoking Tobacco: Former Cigarettes Smokeless Tobacco: Never Tobacco Cessation:Counseling Given: Not Answered Alcohol Use Standard Drinks/Week Comments Never 0 (1 standard drink = 0.6 oz pur e alcohol) Comments Unknown Sex and Gender Information Value Date Recorded Sex Assigned at Not on file Legal Sex Female 12:46 PM EDT Gender Identity Not on file Sexual Orientation Not on file Plan of Treatment Health Maintenance Due Date Last Done Comments Breast Cancer Screening 1970 Hepatitis B Vaccine (1 of 3 - 19+ 3-dose series) 1989 Colorectal Cancer Screening: Annual FOBT 2019 Colorectal Cancer Screening: Colonoscopy 2019 Colorectal Cancer Screening: Sigmoidoscopy 2019 Pneumococcal Vaccine: 50+ Ye ars (2 of 2 - PCV) 2020 10/25/2011 Diabetes: Hemoglobin A1C 11/01/2021 Diabetes: Ophthalmology Exam 11/01/2021 Diabetes: Pedal Pulse Checked 11/01/2021 Diabetes: Sensory Foot Exam 11/01/2021 Diabetes: Visual Foot Exam 11/01/2021 Influenza Vaccine (#1) 2025 06/25/2011, 2001 Pneumococcal Vaccine: Peds ( 0 to 5 Years) and At-Risk Patients (6 to 49 Years) Discontinued 10/25/2011 Insurance [id number] [place] [address] [place] MCR Adv ([id number]) Care Teams Farm Machinery Set Up Mechanic Relationship Specialty [place] [address] [facility], [place] [address] PCP - General Family Medicine 10/17/21
--- OUTSIDE RECORDS SUMMARY | 2025-02-09 12:07 | XMS_ITS | Encounter Summary ---
Author Organization [facility] Address [address] [place] [address] Care Team Providers Care Drum Sealer Name Role Phone Laila Underwood Primary Care Provider Encounter Details Date Type Department Care Team (Latest Contact Info) Description 04/03/2001 Outpatient Historical [facility] Medicine[address] [phone] Konstantin Calvo MD [address] [phone] Supervision of other normal (Primary Dx) Social History Tobacco Use Types Packs/Day Years Used Date Smoking Tobacco: Never Assessed Comments Unknown Sex and Gender Information Value Date Recorded Sex Assigned at Not on file Legal Sex Female 4:23 AM CARPET MECHANIC Gender Identity Not on file Sexual [...] documented as of this encounter Care Teams Drum Sealer Relationship Specialty Start Date End Date Laila Underwood FNP PCP - General NURSE PRACTITIONER 09/27/14 documented as of this encounter
--- OUTSIDE RECORDS SUMMARY | 2025-02-09 12:07 | XMS_ITS | Encounter Summary ---
Author Organization [facility] Address [address] [place] [address] Care Team Providers Care Customer Service Consultant Name Role Phone Laila Underwood Primary Care Provider [phone] Encounter Details Date Type Department Care Team (Latest Contact Info) Description 06/27/2001 Outpatient Historical [facility] Medicine[address] [phone] Konstantin Calvo MD [address] [phone] SUPERVIS OTHER NORMAL PREG (Primary Dx); VACCINE FOR INFLUENZA Social History Tobacco Use Types Packs/Day Years Used Date Smoking Tobacco: Never Assessed Comments Unknown Sex and Gender Information Value Date Recorded Sex Assigned at Not on file Legal Sex Female 4:23 AM INSIDE SALES DIRECTOR Gender Identity Not on file Sexual Orientation [...] documented as of this encounter Care Teams Customer Service Consultant Relationship Specialty Start Date End Date Laila Underwood FNP PCP - General NURSE PRACTITIONER 09/27/14 documented as of this encounter
--- OUTSIDE RECORDS SUMMARY | 2025-02-09 12:07 | XMS_ITS | Encounter Summary ---
Author Organization [facility] Address [address] [place] [address] Care Team Providers Care Fruit Or Nut Grower Name Role Phone Laila Underwood Primary Care Provider Encounter Details Date Type Department Care Team (Latest Contact Info) Description 08/11/2002 Outpatient Historical [facility] Medicine [place] [address] [facility] [address] [place] [phone] Leny Daniels MD ESOPHAGEAL REFLUX (Primary Dx) Social History Tobacco Use Types Packs/Day Years Used Date Smoking Tobacco: Never Assessed Comments Unknown Sex and Gender Information Value Date Recorded Sex Assigned at Not on file Legal Sex Female 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 Gender Identity Not on file Sexual Orientation Not on file documented as of this encounter Plan of Treatment Not on file documented as of this encounter Visit Diagnoses Diagnosis Esophageal reflux- Primary documented in this encounter Additional Health Concerns Infection Onset Date Last Indicated Resolved Time E-coli-ESBL (Extended Spectr um Beta Lactamase) Comment:01/11/15 Urine 01/18/2015 01/18/2015 documented as of this encounter Care Teams Fruit Or Nut Grower Relationship Specialty Start Date End Date Laila Underwood FNP PCP - General NURSE PRACTITIONER 09/27/14 documented as of this encounter
--- OUTSIDE RECORDS SUMMARY | 2025-02-09 12:07 | XMS_ITS | Encounter Summary ---
Author Organization [facility] Address [address] [place] [address] Care Team Providers Care Electrophysiology Technologist Name Role Phone Laila Underwood [facility] Primary Care Provider [phone] Encounter Details Date Type Department Care Team (Late st Contact Info) Description 04/10/2012 Ancillary Orders [employer] [facility] [address] [place] [phone] Thierno Cordoba, [place] Collazo, [facility] [address] [place] [address] Low back pain Social History Tobacco Use Types Packs/Day Years Used Date Smoking Tobacco: Former Cigarettes 0.3 2 0 02/23/1998 - 02/24/2000 Alcohol Use Standard Drinks/Week Comments No 0 (1 standard drink = 0.6 oz pur e alcohol) Comments No Sex and Gender Information Value Date Recorded Sex Assigned at Not on file Legal Sex Female 4:23 AM AWNING HANGER Gender Identity Not on file Sexual [...] 2. no acute changes seen [place] INDEPENDENT CONSULTANT DIAGNOSTIC JONO GING ORDERABLES Final Result documented in this encounter Visit Diagnoses Diagnosis Low back pain Lumbago Low back pain Lumbago documented in this encounter Additional Health Concerns Infection Onset Date Last Indicated Resolved Time E-coli-ESBL (Extended Spectr um Beta Lactamase) Comment:01/11/15 Urine 01/18/2015 01/18/2015 documented as of this encounter Care Teams Electrophysiology Technologist Relationship Specialty Start Date End Date Laila Underwood FNP PCP - General NURSE PRACTITIONER 09/27/14 documented as of this encounter
--- OUTSIDE RECORDS SUMMARY | 2025-02-09 12:07 | XMS_ITS | Encounter Summary ---
Author Organization [facility] Address [address] [place] [address] Care Team Providers Care Psychiatric Technician Assistant Name Role Phone Laila Underwood Primary Care Provider Encounter Details Date Type Department Care Team (Latest Contact Info) Description 08/09/2001 Outpatient Historical [facility] Medicine[address] [phone] Konstantin Calvo MD [address] [facility] [address] [place] [phone] SUPERVIS OTHER NORMAL PREG (Primary Dx) Social History Tobacco Use Types Packs/Day Years Used Date Smoking Tobacco: Never Assessed Comments Unknown Sex and Gender Information Value Date Recorded Sex Assigned at Not on file Legal Sex Female 4:23 AM MASSAGE THERAPIST Gender Identity Not on file Sexual Orientation [...] documented as of this encounter Care Teams Psychiatric Technician Assistant Relationship Specialty Start Date End Date Laila Underwood FNP PCP - General NURSE PRACTITIONER 09/27/14 documented as of this encounter
--- OUTSIDE RECORDS SUMMARY | 2025-02-09 12:07 | XMS_ITS | Encounter Summary ---
Author Organization [facility] Address [address] [place] [address] Care Team Providers Care Orchestra Musician Name Role Phone Laila Underwood Primary Care Provider [phone] Encounter Details Date Type Department Care Team (Latest Contact Info) Description 05/09/2001 Outpatient Historical [facility] Medicine[address] [phone] Konstantin Calvo MD [address] [facility] [address] [place] [phone] SUPERVIS OTHER NORMAL PREG (Primary Dx) Social History Tobacco Use Types Packs/Day Years Used Date Smoking Tobacco: Never Assessed Comments Unknown Sex and Gender Information Value Date Recorded Sex Assigned at Not on file Legal Sex Female 4: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
--- OUTSIDE RECORDS SUMMARY | 2025-02-09 12:07 | XMS_ITS | Encounter Summary ---
Author Organization [facility] Address [address] [place] [address] Care Team Providers Care Churn Operator Name Role Phone Laila Underwood Primary Care Provider [phone] Encounter Details Date Type Department Care Team (Late st Contact Info) Description 09/08/2002 Outpatient Historical [facility] [address] [place] [phone] Social History Tobacco Use Types Packs/Day Years Used Date Smoking Tobacco: Never Assessed Comments Unknown Sex and Gender Information Value Date Recorded Sex Assigned at Not on file Legal Sex Female 4:23 AM REGIONAL SERVICE MANAGER Gender Identity Not on file Sexual Orientation Not on file documented as of this encounter Plan of Treatment Not on file documented as of this encounter Visit Diagnoses Not on filedocumented in this encounter Additional Health Concerns Infection Onset Date Last Indicated Resolved Time E-coli-ESBL (Extended Spectr um Beta Lactamase) Comment:01/11/15 Urine 01/18/2015 01/18/2015 documented as of this encounter Care Teams Churn Operator Relationship Specialty Start Date End Date Laila Underwood FNP PCP - General NURSE PRACTITIONER 09/27/14 documented as of this encounter
--- OUTSIDE RECORDS SUMMARY | 2025-02-09 12:07 | XMS_ITS | Clinical Summary ---
Author Organization [facility] Address [address] [place] [address] Care Team Providers Care Canal Superintendent Name Role Phone System, Provider Not In MD Primary Care Provider Unavailable Social History Tobacco Use Types Packs/Day Years Used Date Smoking Tobacco: Never Assessed Comments Unknown Sex and Gender Information Value Date Recorded Sex Assigned at Not on file Legal Sex Female 8:35 PM CDT Gender Identity Not on file Sexual Orientation Not on file Plan of Treatment Not on file Care Teams Canal Superintendent Relationship Specialty Start Date End Date System, Provider Not In, [address] [facility] [place] [address] PCP - General 11/12/15
--- OUTSIDE RECORDS SUMMARY | 2025-02-09 12:07 | XMS_ITS | Encounter Summary ---
Author Organization [facility] Address [address] [place] [address] [place] [address] Phone Care Team Providers Care Research Geneticist Name Role Phone Luiz Patrick DO Primary Care Provider [phone] Encounter Details Date Type Department Care Team (Late st Contact Info) Description 10/17/2021 Orders Only [facility] [address] [place] [address] [place] [address] Other disorder of phosphorus metabolism Social History Tobacco Use Types Packs/Day Years Used Date Smoking Tobacco: Never Assessed Comments Unknown Sex and Gender Information Value Date Recorded Sex Assigned at Not on file Legal Sex Female 12:46 PM EDT Gender Identity Not on file Sexual Orientation Not on file documented as of this encounter Plan of Treatment Not on file documented as of this encounter Visit Diagnoses Diagnosis Other disorder of phosphorus metabolism documented in this encounter Care Teams Research Geneticist Relationship Specialty [place] [address] [place] [address] PCP - General Family Medicine 10/17/21 documented as of this encounter
--- OUTSIDE RECORDS SUMMARY | 2025-02-09 12:07 | XMS_ITS | Encounter Summary ---
Author Organization [facility] Address [address] [place] [address] Care Team Providers Care Geriatric Personal Care Aide Name Role Phone Laila Underwood [place] Primary Care Provider [phone] Encounter Details Date Type Department Care Team (Late st Contact Info) Description 06/08/2020 Ancillary Orders [facility] Scan [place] [address] [place] [phone] Aly Carter MD [address] [place] [address] [address] [place] [address] Social History Tobacco Use Types Packs/Day Years Used Date Smoking Tobacco: Former Cigarettes Q uit: 02/23/1998 Smokeless Tobacco: Never Alcohol Use Standard Drinks/Week Comments No 0 (1 standard drink = 0.6 oz pur e alcohol) Comments No Sex and Gender Information Value Date Recorded Sex Assigned at Not on file Legal Sex Female 4:23 AM ETL TESTER Gender Identity Not on file Sexual Orientation Not on file Occupation Industry Job Start Date Job End Date Not on file Not on file Not on file Not on file COVID-19 Exposure Response Date Recorded In the last month, have you been in contact with someone who was confirmed or suspected to have Coronavirus / COVID-19? No / Unsure 06/07/2020 6:00 PM ETL TESTER documented as of this encounter Plan of Treatment Not on file documented as of this encounter Visit Diagnoses Not on filedocumented in this encounter Additional Health Concerns Infection Onset Date Last Indicated Resolved Time E-coli-ESBL (Extended Spectr um Beta Lactamase) Comment:01/11/15 Urine 01/18/2015 01/18/2015 documented as of this encounter Care Teams Geriatric Personal Care Aide Relationship Specialty Start Date End Date Laila Underwood FNP PCP - General NURSE PRACTITIONER 09/27/14 documented as of this encounter
--- OUTSIDE RECORDS SUMMARY | 2025-02-09 12:07 | XMS_ITS | Encounter Summary ---
Author Organization [facility] Address [address] [facility] Attn: Epic Prelude ADT [place] [address] Care Team Providers Care Manager Economic Name Role Phone Laila Underwood Primary Care Provider [phone] Encounter Details Date Type Department Care Team (Late st Contact Info) Description 11/07/2001 Outpatient Historical Konstantin Calvo MD [address] [facility] [address] [place] [address] Social History Tobacco Use Types Packs/Day Years Used Date Smoking Tobacco: Never Assessed Comments Unknown Sex and Gender Information Value Date Recorded Sex Assigned at Not on file Legal Sex Female 4:23 AM SOCIAL MEDIA SPECIALIST Gender Identity Not on file Sexual Orientation Not on file documented as of this encounter Plan of Treatment Not on file documented as of this encounter Visit Diagnoses Not on filedocumented in this encounter Additional Health Concerns Infection Onset Date Last Indicated Resolved Time E-coli-ESBL (Extended Spectr um Beta Lactamase) Comment:01/11/15 Urine 01/18/2015 01/18/2015 documented as of this encounter Care Teams Manager Economic Relationship Specialty Start Date End Date Laila Underwood FNP PCP - General NURSE PRACTITIONER 09/27/14 documented as of this encounter
--- OUTSIDE RECORDS SUMMARY | 2025-02-09 12:07 | XMS_ITS | Encounter Summary ---
Author Organization [facility] Address [address] [place] [address] Care Team Providers Care Family Practice Nurse Practitioner Name Role Phone Laila Underwood Primary Care Provider [phone] Encounter Details Date Type Department Care Team (Latest Contact Info) Description 11/19/2001 Outpatient Historical [facility] Medicine [place] [address] [facility] 60 [place] [phone] Leny Daniels MD ESOPHAGEAL REFLUX (Primary Dx) Social History Tobacco Use Types Packs/Day Years Used Date Smoking Tobacco: Never Assessed Comments Unknown Sex and Gender Information Value Date Recorded Sex Assigned at Not on file Legal Sex Female 4:23 AM FILING MACHINE OPERATOR Gender Identity Not on file Sexual [...] documented as of this encounter Care Teams Family Practice Nurse Practitioner Relationship Specialty Start Date End Date Laila Underwood FNP PCP - General NURSE PRACTITIONER 09/27/14 documented as of this encounter
--- OUTSIDE RECORDS SUMMARY | 2025-02-09 12:07 | XMS_ITS | Encounter Summary ---
Author Organization [facility] Address [address] [place] [address] Care Team Providers Care Infusion Rn Name Role Phone Laila Underwood Primary Care Provider Encounter Details Date Type Department Care Team (Latest Contact Info) Description 11/05/2001 Outpatient Historical [facility] Medicine[address] [phone] Konstantin Calvo MD [address] [phone] ROUT POSTPART FOLLOW-UP (Primary Dx) Social History Tobacco Use Types Packs/Day Years Used Date Smoking Tobacco: Never Assessed Comments Unknown Sex and Gender Information Value Date Recorded Sex Assigned at Not on file Legal Sex Female 4:23 AM VETERINARY PRACTITIONER Gender Identity Not on file Sexual Orientation Not on file documented as of this encounter Plan of Treatment Not on file documented as of this encounter Visit Diagnoses Diagnosis Routine follow-up- Primary documented in this encounter Additional Health Concerns Infection Onset Date Last Indicated Resolved Time E-coli-ESBL (Extended Spectr um Beta Lactamase) Comment:01/11/15 Urine 01/18/2015 01/18/2015 documented as of this encounter Care Teams Infusion Rn Relationship Specialty Start Date End Date Laila Underwood FNP PCP - General NURSE PRACTITIONER 09/27/14 documented as of this encounter
--- OUTSIDE RECORDS SUMMARY | 2025-02-09 12:07 | XMS_ITS | Clinical Summary ---
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 naproxen (NAPROSYN) 500 mg tablet Take [...] on file Legal Sex Female 4:23 AM CLERK TO JUSTICE Gender Identity Not on file Sexual Orientation Not on file Occupation Industry Job Start Date Job End Date Not on file Not on file Not on file Not on file Last Filed Vital Signs Vital Sign Reading Time Taken Comments Blood Pressure 126/72 06/07/2020 8:56 PM CLERK TO JUSTICE Pulse 72 12/05/2018 5:41 PM CDT Temperature 36.5 C (97.7 F) 06/07/2020 6:05 PM CLERK TO JUSTICE Respiratory Rate 18 06/07/2020 8:56 PM CLERK TO JUSTICE Oxygen Saturation 98% 06/07/2020 8:56 PM CLERK TO JUSTICE Inhaled Oxygen Concentration - - Weight 83 kg (183 lb) 06/07/2020 6:05 PM CLERK TO JUSTICE Height 167.6 cm (5' 6 ) 06/07/2020 6:05 PM CLERK TO JUSTICE Body Mass Index 29.54 06/07/2020 6:05 PM CLERK TO JUSTICE Plan of Treatment Health Maintenance Due Date Last Done Comments DIABETES ANNUAL FOOT EXAM 1988 DIABETES ANNUAL RETINAL EXAM 1988 DIABETES MICROALBUMIN ANNUAL SCREEN 1988 LDL CHOLESTEROL ANNUAL 1988 HEPATITIS B VACCINES (1 of 3 - 19+ 3-dose series) 1989 HPV/Cotest (21-29) 1991 CERVICAL CANCER SCREENING 2000 HPV/Cotest (30-65) 2000 PAP SMEAR 2000 BREAST CANCER SCREENING 08/27/2013 08/27/2012 COLORECTAL SCREENING 2015 Colorectal Cancer Screening 2015 FIT-DNA Q 3 years 2015 FIT/FOBT Q 1 year 2015 Flex Sig/CT Colonography Q 5 years 2015 DIABETES HBA1C Q 6 MONTHS 07/14/2015 01/11/2015, ZOSTER VACCINE (1 of 2) 2020 INFLUENZA VACCINE (#1) 2025 06/25/2011, 2001 DTAP/TDAP/TD VACCINES (3 - T d or Tdap) 06/06/2030 06/06/2020, 09/28/2014, 12/08/2003 Procedures Procedure Name Priority Date/Time Associated Diagnosis Comments HEMOGLOBIN A1C Add on 01/11/2015 9:38 PM CDT MAMMO SCREEN BILAT W OR WO CAD Routine 08/27/2012 2:48 PM CLERK TO JUSTICE Visit for screening mammogram from Last 3 Months or Most Recently Relevant to Health Maintenance Results * (ABNORMAL) HEMOGLOBIN A1C (01/11/2015 9:38 PM CDT) HEMOGLOBIN A1C 9.1(H) 4.5 - 6.2 % 01/12/2015 12:[address] [facility] [employer] [facility] EST. AVG GLUCOSE, A1C 214 mg/dL 01/12/2015 12:[address] [facility] [employer] [facility] Blood Venipuncture - L ab Collect / Unknown 01/11/2015 9:38 PM CDT 01/11/2015 9:38 PM CDT Lorna Christian MD CHEMISTRY ORDERABLES F inal Result [facility] CLIA # [id number] [address] [place] [id number] * MAMMO DIGITAL SCREEN BILAT (08/27/2012 2:48 PM CLERK TO JUSTICE) Anatomical Region Laterality Modality Breast Bilateral Mammography Narrative 08/30/2012 9:13 AM CLERK TO JUSTICE Bilateral Mammogram Reason for Exam: Screening Comparison: [...] computer-aided detectionsystem(CAD). The breast tissue is dense. us [place] HOSPITALITY TEAM MEMBER MAMMO ORDERABL ES Final Result from Last 3 Months or Most Recently Relevant to Health Maintenance Additional Health Concerns Infection Onset Date Last Indicated E-coli-ESBL (Extended Spectr um Beta Lactamase) Comment:01/11/15 Urine 01/18/2015 01/18/2015 Insurance DUAL COMPLETE [facility] PPO D-SNP DUAL COMPLETE [facility] PPO D-SNP HCR [address] [place] [address] Advance Directives For more information, please contact: [phone] * Full Code (Latest Code Status on File) Date Activated Date Inactivated Comments 01/25/2015 9:38 PM 01/29/2015 6:47 PM * Full Code Date Activated Date Inactivated Comments 01/14/2015 11:54 AM 01/25/2015 9:38 PM * Full Code Date Activated Date Inactivated Comments 01/11/2015 11:39 PM 01/14/2015 11:54 AM * Full Code Date Activated Date Inactivated Comments 11/19/2011 8:15 AM 11/23/2011 6:53 PM Care Teams Alemite Operator Relationship Specialty Start Date End Date Laila Underwood FNP PCP - General NURSE PRACTITIONER 09/27/14
--- OUTSIDE RECORDS SUMMARY | 2025-02-09 12:07 | XMS_ITS | Encounter Summary ---
Author Organization [facility] Address [address] [place] [address] Care Team Providers Care Subassemblies Wirer Name Role Phone Laila Underwood Primary Care Provider [phone] Encounter Details Date Type Department Care Team (Latest Contact Info) Description 08/02/2001 Outpatient Historical [facility] Medicine[address] [phone] Konstantin Calvo MD [address] [facility] [address] [place] [phone] SUPERVIS OTHER NORMAL PREG (Primary Dx) Social History Tobacco Use Types Packs/Day Years Used Date Smoking Tobacco: Never Assessed Comments Unknown Sex and Gender Information Value Date Recorded Sex Assigned at Not on file Legal Sex Female 4:23 AM 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
--- OUTSIDE RECORDS SUMMARY | 2025-02-09 12:07 | XMS_ITS | Encounter Summary ---
Author Organization [facility] Address [address] [place] [address] Care Team Providers Care Motorboat Mechanic Name Role Phone Laila Underwood Primary Care Provider Encounter Details Date Type Department Care Team (Latest Contact Info) Description 03/13/[address] [facility] [address] [phone] Konstantin Calvo MD [address] [phone] Supervision of other normal (Primary Dx) Social History Tobacco Use Types Packs/Day Years Used Date Smoking Tobacco: Never Assessed Comments Unknown Sex and Gender Information Value Date Recorded Sex Assigned at Not on file Legal Sex Female 4:23 AM TELEVISION PRODUCER Gender Identity Not on file Sexual Orientation [...] documented as of this encounter Care Teams Motorboat Mechanic Relationship Specialty Start Date End Date Laila Underwood FNP PCP - General NURSE PRACTITIONER 09/27/14 documented as of this encounter
--- OUTSIDE RECORDS SUMMARY | 2025-02-09 12:07 | XMS_ITS | Encounter Summary ---
Author Organization [facility] Address [address] [place] [address] Care Team Providers Care Riveter Automobile Brakes Name Role Phone Laila Underwood Primary Care Provider [phone] Encounter Details Date Type Department Care Team (Latest Contact Info) Description 08/14/2002 Outpatient Historical [facility] Medicine [place] 104 [facility] [address] [place] [phone] Leny Daniels MD ESOPHAGEAL REFLUX (Primary Dx) Social History Tobacco Use Types Packs/Day Years Used Date Smoking Tobacco: Never Assessed Comments Unknown Sex and Gender Information Value Date Recorded Sex Assigned at Not on file Legal Sex Female 4:23 AM 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 PROFESSOR Gender Identity Not on file Sexual Orientation Not on file documented as of this encounter Plan of Treatment Not on file documented as of this encounter Visit Diagnoses Diagnosis Esophageal reflux- Primary documented in this encounter Additional Health Concerns Infection Onset Date Last Indicated Resolved Time E-coli-ESBL (Extended Spectr um Beta Lactamase) Comment:01/11/15 Urine 01/18/2015 01/18/2015 documented as of this encounter Care Teams Riveter Automobile Brakes Relationship Specialty Start Date End Date Laila Underwood FNP PCP - General NURSE PRACTITIONER 09/27/14 documented as of this encounter
--- OUTSIDE RECORDS SUMMARY | 2025-02-09 12:07 | XMS_ITS | Encounter Summary ---
Author Organization [facility] Address [address] [place] [address] Care Team Providers Care Inker Machine Name Role Phone Laila Underwood Primary Care Provider Encounter Details Date Type Department Care Team (Latest Contact Info) Description 07/26/2001 Outpatient Historical [facility] Medicine[address] [phone] Konstantin Calvo MD [address] [facility] [address] [place] [phone] SUPERVIS OTHER NORMAL PREG (Primary Dx) Social History Tobacco Use Types Packs/Day Years Used Date Smoking Tobacco: Never Assessed Comments Unknown Sex and Gender Information Value Date Recorded Sex Assigned at Not on file Legal Sex Female 4:23 AM OIL EXPELLER OPERATOR Gender Identity Not on file Sexual [...] documented as of this encounter Care Teams Inker Machine Relationship Specialty Start Date End Date Laila Underwood FNP PCP - General NURSE PRACTITIONER 09/27/14 documented as of this encounter
--- OUTSIDE RECORDS SUMMARY | 2025-02-09 12:07 | XMS_ITS | Clinical Summary ---
Author Organization [facility] Address [address] [facility] [place] [address] Phone Care Team Providers Care Commissions Analyst Name Role Phone Sandra Mccrary [facility] Primary Care Provider [phone] Allergies Active Allergy Reactions Criticality Noted Date Comments Gabapentin Other 04/14/2016 Hair Loss Morphine Itching Low 09/20/2012 Penicillins Hives,Rash High 05/26/2011 Medications atorvastatin (Lipitor) 40 mg tablet Take 40 mg by mouth 1 (one) time each day. Active Lumigan 0.01 % ophthalmic solution 07/15/2024 Active buPROPion XL (Wellbutrin XL) 300 mg 24 hr tablet Take 300 mg by mouth. 02/01/2015 Active DULoxetine (Cymbalta) [address] capsule Take 60 mg by mouth 1 (one) time each day. 01/25/2015 Active ergocalciferol (Vitamin D-2) 1,250 mcg (50,000 unit) capsule Take 50,000 Units by mouth every 14 (fourteen) days. Active famotidine (Pepcid) 40 mg tablet Take 40 mg by mouth every 12 (twelve) hours. 04/21/2024 Active levocetirizine (Xyzal) 5 mg tablet Take 5 mg by mouth. 07/19/2024 Active metFORMIN (Glucophage) 500 mg tablet Take 500 mg by mouth 2 (two) times a day with meals. Active potassium chloride CR (Klor-Con) 10 mEq ER tablet Take by mouth 1 (one) time each day. 03/28/2023 Active pregabalin (Lyrica) 150 mg capsule Take 150 mg by mouth 2 (two) times a day. Active primidone (Mysoline) 50 mg tablet Take 100 mg by mouth every 12 (twelve) hours. 08/09/2017 Active propranolol LA (Inderal LA) 60 mg 24 hr capsule Take 60 mg by mouth 1 (one) time each day. 08/12/2024 Active rOPINIRole (Requip) 5 mg tablet Take 5 mg by mouth every night. 07/19/2024 Active tiZANidine (Zanaflex) 4 mg tablet Take 4 mg by mouth every 6 (six) hours if needed. Active estradioL (Estrace) 0.01 % (0.1 mg/gram) vaginal creamIndication s:Recurrent UTI,Genitourina ry syndrome of menopause Apply nightly for 3 weeks, then 3 times per week. 42.5 g 5 08/15/2024 Active Active Problems Problem Noted Date Diagnosed Date Depression with anxiety 01/26/2015 Hyperglycemia 01/11/2015 HTN (hypertension) 10/22/2011 Hypokalemia 10/22/2011 Encounters Date Type Department Care Team Description 12/03/2024 Telephone [facility] [address] [place] [address] Kike Dumont MD UTI from Last 3 Months Family History Relation Status Comments Father Mother Social History Tobacco Use Types Packs/Day Years Used Date Smoking Tobacco: Former Cigarettes Smokeless Tobacco: Never Tobacco Cessation:Counseling Given: Not Answered Alcohol Use Standard Drinks/Week Comments Not Currently 0 (1 standard drink = 0.6 oz pur e alcohol) AUDIT-C Answer Date Recorded Q1: How often do you have a drink containing alcohol? Never 08/15/2024 Q2: How many drinks containi ng alcohol do you have on a typical day when you are drinking? Patient does not drink Q3: How often do you have si x or more drinks on one occasion? Never 08/15/2024 PHQ-2 Answer Date Recorded Patient Health Questionnaire-2 Score 0 08/15/2024 [facility] - Mental Health Answer Date Recorde d Little interest or pleasure in doing things Not at all 08/15/2024 Feeling down, depressed, or hopeless Not at all 08/15/2024 Feeling of Stress Not on file 08/15/2024 Comments No Sex and Gender Information Value Date Recorded Sex Assigned at Not on file Legal Sex Female 11:19 AM CDT Gender Identity Not on file Sexual Orientation Not on file Last Filed Vital Signs Vital Sign Reading Time Taken Comments Blood Pressure 104/71 08/15/2024 1:34 PM LIQUOR TESTER Pulse 60 08/15/2024 1:34 PM LIQUOR TESTER Temperature 36.5 C (97.7 F) 08/15/2024 1:34 PM LIQUOR TESTER Respiratory Rate 18 08/15/2024 1:34 PM LIQUOR TESTER Oxygen Saturation 100% 08/15/2024 1:34 PM LIQUOR TESTER Inhaled Oxygen Concentration - - Weight 57.2 kg (126 lb) 08/15/2024 1:34 PM LIQUOR TESTER Height 165.1 cm (5' 5 ) 08/15/2024 1:34 PM LIQUOR TESTER Body Mass Index 20.97 08/15/2024 1:34 PM LIQUOR TESTER Plan of Treatment Upcoming Encounters Date Type Department Care Team (Late st Contact Info) Description 02/12/2025 2:15 PM CDT Office Visit [facility] [address] [id number] Kike Dumont MD [address] [id number] Health Maintenance Due Date Last Done Comments CT Colonography 1970 Creatinine Level 1970 Diabetes: Hemoglobin A1C 1970 FIT-DNA 1970 FIT 1970 FOBT 1970 Potassium Level 1970 Sigmoidoscopy 1970 MMR Vaccines (1 of 1 - Standard series) 1971 Diabetes: Foot Exam 1980 Diabetes: Retinopathy Screening 1980 Varicella Vaccines (1 of 2 - 13+ 2-dose series) 1983 Social Drivers of Health (SDoH) 1988 Hepatitis B Vaccines (1 of 3 - 19+ 3-dose series) 1989 Pap Smear 1991 Cervical Cancer Screening 2000 HPV/Cotest 2000 Mammogram 08/27/2013 08/27/2012, 08/27/2012 Zoster Vaccines (1 of 2) 2020 COVID-19 Vaccine (1 - season) 2024 Influenza Vaccine (#1) 2025 2, 04/14/2021, 05/25/2020, Additional history exists Depression Screening 08/16/2025 08/15/2024 DTaP,Tdap,and Td Vaccines (5 - Td or Tdap) 06/06/2030 06/06/2020, 08/07/2016, 09/28/2014, Additional history exists Colonoscopy 05/07/2033 05/07/2023 Colorectal Cancer Screening 05/07/2033 RSV Vaccines (1 - 1-dose 75+ series) 2045 Pneumococcal Vaccine: 50+ Years Completed 04/14/2021, 08/07/2016, 12/30/2014, Additional history exists Pneumococcal Vaccine Aged Out 04/14/2021, 08/07/2016, 12/30/2014, Additional history exists No longer eligible based on patient's age [...] patient's age to complete this topic Meningococcal B Vaccine Aged Out No l onger eligible based on patient's age to complete this topic Meningococcal Vaccine Aged Out No cassie martha eligible based on patient's age to complete this topic Rotavirus Vaccines Aged Out No longer eligible based on patient's age to complete this topic Insurance [id number] [place] [address] AETNA MEDICARE ADVANTAGE Care Teams Commissions Analyst Relationship Specialty Start Date End Date Sandra Mccrary FNP- [address] [address] PCP - General 04/01/24
--- OUTSIDE RECORDS SUMMARY | 2025-02-09 12:07 | XMS_ITS | Encounter Summary ---
Author Organization [facility] Address [address] [place] [address] Care Team Providers Care Lens Marker Name Role Phone Laila Underwood Primary Care Provider [phone] Encounter Details Date Type Department Care Team (Late st Contact Info) Description 06/23/2008 Outpatient Historical [facility] [address] [place] [address] AMBULANCE, [facility], [facility] Social History Tobacco Use Types Packs/Day Years Used Date Smoking Tobacco: Never Assessed Comments Unknown Sex and Gender Information Value Date Recorded Sex Assigned at Not on file Legal Sex Female 4:23 AM CURTAIN MENDER Gender Identity Not on file Sexual Orientation Not on file documented as of this encounter Plan of Treatment Not on file documented as of this encounter Visit Diagnoses Not on filedocumented in this encounter Additional Health Concerns Infection Onset Date Last Indicated Resolved Time E-coli-ESBL (Extended Spectr um Beta Lactamase) Comment:01/11/15 Urine 01/18/2015 01/18/2015 documented as of this encounter Care Teams Lens Marker Relationship Specialty Start Date End Date Laila Underwood FNP PCP - General NURSE PRACTITIONER 09/27/14 documented as of this encounter
--- OUTSIDE RECORDS SUMMARY | 2025-02-09 12:07 | XMS_ITS | Encounter Summary ---
Author Organization [facility] Address [address] [place] [address] Care Team Providers Care Student Services Coordinator Name Role Phone Laila Underwood Primary Care Provider [phone] Encounter Details Date Type Department Care Team (Latest Contact Info) Description 08/20/2001 Outpatient Historical [facility] [address] [phone] Konstantin Calvo MD [address] [phone] SUPERVIS OTHER NORMAL PREG (Primary Dx) Social History Tobacco Use Types Packs/Day Years Used Date Smoking Tobacco: Never Assessed Comments Unknown Sex and Gender Information Value Date Recorded Sex Assigned at Not on file Legal Sex Female 4:23 AM ENGLISH DRAWER Gender Identity Not on file Sexual Orientation [...] documented as of this encounter Care Teams Student Services Coordinator Relationship Specialty Start Date End Date Laila Underwood FNP PCP - General NURSE PRACTITIONER 09/27/14 documented as of this encounter
--- OUTSIDE RECORDS SUMMARY | 2025-02-09 12:07 | XMS_ITS | Encounter Summary ---
Author Organization [facility] Address [address] [place] [address] Care Team Providers Care Monument Setter Helper Name Role Phone Laila Underwood Primary Care Provider Encounter Details Date Type Department Care Team (Latest Contact Info) Description 10/08/2001 Outpatient Historical [facility] [address] [phone] Konstantin Calvo MD [address] [phone] POSTPART CARE AFTER DEL (Primary Dx) Social History Tobacco Use Types Packs/Day Years Used Date Smoking Tobacco: Never Assessed Comments Unknown Sex and Gender Information Value Date Recorded Sex Assigned at Not on file Legal Sex Female 4:23 AM DATA SOLUTIONS ARCHITECT Gender Identity Not on file Sexual Orientation [...] documented as of this encounter Care Teams Monument Setter Helper Relationship Specialty Start Date End Date Laila Underwood FNP PCP - General NURSE PRACTITIONER 09/27/14 documented as of this encounter
--- OUTSIDE RECORDS SUMMARY | 2025-02-09 12:07 | XMS_ITS | Clinical Summary ---
Author Organization [facility] Address [address] [place]: Epic Prelude ADT [place] [address] Care Team Providers Care Production Lead Name Role Phone Laila Underwood MACHINE FEEDER RAW STOCK Primary Care Provider [phone] Allergies Active Allergy Reactions Criticality Noted Date [...] tablet Take 300 mg by mouth daily rehabilitator. 5 Active DULoxetine (CYMBALTA) 60 mg Capsule, [...] for Nausea/Emesis. 20 Tablet 08/10/2023 9:50 AM PSYCHOLOGY TECHNICIAN 4 Active naloxone (NARCAN) 4 mg/spray [place], Non-Aerosol EMERGENCY USE ONLY: Administer 1 spray [...] anemia,Hyperglyc emia,Pannus, abdominal,[place]oka lemia,Hyponatrem ia Take 1 tablet by mouth twice daily as needed 60 Tablet 11 5 Active Active Problems Problem Noted Date Diagnosed [...] Encounters Date Type Department Care Team Description 01/28/2025 External Device Data STL ABSTRACTION Provider, Abstract 12/30/2024 External Device Data STL ABSTRACTION Provider, Abstract 11/25/2024 External Device Data STL ABSTRACTION Provider, Abstract 11/18/2024 External Device Data STL ABSTRACTION Provider, Abstract 11/18/2024 External Device Data STL ABSTRACTION Provider, Abstract from Last 3 Months Immunizations Immunization Administration [...] on file Legal Sex Female 2:20 AM PSYCHOLOGY TECHNICIAN Gender Identity Not on file Sexual Orientation Not on file Last Filed Vital Signs Vital Sign Reading Time Taken Comments Blood Pressure 112/68 07/19/2024 12:00 AM PSYCHOLOGY TECHNICIAN Pulse 57 07/19/2024 12:00 AM PSYCHOLOGY TECHNICIAN Temperature 37.2 C (99 F) 07/18/2024 10:49 PM PSYCHOLOGY TECHNICIAN Respiratory Rate 16 07/19/2024 12:00 AM PSYCHOLOGY TECHNICIAN Oxygen Saturation 100% 07/19/2024 12:00 AM PSYCHOLOGY TECHNICIAN Inhaled Oxygen Concentration - - Weight 61.5 kg (135 lb 9.6 oz) 07/18/2024 10:49 PM PSYCHOLOGY TECHNICIAN Height 165.1 cm (5' 5 ) 07/18/2024 10:49 PM PSYCHOLOGY TECHNICIAN Body Mass Index 22.57 07/18/2024 10:49 PM PSYCHOLOGY TECHNICIAN Plan of Treatment Health Maintenance Due Date Last Done Comments HEPATITIS B VACCINES (1 of 3 - 19+ 3-dose series) 1989 HPV/Cotest (21-29) 1991 CERVICAL CANCER SCREENING 2000 HPV/Cotest (30-65) 2000 PAP SMEAR 2000 BREAST CANCER SCREENING 08/27/2013 08/27/2012 FIT-DNA Q 3 years 2015 FIT/FOBT Q 1 year 2015 Flex Sig/CT Colonography Q 5 years 2015 Pre-Diabetes and Diabetes Screening 01/11/2018 01/11/2015 ZOSTER VACCINE (1 of 2) 2020 INFLUENZA VACCINE (#1) 2025 4, 05/25/2020, 03/07/2019, Additional history exists COLORECTAL SCREENING 05/07/2030 05/07/2023, 05/07/20 23 Colorectal Cancer Screening 05/07/2030 DTAP/TDAP/TD VACCINES (3 - T d or Tdap) 06/06/2030 06/06/2020, 09/28/2014, 12/08/2003 Procedures Procedure Name Priority Date/Time Associated Diagnosis Comments COLONOSCOPY REPORT 05/07/2023 2: 16 PM PSYCHOLOGY TECHNICIAN HEMOGLOBIN A1C Routine 01/11/2015 9:38 PM CDT MAMMO SCREEN BILAT W OR WO CAD Routine 08/27/2012 2:48 PM PSYCHOLOGY TECHNICIAN Visit for screening mammogram from Last 3 Months or Most Recently Relevant to Health Maintenance Results * COLONOSCOPY REPORT (05/07/2023 2:16 PM PSYCHOLOGY TECHNICIAN) Narrative Procedure Note Pedrito Smith MD - 05/07/2023 2:16 PM CST [facility] GI Patient Name: Otilia Woods Procedure Date: 05/07/2023 Date of : 1970 Admit Type: Outpatient Age: 53 Attending MD: Pedrito Smith MD, Procedure: Colonoscopy Indications: Iron deficiency anemia Providers: Pedrito Smith MD Referring MD: Keny Desai Medicines: Midazolam 8 mg IV, Diphenhydramine 50 mg IV Complications: No immediate complications. Estimated blood loss: None. Procedure: Pre-Anesthesia Assessment: - [place] Protocol: - Pre-procedure Verification: Prior to the [...] by the physician, the nurse and the hvac engineering technician in the endoscopy suite. - Prior [...] In: 1:43:15 PM Scope Out: 1:57:32 PM [address] [place] Pedrito Smith MD GI PROCEDURE ORDERABLES Rasheeda l Result * (ABNORMAL) HEMOGLOBIN A1C (01/11/2015 9:38 PM CDT) HEMOGLOBIN A1C 9.1(H) 4.5 - 6.2 % 01/12/2015 12:03 AM CDT [facility] EST. AVG GLUCOSE, A1C 214 mg/dL 01/12/2015 12:03 AM T [facility] Blood Venipuncture / Unknown 01/11/2015 9:38 PM CDT 01/11/2015 9:38 PM CDT Narrative [facility] [place] - 01/12/2015 12:03 AM CDT If not available from last three months Lorna Christian MD CHEMISTRY ORDERABLES F inal Result [facility] CLIA # [id number] [address] [address] [facility] CLIA # [id number] [address] [address] * MAMMO SCREEN BILAT W OR WO CAD (08/27/2012 2:48 PM PSYCHOLOGY TECHNICIAN) Anatomical Region Laterality Modality Breast Bilateral Other Narrative 08/30/2012 9:12 AM PSYCHOLOGY TECHNICIAN Bilateral Mammogram Reason for Exam: Screening [...] detection system(CAD). The breast tissue is dense. [place] MACHINE FEEDER RAW STOCK MAMMO ORDERABL ES Final Result from Last 3 Months or Most Recently Relevant to Health Maintenance Insurance AETNA O MCR RX AETNA Medicare Part D [facility] AETNA O [facility] Advance Directives For more information, please contact: [phone] Documents on File Type Date Recorded Patient Government Guard Expl anation Advance Directive POA 07/05/2022 2:41 [...] 12:33 PM 05/07/2023 4:42 PM Care Teams Production Lead Relationship Specialty Start Date End Date Laila Underwood FNP [address] [place] [id number] PCP - General NURSE PRACTITIONER 09/27/14
--- OUTSIDE RECORDS SUMMARY | 2025-02-09 12:07 | XMS_ITS | Encounter Summary ---
Author Organization [facility] Address [address] [place] [address] Care Team Providers Care Optical Assistant Name Role Phone Laila Underwood Primary Care Provider Encounter Details Date Type Department Care Team (Latest Contact Info) Description 09/03/2001 Outpatient Historical [facility] [address] [phone] Konstantin Calvo MD [address] [facility] [address] [place] [phone] SUPERVIS OTHER NORMAL PREG (Primary Dx) Social History Tobacco Use Types Packs/Day Years Used Date Smoking Tobacco: Never Assessed Comments Unknown Sex and Gender Information Value Date Recorded Sex Assigned at Not on file 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
--- OUTSIDE RECORDS SUMMARY | 2025-02-09 12:07 | XMS_ITS | Encounter Summary ---
Author Organization [facility] Address [address] [place] [address] Care Team Providers Care Foundation Digger Name Role Phone Laila Underwood Primary Care Provider Encounter Details Date Type Department Care Team ([facility] st Contact Info) Description 11/16/2016 Ancillary Orders [facility] Centralized Scheduling [address] [facility] [address] [place] [phone] Laila Underwood FNP [address] [place], [place] [id number] Social History Tobacco Use Types Packs/Day Years Used Date Smoking Tobacco: Former Cigarettes Q uit: 02/23/1998 Smokeless Tobacco: Never Alcohol Use Standard Drinks/Week Comments No 0 (1 standard drink = 0.6 oz pur e alcohol) Comments No Sex and Gender Information Value Date Recorded Sex Assigned at Not on file 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
--- OUTSIDE RECORDS SUMMARY | 2025-02-09 12:08 | XMS_ITS | Encounter Summary ---
Author Organization [facility] Address [address] [place] [address] Care Team Providers Care Engine Service Repairer Name Role Phone Laila Underwood Lyly VEGAP Primary Care Provider [phone] Reason for Referral * CT Scan (Routine) - Closed Specialty Diagnoses / Procedures Referred By Contac t Referred To Contact Radiology Diagnoses Facial injury, initial encounter Procedures CT SINUS FACIAL BONES WO CONTRAST Aly Carter MD Phone: tel: fax: [facility] CT Scan [place] [address] [facility] [address] [place] [address] Phone: tel: fax: Referral ID Status Reason Start Date Expiration Date V isits Requested Visits Authorized [id number] Closed [facility] View CTS to Schedule 06/08/2020 07/09/2021 1 1 TEACHER Encounter Details Date Type Department Care Team (Late st Contact Info) Description 06/08/2020 Ancillary Orders [facility] CT Scan [place] [address] [facility] [address] [place] [address] Aly Carter MD [address] [place] [address] [address] [place] [address] Facial injury, initial encounter Social History Tobacco Use Types Packs/Day Years Used Date Smoking Tobacco: Former Cigarettes Q uit: 02/23/1998 Smokeless Tobacco: Never Alcohol Use Standard Drinks/Week Comments No 0 (1 standard drink = 0.6 oz pur e alcohol) Comments No Sex and Gender Information Value Date Recorded Sex Assigned at Not on file Legal 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 No / Unsure 06/07/2020 6:00 PM PE TEACHER documented as of this encounter Plan of Treatment Not on file documented as of this encounter Results * CT SINUS FACIAL BONES WO CONTRAST (06/07/2020 7:15 PM PE TEACHER) Anatomical Region Laterality Modality Head Computed Tomogra phy 06/14/2020 11:1 9 AM PE TEACHER Impressions 06/15/2020 12:57 PM PE TEACHER IMPRESSION: Please see below. CT SINUS FACIAL [...] body.. ++++++++++++++++++++ IMPRESSION: Negative for acute fracture. [id number] Narrative 06/15/2020 12:57 PM PE TEACHER ATTENTION: This replaces accession number [id number]. Procedure Note Valentin López MD - 06/15/2020 ATTENTION: This replaces accession number [id number]. IMPRESSION: Please see below. CT SINUS FACIAL [...] body.. ++++++++++++++++++++ IMPRESSION: Negative for acute fracture. [id number] ORDERABLES Final Result documented in this encounter Visit Diagnoses Diagnosis Facial injury, initial encounter Facial injury, initial encounter documented in this encounter Additional Health Concerns Infection Onset Date Last Indicated Resolved Time E-coli-ESBL (Extended Spectr um Beta Lactamase) Comment:01/11/15 Urine 01/18/2015 01/18/2015 documented as of this encounter Care Teams Engine Service Repairer Relationship Specialty Start Date End Date Laila Underwood FNP PCP - General NURSE PRACTITIONER 09/27/14 documented as of this encounter
--- OUTSIDE RECORDS SUMMARY | 2025-02-09 12:08 | XMS_ITS | Encounter Summary ---
Author Organization [facility] Address [address] [place] [address] Care Team Providers Care Glue Machine Operator Name Role Phone Laila Underwood FREDERICK Primary Care Provider Encounter Details Date Type Department Care Team (Late st Contact Info) Description 06/08/2020 Ancillary Orders [facility] CT Scan [place] [address] [place] [phone] Aly Carter MD [address] [place] [address] [address] [place] [address] Social History Tobacco Use Types Packs/Day Years Used Date Smoking Tobacco: Former Cigarettes Q uit: 02/23/1998 Smokeless Tobacco: Never Alcohol Use Standard Drinks/Week Comments No 0 (1 standard drink = 0.6 oz pur e alcohol) Comments No Sex and Gender Information Value Date Recorded Sex Assigned at Not on file Legal Sex Female 4:23 AM DIRECTOR PATIENT FINANCIAL SERVICES Gender Identity Not on file Sexual Orientation Not on file Occupation Industry Job Start Date Job End Date Not on file Not on file Not on file Not on file COVID-19 Exposure Response Date Recorded In the last month, have you been in contact with someone who was confirmed or suspected to have Coronavirus / COVID-19? No / Unsure 06/07/2020 6:00 PM DIRECTOR PATIENT FINANCIAL SERVICES documented as of this encounter Plan of Treatment Not on file documented as of this encounter Visit Diagnoses Not on filedocumented in this encounter Additional Health Concerns Infection Onset Date Last Indicated Resolved Time E-coli-ESBL (Extended Spectr um Beta Lactamase) Comment:01/11/15 Urine 01/18/2015 01/18/2015 documented as of this encounter Care Teams Glue Machine Operator Relationship Specialty Start Date End Date Laila Underwood FNP PCP - General NURSE PRACTITIONER 09/27/14 documented as of this encounter
[2025-02-09] MEDS: potassium chloride oral liq 20 mEq/15 mL UDC 40 MEQ PO (12:15)
--- NOTE | 2025-02-09 12:25 | ECG_ITS ---
[email or web address] Test Date: 2025-02-09 Pat Name: Otilia Woods Department: Room: Gender: Female Arboriculturist: : 1970 Requested By: Yaya Patten Order Number: [id number] Adams MD: Nurys Rangel M.D. 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 [email or web address]
[2025-02-09 12:44] LABS: Magnesium 2.7 mg/dL (1.7-2.3)
== END 2025-02-09 12:56 | disposition home or self-care (01) ==
PROVIDERS: Emergency Provider Family Medicine; PCP Nurse Practitioner Family
DX: E87.6 Hypokalemia (principal); M86.171 Other acute osteomyelitis, right ankle and foot; Z79.84 Long term (current) use of oral hypoglycemic drugs; Z87.891 Personal history of nicotine dependence
CPT/HCPCS: 36415; 83735; 93005; 99284; J9999

== ENCOUNTER → 2025-02-10 14:41 | Outpatient (BNVA) | payer MEDICARE, SELFPAY | PROVIDERS: PCP Nurse Practitioner Family; Visit Provider Thoracic Surgery (Cardiothoracic Vascular Surgery) | DX: E11.52 Type 2 diabetes mellitus with diabetic peripheral angiopathy with gangrene (principal); E11.622 Type 2 diabetes mellitus with other skin ulcer; L97.311 Non-pressure chronic ulcer of right ankle limited to breakdown of skin; L89.152 Pressure ulcer of sacral region, stage 2 | CPT/HCPCS: 97597; 97605; A6197; A6237; A6250 ==

== ENCOUNTER → 2025-02-17 13:22 | Outpatient (BNVA) | payer MEDICARE, SELFPAY | PROVIDERS: PCP Nurse Practitioner Family; Visit Provider Thoracic Surgery (Cardiothoracic Vascular Surgery) | DX: E11.52 Type 2 diabetes mellitus with diabetic peripheral angiopathy with gangrene (principal); E11.622 Type 2 diabetes mellitus with other skin ulcer; L97.311 Non-pressure chronic ulcer of right ankle limited to breakdown of skin; L89.152 Pressure ulcer of sacral region, stage 2 | CPT/HCPCS: 97597 ==

== ENCOUNTER 2025-02-22 21:30 | Emergency (ER) | payer MEDICARE, SELFPAY ==
[2025-02-22 21:30] VITALS: BP 153/82; PULSE 62; RESP 12; O2SAT 100; BMI 21.9
--- OUTSIDE RECORDS SUMMARY | 2025-02-22 21:39 | XMS_ITS | Encounter Summary ---
Author Organization [facility] Address [address] [place] [address] Care Team Providers Care Forest Pathology Professor Name Role Phone Laila Underwood Primary Care Provider [phone] Encounter Details Date Type Department Care Team (Latest Contact Info) Description 03/13/2001 Outpatient Historical [facility] Medicine[address] [phone] Konstantin Calvo MD [address] [phone] Supervision of other normal (Primary Dx) Social History Tobacco Use Types Packs/Day Years Used Date Smoking Tobacco: Never Assessed Comments Unknown Sex and Gender Information Value Date Recorded Sex Assigned at Not on file Legal Sex Female 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
--- OUTSIDE RECORDS SUMMARY | 2025-02-22 21:39 | XMS_ITS | Clinical Summary ---
Author Organization [facility] Address [address] [place] [address] Care Team Providers Care Network Developer Name Role Phone Laila Underwood [facility] Primary Care Provider [phone] Allergies Active Allergy Reactions Criticality Noted Date [...] tablet Take 300 mg by mouth daily repairer shoe sticks. Active naproxen (NAPROSYN) 500 mg tablet Take [...] on file Legal Sex Female 4:23 AM ELECTRONICS SPECIALIST Gender Identity Not on file Sexual Orientation Not on file Occupation Industry Job Start Date Job End Date Not on file Not on file Not on file Not on file Last Filed Vital Signs Vital Sign Reading Time Taken Comments Blood Pressure 126/72 06/07/2020 8:56 PM ELECTRONICS SPECIALIST Pulse 72 12/05/2018 5:41 PM CDT Temperature 36.5 C (97.7 F) 06/07/2020 6:05 PM ELECTRONICS SPECIALIST Respiratory Rate 18 06/07/2020 8:56 PM ELECTRONICS SPECIALIST Oxygen Saturation 98% 06/07/2020 8:56 PM ELECTRONICS SPECIALIST Inhaled Oxygen Concentration - - Weight 83 kg (183 lb) 06/07/2020 6:05 PM ELECTRONICS SPECIALIST Height 167.6 cm (5' 6 ) 06/07/2020 6:05 PM ELECTRONICS SPECIALIST Body Mass Index 29.54 06/07/2020 6:05 PM ELECTRONICS SPECIALIST Plan of Treatment Health Maintenance Due Date [...] OR WO CAD Routine 08/27/2012 2:48 PM ELECTRONICS SPECIALIST Visit for screening mammogram from Last 3 Months or Most Recently Relevant to Health Maintenance Results * (ABNORMAL) HEMOGLOBIN A1C (01/11/2015 9:38 PM CDT) HEMOGLOBIN A1C 9.1(H) 4.5 - 6.2 % 01/12/2015 12:03 AM CDT [facility] [employer] [facility] EST. AVG GLUCOSE, A1C 214 mg/dL 01/12/2015 12:03 AM CDT [facility] Operative Media [facility] Blood Venipuncture - L ab Collect / Unknown 01/11/2015 9:38 PM CDT 01/11/2015 9:38 PM CDT Lorna Christian MD CHEMISTRY ORDERABLES F inal Result [facility] CLIA # [id number] [address] [place] [address] * MAMMO DIGITAL SCREEN BILAT (08/27/2012 2:48 PM ELECTRONICS SPECIALIST) Anatomical Region Laterality Modality Breast Bilateral Mammography Narrative 08/30/2012 9:13 AM ELECTRONICS SPECIALIST Bilateral Mammogram Reason for Exam: Screening Comparison: [...] breast tissue is dense. us [place] JOURNAL ENTRY AUDIT CLERK MAMMO ORDERABL ES Final Result from Last 3 Months or Most Recently Relevant to Health Maintenance Additional Health Concerns Infection Onset Date Last Indicated E-coli-ESBL (Extended Spectr um Beta Lactamase) Comment:01/11/15 Urine 01/18/2015 01/18/2015 Insurance DUAL COMPLETE [facility] PPO D-SNP DUAL COMPLETE [facility] PPO D-SNP [address]CR [address] [place] [address] Advance Directives For more information, please contact: [phone] * Full Code (Latest Code Status on File) Date Activated Date Inactivated Comments 01/25/2015 9:38 PM 01/29/2015 6:47 PM * Full Code Date Activated Date Inactivated Comments 01/14/2015 11:54 AM 01/25/2015 9:38 PM * Full Code Date Activated Date Inactivated Comments 01/11/2015 11:39 PM 01/14/2015 11:54 AM * Full Code Date Activated Date Inactivated Comments 11/19/2011 8:15 AM 11/23/2011 6:53 PM Care Teams Network Developer Relationship Specialty Start Date End Date Laila Underwood FNP PCP - General NURSE PRACTITIONER 09/27/14
--- OUTSIDE RECORDS SUMMARY | 2025-02-22 21:39 | XMS_ITS | Encounter Summary ---
Author Organization [facility] Address [address] [facility] Attn: Epic Prelude ADT [place] [address] Care Team Providers Care Staking Technician Name Role Phone Laila Underwood Primary Care Provider [phone] Encounter Details Date Type Department Care Team (Late st Contact Info) Description 08/09/2001 Outpatient Historical Konstantin Calvo MD [address] [facility] [address] [place] [address] Social History Tobacco Use Types Packs/Day Years Used Date Smoking Tobacco: Never Assessed Comments Unknown Sex and Gender Information Value Date Recorded Sex Assigned at Not on file Legal Sex Female 4:23 AM STUDIO CAMERA OPERATOR Gender Identity Not on file Sexual Orientation Not on file documented as of this encounter Plan of Treatment Not on file documented as of this encounter Visit Diagnoses Not on filedocumented in this encounter Additional Health Concerns Infection Onset Date Last Indicated Resolved Time E-coli-ESBL (Extended Spectr um Beta Lactamase) Comment:01/11/15 Urine 01/18/2015 01/18/2015 documented as of this encounter Care Teams Staking Technician Relationship Specialty Start Date End Date Laila Underwood FNP PCP - General NURSE PRACTITIONER 09/27/14 documented as of this encounter
--- OUTSIDE RECORDS SUMMARY | 2025-02-22 21:39 | XMS_ITS | Encounter Summary ---
Author Organization [facility] Address [address] [place] [address] Care Team Providers Care Tool Worker Name Role Phone Laila Underwood Primary Care Provider Encounter Details Date Type Department Care Team (Latest Contact Info) Description 05/09/2001 Outpatient Historical [facility] Medicine[address] [phone] Konstantin Calvo MD [address] [facility] [address] [place] [phone] SUPERVIS OTHER NORMAL PREG (Primary Dx) Social History Tobacco Use Types Packs/Day Years Used Date Smoking Tobacco: Never Assessed Comments Unknown Sex and Gender Information Value Date Recorded Sex Assigned at Not on file Legal Sex Female 4:23 AM PHARMACY OPERATIONS COORDINATOR Gender Identity Not on file Sexual [...] documented as of this encounter Care Teams Tool Worker Relationship Specialty Start Date End Date Laila Underwood FNP PCP - General NURSE PRACTITIONER 09/27/14 documented as of this encounter
--- OUTSIDE RECORDS SUMMARY | 2025-02-22 21:39 | XMS_ITS | Encounter Summary ---
Author Organization [facility] Address [address] [place] [address] Care Team Providers Care Commercial Pilot Name Role Phone Laila Underwood Primary Care Provider Encounter Details Date Type Department Care Team (Latest Contact Info) Description 07/12/2001 Outpatient Historical [facility] Medicine[address] [phone] Konstantin Calvo MD [address] [phone] SUPERVIS OTHER NORMAL PREG (Primary Dx) Social History Tobacco Use Types Packs/Day Years Used Date Smoking Tobacco: Never Assessed Comments Unknown Sex and Gender Information Value Date Recorded Sex Assigned at Not on file Legal Sex Female 4:23 AM PUBLICITY WRITER Gender Identity Not on file Sexual Orientation [...] documented as of this encounter Care Teams Commercial Pilot Relationship Specialty Start Date End Date Laila Underwood FNP PCP - General NURSE PRACTITIONER 09/27/14 documented as of this encounter
--- OUTSIDE RECORDS SUMMARY | 2025-02-22 21:39 | XMS_ITS | Encounter Summary ---
Author Organization [facility] Address [address] [place] [address] Care Team Providers Care Fire Fighter [employer] Name Role Phone Laila Underwood Primary Care Provider Encounter Details Date Type Department Care Team (Latest Contact Info) Description 06/11/2001 Outpatient Historical [facility] Medicine[address] [phone] Konstantin Calvo MD [address] [facility] [address] [place] [phone] SUPERVIS OTHER NORMAL PREG (Primary Dx) Social History Tobacco Use Types Packs/Day Years Used Date Smoking Tobacco: Never Assessed Comments Unknown Sex and Gender Information Value Date Recorded Sex Assigned at Not on file Legal Sex Female 4:23 AM SHAREBROKER Gender Identity Not on file Sexual Orientation [...] documented as of this encounter Care Teams Fire Fighter [employer] Relationship Specialty Start Date End Date Laila Underwood FNP PCP - General NURSE PRACTITIONER 09/27/14 documented as of this encounter
--- OUTSIDE RECORDS SUMMARY | 2025-02-22 21:39 | XMS_ITS | Encounter Summary ---
Author Organization [facility] Address [address] [place] [address] Care Team Providers Care Health Center Assistant Name Role Phone Laila Underwood Primary Care Provider [phone] Encounter Details Date Type Department Care Team (Latest Contact Info) Description 08/11/2002 Outpatient Historical [facility] Medicine [place] [address] [facility] [address] [place] [phone] Leny Daniels MD ESOPHAGEAL REFLUX (Primary Dx) Social History Tobacco Use Types Packs/Day Years Used Date Smoking Tobacco: Never Assessed Comments Unknown Sex and Gender Information Value Date Recorded Sex Assigned at Not on file Legal Sex Female 4:23 AM MULESER Gender Identity Not on file Sexual Orientation [...] as of this encounter Care Teams Health Center Assistant Relationship Specialty Start Date End Date Laila Underwood FNP PCP - General NURSE PRACTITIONER 09/27/14 documented as of this encounter
--- OUTSIDE RECORDS SUMMARY | 2025-02-22 21:39 | XMS_ITS | Encounter Summary ---
Author Organization [facility] Address [address] [place] [address] Care Team Providers Care Executive Sales Manager Name Role Phone Laila Underwood Primary Care Provider Encounter Details Date Type Department Care Team (Latest Contact Info) Description 08/20/2001 Outpatient Historical [facility] Medicine[address] [phone] Konstantin Calvo MD [address] [phone] SUPERVIS OTHER NORMAL PREG (Primary Dx) Social History Tobacco Use Types Packs/Day Years Used Date Smoking Tobacco: Never Assessed Comments Unknown Sex and Gender Information Value Date Recorded Sex Assigned at Not on file Legal Sex Female 4:23 AM LIDAR ANALYST Gender Identity Not on file Sexual [...] documented as of this encounter Care Teams Executive Sales Manager Relationship Specialty Start Date End Date Laila Underwood FNP PCP - General NURSE PRACTITIONER 09/27/14 documented as of this encounter
--- OUTSIDE RECORDS SUMMARY | 2025-02-22 21:39 | XMS_ITS | Encounter Summary ---
Author Organization [facility] Address [address] [place] [address] Care Team Providers Care Polishing Wheel Setter Name Role Phone Laila Underwood Primary Care Provider [phone] Encounter Details Date Type Department Care Team (Late st Contact Info) Description 06/23/2008 Outpatient Historical [facility] [address] [place] [address] AMBULANCE, [facility], [facility] Social History Tobacco Use Types Packs/Day Years Used Date Smoking Tobacco: Never Assessed Comments Unknown Sex and Gender Information Value Date Recorded Sex Assigned at Not on file Legal Sex Female 4:23 AM IMAGER Gender Identity Not on file Sexual Orientation Not on file documented as of this encounter Plan of Treatment Not on file documented as of this encounter Visit Diagnoses Not on filedocumented in this encounter Additional Health Concerns Infection Onset Date Last Indicated Resolved Time E-coli-ESBL (Extended Spectr um Beta Lactamase) Comment:01/11/15 Urine 01/18/2015 01/18/2015 documented as of this encounter Care Teams Polishing Wheel Setter Relationship Specialty Start Date End Date Laila Underwood FNP PCP - General NURSE PRACTITIONER 09/27/14 documented as of this encounter
--- OUTSIDE RECORDS SUMMARY | 2025-02-22 21:39 | XMS_ITS | Encounter Summary ---
Author Organization [facility] Address [address] [place] [address] Care Team Providers Care Teacher [employer] Name Role Phone Laila Underwood Primary Care Provider [phone] Encounter Details Date Type Department Care Team (Latest Contact Info) Description 11/19/2001 Outpatient Historical [facility] Medicine [place] [address] [facility] [address] [place] [phone] Leny Daniels MD ESOPHAGEAL REFLUX (Primary Dx) Social History Tobacco Use Types Packs/Day Years Used Date Smoking Tobacco: Never Assessed Comments Unknown Sex and Gender Information Value Date Recorded Sex Assigned at Not on file Legal Sex Female 4:23 AM ENERGY BROKER Gender Identity Not on file Sexual Orientation Not on file documented as of this encounter Plan of Treatment Not on file documented as of this encounter Visit Diagnoses Diagnosis Esophageal reflux- Primary documented in this encounter Additional Health Concerns Infection Onset Date Last Indicated Resolved Time E-coli-ESBL (Extended Spectr um Beta Lactamase) Comment:01/11/15 Urine 01/18/2015 01/18/2015 documented as of this encounter Care Teams Teacher Elementary [employer] Relationship Specialty Start Date End Date Laila Underwood FNP PCP - General NURSE PRACTITIONER 09/27/14 documented as of this encounter
--- OUTSIDE RECORDS SUMMARY | 2025-02-22 21:39 | XMS_ITS | Encounter Summary ---
Author Organization [facility] Address [address] [place] [address] Care Team Providers Care Chemical Process Equipment Operator Name Role Phone Laila Underwood Primary Care Provider [phone] Encounter Details Date Type Department Care Team (Latest Contact Info) Description 08/14/2002 Outpatient Historical [facility] Medicine [place] 104 [facility] [address] [place] [phone] Leny Daniels MD ESOPHAGEAL REFLUX (Primary Dx) Social History Tobacco Use Types Packs/Day Years Used Date Smoking Tobacco: Never Assessed Comments Unknown Sex and Gender Information Value Date Recorded Sex Assigned at Not on file Legal Sex Female 4:23 AM DISPENSING OPERATOR Gender Identity Not on file Sexual [...] documented as of this encounter Care Teams Chemical Process Equipment Operator Relationship Specialty Start Date End Date Laila Underwood FNP PCP - General NURSE PRACTITIONER 09/27/14 documented as of this encounter
--- OUTSIDE RECORDS SUMMARY | 2025-02-22 21:39 | XMS_ITS | Encounter Summary ---
Author Organization [facility] Address [address] [place] [address] Care Team Providers Care Adding Machine Servicer Name Role Phone Laila Underwood Primary Care Provider [phone] Encounter Details Date Type Department Care Team (Latest Contact Info) Description 08/09/2001 Outpatient Historical [facility] [address] [phone] Konstantin Calvo MD [address] [phone] SUPERVIS OTHER NORMAL PREG (Primary Dx) Social History Tobacco Use Types Packs/Day Years Used Date Smoking Tobacco: Never Assessed Comments Unknown Sex and Gender Information Value Date Recorded Sex Assigned at Not on file Legal Sex Female 4:23 AM HAIR STYLIST Gender Identity Not on file Sexual Orientation [...] documented as of this encounter Care Teams Adding Machine Servicer Relationship Specialty Start Date End Date Laila Underwood FNP PCP - General NURSE PRACTITIONER 09/27/14 documented as of this encounter
--- OUTSIDE RECORDS SUMMARY | 2025-02-22 21:39 | XMS_ITS | Encounter Summary ---
Author Organization [facility] Address [address] [place] [address] Care Team Providers Care Heat Pump Installer Name Role Phone Laila Underwood Primary Care Provider Encounter Details Date Type Department Care Team (Latest Contact Info) Description 10/08/2001 Outpatient Historical [facility] Medicine[address] [phone] Konstantin Calvo MD [address] [phone] POSTPART CARE AFTER DEL (Primary Dx) Social History Tobacco Use Types Packs/Day Years Used Date Smoking Tobacco: Never Assessed Comments Unknown Sex and Gender Information Value Date Recorded Sex Assigned at Not on file Legal Sex Female 4:23 AM CARE MANAGER Gender Identity Not on file Sexual [...] documented as of this encounter Care Teams Heat Pump Installer Relationship Specialty Start Date End Date Laila Underwood FNP PCP - General NURSE PRACTITIONER 09/27/14 documented as of this encounter
--- OUTSIDE RECORDS SUMMARY | 2025-02-22 21:39 | XMS_ITS | Encounter Summary ---
Author Organization [facility] Address [address] [place] [address] Phone Care Team Providers Care Social Media Director Name Role Phone Luiz Patrick DO Primary Care Provider [phone] Encounter Details Date Type Department Care Team (Late st Contact Info) Description 10/17/2021 Orders Only [facility] [address] [place] [address] Other disorder of phosphorus metabolism [...] metabolism documented in this encounter Care Teams Social Media Director Relationship Specialty [place] [address] [place] [address] PCP - General Family Medicine 10/17/21 documented as of this encounter
--- OUTSIDE RECORDS SUMMARY | 2025-02-22 21:39 | XMS_ITS | Clinical Summary ---
Author Organization [facility] Address [address] [place] [address] Care Team Providers Care Hydrogen Power Plant Engineer Name Role Phone Luiz Patrick DO Primary Care Provider [phone] Allergies Active Allergy Reactions Criticality Noted Date [...] for muscle spasms Active ergocalciferol 1.25 MG (54298 UT) capsule Take 50,000 Units by mouth [...] to 49 Years) Discontinued 10/25/2011 [place] [address] [address] [place] MCR Adv ([id number]) Care Teams Hydrogen Power Plant Engineer Relationship Specialty [place] [address] [facility], [place] [id number] PCP - General Family Medicine 10/17/21
--- OUTSIDE RECORDS SUMMARY | 2025-02-22 21:39 | XMS_ITS | Clinical Summary ---
Author Organization [facility] Address [address] [place] [address] Care Team Providers Care Appraiser Auditor Name Role Phone System, Provider Not In [...] of Treatment Not on file Care Teams Appraiser Auditor Relationship Specialty Start Date End Date System, Provider Not In, [address] [facility] [place] [address] PCP - General 11/12/15
--- OUTSIDE RECORDS SUMMARY | 2025-02-22 21:39 | XMS_ITS | Clinical Summary ---
Author Organization [facility] Address [address] [place]: Epic Prelude ADT [place] [address] Care Team Providers Care Computer Assistant Name Role Phone Laila Underwood GOLD LAYER Primary Care Provider [phone] Allergies Active Allergy Reactions Criticality Noted Date [...] tablet Take 300 mg by mouth daily mexican food cook. 5 Active DULoxetine (CYMBALTA) 60 mg Capsule, [...] for Nausea/Emesis. 20 Tablet 08/10/2023 9:50 AM CYBER INSTRUCTOR 4 Active naloxone (NARCAN) 4 mg/spray [place], Non-Aerosol EMERGENCY USE ONLY: Administer 1 spray [...] Encounters Date Type Department Care Team Description 02/18/2025 External Device Data ST[facility] ABSTRACTION Provider, Abstract 02/17/2025 External Device Data ST[place] ABSTRACTION Provider, Abstract 01/28/2025 External Device Data [place] ABSTRACTION Provider, [...] on file Legal Sex Female 2:20 AM CYBER INSTRUCTOR Gender Identity Not on file Sexual Orientation Not on file Last Filed Vital Signs Vital Sign Reading Time Taken Comments Blood Pressure 112/68 07/19/2024 12:00 AM CYBER INSTRUCTOR Pulse 57 07/19/2024 12:00 AM CYBER INSTRUCTOR Temperature 37.2 C (99 F) 07/18/2024 10:49 PM CYBER INSTRUCTOR Respiratory Rate 16 07/19/2024 12:00 AM CYBER INSTRUCTOR Oxygen Saturation 100% 07/19/2024 12:00 AM CYBER INSTRUCTOR Inhaled Oxygen Concentration - - Weight 61.5 kg (135 lb 9.6 oz) 07/18/2024 10:49 PM CYBER INSTRUCTOR Height 165.1 cm (5' 5 ) 07/18/2024 10:49 PM CYBER INSTRUCTOR Body Mass Index 22.57 07/18/2024 10:49 PM CYBER INSTRUCTOR Plan of Treatment Health Maintenance Due Date [...] history exists COLORECTAL SCREENING 05/07/2030 05/07/2023, 05/07/20 Colorectal Cancer Screening 05/07/2030 DTAP/TDAP/TD VACCINES (3 - T d or Tdap) 06/06/2030 06/06/2020, 09/28/2014, 12/08/2003 Procedures Procedure Name Priority Date/Time Associated Diagnosis Comments COLONOSCOPY REPORT 05/07/2023 2: 16 PM CYBER INSTRUCTOR HEMOGLOBIN A1C Routine 01/11/2015 9:38 PM CDT MAMMO SCREEN BILAT W OR WO CAD Routine 08/27/2012 2:48 PM CYBER INSTRUCTOR Visit for screening mammogram from Last 3 Months or Most Recently Relevant to Health Maintenance Results * COLONOSCOPY REPORT (05/07/2023 2:16 PM CYBER INSTRUCTOR) Narrative Procedure Note Pedrito Smith MD - 05/07/2023 2:16 PM CST [facility] GI Patient Name: Otilia Woods Procedure Date: 05/07/2023 Date of : 1970 Admit Type: Outpatient Age: 53 Attending MD: Pedrito Smith MD, Procedure: Colonoscopy Indications: Iron deficiency anemia Providers: Pedrito Smith MD Referring MD: Keny Desai Medicines: Midazolam 8 mg IV, Diphenhydramine 50 mg IV Complications: No immediate complications. Estimated blood loss: None. Procedure: Pre-Anesthesia Assessment: - Horatio Protocol: - Pre-procedure Verification: Prior to the [...] by the physician, the nurse and the scheme technician in the endoscopy suite. - Prior [...] Scope Out: 1:57:32 PM [address] [place] us Pedrito Smith MD GI PROCEDURE ORDERABLES Rasheeda mckay Result * (ABNORMAL) HEMOGLOBIN A1C (01/11/2015 9:38 PM CDT) HEMOGLOBIN A1C 9.1(H) 4.5 - 6.2 % 01/12/2015 12:[address] [facility] EST. AVG GLUCOSE, A1C 214 mg/dL 01/12/2015 12:[address] [facility] Blood Venipuncture / Unknown 01/11/2015 9:38 PM CDT 01/11/2015 9:38 PM CDT Narrative [facility] [place] - 01/12/2015 12:03 AM CDT If not available from last three months us Lorna Christian MD CHEMISTRY ORDERABLES F inal Result [facility] [place] CLIA # [id number] [address] [place] [address] [facility] CLIA # [id number] [address] [place] [address] * MAMMO SCREEN BILAT W OR WO CAD (08/27/2012 2:48 PM CYBER INSTRUCTOR) Anatomical Region Laterality Modality Breast Bilateral Other Narrative 08/30/2012 9:12 AM CYBER INSTRUCTOR Bilateral Mammogram Reason for Exam: Screening Comparison: [...] breast tissue is dense. us [place] Cordoba GOLD LAYER MAMMO ORDERABL ES Final Result from Last 3 Months or Most Recently Relevant to Health Maintenance [place] [address] RX AETNA Medicare Part D [facility] AETNA [facility] Advance Directives For more information, please contact: [phone] Documents on File Type Date Recorded Patient Office Nurse Expl anation Advance Directive POA 07/05/2022 2:41 [...] 12:33 PM 05/07/2023 4:42 PM Care Teams Computer Assistant Relationship Specialty Start Date End Date Laila Underwood FNP [facility] [place] [address] PCP - General NURSE PRACTITIONER 09/27/14
--- OUTSIDE RECORDS SUMMARY | 2025-02-22 21:39 | XMS_ITS | Encounter Summary ---
Author Organization [facility] Address [address] [place] [address] Care Team Providers Care Director Of Emergency Nursing Name Role Phone Laila Underwood Primary Care Provider [phone] Encounter Details Date Type Department Care Team (Latest Contact Info) Description 06/27/2001 Outpatient Historical [facility] Medicine[address] [phone] Konstantin Calvo MD [address] [address] SUPERVIS OTHER NORMAL PREG (Primary Dx); VACCINE FOR INFLUENZA Social History Tobacco Use Types Packs/Day Years Used Date Smoking Tobacco: Never Assessed Comments Unknown Sex and Gender Information Value Date Recorded Sex Assigned at Not on file Legal Sex Female 4:23 AM FAMILY LAW MEDIATOR Gender Identity Not on file Sexual Orientation [...] of this encounter Care Teams Director Of Emergency Nursing Relationship Specialty Start Date End Date Laila Underwood FNP PCP - General NURSE PRACTITIONER 09/27/14 documented as of this encounter
--- OUTSIDE RECORDS SUMMARY | 2025-02-22 21:39 | XMS_ITS | Encounter Summary ---
Author Organization [facility] Address [address] [place] [address] Care Team Providers Care Stabilizing Machine Operator Name Role Phone Laila Underwood Primary Care Provider [phone] Encounter Details Date Type Department Care Team (Latest Contact Info) Description 04/03/2001 Outpatient Historical [facility] Medicine[address] [phone] Konstantin Calvo MD [address] [phone] Supervision of other normal (Primary Dx) Social History Tobacco Use Types Packs/Day Years Used Date Smoking Tobacco: Never Assessed Comments Unknown Sex and Gender Information Value Date Recorded Sex Assigned at Not on file Legal Sex Female 4:23 AM ON AWAKE COUNSELOR Gender Identity Not on file Sexual Orientation [...] documented as of this encounter Care Teams Stabilizing Machine Operator Relationship Specialty Start Date End Date Laila Underwood FNP PCP - General NURSE PRACTITIONER 09/27/14 documented as of this encounter
--- OUTSIDE RECORDS SUMMARY | 2025-02-22 21:39 | XMS_ITS | Encounter Summary ---
Author Organization [facility] Address [address] [place] [address] Care Team Providers Care Industrial Engineering Manager Name Role Phone Laila Underwood Primary Care Provider [phone] Encounter Details Date Type Department Care Team ([facility] st Contact Info) Description 11/16/2016 Ancillary Orders [facility] Centralized Scheduling [address] [facility] [address] [place] [phone] Laila Underwood FNP [address] [place] [address] Social History Tobacco Use Types Packs/Day Years Used Date Smoking Tobacco: Former Cigarettes Q uit: 02/23/1998 Smokeless Tobacco: Never Alcohol Use Standard Drinks/Week Comments No 0 (1 standard drink = 0.6 oz pur e alcohol) Comments No Sex and Gender Information Value Date Recorded Sex Assigned at Not on file Legal Sex Female 4:23 AM WARPING MACHINE OPERATOR Gender Identity Not on file [...] documented as of this encounter Care Teams Industrial Engineering Manager Relationship Specialty Start Date End Date Laila Underwood FNP PCP - General NURSE PRACTITIONER 09/27/14 documented as of this encounter
--- OUTSIDE RECORDS SUMMARY | 2025-02-22 21:39 | XMS_ITS | Encounter Summary ---
Author Organization [employer] [facility] Address [address] [place] [address] Care Team Providers Care Music Composer Name Role Phone Laila Underwood [facility] Primary Care Provider [phone] Encounter Details Date Type Department Care Team (Late st Contact Info) Description 04/10/2012 Ancillary Orders [facility] [address] [place] [phone] Thierno Cordoba, [place] Collazo, [facility] [address] [place] [address] Low back pain Social History Tobacco Use Types Packs/Day Years Used Date Smoking Tobacco: Former Cigarettes 0.3 2 0 02/23/1998 - 02/24/2000 Alcohol Use Standard Drinks/Week Comments No 0 (1 standard drink = 0.6 oz pur e alcohol) Comments No Sex and Gender Information Value Date Recorded Sex Assigned at Not on file Legal Sex Female 4:23 AM DOUGH CUTTER Gender Identity Not on file Sexual Orientation [...] 2. no acute changes seen [place] [facility] GEAR STRAIGHTENER DIAGNOSTIC JONO GING ORDERABLES Final Result documented in this encounter Visit Diagnoses Diagnosis Low back pain Lumbago Low back pain Lumbago documented in this encounter Additional Health Concerns Infection Onset Date Last Indicated Resolved Time E-coli-ESBL (Extended Spectr um Beta Lactamase) Comment:01/11/15 Urine 01/18/2015 01/18/2015 documented as of this encounter Care Teams Music Composer Relationship Specialty Start Date End Date Laila Underwood FNP PCP - General NURSE PRACTITIONER 09/27/14 documented as of this encounter
--- OUTSIDE RECORDS SUMMARY | 2025-02-22 21:39 | XMS_ITS | Encounter Summary ---
Author Organization [facility] Address [address] [place] [address] Care Team Providers Care Material Analyst Name Role Phone Laila Underwood Primary Care Provider Encounter Details Date Type Department Care Team (Latest Contact Info) Description 07/26/2001 Outpatient Historical [facility] Medicine[address] [phone] Konstantin Calvo MD [address] [phone] SUPERVIS OTHER NORMAL PREG (Primary Dx) Social History Tobacco Use Types Packs/Day Years Used Date Smoking Tobacco: Never Assessed Comments Unknown Sex and Gender Information Value Date Recorded Sex Assigned at Not on file Legal Sex Female 4:23 AM AEROSPACE MEDICINE PHYSICIAN Gender Identity Not on file Sexual Orientation [...] documented as of this encounter Care Teams Material Analyst Relationship Specialty Start Date End Date Laila Underwood FNP PCP - General NURSE PRACTITIONER 09/27/14 documented as of this encounter
--- OUTSIDE RECORDS SUMMARY | 2025-02-22 21:39 | XMS_ITS | Encounter Summary ---
Author Organization [facility] Address [address] [facility] Attn: Epic Prelude ADT [place] [address] Care Team Providers Care Table Assembler Metal Name Role Phone Laila Underwood Primary Care Provider [phone] Encounter Details Date Type Department Care Team (Late st Contact Info) Description 11/07/2001 Outpatient Historical Konstantin Calvo MD [address] [facility] [address] [place] [address] Social History Tobacco Use Types Packs/Day Years Used Date Smoking Tobacco: Never Assessed Comments Unknown Sex and Gender Information Value Date Recorded Sex Assigned at Not on file Legal Sex Female 4:23 AM PROGRAM PRODUCTION SPECIALIST Gender Identity Not on file Sexual Orientation Not on file documented as of this encounter Plan of Treatment Not on file documented as of this encounter Visit Diagnoses Not on filedocumented in this encounter Additional Health Concerns Infection Onset Date Last Indicated Resolved Time E-coli-ESBL (Extended Spectr um Beta Lactamase) Comment:01/11/15 Urine 01/18/2015 01/18/2015 documented as of this encounter Care Teams Table Assembler Metal Relationship Specialty Start Date End Date Laila Underwood FNP PCP - General NURSE PRACTITIONER 09/27/14 documented as of this encounter
--- OUTSIDE RECORDS SUMMARY | 2025-02-22 21:39 | XMS_ITS | Encounter Summary ---
Author Organization [facility] Address [address] [place] [address] Care Team Providers Care Senior C Web Developer Name Role Phone Laila Underwood Primary Care Provider Encounter Details Date Type Department Care Team (Latest Contact Info) Description 09/03/2001 Outpatient Historical [facility] Medicine[address] [phone] Konstantin Calvo MD [address] [facility] [address] [place] [phone] SUPERVIS OTHER NORMAL PREG (Primary Dx) Social History Tobacco Use Types Packs/Day Years Used Date Smoking Tobacco: Never Assessed Comments Unknown Sex and Gender Information Value Date Recorded Sex Assigned at Not on file Legal Sex Female 4:23 AM COMPUTER PUBLISHER Gender Identity Not on file Sexual Orientation [...] documented as of this encounter Care Teams Senior C Web Developer Relationship Specialty Start Date End Date Laila Underwood FNP PCP - General NURSE PRACTITIONER 09/27/14 documented as of this encounter
--- OUTSIDE RECORDS SUMMARY | 2025-02-22 21:39 | XMS_ITS | Encounter Summary ---
Author Organization [facility] Address [address] [place] [address] Care Team Providers Care Medical Bill Processor Name Role Phone Laila Underwood Primary Care Provider [phone] Encounter Details Date Type Department Care Team (Late st Contact Info) Description 07/22/2012 Ancillary Orders [facility] Centralized Scheduling [address] [facility] [address] [place] [phone] Thierno Cordoba, [place] Collazo, [facility] [address] [place] [address] Social History Tobacco Use Types Packs/Day Years Used Date Smoking Tobacco: Former Cigarettes 0.3 2 0 02/23/1998 - 02/24/2000 Alcohol Use Standard Drinks/Week Comments No 0 (1 standard drink = 0.6 oz pur e alcohol) Comments No Sex and Gender Information Value Date Recorded Sex Assigned at Not on file Legal Sex Female 4:23 AM PALEOLOGY PROFESSOR Gender Identity Not on file Sexual [...] documented as of this encounter Care Teams Medical Bill Processor Relationship Specialty Start Date End Date Laila Underwood FNP PCP - General NURSE PRACTITIONER 09/27/14 documented as of this encounter
--- OUTSIDE RECORDS SUMMARY | 2025-02-22 21:39 | XMS_ITS | Encounter Summary ---
Author Organization [facility] Address [address] [place] [address] Care Team Providers Care Cane Burner Name Role Phone Laila Underwood Primary Care Provider Encounter Details Date Type Department Care Team (Latest Contact Info) Description 08/02/2001 Outpatient Historical [facility] Medicine[address] [phone] Konstantin Calvo MD [address] [facility] [address] [place] [phone] SUPERVIS OTHER NORMAL PREG (Primary Dx) Social History Tobacco Use Types Packs/Day Years Used Date Smoking Tobacco: Never Assessed Comments Unknown Sex and Gender Information Value Date Recorded Sex Assigned at Not on file Legal Sex Female 4:23 AM METAL LEAF LAYER Gender Identity Not on file Sexual Orientation [...] documented as of this encounter Care Teams Cane Burner Relationship Specialty Start Date End Date Laila Underwood FNP PCP - General NURSE PRACTITIONER 09/27/14 documented as of this encounter
--- OUTSIDE RECORDS SUMMARY | 2025-02-22 21:39 | XMS_ITS | Encounter Summary ---
Author Organization [facility] Address [address] [place] [address] Care Team Providers Care Rip/Mould Operator Name Role Phone Laila Underwood FREDERICK Primary Care Provider [phone] Encounter Details Date Type Department Care Team (Late st Contact Info) Description 06/08/2020 Ancillary Orders [facility] Scan [place] [address] [place] [phone] Aly Carter MD [address] [place] [address] [address] [place] [address] Social History Tobacco Use Types Packs/Day Years Used Date Smoking Tobacco: Former Cigarettes Q uit: 02/23/1998 Smokeless Tobacco: Never Alcohol Use Standard Drinks/Week Comments No 0 (1 standard drink = 0.6 oz pur e alcohol) Comments No Sex and Gender Information Value Date Recorded Sex Assigned at Not on file Legal Sex Female 4:23 AM IDENTIFICATION PRINTING MACHINE SETTER Gender Identity Not on file [...] COVID-19? No / Unsure 06/07/2020 6:00 PM IDENTIFICATION PRINTING MACHINE SETTER documented as of this encounter Plan of Treatment Not on file documented as of this encounter Visit Diagnoses Not on filedocumented in this encounter Additional Health Concerns Infection Onset Date Last Indicated Resolved Time E-coli-ESBL (Extended Spectr um Beta Lactamase) Comment:01/11/15 Urine 01/18/2015 01/18/2015 documented as of this encounter Care Teams Rip/Mould Operator Relationship Specialty Start Date End Date Laila Underwood FNP PCP - General NURSE PRACTITIONER 09/27/14 documented as of this encounter
--- OUTSIDE RECORDS SUMMARY | 2025-02-22 21:39 | XMS_ITS | Clinical Summary ---
Author Organization Address [address] [facility] [place] [address] Phone Care Team Providers Care Solar System Designer Name Role Phone Sandra Mccrary [facility] Primary Care Provider [phone] Allergies Active Allergy Reactions Criticality Noted Date [...] UROLOGY [facility]INIC MEDICAL OFFICE BUILDING [address] [place] [address] Kike Dumont MD UTI from Last 3 [...] Recorded Patient Health Questionnaire-2 Score 0 08/15/2024 [facility] - Mental Health Answer Date Recorde [...] Comments Blood Pressure 104/71 08/15/2024 1:34 PM CHROMOSOMAL DISORDERS COUNSELOR Pulse 60 08/15/2024 1:34 PM CHROMOSOMAL DISORDERS COUNSELOR Temperature 36.5 C (97.7 F) 08/15/2024 1:34 PM CHROMOSOMAL DISORDERS COUNSELOR Respiratory Rate 18 08/15/2024 1:34 PM CHROMOSOMAL DISORDERS COUNSELOR Oxygen Saturation 100% 08/15/2024 1:34 PM CHROMOSOMAL DISORDERS COUNSELOR Inhaled Oxygen Concentration - - Weight 57.2 kg (126 lb) 08/15/2024 1:34 PM CHROMOSOMAL DISORDERS COUNSELOR Height 165.1 cm (5' 5 ) 08/15/2024 1:34 PM CHROMOSOMAL DISORDERS COUNSELOR Body Mass Index 20.97 08/15/2024 1:34 PM CHROMOSOMAL DISORDERS COUNSELOR Plan of Treatment Upcoming Encounters Date Type Department Care Team (Late st Contact Info) Description 03/31/2025 2:45 PM CDT Office Visit UROLOGY CLINIC MEDICAL OFFICE BUILDING [address] [phone] Kike Dumont MD [address] [id number] Health Maintenance Due Date Last Done Comments [...] age to complete this topic Insurance [id number] [place] [id number] [employer] MEDICARE ADVANTAGE Care Teams Solar System Designer Relationship Specialty Start Date End Date Sandra Mccrary FNP- [address] [address] PCP - General 04/01/24
--- OUTSIDE RECORDS SUMMARY | 2025-02-22 21:39 | XMS_ITS | Encounter Summary ---
Author Organization [employer] Address [address] [place] [address] Care Team Providers Care Clinic Mgr Name Role Phone Laila Underwood Primary Care Provider [phone] Encounter Details Date Type Department Care Team (Late st Contact Info) Description 02/17/2025 External Device Data STL ABSTRACTION Provider, [...] on file Legal Sex Female 2:20 AM STRAIGHT TRUCK DRIVER Gender Identity Not on file Sexual Orientation Not on file documented as of this encounter Plan of Treatment Not on file documented as of this encounter Visit Diagnoses Not on filedocumented in this encounter Care Teams Clinic Mgr Relationship Specialty Start Date End Date Laila Underwood FNP [address] [place], [place] [address] PCP - General NURSE PRACTITIONER 09/27/14 documented as of this encounter
--- OUTSIDE RECORDS SUMMARY | 2025-02-22 21:39 | XMS_ITS | Encounter Summary ---
Author Organization [facility] Address [address] [place] [address] Care Team Providers Care [employer] Hazmat Tanker Driver Name Role Phone Laila Underwood Primary Care Provider [phone] Encounter Details Date Type Department Care Team (Latest Contact Info) Description 11/05/2001 Outpatient Historical [facility] Medicine[address] [phone] Konstantin Calvo MD [address] [phone] ROUT POSTPART FOLLOW-UP (Primary Dx) Social History Tobacco Use Types Packs/Day Years Used Date Smoking Tobacco: Never Assessed Comments Unknown Sex and Gender Information Value Date Recorded Sex Assigned at Not on file Legal Sex Female 4:23 AM LOAD TESTER Gender Identity Not on file Sexual [...] documented as of this encounter Care Teams [employer] Hazmat Tanker Driver Relationship Specialty Start Date End Date Laila Underwood FNP PCP - General NURSE PRACTITIONER 09/27/14 documented as of this encounter
--- OUTSIDE RECORDS SUMMARY | 2025-02-22 21:39 | XMS_ITS | Encounter Summary ---
Author Organization [facility] Address [address] [place] [address] Care Team Providers Care Home Connect Lpn Name Role Phone Laila Underwood Lyly VEGAP Primary Care Provider [phone] Reason for Referral * CT Scan (Routine) - Closed Specialty Diagnoses / Procedures Referred By Contac t Referred To Contact Radiology Diagnoses Facial injury, initial encounter Procedures CT SINUS FACIAL BONES WO CONTRAST Aly Carter MD Phone: tel: fax: [facility] CT Scan [place] [address] [facility] [address] [place] [address] Phone: tel: fax: Referral ID Status Reason Start Date Expiration Date V isits Requested Visits Authorized [id number] Closed [facility] View CTS to Schedule 06/08/2020 07/09/2021 1 1 ING UNIT OPERATOR POWDER CHARGING Encounter Details Date Type Department Care Team (Late st Contact Info) Description 06/08/2020 Ancillary Orders [facility] CT Scan [place] [address] [facility] [address] [place] [address] Aly Carter MD [address] [place] [address] [address] [place] [address] Facial injury, initial encounter Social History Tobacco Use Types Packs/Day Years Used Date Smoking Tobacco: Former Cigarettes Q uit: 02/23/1998 Smokeless Tobacco: Never Alcohol Use Standard Drinks/Week Comments No 0 (1 standard drink = 0.6 oz pur e alcohol) Comments No Sex and Gender Information Value Date Recorded Sex Assigned at Not on file Legal Sex Female 4:23 AM LOADING UNIT OPERATOR POWDER CHARGING Gender Identity Not on file Sexual Orientation Not on file Occupation Industry Job Start Date Job End Date Not on file Not on file Not on file Not on file COVID-19 Exposure Response Date Recorded In the last month, have you been in contact with someone who was confirmed or suspected to have Coronavirus / COVID-19? No / Unsure 06/07/2020 6:00 PM LOADING UNIT OPERATOR POWDER CHARGING documented as of this encounter Plan of Treatment Not on file documented as of this encounter Results * CT SINUS FACIAL BONES WO CONTRAST (06/07/2020 7:15 PM LOADING UNIT OPERATOR POWDER CHARGING) Anatomical Region Laterality Modality Head Computed Tomogra phy 06/14/2020 11:1 9 AM LOADING UNIT OPERATOR POWDER CHARGING Impressions 06/15/2020 12:57 PM LOADING UNIT OPERATOR POWDER CHARGING IMPRESSION: Please see below. CT SINUS FACIAL [...] body.. ++++++++++++++++++++ IMPRESSION: Negative for acute fracture. [id number] Narrative 06/15/2020 12:57 PM LOADING UNIT OPERATOR POWDER CHARGING ATTENTION: This replaces accession number [id number]. Procedure Note Valentin López MD - 06/15/2020 ATTENTION: This replaces accession number [id number]. IMPRESSION: Please see below. CT SINUS FACIAL [...] body.. ++++++++++++++++++++ IMPRESSION: Negative for acute fracture. [id number] ORDERABLES Final Result documented in this encounter Visit Diagnoses Diagnosis Facial injury, initial encounter Facial injury, initial encounter documented in this encounter Additional Health Concerns Infection Onset Date Last Indicated Resolved Time E-coli-ESBL (Extended Spectr um Beta Lactamase) Comment:01/11/15 Urine 01/18/2015 01/18/2015 documented as of this encounter Care Teams Home Connect Lpn Relationship Specialty Start Date End Date Laila Underwood FNP PCP - General NURSE PRACTITIONER 09/27/14 documented as of this encounter
--- OUTSIDE RECORDS SUMMARY | 2025-02-22 21:39 | XMS_ITS | Encounter Summary ---
Author Organization [employer] Address [address] [place] [address] Care Team Providers Care Medical Transcription Editor Name Role Phone Laila Underwood Primary Care Provider [phone] Encounter Details Date Type Department Care Team (Late st Contact Info) Description 02/18/2025 External Device Data STL ABSTRACTION [...] on file Legal Sex Female 2:20 AM SQL ETL DEVELOPER Gender Identity Not on file Sexual Orientation Not on file documented as of this encounter Plan of Treatment Not on file documented as of this encounter Visit Diagnoses Not on filedocumented in this encounter Care Teams Medical Transcription Editor Relationship Specialty Start Date End Date Laila Underwood FNP [address] [place], [place] [address] PCP - General NURSE PRACTITIONER 09/27/14 documented as of this encounter
--- OUTSIDE RECORDS SUMMARY | 2025-02-22 21:39 | XMS_ITS | Encounter Summary ---
Author Organization [facility] Address [address] [place] [address] Care Team Providers Care Warehouse Representative Name Role Phone Laila Underwood Primary Care Provider [phone] Encounter Details Date Type Department Care Team (Late st Contact Info) Description 09/08/2002 Outpatient Historical [facility] [address] [place] [phone] Social History Tobacco Use Types Packs/Day Years Used Date Smoking Tobacco: Never Assessed Comments Unknown Sex and Gender Information Value Date Recorded Sex Assigned at Not on file Legal Sex Female 4:23 AM PHYSICIAN OFFICE REP Gender Identity Not on file Sexual Orientation Not on file documented as of this encounter Plan of Treatment Not on file documented as of this encounter Visit Diagnoses Not on filedocumented in this encounter Additional Health Concerns Infection Onset Date Last Indicated Resolved Time E-coli-ESBL (Extended Spectr um Beta Lactamase) Comment:01/11/15 Urine 01/18/2015 01/18/2015 documented as of this encounter Care Teams Warehouse Representative Relationship Specialty Start Date End Date Laila Underwood FNP PCP - General NURSE PRACTITIONER 09/27/14 documented as of this encounter
--- OUTSIDE RECORDS SUMMARY | 2025-02-22 21:39 | XMS_ITS | Encounter Summary ---
Author Organization [facility] Address [address] [place] [address] Care Team Providers Care Diamond Die Driller Name Role Phone Laila Underwood Primary Care Provider [phone] Reason for Referral * Outpatient Services (Routine) - Closed Specialty Diagnoses / Procedures Referred By Denisa white Referred To Contact Radiology Diagnoses Visit for screening mammogram Procedures MAMMO DIGITAL SCREEN BILAT [place] Bonilla FNP [address] [place] [address] Phone: tel: fax: [facility] [address] [facility] [address] [place] [address] Phone: tel: fax: Referral ID Status Reason Start Date Expiration Date Visits Re quested Visits Authorized [id number] Closed 07/26/2012 08/26/2013 1 1 E ARCHIVIST Encounter Details Date Type Department Care Team (Latest Contact Info) Description 07/26/2012 Ancillary Orders [facility] [address] [facility] [address] [place] [phone] [place] Bonilla FNP [address] [place] [address] Visit for screening mammogram Social History Tobacco Use Types Packs/Day Years Used Date Smoking Tobacco: Former Cigarettes 0.3 2 0 02/23/1998 - 02/24/2000 Alcohol Use Standard Drinks/Week Comments No 0 (1 standard drink = 0.6 oz pur e alcohol) Comments No Sex and Gender Information Value Date Recorded Sex Assigned at Not on file Legal Sex Female 4:23 AM STATE ARCHIVIST Gender Identity Not on file Sexual Orientation Not on file Occupation Industry Job Start Date Job End Date Not on file Not on file Not on file Not on file documented as of this encounter Plan of Treatment Not on file documented as of this encounter Results * MAMMO DIGITAL SCREEN BILAT (08/27/2012 2:48 PM STATE ARCHIVIST) Anatomical Region Laterality Modality Breast Bilateral Mammography Narrative 08/30/2012 9:13 AM STATE ARCHIVIST Bilateral Mammogram Reason for Exam: Screening Comparison: [...] The breast tissue is dense. [place] [facility] MAMMO ORDERABL ES Final Result documented in this encounter Visit Diagnoses Diagnosis Visit for screening mammogram Other screening mammogram Visit for screening mammogram Other screening mammogram documented in this encounter Additional Health Concerns Infection Onset Date Last Indicated Resolved Time E-coli-ESBL (Extended Spectr um Beta Lactamase) Comment:01/11/15 Urine 01/18/2015 01/18/2015 documented as of this encounter Care Teams Diamond Die Driller Relationship Specialty Start Date End Date Laila Underwood FNP PCP - General NURSE PRACTITIONER 09/27/14 documented as of this encounter
--- OUTSIDE RECORDS SUMMARY | 2025-02-22 21:39 | XMS_ITS | Encounter Summary ---
Author Organization [facility] Address [address] [place] [address] Care Team Providers Care Steam Tank Operator Name Role Phone Laila Underwood [place] Primary Care Provider [phone] Encounter Details Date Type Department Care Team (Late st Contact Info) Description 06/08/2020 Ancillary Orders [facility] CT Scan [place] [address] [place] [phone] Aly Carter MD [address] [place] [address] [address] [place] [address] Social History Tobacco Use Types Packs/Day Years Used Date Smoking Tobacco: Former Cigarettes Q uit: 02/23/1998 Smokeless Tobacco: Never Alcohol Use Standard Drinks/Week Comments No 0 (1 standard drink = 0.6 oz pur e alcohol) Comments No Sex and Gender Information Value Date Recorded Sex Assigned at Not on file Legal Sex Female 4:23 AM RED LEADER Gender Identity Not on file Sexual Orientation Not on file Occupation Industry Job Start Date Job End Date Not on file Not on file Not on file Not on file COVID-19 Exposure Response Date Recorded In the last month, have you been in contact with someone who was confirmed or suspected to have Coronavirus / COVID-19? No / Unsure 06/07/2020 6:00 PM RED LEADER documented as of this encounter Plan of Treatment Not on file documented as of this encounter Visit Diagnoses Not on filedocumented in this encounter Additional Health Concerns Infection Onset Date Last Indicated Resolved Time E-coli-ESBL (Extended Spectr um Beta Lactamase) Comment:01/11/15 Urine 01/18/2015 01/18/2015 documented as of this encounter Care Teams Steam Tank Operator Relationship Specialty Start Date End Date Laila Underwood FNP PCP - General NURSE PRACTITIONER 09/27/14 documented as of this encounter
--- OUTSIDE RECORDS SUMMARY | 2025-02-22 21:39 | XMS_ITS | Encounter Summary ---
Author Organization [facility] Address [address] [place] [address] Care Team Providers Care Car Retarder Operator Name Role Phone Laila Underwood Primary Care Provider Encounter Details Date Type Department Care Team (Latest Contact Info) Description 08/29/2001 Outpatient Historical [facility] Medicine[address] [phone] Konstantin Calvo MD [address] [facility] [address] [place] [phone] SUPERVIS OTHER NORMAL PREG (Primary Dx) Social History Tobacco Use Types Packs/Day Years Used Date Smoking Tobacco: Never Assessed Comments Unknown Sex and Gender Information Value Date Recorded Sex Assigned at Not on file Legal Sex Female 4:23 AM BUZZSAW OPERATOR Gender Identity Not on file Sexual [...] documented as of this encounter Care Teams Car Retarder Operator Relationship Specialty Start Date End Date Laila Underwood FNP PCP - General NURSE PRACTITIONER 09/27/14 documented as of this encounter
--- OUTSIDE RECORDS SUMMARY | 2025-02-22 21:39 | XMS_ITS | Encounter Summary ---
Author Organization [facility] Address [address] [place] [address] Care Team Providers Care Carpenter Mate Name Role Phone Laila Underwood Primary Care Provider Encounter Details Date Type Department Care Team (Latest Contact Info) Description 09/10/2001 Outpatient Historical [facility] Medicine[address] [phone] Konstantin Calvo MD [address] [phone] POSTPART CARE AFTER DEL (Primary Dx) Social History Tobacco Use Types Packs/Day Years Used Date Smoking Tobacco: Never Assessed Comments Unknown Sex and Gender Information Value Date Recorded Sex Assigned at Not on file Legal Sex Female 4:23 AM REEL HOOKER Gender Identity Not on file Sexual Orientation [...] documented as of this encounter Care Teams Carpenter Mate Relationship Specialty Start Date End Date Laila Underwood FNP PCP - General NURSE PRACTITIONER 09/27/14 documented as of this encounter
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
[2025-02-22 22:55] VITALS: RESP 22; O2SAT 96
[2025-02-22] MEDS: fentaNYL 50 mcg/mL INJ 2mL 100 MCG IVP (22:55)
[2025-02-22 22:57] VITALS: BP 157/82; PULSE 63; RESP 17; O2SAT 100
[2025-02-22] MEDS: tetanus-dipt-pertussis 0.5 mL SDV IM (23:45)
[2025-02-23] VITALS: BP 135/69; PULSE 65; RESP 12; O2SAT 100
[2025-02-23 00:39] VITALS: BP 135/74; PULSE 64; RESP 14; O2SAT 100
== END 2025-02-23 00:40 | disposition home or self-care (01) ==
PROVIDERS: Emergency Provider Emergency Medicine; PCP Nurse Practitioner Family
DX: S01.01XA Laceration without foreign body of scalp, initial encounter (principal); S50.02XA Contusion of left elbow, initial encounter; S90.01XA Contusion of right ankle, initial encounter; S16.1XXA Strain of muscle, fascia and tendon at neck level, initial encounter; Z87.891 Personal history of nicotine dependence; E11.42 Type 2 diabetes mellitus with diabetic polyneuropathy; V28.09XA Other motorcycle driver injured in noncollision transport accident in nontraffic accident, initial encounter
CPT/HCPCS: 12001; 70450; 70486; 72125; 73080; 73610; 90471; 90715; 96374; 99285; J3010; J9999

== ENCOUNTER → 2025-02-24 12:35 | Outpatient (BNVA) | payer MEDICARE, SELFPAY | PROVIDERS: PCP Nurse Practitioner Family; Visit Provider Podiatrist Foot & Ankle Surgery | DX: E11.42 Type 2 diabetes mellitus with diabetic polyneuropathy (principal); Z98.890 Other specified postprocedural states; E11.52 Type 2 diabetes mellitus with diabetic peripheral angiopathy with gangrene; E11.622 Type 2 diabetes mellitus with other skin ulcer; L97.321 Non-pressure chronic ulcer of left ankle limited to breakdown of skin; Z79.84 Long term (current) use of oral hypoglycemic drugs; L89.152 Pressure ulcer of sacral region, stage 2 | CPT/HCPCS: 97597; 99024 ==

== ENCOUNTER → 2025-03-04 13:10 | Outpatient (BNVA) | payer MEDICARE, SELFPAY | PROVIDERS: PCP Nurse Practitioner Family; Visit Provider Thoracic Surgery (Cardiothoracic Vascular Surgery) | DX: E11.52 Type 2 diabetes mellitus with diabetic peripheral angiopathy with gangrene (principal); E11.622 Type 2 diabetes mellitus with other skin ulcer; L97.311 Non-pressure chronic ulcer of right ankle limited to breakdown of skin; Z09 Encounter for follow-up examination after completed treatment for conditions other than malignant neoplasm | CPT/HCPCS: 15275; A6021; A6206; Q4187 ==

== ENCOUNTER 2025-03-09 14:21 | Oncology outpatient (recurring) (ONCR) | payer MEDICARE, SELFPAY ==
[2025-03-09 14:37] LABS: Hematocrit 33.6 % (36-47); Hemoglobin 10.50 g/dL (11.27-16.99); Mean Corpuscular HGB Conc 31.3 g/dL (30-55); Mean Corpuscular Hemoglobin 30.3 pg (27-33); Mean Corpuscular Volume 97.1 fl (85-98); Nucleated Red Blood Cells % 0 %; Platelet Count 235 10^3/cmm (157-399); Red Blood Count 3.46 10^6/uL (3.85-5.65); White Blood Count 5.23 10^3/uL (3.29-11.43)
[2025-03-09 14:56] LABS: Alanine Aminotransferase 33 U/L (0-33); Albumin Level 4.3 g/dL (3.5-5.2); Alkaline Phosphatase 131 U/L (35-105); Anion Gap 17.4 (5-19); Aspartate Amino Transferase 47 U/L (0-32); Blood Urea Nitrogen 29 mg/dL (6-20); Calcium 8.6 mg/dL (8.5-10.5); Carbon Dioxide 14 mmol/L (22-29); Chloride 111 mmol/L (98-107); Globulin 3.0 g/dL (1.3-4.6); Glucose 211 mg/dL (65-115); Osmolality Calculated 300 mOsm/kg (285-295); Potassium 3.4 mmol/L (3.5-5.1); Sodium 139 mmol/L (136-145); Total Protein 7.3 g/dL (6.6-8.7)
[2025-03-09 15:11] LABS: Ferritin 788 ng/mL (15-150); Iron 117 ug/dL (37-145); Total Iron Binding Capacity 216 mcg/dl; Unsaturated Iron Binding 99 ug/dL (112-347)
== END 2025-03-24 23:59 | disposition home or self-care (01) ==
PROVIDERS: PCP Nurse Practitioner Family; Visit Provider Nurse Practitioner Family
DX: D50.8 Other iron deficiency anemias (principal); K95.89 Other complications of other bariatric procedure; Z87.891 Personal history of nicotine dependence
CPT/HCPCS: 36415; 80053; 82728; 83540; 83550; 85025; 99214

== ENCOUNTER → 2025-03-10 11:07 | Outpatient (BNVA) | payer MEDICARE, SELFPAY | PROVIDERS: PCP Nurse Practitioner Family; Visit Provider Thoracic Surgery (Cardiothoracic Vascular Surgery) | DX: E11.52 Type 2 diabetes mellitus with diabetic peripheral angiopathy with gangrene (principal); E11.622 Type 2 diabetes mellitus with other skin ulcer; L97.311 Non-pressure chronic ulcer of right ankle limited to breakdown of skin | CPT/HCPCS: 15275; A6021; Q4187 ==

== ENCOUNTER → 2025-03-17 14:00 | Outpatient (BNVA) | payer MEDICARE, SELFPAY | PROVIDERS: PCP Nurse Practitioner Family; Visit Provider Thoracic Surgery (Cardiothoracic Vascular Surgery) | DX: E11.52 Type 2 diabetes mellitus with diabetic peripheral angiopathy with gangrene (principal); E11.622 Type 2 diabetes mellitus with other skin ulcer; L97.311 Non-pressure chronic ulcer of right ankle limited to breakdown of skin | CPT/HCPCS: 15275; A6206; A6212; Q4187 ==

== ENCOUNTER → 2025-03-24 14:00 | Outpatient (BNVA) | payer MEDICARE, SELFPAY | PROVIDERS: Visit Provider Thoracic Surgery (Cardiothoracic Vascular Surgery) | DX: E11.52 Type 2 diabetes mellitus with diabetic peripheral angiopathy with gangrene (principal); E11.622 Type 2 diabetes mellitus with other skin ulcer; L97.311 Non-pressure chronic ulcer of right ankle limited to breakdown of skin | CPT/HCPCS: 15275; A6021; A6206 ==

== ENCOUNTER → 2025-03-31 14:01 | Outpatient (BNVA) | payer MEDICARE, SELFPAY | PROVIDERS: PCP Nurse Practitioner Family; Visit Provider Thoracic Surgery (Cardiothoracic Vascular Surgery) | DX: E11.52 Type 2 diabetes mellitus with diabetic peripheral angiopathy with gangrene (principal); E11.622 Type 2 diabetes mellitus with other skin ulcer; L97.311 Non-pressure chronic ulcer of right ankle limited to breakdown of skin | CPT/HCPCS: 15275; A6021; A6206; A6212; A6250 ==

== ENCOUNTER → 2025-04-07 13:55 | Outpatient (BNVA) | payer MEDICARE, SELFPAY | PROVIDERS: PCP Nurse Practitioner Family; Visit Provider Thoracic Surgery (Cardiothoracic Vascular Surgery) | DX: E11.52 Type 2 diabetes mellitus with diabetic peripheral angiopathy with gangrene (principal); E11.622 Type 2 diabetes mellitus with other skin ulcer; L97.311 Non-pressure chronic ulcer of right ankle limited to breakdown of skin | CPT/HCPCS: 97597; A6212 ==

== ENCOUNTER 2025-04-09 09:01 | Outpatient (RCR) | payer MEDICARE, SELFPAY | END 2025-04-24 23:59 | disposition home or self-care (01) | LOC: WPT 09:01 | PROVIDERS: PCP Nurse Practitioner Family; Visit Provider Nurse Practitioner Family | DX: R42 Dizziness and giddiness (principal) | CPT/HCPCS: 97110; 97112; 97161; 97530 ==

== ENCOUNTER → 2025-04-14 14:31 | Outpatient (BNVA) | payer MEDICARE, SELFPAY | PROVIDERS: PCP Nurse Practitioner Family; Visit Provider Thoracic Surgery (Cardiothoracic Vascular Surgery) | DX: E11.52 Type 2 diabetes mellitus with diabetic peripheral angiopathy with gangrene (principal); E11.622 Type 2 diabetes mellitus with other skin ulcer; L97.311 Non-pressure chronic ulcer of right ankle limited to breakdown of skin | CPT/HCPCS: 97597; A6213 ==

== ENCOUNTER 2025-04-21 12:25 | Oncology outpatient (recurring) (ONCR) | payer MEDICARE, SELFPAY ==
[2025-04-21 12:41] LABS: Hematocrit 32.3 % (36-47); Hemoglobin 9.80 g/dL (11.27-16.99); Mean Corpuscular HGB Conc 30.3 g/dL (30-55); Mean Corpuscular Hemoglobin 30.6 pg (27-33); Mean Corpuscular Volume 100.9 fl (85-98); Nucleated Red Blood Cells % 0 %; Platelet Count 184 10^3/cmm (157-399); Red Blood Count 3.20 10^6/uL (3.85-5.65); White Blood Count 5.17 10^3/uL (3.29-11.43)
[2025-04-21 13:02] LABS: Alanine Aminotransferase 24 U/L (0-33); Albumin Level 4.1 g/dL (3.5-5.2); Alkaline Phosphatase 127 U/L (35-105); Anion Gap 20.9 (5-19); Aspartate Amino Transferase 22 U/L (0-32); Blood Urea Nitrogen 40 mg/dL (6-20); Calcium 8.3 mg/dL (8.5-10.5); Carbon Dioxide 10 mmol/L (22-29); Chloride 109 mmol/L (98-107); Ferritin 569 ng/mL (15-150); Globulin 3.0 g/dL (1.3-4.6); Glucose 371 mg/dL (65-115); Iron 77 ug/dL (37-145); Osmolality Calculated 307 mOsm/kg (285-295); Potassium 3.9 mmol/L (3.5-5.1); Sodium 136 mmol/L (136-145); Total Iron Binding Capacity 227 mcg/dl; Total Protein 7.1 g/dL (6.6-8.7); Unsaturated Iron Binding 150 ug/dL (112-347)
== END 2025-04-24 23:59 | disposition home or self-care (01) ==
LOC: ONCMED 12:26
PROVIDERS: PCP Nurse Practitioner Family; Visit Provider Nurse Practitioner Family
DX: D64.9 Anemia, unspecified (principal); E11.52 Type 2 diabetes mellitus with diabetic peripheral angiopathy with gangrene; E11.622 Type 2 diabetes mellitus with other skin ulcer; L97.311 Non-pressure chronic ulcer of right ankle limited to breakdown of skin; L89.152 Pressure ulcer of sacral region, stage 2
CPT/HCPCS: 36415; 80053; 82728; 83540; 83550; 85025; 97597; A6212

== ENCOUNTER → 2025-04-28 15:08 | Outpatient (BNVA) | payer MEDICARE, SELFPAY | PROVIDERS: PCP Nurse Practitioner Family; Visit Provider Student in an Organized Health Care Education/Training Program | DX: M17.12 Unilateral primary osteoarthritis, left knee (principal); M25.569 Pain in unspecified knee | CPT/HCPCS: 73560; 73565; 99214 ==

== ENCOUNTER → 2025-04-29 15:08 | Outpatient (BNVA) | payer MEDICARE, SELFPAY | PROVIDERS: PCP Nurse Practitioner Family; Visit Provider Thoracic Surgery (Cardiothoracic Vascular Surgery) | DX: E11.52 Type 2 diabetes mellitus with diabetic peripheral angiopathy with gangrene (principal); E11.622 Type 2 diabetes mellitus with other skin ulcer; L97.311 Non-pressure chronic ulcer of right ankle limited to breakdown of skin; L89.152 Pressure ulcer of sacral region, stage 2 | CPT/HCPCS: 97597; A6212 ×2 ==

== ENCOUNTER → 2025-05-05 14:07 | Outpatient (BNVA) | payer MEDICARE, SELFPAY | PROVIDERS: PCP Nurse Practitioner Family; Visit Provider Thoracic Surgery (Cardiothoracic Vascular Surgery) | DX: E11.52 Type 2 diabetes mellitus with diabetic peripheral angiopathy with gangrene (principal); E11.622 Type 2 diabetes mellitus with other skin ulcer; L97.311 Non-pressure chronic ulcer of right ankle limited to breakdown of skin; L89.152 Pressure ulcer of sacral region, stage 2 | CPT/HCPCS: 97597; A6212 ==

== ENCOUNTER → 2025-05-12 14:15 | Outpatient (BNVA) | payer MEDICARE, SELFPAY | PROVIDERS: PCP Nurse Practitioner Family; Visit Provider Thoracic Surgery (Cardiothoracic Vascular Surgery) | DX: E11.52 Type 2 diabetes mellitus with diabetic peripheral angiopathy with gangrene (principal); E11.622 Type 2 diabetes mellitus with other skin ulcer; L97.311 Non-pressure chronic ulcer of right ankle limited to breakdown of skin; Z09 Encounter for follow-up examination after completed treatment for conditions other than malignant neoplasm | CPT/HCPCS: 87070; 97597; A6212 ==

== ENCOUNTER 2025-05-19 15:27 | Outpatient (CLI) | payer MEDICARE, SELFPAY ==
[2025-05-19 17:19] LABS: Glucose Urine UA Negative (Normal); Nitrate Urine Negative (Negative); Specific Gravity, Urine 1.008 (1.005-1.030)
[2025-05-19 17:46] LABS: Hematocrit 31.4 % (36-47); Hemoglobin 9.80 g/dL (11.27-16.99); Mean Corpuscular HGB Conc 31.2 g/dL (30-55); Mean Corpuscular Hemoglobin 31.3 pg (27-33); Mean Corpuscular Volume 100.3 fl (85-98); Nucleated Red Blood Cells % 0 %; Platelet Count 204 10^3/cmm (157-399); Red Blood Count 3.13 10^6/uL (3.85-5.65); White Blood Count 4.62 10^3/uL (3.29-11.43)
[2025-05-19 18:15] LABS: Add Urine Microscopic? YES
[2025-05-19 18:41] LABS: Alanine Aminotransferase 21 U/L (0-33); Albumin Level 4.1 g/dL (3.5-5.2); Alkaline Phosphatase 127 U/L (35-105); Anion Gap 18.2 (5-19); Aspartate Amino Transferase 21 U/L (0-32); Blood Urea Nitrogen 44 mg/dL (6-20); Calcium 8.1 mg/dL (8.5-10.5); Carbon Dioxide 11 mmol/L (22-29); Chloride 111 mmol/L (98-107); Globulin 3.0 g/dL (1.3-4.6); Glucose 178 mg/dL (65-115); Osmolality Calculated 298 mOsm/kg (285-295); Potassium 4.2 mmol/L (3.5-5.1); Sodium 136 mmol/L (136-145); Total Protein 7.1 g/dL (6.6-8.7)
[2025-05-19 18:49] LABS: Estmated Average Glucose 88; Hemoglobin A1C 4.7 % (4.0-6.0)
== END 2025-05-19 15:28 | disposition home or self-care (01) ==
LOC: LAB 15:29
PROVIDERS: PCP Nurse Practitioner Family; Referring Provider Student in an Organized Health Care Education/Training Program; Visit Provider Thoracic Surgery (Cardiothoracic Vascular Surgery)
DX: Z01.818 Encounter for other preprocedural examination (principal); L97.514 Non-pressure chronic ulcer of other part of right foot with necrosis of bone; R10.9 Unspecified abdominal pain; E11.9 Type 2 diabetes mellitus without complications
CPT/HCPCS: 36415; 80048; 80053; 81001; 83036; 85025; 85651; 86140; 87086; 97597; A6212

== ENCOUNTER → 2025-05-26 13:15 | Outpatient (BNVA) | payer MEDICARE, SELFPAY | PROVIDERS: PCP Nurse Practitioner Family; Visit Provider Thoracic Surgery (Cardiothoracic Vascular Surgery) | DX: E11.52 Type 2 diabetes mellitus with diabetic peripheral angiopathy with gangrene (principal); E11.622 Type 2 diabetes mellitus with other skin ulcer; L97.311 Non-pressure chronic ulcer of right ankle limited to breakdown of skin | CPT/HCPCS: 97597; A6212 ==

== ENCOUNTER 2025-05-28 13:09 | Outpatient (CLI) | payer MEDICARE, SELFPAY ==
--- NOTE | 2025-05-28 13:00 | MR_ITS ---
WS: [id number] MRI RIGHT ANKLE WITH AND WITHOUT CONTRAST. COMPARISON: 03/18/2024, radiograph 02/22/2025 Multiplanar, multisequence imaging is performed with and without contrast. Sagittal and axial T1 fat sat sequences post-MultiHance 12 cc IV. History: Lateral nonhealing ulcer. Plate and screw removal at the ankle. Screw removal tracts are noted in the distal fibula. There is edema lateral to the fibula which does enhance. There is no focal collection. There is an ulceration bed in the lateral distal fibula measuring 7 mm in length. There is adjacent enhancement but no fluid. There is a subtle amount of enhancement in the distal fibula on the postcontrast imaging near the inferior most screw tract. Mild diffuse soft tissue edema throughout the visualized bones of the ankle. Mild flattening of the normal arch of the foot. Enthesopathy at the plantar aponeurosis. Negative Achilles tendon. Degenerative joint space narrowing in the midfoot. Tarsal articulations are narrowed with small erosions. There is fluid extending along the flexor hallux longus and flexor digitorum longus tendons which can be normal. MR/MR ankle RT wo/w con [id number] IMPRESSION: 1. Cellulitis along the distal lateral fibula at the site of the nonhealing ul ceration. The bed of the ulceration does enhance but there is no abscess identi fied. 2. Deep to the soft tissue ulceration is a screw tract which does enhance cons istent with mild osteomyelitis. 3. Diffuse soft tissue edema. 4. Loss of the normal arch of the foot.
[2025-05-28] MEDS: gadobenate dimeglumine 20 mL vial 13 ML IV (13:58)
== END 2025-05-28 13:10 | disposition home or self-care (01) ==
LOC: RAD 13:10
PROVIDERS: PCP Nurse Practitioner Family; Visit Provider Thoracic Surgery (Cardiothoracic Vascular Surgery)
DX: L97.514 Non-pressure chronic ulcer of other part of right foot with necrosis of bone (principal)
CPT/HCPCS: 73723

== ENCOUNTER 2025-06-02 16:47 | Outpatient (CLI) | payer MEDICARE, SELFPAY | END 2025-06-02 16:48 | disposition home or self-care (01) | LOC: RAD 06-05 06:09 | PROVIDERS: PCP Nurse Practitioner Family; Visit Provider Thoracic Surgery (Cardiothoracic Vascular Surgery) | DX: E11.52 Type 2 diabetes mellitus with diabetic peripheral angiopathy with gangrene (principal); E11.622 Type 2 diabetes mellitus with other skin ulcer; L97.311 Non-pressure chronic ulcer of right ankle limited to breakdown of skin | CPT/HCPCS: 87070; 87077; 87176; 87186; 87205; 97597; A6212 ==

== ENCOUNTER → 2025-06-09 13:48 | Outpatient (BNVA) | payer MEDICARE, SELFPAY | PROVIDERS: PCP Nurse Practitioner Family; Visit Provider Thoracic Surgery (Cardiothoracic Vascular Surgery) | DX: E11.52 Type 2 diabetes mellitus with diabetic peripheral angiopathy with gangrene (principal); E11.622 Type 2 diabetes mellitus with other skin ulcer; L97.311 Non-pressure chronic ulcer of right ankle limited to breakdown of skin | CPT/HCPCS: 97597 ==

== ENCOUNTER 2025-06-16 13:22 | Oncology outpatient (recurring) (ONCR) | payer MEDICARE, SELFPAY ==
[2025-06-16 13:36] LABS: Hematocrit 29.7 % (36-47); Hemoglobin 9.30 g/dL (11.27-16.99); Mean Corpuscular HGB Conc 31.3 g/dL (30-55); Mean Corpuscular Hemoglobin 31.5 pg (27-33); Mean Corpuscular Volume 100.7 fl (85-98); Nucleated Red Blood Cells % 0 %; Platelet Count 228 10^3/cmm (157-399); Red Blood Count 2.95 10^6/uL (3.85-5.65); White Blood Count 4.96 10^3/uL (3.29-11.43)
[2025-06-16 13:55] LABS: Alanine Aminotransferase 33 U/L (0-33); Albumin Level 3.9 g/dL (3.5-5.2); Alkaline Phosphatase 117 U/L (35-105); Anion Gap 16.3 (5-19); Aspartate Amino Transferase 54 U/L (0-32); Blood Urea Nitrogen 41 mg/dL (6-20); Calcium 8.5 mg/dL (8.5-10.5); Carbon Dioxide 15 mmol/L (22-29); Chloride 109 mmol/L (98-107); Ferritin 507 ng/mL (15-150); Globulin 2.7 g/dL (1.3-4.6); Glucose 130 mg/dL (65-115); Iron 64 ug/dL (37-145); Osmolality Calculated 294 mOsm/kg (285-295); Potassium 4.3 mmol/L (3.5-5.1); Sodium 136 mmol/L (136-145); Total Iron Binding Capacity 220 mcg/dl; Total Protein 6.6 g/dL (6.6-8.7); Unsaturated Iron Binding 156 ug/dL (112-347)
== END 2025-06-24 23:59 | disposition home or self-care (01) ==
PROVIDERS: PCP Nurse Practitioner Family; Visit Provider Nurse Practitioner Family
DX: D64.9 Anemia, unspecified (principal); Z87.891 Personal history of nicotine dependence; Z79.899 Other long term (current) drug therapy
CPT/HCPCS: 80053; 82728; 83540; 83550; 85025; 97597; 99213; A6212

== ENCOUNTER → 2025-06-24 12:38 | Outpatient (BNVA) | payer MEDICARE, SELFPAY | PROVIDERS: PCP Nurse Practitioner Family; Visit Provider Thoracic Surgery (Cardiothoracic Vascular Surgery) | DX: E11.52 Type 2 diabetes mellitus with diabetic peripheral angiopathy with gangrene (principal); E11.621 Type 2 diabetes mellitus with foot ulcer; L97.311 Non-pressure chronic ulcer of right ankle limited to breakdown of skin | CPT/HCPCS: 97597; A6219 ==